=== PATIENT | male | born 1960 | race Caucasian/White ===

== ENCOUNTER → 2018-01-11 11:40 | Outpatient (CLI) | payer MEDICARE, BC, SELFPAY ==
--- NOTE | 2018-01-11 11:48 | XR_ITS ---
XR KUB CLINICAL INDICATION: ITS.REASON: LUQ PAIN ORDERING PHYSICIAN: DANIEL Corrigan PATIENT AGE: 57 years COMPARISON: None FINDINGS: Nonspecific nonobstructive bowel gas pattern. No urolithiasis or acute bony anomalies IMPRESSION: No acute finding
--- NOTE | 2018-01-11 11:48 | XR_ITS ---
XR chest 2V HISTORY: Left-sided pain ITS.REASON: LUQ PAIN ORDERING PHYSICIAN: DANIEL Corrigan PATIENT AGE: 57 years COMPARISON: 10-23 FINDINGS: Prior median sternotomy. Cardiac pacemaker device is present. Prior left atrial clipping. Borderline cardiomegaly without failure. Lungs are clear of acute infiltrate. No acute bony anomalies. IMPRESSION: Borderline cardiomegaly without failure with postsurgical changes, no acute finding
== END ==
PROVIDERS: PCP Family Medicine; Visit Provider Physician Assistant
DX: R10.11 Right upper quadrant pain (principal)
CPT/HCPCS: 71046; 74018

== ENCOUNTER → 2018-02-23 10:45 | Outpatient (CLI) | payer MEDICARE, BC, SELFPAY ==
--- NOTE | 2018-02-23 10:49 | NM_ITS ---
History and Indications: Coronary artery disease, history of [place], bypass, obesity, hypertension, diabetes, family history chest pain and shortness of breath Procedure: Patient received a 0.4 mg of Lexiscan, resting heart rate was 77, resting blood pressure 133/73, with Lexiscan maximum heart rate achieved was 90 bpm which is less than 85% of the maximum predicted heart rate and a blood pressure was 123/65. With Lexiscan patient complained shortness of breath. Electrocardiogram: Resting electrocardiogram showed sinus rhythm left atrial enlargement, inferior and lateral ST-T wave changes consider subendocardial ischemia, with Lexiscan less than 1.[address] segment depression noted from the baseline EKG. The EKG portion of the Lexiscan Myoview is nondiagnostic. Cardiac stress and resting SPECT images: Cardiac stress and rest SPECT images were obtained using technetium 99 Myoview 30.6 mCi at stress and 10.7 mCi at rest, gated SPECT further analysis of segmental wall motion and calculation of the ejection fraction also done. Cardiac stress and rest images show a fixed defect involving the inferior and posterobasal wall with normal contractility in the gated SPECT is likely secondary to soft tissue attenuation, no reversible ischemia seen. Computer derived ejection fraction is 44% abnormality, right ventricle is mildly enlarged with normal contractility. Conclusion: 1. The EKG portion of the Lexiscan Myoview is nondiagnostic. 2. No obvious scintigraphic evidence of reversible ischemia seen, computer derived ejection fraction 44% with no obvious regional wall motion abnormality, right ventricle is mildly enlarged with normal contractility.
--- NOTE | 2018-02-23 13:37 | HMH.ITSHM ---
symbicort ventolin b-12 sinemet warfarin klor-con simvastatin baclofen protonix plaquenil furosemide metoprolol diflunisal keppra calcium loratatdine megnesium cymbalta tamsulosin metformin nitroglycerin oxybutynin verapamil jardiance
== END ==
PROVIDERS: Family Provider Family Medicine; PCP Family Medicine; Visit Provider Internal Medicine
DX: R07.9 Chest pain, unspecified (principal); R06.00 Dyspnea, unspecified; E78.5 Hyperlipidemia, unspecified; I25.10 Atherosclerotic heart disease of native coronary artery without angina pectoris; G47.33 Obstructive sleep apnea (adult) (pediatric); E66.01 Morbid (severe) obesity due to excess calories; Z95.0 Presence of cardiac pacemaker; E11.9 Type 2 diabetes mellitus without complications; I11.0 Hypertensive heart disease with heart failure
CPT/HCPCS: 78452; 93017; A9502; J2785

== ENCOUNTER → 2018-07-26 10:16 | Outpatient (CLI) | payer MEDICARE, BC, SELFPAY ==
[2018-07-26 11:38] LABS: Alanine Aminotransferase 13 U/L (12-78); Albumin Level 3.7 gm/dL (3.4-5.0); Alkaline Phosphatase 101 U/L (46-116); Aspartate Amino Transferase 13 U/L (15-37); Bilirubin,Direct 0.1 mg/dL (0.0-0.2); Bilirubin,Indirect 0.5 mg/dL (0.0-0.9); Bilirubin,Total 0.6 mg/dL (0.2-1.0); Total Protein,Serum 7.7 gm/dL (6.4-8.2)
== END ==
PROVIDERS: Family Provider Family Medicine; PCP Family Medicine; Visit Provider Urology
DX: E11.9 Type 2 diabetes mellitus without complications (principal); E66.01 Morbid (severe) obesity due to excess calories; E78.4 Other hyperlipidemia; I11.0 Hypertensive heart disease with heart failure; I25.10 Atherosclerotic heart disease of native coronary artery without angina pectoris; I42.9 Cardiomyopathy, unspecified; R06.00 Dyspnea, unspecified; R55 Syncope and collapse; R60.0 Localized edema; Z95.0 Presence of cardiac pacemaker
CPT/HCPCS: 36415; 80076

== ENCOUNTER → 2018-08-02 09:48 | Outpatient (CLI) | payer MEDICARE, BC, SELFPAY ==
--- NOTE | 2018-08-02 09:50 | CT_ITS ---
CT head/brain wo/w con HISTORY: ITS.REASON: syncope ORDERING PHYSICIAN: Claudy Cárdenas MD PATIENT AGE: 57 years COMPARISON: None TECHNIQUE: Axial images obtained without and with contrast. 100 mL Isovue 300 utilized Contrast. Brain and bone windows reviewed. All CT scans at the facility use one or more dose reduction, viz: automated exposure control, ma/kV adjustment per patient size (including targeted exams where dose is matched to indication, i.e. head), or iterative reconstruction technique. FINDINGS: No midline shift, mass effect, intracranial hemorrhage, hydrocephalus, or extra-axial fluid collection is evident. No enhancing lesions are evident. No intra or extra-axial mass The calvarium has an unremarkable appearance. No mastoid effusion. No sinus air-fluid levels.. IMPRESSION: Negative CT head without and with contrast. No acute finding
[2018-08-02 10:22] LABS: Blood Urea Nitrogen 19 mg/dL (7-18); Creatinine,Serum 0.99 mg/dL (0.70-1.30); Estimated Glomerular Filt Rate 78 ml/min (>60); GFR (African American) 95 ML/MIN (>60)
== END ==
PROVIDERS: Family Provider Family Medicine; PCP Family Medicine; Visit Provider Internal Medicine
DX: R55 Syncope and collapse; E11.9 Type 2 diabetes mellitus without complications; E66.01 Morbid (severe) obesity due to excess calories; E78.4 Other hyperlipidemia; G47.33 Obstructive sleep apnea (adult) (pediatric); I11.0 Hypertensive heart disease with heart failure; I20.8 Other forms of angina pectoris; I42.9 Cardiomyopathy, unspecified; R06.00 Dyspnea, unspecified; R60.0 Localized edema; Z95.0 Presence of cardiac pacemaker
CPT/HCPCS: 36415; 70470; 82565; 84520; Q9967

== ENCOUNTER → 2018-09-06 08:40 | Outpatient (POV) | payer MEDICARE, BC, SELFPAY | PROVIDERS: Visit Provider Dermatology | DX: Z00.00 Encounter for general adult medical examination without abnormal findings (principal) ==

== ENCOUNTER → 2018-10-03 09:36 | Outpatient (CLI) | payer MEDICARE, BC, SELFPAY ==
--- NOTE | 2018-10-03 09:40 | XR_ITS ---
XR knee RT 4V HISTORY: Knee pain ITS.REASON: weightbearing ORDERING PHYSICIAN: Shaina Reyes MD PATIENT AGE: 58 years COMPARISON: 02/10/2012 FINDINGS: There are jikl-nv-mrpledug osteoarthritic changes involving all 3 compartments with decrease in the joint spaces and osteophyte formation. No acute fracture or dislocation is evident. The osteoarthritis has progressed compared to the previous exam. No lytic or blastic change. IMPRESSION: Osteoarthritis involving all 3 compartments has progressed compared to the previous exam
== END ==
PROVIDERS: PCP Family Medicine; Visit Provider Orthopaedic Surgery
DX: M25.561 Pain in right knee (principal)
CPT/HCPCS: 73564

== ENCOUNTER → 2018-11-17 09:07 | Outpatient (CLI) | payer MEDICARE, BC, SELFPAY ==
--- NOTE | 2018-11-17 09:11 | NVE_ITS ---
Venous Exam Indications: 729.5 Pain in limb. IMPRESSIONS 1. There is no evidence of significant Reflux. 2. Deep vein thrombosis involving the Left gastrocnemius History: PMH: Deep vein thrombosis. Complete lower extremity venous duplex evaluation. Doppler flow study including spectral analysis, color and longo scale imaging. Location: Vascular laboratory. Patient status: Outpatient. CRITICAL FINDINGS - Reported to: ELIZABETH SALCEDO - Read back and verified. - 11/17/18 - 1015 - DVT LEFT CALF Tables: Venous flow and imaging: + + + + Location Overall Flow properties + + + + Right common femoral Patent Normal phasicity; spontaneous; normal augmentation; compressible + + + + Right saphenofemoral Patent Compressible junction + + + + Right profunda femoral Patent Compressible + + + + Right femoral Patent Normal phasicity; spontaneous; normal augmentation; compressible; no reflux + + + + Right greater saphenous Patent Normal phasicity; spontaneous; normal augmentation; compressible + + + + Right popliteal Patent Normal phasicity; spontaneous; normal augmentation; compressible + + + + Right posterior tibial Patent Compressible + + + + Right peroneal Patent Compressible + + + + Right gastrocnemius Partially compressible + + + + Right soleal Patent Compressible + + + + Left common femoral Patent Normal phasicity; spontaneous; normal augmentation; compressible +-----
--- NOTE | 2018-11-17 09:11 | CA_ITS ---
PROCEDURE: 2-D M-mode and color Doppler study INDICATIONS FOR THE TEST: Chest painX COPD Heart Murmur Tobacco Smoking Palpitations Fatigue Syncope Edema HypertensionXDiabetes MellitusX Rheumatic Fever SOBXDOEXObesityXHyperlipidemiaX Family History HD Additional History CAD,CM,PPM,CHRISTY,CABG TDS OBESITY PATIENT INFORMATION HEIGHT: 74 WEIGHT:331 GENDER: Male B/P:138/74 2-D/M-MODE INTERPRETATION: 2-D MEASUREMENTS OBSERVED VALUES IN CMS Right Ventricular Dimension (RVDd) 3.5 Interventricular Septum (Thickness)(IVsd) .9 Left Ventricular Internal Dimensions(LVIDd) 6.2 Left Ventricular Posterior Wall (Thickness)(LVPWd) .9 Aortic Root 3.1 Aortic Cusp Separation 1.5 Left Atrial Dimensions (LAD) 4.7 2D 1. Technically very difficult study because of the patient's factor and poor acoustic window, repeat study with Definity contrast is recommended. 2. The left atrium is mildly enlarged, left ventricle is mildly dilated, probably ejection fraction approximately 40%, endocardial surface of very poorly visualized, a repeat study with Definity contrast is recommended. 3. The right atrium and right ventricle are mildly enlarged with normal contractility, there is an AICD lead seen in the right ventricle. 4. The aortic valve is minimally thickened and fibrosed. 5. The mitral and tricuspid valvular grossly normal. 6. The pulmonic valve is poorly visualized. 7. No significant pericardial effusion noted. DOPPLER INTERROGATION: Doppler interrogation of the aortic, mitral and tricuspid valvular presence of mild mitral and tricuspid regurgitation, tricuspid regurgitation jet velocity is inadequate for calculation of the right ventricular systolic pressure, diastolic parameters are inconclusive. CONCLUSION: 1. Technically very difficult study because of the patient's factor and poor acoustic windows, repeat study with Definity contrast is recommended. 2. Mildly enlarged left atrium, left ventricle is mildly dilated, probably ejection fraction is approximately 40%, endocardial subsequent poorly visualized, a repeat study with Definity contrast is recommended. Diastolic parameters are inconclusive. 3. Mild mitral and tricuspid regurgitation 4. No significant pericardial effusion noted.
== END ==
PROVIDERS: PCP Family Medicine; Visit Provider Internal Medicine
DX: I20.8 Other forms of angina pectoris; I11.9 Hypertensive heart disease without heart failure; E11.9 Type 2 diabetes mellitus without complications; E66.01 Morbid (severe) obesity due to excess calories; E78.5 Hyperlipidemia, unspecified; G47.33 Obstructive sleep apnea (adult) (pediatric); I42.9 Cardiomyopathy, unspecified; R06.00 Dyspnea, unspecified; R60.0 Localized edema; Z86.711 Personal history of pulmonary embolism; Z86.718 Personal history of other venous thrombosis and embolism; Z95.0 Presence of cardiac pacemaker
CPT/HCPCS: 93306; 93970

== ENCOUNTER → 2019-01-27 09:58 | Outpatient (CLI) | payer MEDICARE, BC, SELFPAY ==
--- NOTE | 2019-01-27 10:03 | XR_ITS ---
XR knee LT 3V HISTORY: ITS.REASON: ACUTE LT KNEE PAIN ORDERING PHYSICIAN: DANIEL Corrigan PATIENT AGE: 58 years COMPARISON: None FINDINGS: There are moderate osteoarthritic changes of the medial compartment and patellofemoral joint with mild osteoarthritis of the lateral compartment. No fracture or dislocation. No lytic or blastic change. IMPRESSION: Moderate osteoarthritis
== END ==
PROVIDERS: PCP Family Medicine; Visit Provider Physician Assistant
DX: M25.562 Pain in left knee (principal)
CPT/HCPCS: 73562

== ENCOUNTER → 2019-02-22 08:39 | Outpatient (CLI) | payer MEDICARE, BC, SELFPAY ==
--- NOTE | 2019-02-22 08:42 | XR_ITS ---
XR knee LT 4V HISTORY: Chronic knee pain ITS.REASON: ap, lateral, sunrise, luna weight bearing ORDERING PHYSICIAN: Shaina Reyes MD PATIENT AGE: 58 years COMPARISON: 01/27/2019 FINDINGS: There are moderate osteoarthritic changes involving all 3 compartments with osteophyte formation and decrease in the joint spaces. No fracture or dislocation. No lytic or blastic change. No significant change from the previous study. IMPRESSION: Moderate osteoarthritis of the knee
== END ==
PROVIDERS: PCP Family Medicine; Visit Provider Orthopaedic Surgery
DX: M25.562 Pain in left knee (principal)
CPT/HCPCS: 73564

== ENCOUNTER → 2019-08-28 08:32 | Outpatient (CLI) | payer MEDICARE, BC, SELFPAY ==
--- NOTE | 2019-08-28 08:34 | CA_ITS ---
APPROVED REPORT Commercial Housekeeper: Elsie Pineda RVT Laterality: Bilateral Study Quality: Good Indications: dizziness, near syncope Risk Factors Hypertension: Diabetes Diabetes, Doppler Spectral Velocity Analysis ECA (R) 107.20/ cm/s ECA (L) 74.10/ cm/s dICA (R) 51.30/15.70 cm/s dICA (L) 41.40/12.00 cm/s Megan (R) 66.10/15.60 cm/s Megan (L) 54.50/14.50 cm/s pICA (R) 107.60/13.80 cm/s pICA (L) 48.00/12.80 cm/s dCCA (R) 67.30/12.00 cm/s dCCA (L) 81.50/15.90 cm/s pCCA (R) 95.70/16.70 cm/s pCCA (L) 70.60/14.90 cm/s Vert (R) 32.20/5.90 cm/s Vert (L) 22.90/ cm/s ICA/CCA 1.59 ICA/CCA 0.66 Findings Study suggests less than 20% stenosis of the right internal carotid artery. Study suggests less than 20% stenosis of the left internal carotid artery . Antegrade flow seen bilateral vertebral arteries. Conclusion Study suggests less than 20% stenosis of the right internal carotid artery. Study suggests less than 20% stenosis of the left internal carotid artery . Antegrade flow seen bilateral vertebral arteries. Electronically signed by : Jerardo Holbrook MD 09/01/2019 07:34:14
--- NOTE | 2019-08-28 08:34 | CA_ITS ---
[facility] RADIOLOGICAL CONSULTATION Patient Name : RADHA HAWTHORNE X-RAY # : [id number] Physician: ELIZABETH SALCEDO AGE: 59Y : 1960 00:00:00 ( M ) Exam : CA ECHO DOPPLER COMPLETE ACC # : [id number] Study Date : 08/28/2019 09:31:50 Patient Class : O FINAL REPORT CLINICAL DATA: FINDINGS: TRANSCRIBED REPORT EXAM: Comprehensive 2D, Doppler, and color-flow Echocardiogram Venetian Blind Maker: Elsie Pineda RVT Ht: 6 ft 2 in Wt: 330lbs BSA: 2.69 BP: 118/72 mmHg Indications: Atrial Fibrillation, Obesity, Dyspnea, CAD, Cardiomyopathy, Hypertension,CHRISTY 2D Dimensions LVOT 1.98 cm (M/F) 1.5-2.5 M-Mode Dimensions RVDd 2.73 cm (0.9-2.6) LVDd 7.46 cm (3.5-5.7) LVDs 5.82 cm (3.5-5.7) IVSd 0.72 cm (0.6-1.1) PWd 0.72 cm (0.6-1.1) EF (Teich) 33.70% FS 16.60% EDV (Teich) 294.70 mL ESV (Teich) 199.53 mL LV Diastology E/A Ratio 1.30 Mitral Valve MV A Velocity 36.00 (40-130 cm/s) Electronically signed by : IMPRESSION: Dictated by at Transcribed by at
== END ==
PROVIDERS: PCP Family Medicine; Visit Provider Physician Assistant
DX: R42 Dizziness and giddiness (principal); R06.09 Other forms of dyspnea
CPT/HCPCS: 93306; 93880; Q9957

== ENCOUNTER → 2020-02-28 09:38 | Outpatient (CLI) | payer MEDICARE, BC, SELFPAY ==
[2020-02-28 12:19] LABS: Blood Urea Nitrogen 17 mg/dl (9-20); Estimated Glomerular Filt Rate 99 ml/min (>60); GFR (African American) 120 ML/MIN (>60)
== END ==
PROVIDERS: Visit Provider Physician Assistant
DX: R10.31 Right lower quadrant pain (principal)
CPT/HCPCS: 36415; 82565; 84520

== ENCOUNTER → 2020-02-29 08:42 | Outpatient (CLI) | payer MEDICARE, BC, SELFPAY ==
--- NOTE | 2020-02-29 08:49 | CT_ITS ---
PROCEDURE: CT ABDOMEN PELVIS W CON CLINICAL INDICATION: ABD PAIN Right lower quadrant pain COMPARISON: ABDPELW CT ABD PELVIS W/ CONTRAST from 11/19/2015 TECHNIQUE: IV Contrast: 75ML OPTIRAY 350 Oral Contrast none Axial images obtained with sagittal and coronal reformats. All CT scans at the facility use one or more dose reduction, viz: automated exposure control, ma/kV adjustment per patient size (including targeted exams where dose is matched to indication, i.e. head), or iterative reconstruction technique. FINDINGS: LOWER THORAX: No acute finding ABDOMEN & PELVIS: The liver, spleen, adrenal glands, and pancreas have an unremarkable appearance. There is a 2 cm exophytic left renal nodule superiorly consistent with a renal cyst which could be confirmed with ultrasound if clinically warranted. Small exophytic cyst noted along the lower pole of the right kidney at 1 cm and an additional exophytic isodense the along the medial aspect of the left kidney at 1.9 cm. No intestinal obstruction or free air. There is a small umbilical hernia which contains fat. No evidence of appendicitis or diverticulitis. No acute bony anomaly. There are degenerative changes of the thoracic lumbar spine with mild chronic wedging of T12. A IMPRESSION: 1. No acute abdominal or pelvic findings. 2. Bilateral renal hypodensities which may be due to renal cyst and may be confirmed with ultrasound. These are more prominent on the left than when compared to 11/19/2015. Dictated by: Jerardo Holbrook MD 03/01/2020 11:03 Electronically signed by Jerardo Holbrook MD in [place] 03/01/2020 11:03
== END ==
PROVIDERS: PCP Family Medicine; Visit Provider Physician Assistant
DX: R10.31 Right lower quadrant pain (principal)
CPT/HCPCS: 74177; Q9967

== ENCOUNTER → 2020-03-14 09:13 | Outpatient (CLI) | payer MEDICARE, BC, SELFPAY ==
--- NOTE | 2020-03-14 09:20 | XR_ITS ---
PROCEDURE: XR KNEE RT 4V CLINICAL INDICATION: knee pain COMPARISON: [id number] XR knee RT 4V from 10/03/2018 [id number] XR knee LT 3V from 01/27/2019 [id number] XR knee LT 4V from 02/22/2019 FINDINGS: No fracture or dislocation. No lytic or blastic change. There is normal mineralization. There are moderate to severe osteoarthritic changes of the right knee involving all 3 compartments. There is mild lateral tibial subluxation of 6 mm. No acute fracture or dislocation is evident. Other findings:None. IMPRESSION: Moderate to severe osteoarthritis which is slightly progressed Dictated by: Jerardo Holbrook MD 03/15/2020 14:26 Electronically signed by Jerardo Holbrook MD in [place] 03/15/2020 14:26
--- NOTE | 2020-03-14 09:20 | XR_ITS ---
PROCEDURE: XR KNEE LT 4V CLINICAL INDICATION: knee pain COMPARISON: [id number] XR knee RT 4V from 10/03/2018 [id number] XR knee LT 3V from 01/27/2019 [id number] XR knee LT 4V from 02/22/2019 FINDINGS: No fracture or dislocation. No lytic or blastic change. There is normal mineralization. There are moderate osteoarthritic changes involving all 3 compartments. These findings may have slightly progressed compared to the previous exam. There is mild tibial subluxation laterally of 5 mm. IMPRESSION: Moderate tricompartmental osteoarthritis slightly worse from the previous exam Dictated by: Jerardo Holbrook MD 03/15/2020 13:57 Electronically signed by Jerardo Holbrook MD in [place] 03/15/2020 13:57
== END ==
PROVIDERS: PCP Family Medicine; Visit Provider Orthopaedic Surgery
DX: M17.0 Bilateral primary osteoarthritis of knee (principal)
CPT/HCPCS: 73564

== ENCOUNTER → 2020-03-25 10:25 | Outpatient (CLI) | payer MEDICARE, BC, SELFPAY ==
--- NOTE | 2020-03-25 10:46 | XR_ITS ---
PROCEDURE: XR CHEST 2V CLINICAL HISTORY: pre-op exam Heart disease, history of pacemaker, hypertension COMPARISON: CXR1 CHEST-PORTABLE from 10/09/2016 CXR2V XR chest 2V from 01/11/2018 [id number] XR chest portable from 11/01/2018 FINDINGS: Prior median sternotomy. Bipolar pacemaker is present in there is a atrial appendage clip present. Borderline cardiomegaly without failure. No lobar consolidation or collapse. There is some pleural thickening in the right mid upper lung zone laterally which is chronic. No acute bony abnormalities. IMPRESSION: No acute findings. Dictated by: Jerardo Holbrook MD 03/25/2020 11:49 Electronically signed by Jerardo Holbrook MD in [place] 03/25/2020 11:49
[2020-03-25 11:04] LABS: Basophils % 0.4 % (0.1-2.0); Eosinophils # 0.1 K/mm3 (0.0-0.4); Eosinophils % 1.6 % (0.1-12.0); Hematocrit 44.8 % (42.0-52.0); Hemoglobin 14.7 g/dL (14.1-18.0); Lymphocytes # 1.5 K/mm3 (0.7-4.5); Lymphocytes % 23.3 % (10-50); Mean Corpuscular HGB Conc 32.7 g/dL (31.8-35.4); Mean Corpuscular Hemoglobin 27.4 pg (27.0-31.2); Mean Corpuscular Volume 83.8 fl (80-94); Monocytes # 0.5 K/mm3 (0.1-1.0); Monocytes % 7.8 % (1.7-9.3); Neutrophils # 4.3 K/mm3 (1.8-7.8); Neutrophils % 66.8 % (37.0-80.0); Platelet Count 210 K/mm3 (142-424); Red Blood Count 5.35 M/mm3 (4.60-6.20); White Blood Count 6.4 K/mm3 (4.8-10.8)
--- NOTE | 2020-03-25 11:19 | ECG_ITS ---
APPROVED REPORT Exam: Resting ECG HR:75 bpm ECG Measurements Heart Rate 75 AXES NE 172 P 88 QRSd 108 QRS 82 QT 410 T -56 QTc 457 <Conclusion> Electronic atrial pacemaker ST & T wave abnormality, consider inferior and anterolateral ischemia Abnormal ECG Electronically signed by : Jcarlos Padilla, 03/25/2020 11:40:29
[2020-03-25 11:37] LABS: Alanine Aminotransferase 12 U/L (12-78); Albumin Level 4.2 g/dl (3.5-5.0); Albumin/Globulin Ratio 1.8 (1.1-1.8); Alkaline Phosphatase 71 U/L (38-126); Anion Gap 10.3 mEq/L (5-15); Aspartate Amino Transferase 28 U/L (17-59); Bilirubin,Total 0.6 mg/dl (0.2-1.3); Blood Urea Nitrogen 17 mg/dl (9-20); Calcium 9.2 mg/dl (8.4-10.2); Carbon Dioxide 25 mmol/L (22.0-30.0); Chloride 107 mmol/L (98-107); Estimated Glomerular Filt Rate 87 ml/min (>60); GFR (African American) 105 ML/MIN (>60); Globulin 2.3 g/dL (1.3-3.2); Glucose 132 mg/dl (74-100); Potassium 4.3 mmoL/L (3.5-5.1); Sodium 138 mmol/L (136-145); Total Protein,Serum 6.5 g/dl (6.3-8.2)
== END ==
LOC: LAB 10:25 → RT 10:42
PROVIDERS: PCP Family Medicine; Visit Provider Orthopaedic Surgery
DX: R07.89 Other chest pain (principal); Z01.818 Encounter for other preprocedural examination; E11.9 Type 2 diabetes mellitus without complications; Z79.84 Long term (current) use of oral hypoglycemic drugs
CPT/HCPCS: 36415; 71046; 80053; 85025; 87081; 93005

== ENCOUNTER → 2020-05-09 09:31 | Day surgery (SDC) | payer MEDICARE, BC, SELFPAY ==
[2020-05-09] VITALS (11 sets, daily range): BP systolic 108–161; BP diastolic 37–99; PULSE 75–77; RESP 16–20; O2SAT 92–98; BMI 41.1
[2020-05-09 10:21] LABS: Basophils % 0.3 % (0.1-2.0); Eosinophils # 0.1 K/mm3 (0.0-0.4); Eosinophils % 1.6 % (0.1-12.0); Hematocrit 48.1 % (42.0-52.0); Hemoglobin 15.8 g/dL (14.1-18.0); Lymphocytes # 1.8 K/mm3 (0.7-4.5); Lymphocytes % 21.4 % (10-50); Mean Corpuscular HGB Conc 32.9 g/dL (31.8-35.4); Mean Corpuscular Hemoglobin 28.9 pg (27.0-31.2); Mean Corpuscular Volume 87.9 fl (80-94); Mean Platelet Volume 7.4 fl (7.4-10.4); Monocytes # 0.5 K/mm3 (0.1-1.0); Monocytes % 5.4 % (1.7-9.3); Neutrophils % 71.4 % (37.0-80.0); Platelet Count 181 K/mm3 (142-424); Red Blood Count 5.47 M/mm3 (4.60-6.20); Red Cell Distribution Width 14.3 % (11.5-17.5); White Blood Count 8.3 K/mm3 (4.8-10.8)
[2020-05-09 10:24] LABS: Chloride 105 mmol/L (98-107); Potassium 4.5 mmoL/L (3.5-5.1); Sodium 141 mmol/L (136-145)
[2020-05-09 10:27] LABS: Anion Gap 11.5 mEq/L (5-15); Blood Urea Nitrogen 29 mg/dl (9-20); Carbon Dioxide 29 mmol/L (22.0-30.0); Creatinine Clearance Estimated 184 mL/min (50-200); Estimated Glomerular Filt Rate 87 ml/min (>60); GFR (African American) 105 ML/MIN (>60)
[2020-05-09 10:28] LABS: Calcium 9.1 mg/dl (8.4-10.2); Glucose 132 mg/dl (74-100)
[2020-05-09 10:30] LABS: INR 2.86 (0.9-1.1); Prothrombin Time 27.5 seconds (9.4-11.8)
--- NOTE | 2020-05-09 10:30 | IR_ITS ---
APPROVED REPORT Patient Location: Outpatient PROCEDURES Left heart catheterization Left ventriculogram Selective coronary angiogram FFR to the LAD Drug-eluting stent deployment from the ostium through the proximal segment into the mid LAD in a contiguous manner INDICATION Coronary artery disease, Angina pectoris, Ischemic response to adenosine 0.71 Informed consent was obtained prior to the procedure. COMPLICATIONS NONE Estimated Blood Loss: LESS THAN 10 ML TECHNIQUE One percent lidocaine used to anesthetize the right anterior aspect of the wrist. The right radial artery was accessed via the Seldinger technique. A 6 Irish sheath was placed in the right radial artery. 2.5 mg of verapamil, 800 mcg of nitroglycerin, 1mg Lidocaine and 5000 U Heparin were given through the arterial sheath. The trap catheter was also used to perform left heart catheterization, left ventriculogram and selective coronary angiogram. 14,000 units of heparin was administered intravenously giving a therapeutic ACT and a Ladarius catheter was placed in the ascending aorta. An FFR wire was normalized and then used to traverse the stenosis in the LAD. Adenosine was infused and the FFR index dropped to 0.71. The adenosine was then immediately stopped. Following this a 3 mm x 38 mm resolute david stent was deployed at 16 katia in the mid LAD. An additional 3 mm x 22 mm resolute david stent was placed in the ostial proximal segment yet still overlapping the proximal aspect of the first stent placed and deployed at 20 katia. DARIN-3 flow was present before and after the procedure. At the end of the procedure the apparatus was removed the sheath was removed good hemostasis was achieved using TR banding patient was transferred to the postop holding her stable condition. ANGIOGRAPHIC RESULTS The left main artery Normal The left anterior descending artery Has proximal 50% stenosis followed by mid vessel 50% stenosed The circumflex artery Is a nondominant yet still large vessel with mid vessel 20% stenosis The right coronary artery Is a dominant vessel and has mid vessel 30 to 40% stenoses The GUADARRAMA ventriculogram reveals Preserved 55% The left ventricular end-diastolic pressure 20 mmHg IMPRESSION Angiographically moderate yet hemodynamically severe proximal and mid LAD disease Successful stenting of the ostial proximal mid LAD in a contiguous manner hemodynamically severe disease reduced to 0% with 2 drug-eluting stents Preserved ejection fraction Elevated LVEDP PLAN 1. Aspirin Plavix and Coumadin for 1 month then discontinue aspirin 2. Cardiac rehabilitation 3. Avoidance of tobacco products 4. Cardiac rehabilitation 5. LDL less than 55 Electronically signed by : Claudy Cárdenas, 05/09/2020 13:32:32
--- NOTE | 2020-05-09 13:53 | SUR.PHASEII ---
PATIENT BLOOD PRESSURE UNABLE TO TOLERATE ANY NEW MEDICATIONS, DIONNE/ARB NOT NECESSARY AT THIS TIME PER MD.
--- NOTE | 2020-05-09 14:37 | HMH.PHACLD ---
Nghia Montalvo has received discharge medication counseling on the following medications: CONTINUED MEDICATIONS: NADOLOL, PLAVIX, LIPITOR NEW MEDICATIONS: ASPRIN X 1 MONTH (PATIENT ALSO ON WARFARIN) MD DOES NOT WANT TO START DIONNE/ARB AT THIS TIME. DOCUMENTED IN NOTE AND ON CHECKLIST.
[2020-05-09 15:01] LABS: CATHL Activated Clotting Time > 400 SEC (74-125)
== END ==
PROVIDERS: PCP Family Medicine; Visit Provider Internal Medicine
DX: E11.9 Type 2 diabetes mellitus without complications (principal); E66.01 Morbid (severe) obesity due to excess calories; E78.2 Mixed hyperlipidemia; G47.33 Obstructive sleep apnea (adult) (pediatric); I11.0 Hypertensive heart disease with heart failure; I25.118 Atherosclerotic heart disease of native coronary artery with other forms of angina pectoris; I42.9 Cardiomyopathy, unspecified; R94.31 Abnormal electrocardiogram [ECG] [EKG]; Z95.0 Presence of cardiac pacemaker; Z68.41 Body mass index [BMI] 40.0-44.9, adult; I48.91 Unspecified atrial fibrillation; J44.9 Chronic obstructive pulmonary disease, unspecified; I25.2 Old myocardial infarction; Z79.01 Long term (current) use of anticoagulants; Z79.84 Long term (current) use of oral hypoglycemic drugs; Z79.51 Long term (current) use of inhaled steroids; Z79.82 Long term (current) use of aspirin; Z79.899 Other long term (current) drug therapy; I50.9 Heart failure, unspecified
CPT/HCPCS: 80048; 85025; 85347; 85610; 92928; 93306; 93458; 93571; 99152; 99153; C1725; C1769; C1876; C9600; J0153; J1644; Q9967

== ENCOUNTER → 2020-05-23 16:04 | Outpatient (CLI) | payer MEDICARE, BC, SELFPAY ==
--- NOTE | 2020-05-23 | XR_ITS ---
PROCEDURE: XR CHEST AP CLINICAL INDICATION: Cough, possible covid, COPD COMPARISON: CXR2V XR chest 2V from 01/11/2018 CXR1VP XR chest portable from 11/01/2018 XR CHEST 2V from 03/25/2020 FINDINGS: Mild cardiomegaly without failure. Prior CABG. Bipolar pacemaker is present from the left subclavian approach. Prior left aortic appendage clipping. The lungs are clear. IMPRESSION: As above, no change with no acute finding Dictated by: Jerardo Holbrook MD 05/23/2020 20:23 Electronically signed by Jerardo Holbrook MD in [place] 05/23/2020 20:23
[2020-05-23 16:36] LABS: Basophils % 0.2 % (0.1-2.0); Eosinophils # 0.1 K/mm3 (0.0-0.4); Eosinophils % 1.6 % (0.1-12.0); Hematocrit 42.4 % (42.0-52.0); Hemoglobin 14.3 g/dL (14.1-18.0); Lymphocytes # 1.1 K/mm3 (0.7-4.5); Mean Corpuscular HGB Conc 33.6 g/dL (31.8-35.4); Mean Corpuscular Hemoglobin 28.8 pg (27.0-31.2); Mean Corpuscular Volume 85.7 fl (80-94); Monocytes # 0.3 K/mm3 (0.1-1.0); Monocytes % 6.9 % (1.7-9.3); Neutrophils # 3.2 K/mm3 (1.8-7.8); Neutrophils % 68.3 % (37.0-80.0); Platelet Count 181 K/mm3 (142-424); Red Blood Count 4.95 M/mm3 (4.60-6.20); Red Cell Distribution Width 14.4 % (11.5-17.5); White Blood Count 4.6 K/mm3 (4.8-10.8)
[2020-05-25 12:58] LABS: Covid-19 Nasal PCR Sendout Lex POSITIVE
== END ==
PROVIDERS: PCP Physician Assistant; Visit Provider Physician Assistant
DX: U07.1 COVID-19 (principal); R05 Cough
CPT/HCPCS: 36415; 71045; 85025; U0004

== ENCOUNTER → 2020-06-13 14:34 | Outpatient (CLI) | payer MEDICARE, BC, SELFPAY | PROVIDERS: PCP Physician Assistant; Visit Provider Physician Assistant | DX: U07.1 COVID-19 (principal) | CPT/HCPCS: U0003 ==

== ENCOUNTER → 2020-06-20 08:36 | Outpatient (CLI) | payer MEDICARE, BC, SELFPAY | PROVIDERS: PCP Physician Assistant; Visit Provider Physician Assistant | DX: Z20.828 Contact with and (suspected) exposure to other viral communicable diseases (principal); U07.1 COVID-19 | CPT/HCPCS: U0003 ==

== ENCOUNTER → 2020-06-21 14:52 | Outpatient (CLI) | payer MEDICARE, BC, SELFPAY ==
[2020-06-21 16:08] LABS: INR 3.46 (0.9-1.1); Prothrombin Time 32.9 seconds (9.4-11.8)
[2020-06-21 18:34] LABS: Coronavirus 19 IgG Antibody Positive (Negative); Coronavirus 19 IgM Antibody Positive (Negative)
== END ==
PROVIDERS: PCP Physician Assistant; Visit Provider Physician Assistant
DX: Z20.828 Contact with and (suspected) exposure to other viral communicable diseases (principal); U07.1 COVID-19; Z51.81 Encounter for therapeutic drug level monitoring; Z79.01 Long term (current) use of anticoagulants
CPT/HCPCS: 85610; 86328

== ENCOUNTER → 2020-06-27 08:49 | Outpatient (CLI) | payer MEDICARE, BC, SELFPAY ==
[2020-06-29 09:51] LABS: Covid-19 Nasal PCR Sendout Lex Indeterminate
== END ==
PROVIDERS: PCP Physician Assistant; Visit Provider Physician Assistant
DX: Z03.818 Encounter for observation for suspected exposure to other biological agents ruled out (principal)
CPT/HCPCS: U0004

== ENCOUNTER → 2020-07-01 11:00 | Outpatient (CLI) | payer MEDICARE, BC, SELFPAY ==
[2020-07-02 15:48] LABS: Covid-19 Nasal PCR Sendout Lex POSITIVE
== END ==
PROVIDERS: PCP Physician Assistant; Visit Provider Physician Assistant
DX: Z20.828 Contact with and (suspected) exposure to other viral communicable diseases (principal); U07.1 COVID-19
CPT/HCPCS: U0004

== ENCOUNTER 2020-07-02 15:19 | Emergency (ER) | payer MEDICARE, BC, SELFPAY ==
--- NOTE | 2020-07-02 15:20 | ECG_ITS ---
APPROVED REPORT Exam: Resting ECG HR:77 bpm ECG Measurements Heart Rate 77 AXES AZ 146 P 47 QRSd 108 QRS 49 QT 394 T 78 QTc 445 <Conclusion> Normal sinus rhythm Nonspecific ST-T wave abnormalities Abnormal ECG Electronically signed by : Jcarlos Padilla, 07/03/2020 08:59:57
--- NOTE | 2020-07-02 15:26 | HMH.EDGENADL ---
ED Disposition Clinical Impression: Chest wall pain Disposition: Home, Self-Care Condition on Discharge: Good Instructions: DI for Atypical Chest Pain Additional Instructions: Tylenol as needed for pain. Follow-up with Dr. Cárdenas in the office, call for appointment. Additional instructions for CHEST PAIN: See your physician as soon as possible for further evaluation. Return immediately if worsening chest pain, vomiting, shortness of breath, fever, coughing of blood. Referrals: Provider,Referral, [Referring] - - Critical Care Critical Care Time: No Attestation: On , the high probability of a clinically significant, sudden or life threatening deterioration of the following system(s) required my full and direct attention, intervention and personal management. The time I documented below is in addition to time spent performing reported procedures but includes the following listed in this critical care notation. Medical Decision Making - Anthony Inquiry Pt receiving controlled substance: No Vital Signs: 07/02/20 15:30 07/02/20 15:35 07/02/20 17:38 Temperature 98.1 F 98.1 F Temperature Source Oral Oral Pulse Rate 85 Pulse Rate [Orthostatic Lying Right Radial] 76 Pulse Rate [Orthostatic Sitting Right Radial] 85 Pulse Rate [Orthostatic Standing Right Radial] 84 Pulse Rate [Right Radial] 74 Respiratory Rate 17 16 Blood Pressure 119/70 Blood Pressure [Orthostatic Lying Right Arm] 121/63 Blood Pressure [Orthostatic Sitting Right Arm] 129/70 Blood Pressure [Orthostatic Standing Right Arm] 122/67 Blood Pressure [Right Arm] 121/63 Blood Pressure Mean [Right Arm] 82 02 Sat by Pulse Oximetry 98 Oxygen Delivery Method Room Air Room Air - Lab Data Lab Results 07/02/20 15:32: WBC 7.5, RBC 5.38, Hgb 15.3, Hct 45.2, MCV 84.0, MCH 28.5, MCHC 34.0, RDW 14.9, Plt Count 186, MPV 7.7, Neut % (Auto) 68.4, Lymph % (Auto) 23.8, Daggett % (Auto) 4.5, Eos % (Auto) 3.1, Baso % (Auto) 0.4, Neut # (Auto) 5.1, Lymph # (Auto) 1.8, Daggett # (Auto) 0.3, Eos # (Auto) 0.2, Baso # (Auto) 0.0 07/02/20 15:32: PT 21.2 H, INR 2.17 H, APTT 31.6 07/02/20 15:32: Sodium 142, Potassium 3.9, Chloride 103, Carbon Dioxide 32 H, Anion Gap 10.9, BUN 17, Creatinine 0.90, Estimated Creat Clear 178, Estimated GFR 87, Est GFR ( Amer) 105, Glucose 152 H, Calcium 9.1, Total Bilirubin 0.6, AST 61 H, ALT 22, Alkaline Phosphatase 79, Troponin I < 0.01, Total Protein 6.8, Albumin 3.9, Globulin 2.9, Albumin/Globulin Ratio 1.3 07/02/20 15:32: SARS-CoV-2 IgG Ab (Rapid) Positive A, SARS-CoV-2 IgM Ab (Rapid) Positive A Result diagrams: 07/02/20 15:32 07/02/20 15:32 Orders (Tests/Meds): ED MEDICATIONS Discontinued Medications Generic Name Dose Route Start Last Admin Trade Name Freq PRN Reason Stop Dose Admin Ioversol 70 ml 07/02/20 16:10 07/02/20 16:11 Rad-Optiray 350 100ml Vial IV 07/02/20 16:11 70 ml ONCE ONE Administration Protocol Sodium Chloride 10 ml 07/02/20 16:10 07/02/20 16:11 Rad-Saline Flush 10ml Syringe IV 07/02/20 16:11 10 ml ONCE ONE Administration Sodium Chloride 50 ml 07/02/20 16:10 07/02/20 16:11 Rad-Ns 50ml Vial IV 07/02/20 16:11 50 ml ONCE ONE Administration ORDERS Category Date Time Status Troponin I Q3H Lab 07/02/20 18:45 Ordered Troponin I Q3H Lab 07/02/20 21:45 Ordered - Radiology Data #1 Image(s): Chest Image Reviewed: Yes I reviewed the patient's radiology image Postsurgical changes. Pacemaker. No acute process. - CT Data CT Scan: Head, Chest (CTA) Time Received: 16:[address] Reviewed: Yes: I have viewed the radiologist's interpretation Findings Narrative: PROCEDURE: CT HEAD/BRAIN WO CON CLINICAL INDICATION: head injury Head injury with headache/pain, contusion, abrasion or hematoma COMPARISON: CT HEADWW CT head/brain wo/w con from 08/02/2018 TECHNIQUE: Axial images obtained. All CT scans at the facility us
[2020-07-02 15:30] VITALS: BP 121/63; PULSE 74; RESP 17; TEMP 36.7; O2SAT 98; BMI 39.8
--- NOTE | 2020-07-02 15:34 | CT_ITS ---
PROCEDURE: CT HEAD/BRAIN WO CON CLINICAL INDICATION: head injury Head injury with headache/pain, contusion, abrasion or hematoma COMPARISON: CT HEADWW CT head/brain wo/w con from 08/02/2018 TECHNIQUE: Axial images obtained. All CT scans at the facility use one or more dose reduction, viz: automated exposure control, ma/kV adjustment per patient size (including targeted exams where dose is matched to indication, i.e. head), or iterative reconstruction technique. FINDINGS: No midline shift, mass effect, intracranial hemorrhage, hydrocephalus, or extra-axial fluid collection is evident. Small area of exostosis involves the central aspect of the frontal bone anteriorly inferiorly nonspecific and not significantly changed. The calvarium has an unremarkable appearance. No mastoid effusion. No sinus air-fluid level. IMPRESSION: No acute intracranial finding Dictated by: Jerardo Holbrook MD 07/02/2020 16:33 Jerardo Holbrook MD in [facility] 07/02/2020 16:33
--- NOTE | 2020-07-02 15:34 | XR_ITS ---
PROCEDURE: XR CHEST 2V CLINICAL HISTORY: chest pain COMPARISON: CR [id number] XR chest portable from 11/01/2018 CR XR CHEST 2V from 03/25/2020 CR XR CHEST AP from 05/23/2020 FINDINGS: There is borderline cardiomegaly without failure. Bipolar pacemaker is present from left subclavian approach. Atrial appendage clip noted on the left. There is a calcified granuloma in the right lung base medially. There is mild pleural thickening involving both mid rossy thoraces laterally. No lobar consolidation or collapse. No acute bony findings. No acute bony abnormalities. IMPRESSION: Prior CABG with bipolar pacemaker and left atrial clip present with mild cardiomegaly Dictated by: Jerardo Holbrook MD 07/02/2020 16:50 Jerardo Holbrook MD in [facility] 07/02/2020 16:50
[2020-07-02 15:35] VITALS: BP 121/63; BP 122/67; BP 129/70; PULSE 76; PULSE 84; PULSE 85
[2020-07-02 15:43] LABS: Basophils % 0.4 % (0.1-2.0); Eosinophils # 0.2 K/mm3 (0.0-0.4); Eosinophils % 3.1 % (0.1-12.0); Hematocrit 45.2 % (42.0-52.0); Hemoglobin 15.3 g/dL (14.1-18.0); Lymphocytes # 1.8 K/mm3 (0.7-4.5); Lymphocytes % 23.8 % (10-50); Mean Corpuscular Hemoglobin 28.5 pg (27.0-31.2); Mean Platelet Volume 7.7 fl (7.4-10.4); Monocytes # 0.3 K/mm3 (0.1-1.0); Monocytes % 4.5 % (1.7-9.3); Neutrophils # 5.1 K/mm3 (1.8-7.8); Neutrophils % 68.4 % (37.0-80.0); Platelet Count 186 K/mm3 (142-424); Red Blood Count 5.38 M/mm3 (4.60-6.20); Red Cell Distribution Width 14.9 % (11.5-17.5); White Blood Count 7.5 K/mm3 (4.8-10.8)
--- NOTE | 2020-07-02 15:44 | CT_ITS ---
PROCEDURE: CT ANGIO CHEST CLINCIAL INDICATION: left pleuritic chest pain, h/o PE Shortness of air, chest pain, history of pulmonary embolus, COVID positive COMPARISON: No exams were available for comparison TECHNIQUE: IV Contrast: 70ML OPTIRAY 350 Axial images obtained with sagittal and coronal reformats. All CT scans at the facility use one or more dose reduction, viz: automated exposure control, ma/kV adjustment per patient size (including targeted exams where dose is matched to indication, i.e. head), or iterative reconstruction technique. FINDINGS: HEART AND MEDIASTINAL STRUCTURES: No evidence of pulmonary embolus, aortic aneurysm, or aortic dissection. No mediastinal or hilar mass. There has been a prior CABG. There is evidence of old granulomatous disease. LUNGS AND PLEURAL SPACES: Minimal atelectatic or fibrotic changes are present in the lung bases. Minimal nodularity noted in the long hemidiaphragm on the left posteriorly. This is nonspecific and may be due to partial volume averaging artifact. Calcified granuloma is present in the right lower lobe BONY STRUCTURES: No acute bony abnormalities apparent. UPPER ABDOMEN: Unremarkable. ADDITIONAL FINDINGS: Gynecomastia IMPRESSION: 1. No acute finding. 2. No evidence of pulmonary embolus Dictated by: Jerardo Holbrook MD 07/02/2020 16:42 Jerardo Holbrook MD in [facility] 07/02/2020 16:42
[2020-07-02 15:49] LABS: Chloride 103 mmol/L (98-107); Sodium 142 mmol/L (136-145)
[2020-07-02 15:50] LABS: Potassium 3.9 mmoL/L (3.5-5.1)
[2020-07-02 15:52] LABS: Alanine Aminotransferase 22 U/L (12-78); Alkaline Phosphatase 79 U/L (38-126); Aspartate Amino Transferase 61 U/L (17-59); Bilirubin,Total 0.6 mg/dl (0.2-1.3); Blood Urea Nitrogen 17 mg/dl (9-20); Creatinine Clearance Estimated 178 mL/min (50-200); Estimated Glomerular Filt Rate 87 ml/min (>60); GFR (African American) 105 ML/MIN (>60)
[2020-07-02 15:53] LABS: Activated Partial Thrombo Time 31.6 seconds (23.6-34.0); Albumin Level 3.9 g/dl (3.5-5.0); Albumin/Globulin Ratio 1.3 (1.1-1.8); Anion Gap 10.9 mEq/L (5-15); Calcium 9.1 mg/dl (8.4-10.2); Carbon Dioxide 32 mmol/L (22.0-30.0); Globulin 2.9 g/dL (1.3-3.2); Glucose 152 mg/dl (74-100); INR 2.17 (0.9-1.1); Prothrombin Time 21.2 seconds (9.4-11.8); Total Protein,Serum 6.8 g/dl (6.3-8.2)
[2020-07-02 16:05] LABS: Troponin I < 0.01 ng/ml (0.00-0.034)
--- NOTE | 2020-07-02 16:15 | PC.NURSE ---
pt back from CT
[2020-07-02 17:35] LABS: Coronavirus 19 IgG Antibody Positive (Negative); Coronavirus 19 IgM Antibody Positive (Negative)
[2020-07-02 17:38] VITALS: BP 119/70; PULSE 85; RESP 16; TEMP 36.7; O2SAT 98
== END 2020-07-02 17:39 | disposition home or self-care (01) ==
PROVIDERS: Emergency Provider Emergency Medicine; PCP Physician Assistant
DX: U07.1 COVID-19 (principal); R07.89 Other chest pain; I25.10 Atherosclerotic heart disease of native coronary artery without angina pectoris; Z95.5 Presence of coronary angioplasty implant and graft; I48.20 Chronic atrial fibrillation, unspecified; J44.9 Chronic obstructive pulmonary disease, unspecified; I10 Essential (primary) hypertension; E11.9 Type 2 diabetes mellitus without complications; E78.5 Hyperlipidemia, unspecified; Z88.8 Allergy status to other drugs, medicaments and biological substances; Z79.899 Other long term (current) drug therapy
CPT/HCPCS: 70450; 71046; 71275; 80053; 84484; 85025; 85610; 85730; 86328; 93005; 99283; Q9967

== ENCOUNTER → 2020-07-19 08:19 | Outpatient (CLI) | payer MEDICARE, BC, SELFPAY ==
[2020-07-20 13:42] LABS: Covid-19 Nasal PCR Sendout Lex Not Detected
== END ==
PROVIDERS: PCP Family Medicine; Visit Provider Family Medicine
DX: Z03.818 Encounter for observation for suspected exposure to other biological agents ruled out (principal)
CPT/HCPCS: U0004

== ENCOUNTER → 2021-01-22 09:14 | Outpatient (CLI) | payer MEDICARE, BC, SELFPAY ==
[2021-01-22 09:48] LABS: Basophils % 0.4 % (0.1-2.0); Eosinophils # 0.1 K/mm3 (0.0-0.4); Eosinophils % 1.3 % (0.1-12.0); Hematocrit 49.8 % (42.0-52.0); Hemoglobin 15.8 g/dL (14.1-18.0); Lymphocytes # 1.7 K/mm3 (0.7-4.5); Lymphocytes % 21.1 % (10-50); Mean Corpuscular HGB Conc 31.8 g/dL (31.8-35.4); Mean Corpuscular Hemoglobin 27.2 pg (27.0-31.2); Mean Corpuscular Volume 85.5 fl (80-94); Mean Platelet Volume 7.6 fl (7.4-10.4); Monocytes # 0.4 K/mm3 (0.1-1.0); Monocytes % 4.5 % (1.7-9.3); Neutrophils % 72.7 % (37.0-80.0); Platelet Count 207 K/mm3 (142-424); Red Blood Count 5.82 M/mm3 (4.60-6.20); White Blood Count 8.2 K/mm3 (4.8-10.8)
[2021-01-22 10:09] LABS: Chloride 104 mmol/L (98-107)
[2021-01-22 10:10] LABS: Potassium 4.4 mmoL/L (3.5-5.1); Sodium 140 mmol/L (136-145)
[2021-01-22 10:13] LABS: Anion Gap 15.4 mEq/L (5-15); Blood Urea Nitrogen 11 mg/dl (9-20); Calcium 9.1 mg/dl (8.4-10.2); Carbon Dioxide 25 mmol/L (22.0-30.0); Estimated Glomerular Filt Rate 115 ml/min (>60); GFR (African American) 140 ML/MIN (>60); Glucose 177 mg/dl (74-100)
[2021-01-22 10:40] LABS: Coronavirus 19 IgG Antibody Positive (Negative); Coronavirus 19 IgM Antibody Negative (Negative)
== END ==
PROVIDERS: PCP Family Medicine; Visit Provider Urology
DX: E11.9 Type 2 diabetes mellitus without complications (principal); E66.01 Morbid (severe) obesity due to excess calories; E78.2 Mixed hyperlipidemia; G47.33 Obstructive sleep apnea (adult) (pediatric); I11.0 Hypertensive heart disease with heart failure; I20.0 Unstable angina; I42.9 Cardiomyopathy, unspecified; I48.0 Paroxysmal atrial fibrillation; R06.09 Other forms of dyspnea; R42 Dizziness and giddiness; R94.31 Abnormal electrocardiogram [ECG] [EKG]; Z95.0 Presence of cardiac pacemaker; Z01.818 Encounter for other preprocedural examination; Z20.822 Contact with and (suspected) exposure to COVID-19
CPT/HCPCS: 36415; 80048; 85025; 86328; U0003

== ENCOUNTER 2021-01-24 08:00 | Day surgery (SDC) | payer MEDICARE, BC, SELFPAY ==
[2021-01-24] VITALS (11 sets, daily range): BP systolic 105–146; BP diastolic 59–78; PULSE 75–77; RESP 16–20; O2SAT 77–98; BMI 39.6
--- NOTE | 2021-01-24 07:20 | IR_ITS ---
APPROVED REPORT Patient Location: [facility] Booking Clerk: ADRIEL Corcoran RT (R) PROCEDURES Left heart catheterization Left ventriculogram Selective coronary angiogram INDICATION Known coronary artery disease, Progressive angina pectoris, Abnormal EKG, Crescendo angina pectoris Informed consent was obtained prior to the procedure. COMPLICATIONS NONE Estimated Blood Loss: LESS THAN 10 ML TECHNIQUE One percent lidocaine used to anesthetize the right anterior aspect of the wrist. The right radial artery was accessed via the Seldinger technique. A 6 Gabonese sheath was placed in the right radial artery. 2.5 mg of verapamil, 800 mcg of nitroglycerin, 1mg Lidocaine and 5000 U Heparin were given through the arterial sheath. The trap catheter and a 6 Gabonese JL 3 guide catheter were also used to perform left heart catheterization, left ventriculogram and selective coronary angiogram. At the end of the procedure the sheath was removed good hemostasis was achieved using Traclet band, patient was transferred to the postop holding area in stable condition. ANGIOGRAPHIC RESULTS The left main artery Normal The left anterior descending artery Has a stent in the ostial proximal and mid segment in a contiguous manner which is widely patent free of in-stent restenosis with excellent proximal distal transitioning. The remaining LAD has mild 10% luminal irregularities. Moderate-sized first diagonal artery has DARIN-3 flow with no demonstrable ostial stenosis The circumflex artery Is a nondominant vessel with a proximal concentric 20 to 30% stenosis The right coronary artery Is a dominant vessel with proximal 20% stenoses mid vessel 20% stenoses distal 20% stenoses. The GUADARRAMA ventriculogram reveals Not performed The left ventricular end-diastolic pressure Not measured IMPRESSION Nonflow limiting coronary disease Widely patent stents in the ostial proximal mid LAD in a contiguous manner as described above PLAN 1. Treatment of diastolic dysfunction which is known from previous catheterization 2. Medical management for coronary disease Electronically signed by : Claudy Cárdenas, 01/24/2021 09:44:59
[2021-01-24 09:03] LABS: INR 1.19 (0.9-1.1); Prothrombin Time 13.9 seconds (10.1-12.5)
== END 2021-01-24 12:27 | disposition home or self-care (01) ==
LOC: CATHLAB 08:00
PROVIDERS: PCP Family Medicine; Visit Provider Internal Medicine
DX: I25.118 Atherosclerotic heart disease of native coronary artery with other forms of angina pectoris (principal); E11.9 Type 2 diabetes mellitus without complications; Z79.84 Long term (current) use of oral hypoglycemic drugs; Z79.899 Other long term (current) drug therapy; I48.0 Paroxysmal atrial fibrillation; I11.0 Hypertensive heart disease with heart failure; I50.22 Chronic systolic (congestive) heart failure; I42.9 Cardiomyopathy, unspecified; Z95.0 Presence of cardiac pacemaker
CPT/HCPCS: 85610; 93458; 99152; C1725; C1760; C1769; J1644; Q9967

== ENCOUNTER → 2021-05-01 08:51 | Outpatient (CLI) | payer MEDICARE, BC, SELFPAY ==
--- NOTE | 2021-05-01 09:00 | XR_ITS ---
PROCEDURE: XR HIP LT 2-3V W/PELVIS CLINICAL INDICATION: BL knee pain/ over age of 51 COMPARISON: No exams were available for comparison FINDINGS: There is slight narrowing of the joint space and minimal osteosclerosis of the acetabular roof and minimal osteophyte formation of the inferior aspect of the acetabulum suggesting minimal osteoarthritic changes. No fracture or dislocation. No lytic or blastic change. IMPRESSION: Minimal osteoarthritic change Dictated by: Jerardo Holbrook MD 05/01/2021 14:52 Jerardo Holbrook MD in [place] 05/01/2021 14:52
--- NOTE | 2021-05-01 09:00 | XR_ITS ---
PROCEDURE: XR HIP RT 2-3V W/PELVIS CLINICAL INDICATION: BL knee pain; over age of 51 COMPARISON: No exams were available for comparison FINDINGS: There are mild osteoarthritic changes of the right hip with slight decrease in the joint space, osteosclerosis of the acetabular roof, and minimal osteophyte formation. No fracture or dislocation. No lytic or blastic change. IMPRESSION: Mild osteoarthritis of the right hip Dictated by: Jerardo Holbrook MD 05/01/2021 14:51 Jerardo Holbrook MD in [place] 05/01/2021 14:51
== END ==
PROVIDERS: PCP Family Medicine; Visit Provider Orthopaedic Surgery
DX: M25.561 Pain in right knee (principal); M25.562 Pain in left knee
CPT/HCPCS: 73502

== ENCOUNTER → 2021-08-25 09:25 | Outpatient (CLI) | payer MEDICARE, BC, SELFPAY | PROVIDERS: PCP Physician Assistant; Visit Provider Specialist | DX: G20 Parkinson's disease (principal); G25.3 Myoclonus | CPT/HCPCS: 95816 ==

== ENCOUNTER → 2022-01-07 11:50 | Outpatient (CLI) | payer MEDICARE, BC, SELFPAY ==
--- NOTE | 2022-01-07 11:55 | CA_ITS ---
FINAL REPORT TECHNIQUE: Color Doppler, duplex Doppler and compression sonography of the left lower extremity deep venous systems was performed. CLINICAL HISTORY: Intermit Lt leg swelling with a burning sensation, Hx-previous DVT, varicosities, Obesity, On Warfarin Rx. FINDINGS: There is no evidence of deep venous thrombosis from the level of the groin to the calf. The veins are patent and compressible. IMPRESSION: No evidence of deep venous thrombosis left lower extremity. Reviewed, Interpreted and Dictated by Chris Sanchez III, MD Transcribed by Jacki Mcdonnell Authenticated by Chris Sanchez III, MD on 01/07/2022 01:19:[address] [facility]
== END ==
LOC: RT 11:52
PROVIDERS: PCP Physician Assistant; Visit Provider Physician Assistant
DX: R60.0 Localized edema (principal)
CPT/HCPCS: 93971

== ENCOUNTER → 2022-03-12 12:28 | Outpatient (CLI) | payer MEDICARE, BC, SELFPAY ==
--- NOTE | 2022-03-12 12:53 | CA_ITS ---
APPROVED REPORT EXAM: Comprehensive 2D, Doppler, and color-flow Echocardiogram [employer] Plant Worker: JEWELL Ritter, RVS Ht: 6 ft 2 in Wt: 326lbs BSA: 2.68 BP: 113/63 mmHg Indications: Soa, pedal edema, CAD, Afib, CM, CHRISTY, Pacer 2D Dimensions LVDd 5.67 cm M: 4.2 - 5.9 LVEF (Visual) 53.10 % LVDs 4.10 cm M: 2.5 - 4.0 LA Volume 68.20 mL Aortic Root 3.05 cm M: 3.1 - 3.7 LA Volume Index 25.54 mL/m2 (M/F) 16-34 Left Atrium 4.63 cm M: 3.0 - 4.0 LVOT 1.98 cm (M/F) 1.5-2.5 M-Mode Dimensions RVDd 4.37 cm (0.9-2.6) LA Diam 4.84 cm (1.9-4.0) LVDd 5.18 cm (3.5-5.7) Ao Diam 3.32 cm (2.0-3.7) LVDs 3.61 cm (3.5-5.7) IVSd 0.89 cm (0.6-1.1) PWd 1.16 cm (0.6-1.1) EF (Teich) 57.30% EPSs 0.72 cm FS 30.30% EDV (Teich) 128.40 mL TAPSE 0.99 (<1.7) ESV (Teich) 54.80 mL LV Diastology E Decel Time 257.00 (160-240 msec) E/A Ratio 1.38 MED E' 8.50 (< 7 cm/sec) MED A' 7.20 cm/s E'/MED E' Ratio 8.07 (>14) LAT E' 12.90 (<10 cm/sec) LAT A' 4.50 cm/s E/LAT E' Ratio 5.32 (>14) Aortic Valve LVOT Max 94.00 (70-110 cm/s) LVOT VTI 17.57 cm AoV Peak Robert. 140.00 (50-130 cm/s) AO Peak GR. 7.80 mmHg AO Mean GR. 3.90 (<5 mmHg) AO VTI 26.70 (18-25 cm) JUAN (VTI) 2.03 (2.5-4.5 cm2) Mitral Valve MV A Velocity 50.00 (40-130 cm/s) E/A Ratio 1.38 MV Decel. Time 257.00 (160-240 ms) MV Mean Gr. 1.20 (<2mmHg) MV PHT 67.00 ms Pulmonary Valve PV Peak Velocity 150.00 (50-150 cm/s) Tricuspid Valve TR P. Velocity 237.00 cm/s RAP Estimate 10.00 mmHg RVSP 32.50 mmHg Left Ventricle Left atrium is mildly enlarged, left ventricle is normal size, visually estimated ejection fraction 50% with no obvious regional wall motion abnormality, diastolic parameters are inconclusive. Right Ventricle Right atrium and right ventricle are mildly enlarged with normal contractility, pacemaker leads in the right ventricle. Aortic Valve Aortic valve is minimally thickened and fibrosed there is no aortic stenosis or aortic insufficiency. Mitral Valve Mitral valve grossly normal, there is trace mitral regurgitation. Tricuspid Valve Tricuspid grossly normal, there is trace tricuspid regurgitation, calculated right ventricular systolic pressure 32 mmHg. Pulmonic Valve Pulmonic valve is poorly visualized. Great Vessels Aortic root is normal size. Inferior vena cava is poorly visualized. Pericardium No significant pericardial effusion noted. Conclusion 1. Mild biatrial alignment, normal left ventricular size, estimated ejection fraction 50% with no regional wall motion abnormality, diastolic parameters are inconclusive. 2. Mildly enlarged right ventricle with normal contractility. 3. Trace mitral and tricuspid regurgitation, calculated right ventricular systolic pressure 32 mmHg. 4. No significant pericardial effusion noted. 5. Inferior vena cava is poorly visualized. Electronically signed by : Hernesto Subramanian MD 03/13/2022 12:16:36
[2022-03-12 13:37] LABS: Chloride 102 mmol/L (98-107); Sodium 139 mmol/L (136-145)
[2022-03-12 13:38] LABS: Potassium 4.3 mmoL/L (3.5-5.1)
[2022-03-12 13:40] LABS: Blood Urea Nitrogen 16 mg/dl (9-20); Estimated Glomerular Filt Rate 99 ml/min (>60); GFR (African American) 119 ML/MIN (>60)
[2022-03-12 13:41] LABS: Anion Gap 10.3 mEq/L (5-15); Calcium 9.2 mg/dl (8.4-10.2); Carbon Dioxide 31 mmol/L (22.0-30.0); Glucose 187 mg/dl (74-100)
== END ==
LOC: RT 12:28 → LAB 12:30
PROVIDERS: PCP Physician Assistant; Visit Provider Nurse Practitioner Family
DX: R06.09 Other forms of dyspnea (principal); R42 Dizziness and giddiness; I11.0 Hypertensive heart disease with heart failure; I20.0 Unstable angina; I48.0 Paroxysmal atrial fibrillation; I42.9 Cardiomyopathy, unspecified; E78.2 Mixed hyperlipidemia; E11.9 Type 2 diabetes mellitus without complications; G47.33 Obstructive sleep apnea (adult) (pediatric); E66.01 Morbid (severe) obesity due to excess calories; R60.0 Localized edema; R94.31 Abnormal electrocardiogram [ECG] [EKG]; Z95.810 Presence of automatic (implantable) cardiac defibrillator; Z79.84 Long term (current) use of oral hypoglycemic drugs; Z68.41 Body mass index [BMI] 40.0-44.9, adult
CPT/HCPCS: 36415; 80048; 93306

== ENCOUNTER → 2022-06-08 09:49 | Outpatient (CLI) | payer MEDICARE, BC, SELFPAY ==
--- NOTE | 2022-06-08 10:02 | CT_ITS ---
FINAL REPORT CLINICAL HISTORY: labile HTN FINDINGS: Pre-and postcontrast images of the abdomen were performed by computed tomography. Extensive 3-D reconstruction images were performed. A CTA was performed. This study was performed with techniques to keep radiation doses as low as reasonably achievable (ALARA). Individualized dose reduction techniques using automated exposure control or adjustment of mA and/or kV according to the patient's size were employed. ABDOMEN: The lung bases are clear. Precontrast images demonstrate no evidence of nephrolithiasis. There is a 9 mm fat containing nodule in the right adrenal gland consistent with a myelolipoma. There are multiple bilateral renal masses with imaging characteristics consistent with simple cysts. The largest in the left kidney measures 30 mm. The liver, spleen and pancreas are unremarkable. There is an umbilical hernia containing fat. The appendix is not visualized. CTA: There is no evidence of abdominal aortic aneurysm or dissection. There are mild vascular calcifications. The proximal celiac axis and superior mesenteric artery are normal. The renal arteries appear normal without evidence of significant stenosis. IMPRESSION: No evidence of renal vascular hypertension or significant renal artery stenosis. No abdominal aortic aneurysm or dissection. Right adrenal nodule consistent with a myelolipoma. Bilateral renal masses consistent with simple cysts. Reviewed, Interpreted and Dictated by Chris Sanchez III, MD Transcribed by Fela Soria Authenticated and [facility]
[2022-06-08 10:18] LABS: Blood Urea Nitrogen 17 mg/dl (9-20); Estimated Glomerular Filt Rate 115 ml/min (>60)
[2022-06-08 10:19] LABS: GFR (African American) 139 ML/MIN (>60)
== END ==
LOC: RAD 09:50
PROVIDERS: PCP Physician Assistant; Visit Provider Physician Assistant
DX: R09.89 Other specified symptoms and signs involving the circulatory and respiratory systems (principal)
CPT/HCPCS: 36415; 74175; 82565; 84520; Q9967

== ENCOUNTER → 2022-08-12 08:03 | Outpatient (CLI) | payer MEDICARE, BC, SELFPAY | PROVIDERS: PCP Family Medicine; Visit Provider Surgery | DX: Z01.812 Encounter for preprocedural laboratory examination (principal); Z20.822 Contact with and (suspected) exposure to COVID-19; Z12.11 Encounter for screening for malignant neoplasm of colon | CPT/HCPCS: C9803; U0003; U0005 ==

== ENCOUNTER 2022-08-14 06:22 | Day surgery (SDC) | payer MEDICARE, BC, SELFPAY ==
[2022-08-11 11:57] VITALS: BMI 41.1
[2022-08-14 06:54] VITALS: BP 138/72; PULSE 79; RESP 18; TEMP 36.2; O2SAT 99
[2022-08-14 07:01] LABS: POC Glucose,Bedside 160 (70-110)
--- NOTE | 2022-08-14 07:19 | P.PN_ITS ---
[facility] Medical History Abnormal EKG Allergies Arthritis Atypical angina Bronchitis Chest pain COPD (chronic obstructive pulmonary disease) Crescendo angina Depression Diabetes mellitus, type 2 Dizziness Edema Enlarged prostate Frequent urination History of back pain History of blood clots History of cardioversion History of cataract History of COVID-19 History of gastroesophageal reflux (GERD) Hyperlipidemia Hypertension Irritable bowel syndrome (IBS) Kidney stone Pacemaker Pneumonia Seizures Sleep apnea Stroke Surgical History AICD (automatic cardioverter/defibrillator) present History of open heart surgery History of surgery Family History Other Cancer Diabetes Heart disease Social History Smoking Status: Never smoker alcohol intake: never counseling provided: none substance use type: denies use current occupational status: retired and disabled Travel in the last 8 weeks: None household members: spouse housing: house number of children: 2 current occupational exposures/hazards: No caffeine: No [facility] Anesthesia Checklist Patient Identification Patient Identification: Arm Band and Family Structural Data Admitted From: Direct Admit Planned Operative Procedure/s: coloniscopy Consent for Planned Operative Procedure(s) Verified: Yes Verified Documents: History and Physical NPO Status Verified Time NPO: 00:00 Additional verifications Fingerstick Blood Glucose: 160 Patient : No Anesthesia Reactions: No Hx Blood Transfusions: No Cardiovascular Assessment Heart Sounds: S3 Peripheral Edema: No Airway Assessment C-Spine Mobility Assessed: Yes TMJ Mobility Assessed: Yes Dentition: Good Dentition Neurological Assessment Level of Consciousness: Awake, Alert, Appropriate and Follows Commands Hx Seizures: No Numbness or tingling in extremities: No Anesthesia Plan Anesthesia Risk discussed: Yes ASA Class: III Anesthesia Type: MAC
[2022-08-14 07:28] VITALS: O2SAT 97
--- NOTE | 2022-08-14 08:10 | HMH.SCOPE ---
Procedure: Date: 08/14/22 Patient Date of :: 1960 Procedure Performed:: Total colonoscopy to ileocecal valve Indications:: Patient is a 61-year-old male with history of coronary artery disease, cardiomyopathy, atrial fibrillation, placement of AICD, obstructive sleep apnea, hypertension, morbid obesity, diabetes mellitus on chronic warfarin anticoagulation therapy. I had seen the patient in the office in June for possible perianal mass . He was found to have a resolving chronically thrombosed external hemorrhoid. Patient stated that he was due for colonoscopy. He apparently did have a colonoscopy 5 years ago and had polyps removed. Exact details are unknown. Plan was made to proceed with colonoscopy. He required Lovenox bridge for colonoscopy. Performing Provider:: Chris Horner MD Referring Provider:: Jo Ellison Sedation:: MAC sedation Procedure:: Patient history was obtained and appropriate physical examination was performed. Patient's medications and allergies were reviewed. Informed consent was obtained after explaining the benefits, alternatives, and risks of the procedure including, but not limited to, bleeding, perforation, missed lesions, and adverse reaction to anesthesia medications. Patient was transported to endoscopy procedure room. Patient was connected to monitoring devices. Throughout the procedure the patient's blood pressure, pulse, and oxygen saturations were monitored continuously. Patient identification and planned procedure were verified by the staff. Patient was positioned in lateral decubitus position. Digital anorectal exam was performed. Variable stiffness Olympus colonoscope was inserted and advanced under direct visualization to the cecum. Adequacy of the colonic preparation was noted. The colonoscope was advanced very briefly into the ileocecal valve. The colonoscope was then slowly withdrawn while carefully examining the color, texture, anatomy, and integrity of the mucosoa circumferentially. Within the rectum retroflexion was performed. Colonoscope was then withdrawn. IMPRESSION: Patient had suboptimal fair preparation with particulate liquid stool throughout the colon. Very large amount of irrigation and suctioning was performed which allowed for adequate visualization. There were some rare sigmoid diverticuli. Findings:: Fair preparation Rare sigmoid diverticuli Recommendations:: Given fair preparation and apparent previous history of polyps likely repeat colonoscopy 5 years Complications:: None immediately apparent Estimated blood obtained (mL): 0
[2022-08-14 08:11] VITALS: BP 104/68; PULSE 82; RESP 18; TEMP 36.8; O2SAT 98
[2022-08-14 08:21] VITALS: BP 134/68; PULSE 75; RESP 18; O2SAT 96
[2022-08-14 08:31] VITALS: BP 124/71; PULSE 75; RESP 18; O2SAT 96
[2022-08-14 08:41] VITALS: BP 106/60; PULSE 75; RESP 18; O2SAT 97
== END 2022-08-14 08:42 | disposition home or self-care (01) ==
PROVIDERS: PCP Physician Assistant; Visit Provider Surgery
PROC: 0DJD8ZZ Inspection of Lower Intestinal Tract, Via Natural or Artificial Opening Endoscopic (ICD-10-PCS; principal; 2022-08-14 07:30)
DX: Z12.11 Encounter for screening for malignant neoplasm of colon (principal); Z86.010 Personal history of colon polyps; Z79.899 Other long term (current) drug therapy; E11.9 Type 2 diabetes mellitus without complications
CPT/HCPCS: G0105; 82962; J2704

== ENCOUNTER → 2022-11-30 07:00 | Outpatient (CLI) | payer MEDICARE, BC, SELFPAY ==
[2022-11-30 08:13] LABS: Basophils % 0.5 % (0.1-2.0); Eosinophils # 0.1 K/mm3 (0.0-0.4); Eosinophils % 0.7 % (0.1-12.0); Hematocrit 45.6 % (42.0-52.0); Hemoglobin 15.1 g/dL (14.1-18.0); Lymphocytes % 25.6 % (10-50); Mean Corpuscular HGB Conc 33.1 g/dL (31.8-35.4); Mean Corpuscular Volume 84.6 fl (80-94); Mean Platelet Volume 7.9 fl (7.4-10.4); Monocytes # 0.4 K/mm3 (0.1-1.0); Monocytes % 4.6 % (1.7-9.3); Neutrophils # 5.2 K/mm3 (1.8-7.8); Neutrophils % 68.5 % (37.0-80.0); Platelet Count 216 K/mm3 (142-424); Red Blood Count 5.39 M/mm3 (4.60-6.20); Red Cell Distribution Width 14.3 % (11.5-17.5); White Blood Count 7.7 K/mm3 (4.8-10.8)
[2022-11-30 08:31] LABS: Chloride 106 mmol/L (98-107); Potassium 4.5 mmoL/L (3.5-5.1); Sodium 141 mmol/L (136-145)
[2022-11-30 08:33] LABS: Alanine Aminotransferase 38 U/L (12-78); Alkaline Phosphatase 90 U/L (38-126); Anion Gap 11.5 mEq/L (5-15); Aspartate Amino Transferase 23 U/L (17-59); Bilirubin,Direct 0.3 mg/dl (0.0-0.4); Bilirubin,Indirect 0.4 mg/dL (0.0-0.9); Bilirubin,Total 0.7 mg/dl (0.2-1.3); Bilirubin,Unconjugated 0.4 mg/dL (0.0-1.1); Blood Urea Nitrogen 31 mg/dl (9-20); Carbon Dioxide 28 mmol/L (22.0-30.0); Estimated Glomerular Filt Rate 86 ml/min (>60); GFR (African American) 104 ML/MIN (>60)
[2022-11-30 08:34] LABS: Albumin Level 4.1 g/dl (3.5-5.0); Calcium 9.1 mg/dl (8.4-10.2); Cholesterol 213 mg/dl (140-200); Glucose 204 mg/dl (74-100); HDL Cholesterol 43 mg/dl (40-60); Magnesium 1.9 mg/dl (1.6-2.3); Total Protein,Serum 6.7 g/dl (6.3-8.2); Triglycerides 286 mg/dl (30-150); VLDL Cholesterol 57 mg/dL (0-40)
[2022-11-30 08:45] LABS: Direct LDL Cholesterol 111.37 mg/dL (100-129)
[2022-11-30 08:51] LABS: Free T4 (Free Thyroxine) 1.15 ng/dl (0.78-2.19)
[2022-11-30 09:04] LABS: Thyroid Stimulating Hormone 2.66 uIU/mL (0.465-4.68)
== END ==
PROVIDERS: PCP Physician Assistant; Visit Provider Nurse Practitioner
DX: E66.01 Morbid (severe) obesity due to excess calories (principal); E78.2 Mixed hyperlipidemia; I11.0 Hypertensive heart disease with heart failure; I25.118 Atherosclerotic heart disease of native coronary artery with other forms of angina pectoris; I42.9 Cardiomyopathy, unspecified; I48.0 Paroxysmal atrial fibrillation; I50.32 Chronic diastolic (congestive) heart failure; R06.09 Other forms of dyspnea; R60.0 Localized edema; Z95.0 Presence of cardiac pacemaker; Z68.41 Body mass index [BMI] 40.0-44.9, adult
CPT/HCPCS: 36415; 80048; 80061; 80076; 83735; 84439; 84443; 85025

== ENCOUNTER → 2022-12-22 19:58 | Outpatient (CLI) | payer MEDICARE, BC, SELFPAY | LOC: SL 20:01 | PROVIDERS: PCP Physician Assistant; Visit Provider Nurse Practitioner Family | DX: G47.33 Obstructive sleep apnea (adult) (pediatric) (principal); R09.02 Hypoxemia; R06.83 Snoring | CPT/HCPCS: 95810 ==

== ENCOUNTER → 2023-01-05 14:28 | Outpatient (POV) | payer MEDICARE, BC, SELFPAY | PROVIDERS: Visit Provider Dermatology | DX: Z00.00 Encounter for general adult medical examination without abnormal findings (principal) ==

== ENCOUNTER → 2023-01-15 13:31 | Outpatient (CLI) | payer MEDICARE, BC, SELFPAY ==
[2023-01-15 14:37] LABS: Chloride 102 mmol/L (98-107)
[2023-01-15 14:38] LABS: Potassium 4.4 mmoL/L (3.5-5.1); Sodium 137 mmol/L (136-145)
[2023-01-15 14:41] LABS: Anion Gap 11.4 mEq/L (5-15); Blood Urea Nitrogen 23 mg/dl (9-20); Calcium 8.8 mg/dl (8.4-10.2); Carbon Dioxide 28 mmol/L (22.0-30.0); Estimated Glomerular Filt Rate 76 ml/min (>60); GFR (African American) 92 ML/MIN (>60); Glucose 155 mg/dl (74-100)
== END ==
PROVIDERS: PCP Physician Assistant; Visit Provider Physician Assistant
DX: E66.01 Morbid (severe) obesity due to excess calories (principal); E78.2 Mixed hyperlipidemia; I11.0 Hypertensive heart disease with heart failure; I25.118 Atherosclerotic heart disease of native coronary artery with other forms of angina pectoris; I42.9 Cardiomyopathy, unspecified; I48.0 Paroxysmal atrial fibrillation; I50.32 Chronic diastolic (congestive) heart failure; R06.09 Other forms of dyspnea; R60.0 Localized edema; Z95.0 Presence of cardiac pacemaker; Z68.41 Body mass index [BMI] 40.0-44.9, adult
CPT/HCPCS: 36415; 80048

== ENCOUNTER 2023-01-27 10:56 | Outpatient (CLI) | payer MEDICARE, BC, SELFPAY ==
[2023-01-27 11:20] VITALS: BP 110/61; PULSE 77; RESP 18; O2SAT 99
== END 2023-01-27 11:35 | disposition home or self-care (01) ==
LOC: INF 10:57
PROVIDERS: PCP Physician Assistant; Visit Provider Physician Assistant
DX: E78.5 Hyperlipidemia, unspecified (principal)
CPT/HCPCS: 96372; J1306

== ENCOUNTER 2023-04-30 13:09 | Outpatient (CLI) | payer MEDICARE, BC, SELFPAY ==
[2023-04-30 13:31] VITALS: BP 129/74; PULSE 75; RESP 16; TEMP 36.6; O2SAT 98
== END 2023-04-30 13:45 | disposition home or self-care (01) ==
LOC: INF 13:11
PROVIDERS: PCP Physician Assistant; Visit Provider Physician Assistant
DX: E78.5 Hyperlipidemia, unspecified (principal)
CPT/HCPCS: 96372; J1306

== ENCOUNTER → 2023-05-12 10:35 | Outpatient (CLI) | payer MEDICARE, BC, SELFPAY ==
--- NOTE | 2023-05-12 10:40 | CA_ITS ---
FINAL REPORT TECHNIQUE: Color Doppler, duplex Doppler and compression sonography of the left lower extremity deep venous systems was performed. CLINICAL HISTORY: PAIN AND BURNING IN LLE,HX DVT,PT ON WARFARIN COMPARISON: None FINDINGS: There is no evidence of deep venous thrombosis from the level of the groin to the calf. The veins are patent and compressible. IMPRESSION: No evidence of deep venous thrombosis left lower extremity. Reviewed, Interpreted and Dictated by Chris Sanchez III, MD Transcribed by Rosario Montiel Authenticated and [facility]
--- NOTE | 2023-05-12 11:07 | XR_ITS ---
FINAL REPORT CLINICAL HISTORY: ABRASION lt 2nd toe FINDINGS: LEFT TOES SERIES Three views of the left toes were obtained. There is no acute fracture or dislocation. There is mild degenerative change. There is calcification dorsal to the second distal interphalangeal joint of uncertain age, a small avulsion fracture is not excluded. IMPRESSION: Mild degenerative change. Calcification dorsal to the second distal interphalangeal joint of uncertain age, small avulsion fracture is not excluded. Reviewed, Interpreted and Dictated by Chris Sanchez III, MD Transcribed by Matheus Griffith Authenticated and [facility]
== END ==
LOC: RAD 10:37
PROVIDERS: PCP Physician Assistant; Visit Provider Physician Assistant
DX: M79.605 Pain in left leg (principal); S90.415A Abrasion, left lesser toe(s), initial encounter; R60.0 Localized edema
CPT/HCPCS: 73660; 93971

== ENCOUNTER → 2023-06-16 14:10 | Outpatient (CLI) | payer MEDICARE, BC, SELFPAY ==
--- NOTE | 2023-06-16 14:15 | CA_ITS ---
APPROVED REPORT EXAM: Comprehensive 2D, Doppler, and color-flow Echocardiogram Drawing Checker: Sania Awan CRT Ht: 6 ft 2 in Wt: 310lbs BSA: 2.62 BP: 113/63 mmHg Indications: Atrial Fibrillation, Diabetes, CAD, Hyperlipidemia, Cardiomyopathy, Hypertension/HDD, CHRISTY, CM, PACER, STENTS, CABG 2D Dimensions LVOT 1.84 cm (M/F) 1.5-2.5 LA Volume 61.20 mL LA Volume Index 22.80 mL/m2 (M/F) 16-34 M-Mode Dimensions RVDd 3.74 cm (0.9-2.6) LA Diam 4.70 cm (1.9-4.0) LVDd 5.31 cm (3.5-5.7) Ao Diam 3.89 cm (2.0-3.7) LVDs 3.42 cm (3.5-5.7) IVSd 1.45 cm (0.6-1.1) PWd 0.96 cm (0.6-1.1) EF (Teich) 64.60% FS 35.60% EDV (Teich) 135.90 mL TAPSE 1.79 (<1.7) ESV (Teich) 48.10 mL LV Diastology E Decel Time 217.00 (160-240 msec) E/A Ratio 1.47 MED E' 6.80 (< 7 cm/sec) MED A' 8.60 cm/s E'/MED E' Ratio 9.51 (>14) LAT E' 10.40 (<10 cm/sec) LAT A' 7.30 cm/s E/LAT E' Ratio 6.22 (>14) Aortic Valve AO Peak GR. 6.80 mmHg Mitral Valve MV A Velocity 44.00 (40-130 cm/s) E/A Ratio 1.47 MV Decel. Time 217.00 (160-240 ms) Pulmonary Valve PV Peak Velocity 157.00 (50-150 cm/s) Tricuspid Valve TR P. Velocity 273.00 cm/s RAP Estimate 10.00 mmHg RVSP 39.90 mmHg Left Ventricle The left ventricle is normal size. The left ventricular systolic function is normal. The left ventricular ejection fraction is within the normal range. There is normal left ventricular wall thickness. There is normal LV segmental wall motion. The left ventricular diastolic function is normal. LVEF is 50-55%. Right Ventricle The right ventricle is mildly to moderately dilated. The right ventricular systolic function is mildly reduced. There is a device lead present in the right ventricle. Atria The left atrium size is normal. Aortic Valve The aortic valve opens well. There is no aortic valvular stenosis. No aortic regurgitation is present. Mitral Valve The mitral valve is normal in structure. No evidence of mitral valve stenosis. There is no mitral valve regurgitation noted. Tricuspid Valve The tricuspid valve leaflets are thin and pliable. Mild tricuspid regurgitation. RVSP = 30 mmHg + RA pressure Pulmonic Valve The pulmonary valve is normal in structure. Trace pulmonic regurgitation. Great Vessels The aortic root is normal in size. The visualized proximal segment of the ascending aorta is normal in size. The IVC is not well visualized. Pericardium There is no pericardial effusion. Other Information Study Quality: Adequate Conclusion Normal LV systolic function. Moderate RV dilation with mild reduction in RV function. No significant valvular disease. RVSP=30 mmHg + RA pressure Electronically signed by : Teresa Echeverria, 06/18/2023 12:53:23
== END ==
PROVIDERS: PCP Physician Assistant; Visit Provider Internal Medicine
DX: E66.01 Morbid (severe) obesity due to excess calories (principal); E78.5 Hyperlipidemia, unspecified; I11.9 Hypertensive heart disease without heart failure; I25.118 Atherosclerotic heart disease of native coronary artery with other forms of angina pectoris; I48.0 Paroxysmal atrial fibrillation; R06.00 Dyspnea, unspecified; R07.9 Chest pain, unspecified; R42 Dizziness and giddiness; R60.0 Localized edema; R94.31 Abnormal electrocardiogram [ECG] [EKG]; Z95.0 Presence of cardiac pacemaker; I42.8 Other cardiomyopathies; Z68.41 Body mass index [BMI] 40.0-44.9, adult
CPT/HCPCS: 93306

== ENCOUNTER 2023-10-28 08:47 | Outpatient (RCR) | payer MEDICARE, BC, SELFPAY ==
--- NOTE | 2023-10-28 09:20 | HMH.PTOPWND ---
Rehab Outpt Wound Evaluation Rehab OP Wound Evaluation Start: 10/28/23 08:57 Freq: Status: Active Protocol: Document 10/28/23 09:15 HOSSEIN (Rec: 10/28/23 09:20 HOSSEIN [id number]) E-signed By Gregory Hines, PT Subjective/History History History This is the initial PT eval for Nghia Montalvo, 63 yowm who presents with R great toe wound x several mos. He reports, My toenail got infected and it fell off, but it has healed up since I saw the doctor. He reports no other wounds at this time, but he has hx of diabetic neuropathy in B feet. He has PMH of COPD, DM, depression, HTN, HLD, IBS, pacemaker, seizures, prior CVA, DVT, CABG , heart cath with stents. Subjective Subjective Currently he has no c/o pain. 1+ pitting edema noted to Rosy HAND . No open wounds noted at this time as R great toe wound appears healed. He reports he has finished oral abx as prescribed. New diagnosis of cancer in past 12 No months? Wound Problems/Impairments Impairments Problems/Impairmments Impaired Gait Pattern,Impaired Walking,Impaired Balance, Increased Edema,Lymphedema Present,Wound Care Needs, Impaired Self Care/Self Management Prognosis Rehab Potential Good Clinical Impression Consistent with Diagnosis Yes Outpatient Therapy Plan of Care Addendums This patient is a candidate for social No or vocational rehab? Patient/Guardian verbally acknowledges Yes understanding of treatment program and consents to further treatment? Patient/Guardian verbally acknowledges Yes understanding of diagnosis, prognosis and goals for treatment? Eval Complexity PT Charges 94611 - High Complexity PHYSICIAN CERTIFICATION: I certify the specified therapy services for Nghia Montalvo are required, authorized, and reviewed every 30 days.
== END 2023-10-28 10:00 | disposition home or self-care (01) ==
LOC: PT 08:47
PROVIDERS: PCP Physician Assistant; Visit Provider Physician Assistant
DX: L03.031 Cellulitis of right toe (principal)
CPT/HCPCS: 97163

== ENCOUNTER 2023-11-05 12:03 | Outpatient (CLI) | payer MEDICARE, BC, SELFPAY ==
--- OUTSIDE RECORDS SUMMARY | 2023-11-05 12:06 | XMS_ITS ---
Author Name Unknown Address [address] [place] [address] Phone Organization [facility] Address [address] [place] [address] Phone Care Team Providers Care Internal Grinding Machine Operator Name Role Phone Matteo BERNARD, Andrez Fox Unavailable [phone] Alek Lloyd Unavailable Unavailable Reason for Referral Date Encounter Description Provider Reason for Referral 04/20/22 Non Physician Specified Estelle Cason Referral To Physician Problems Includes: Active, inactive, and resolved Problems All Visits Onset Date Resolved Date Provider Condition S tatus Joint Pain in Both Knees 04/20/2022 Estelle Olmos PA-C Active Plan of Treatment Future Appointments Date Time Location Provi chris Follow Up 12/13/2023 1:00PM [facility] MARY Garner PA-C Instructions to patient Lose weight Last Documented On 2 2:07PM ; [facility] Lose weight Last Documented On 2 1:51PM ; [facility] Assessments Includes: Assessments for all patient encounters No Assessments Recorded Instructions Includes: Instructions for all patient encounters Instructions to patient Lose weight Last Documented On 2 2:07PM ; [facility] Lose weight Last Documented On 2 1:51PM ; [facility] Medical Equipment - Implanted Devices Includes: Current and historical Devices No Medical Equipment Recorded Medications Includes: Current and historical Medications Current Medications (continue as prescribed) Bydureon BCise 2 MG/0.85ML Subcutaneous Auto-injector 04/16/2022 Provider: Diagnosis: DULoxetine HCl 60 MG Oral Ca psule Delayed Release Particles 04/16/2022 Provider: ALEK EVANS MD Diagnosis: clonazePAM 1 MG Oral Tablet 04/09/2022 Provider: ALEK EVANS MD Diagnosis: methylPREDNISolone 4 MG Oral Tablet Therapy Pack 04/09 Provider: Diagnosis: Warfarin Sodium 7.5 MG Oral Tablet 03/27/2022 Provid er: ALEK EVANS MD Diagnosis: Medications Administered Includes: Administered Medications in patient's chart No Administered Medications Recorded Results Includes: Results from 11/05/2022 through 11/05/2023 No Results Recorded For Specified Dates History of Present Illness History of Present Illness not supported for this document type No History of Present Illness Recorded Social History Description Last Updated Tobacco non-user 07/28/2022 Procedures and Surgical History Includes: Procedures from 11/05/2022 through 11/05/2023 Procedures Code Diagnosis Performing Provider Service Location Service Date Injection, betamethasone acetate 6mg per cc and betamethason [id number] Bilateral primary osteoarthritis of knee Ana Paula Garner PA-C [facility] 11/03/2023 Surgical History Last Updated History of heart surgery 04/20/2022 Medical History Includes: Medical History in patient's chart Description Last Updated History of arthritis 04/20/2022 Family History Includes: Family History in patient's chart Description Last Updated Diabetes mellitus 04/20/2022 Review of Systems Review of Systems not supported for this document type No Review of Systems Recorded Mental Status No Mental Status Recorded Functional Status No Functional Status Recorded Physical Exam Physical Exam not supported for this document type No Physical Exam Recorded Immunizations Includes: Immunizations in patient's chart Vaccine Dose # Date Site Reaction(s) Status Source Influenza 1 04/20/2022 Complete (Refused - Patient objection) [facility] Allergies Includes: Active, inactive, and resolved Allergies No Known Allergies Encounters Includes: Encounters from 11/05/2022 through 11/05/2023 Encounter Provider Location Date Check-In Time Check- Out Time Diagnosis INJECTION Ana Paula Garner PA-C [facility] 3 1:11PM 1:31PM INJECTION Ana Paula Garner PA-C [facility] 3 1:01PM 1:16PM INJECTION Ana Paula Garner PA-C [facility] 3 1:57PM 2:10PM INJECTION Estelle Olmos PA-C [facility] 3 1:37PM 1:53PM Insurance Includes: Active Insurance Policies Plan Name Member ID Group # Subscriber Relationship Effect elisabeth Dates 1 - Medicare Part B of [place] [id number] Nghia Montalvo Self 2 - [facility] [id number] Nghia Montalvo Self 11/08/2021 - Unknown Clinical Notes Includes: Signed Clinical Notes starting from 10/22/2022 No Clinical Notes Recorded
--- OUTSIDE RECORDS SUMMARY | 2023-11-05 12:06 | XMS_ITS ---
Care Plan - [facility] Created on: November 05, 2023 Nghia Montalvo : 1960 Sex: Male Author Name Unknown Address [address] [place] [address] Phone Organization [facility] Address [address] [place] [address] Phone Care Team Providers Care Flatbed Company Driver Name Role Phone Matteo BERNARD, Andrez Fox Unavailable [phone] Alek Lloyd Unavailable Unavailable
--- OUTSIDE RECORDS SUMMARY | 2023-11-05 12:06 | XMS_ITS | Clinical Summary ---
Author Name Unknown Address [address] [place] [address] Phone Organization [facility] Address [address] [place] [address] Phone Care Team Providers Care Die Cast Die Maker Name Role Phone Andrez Felipe MD Unavailable [phone] Alek Lloyd Unavailable Unavailable Reason for Visit and Chief Complaint INJECTION Problems Includes: Problems addressed during this encounter and other active Problems All Visits Onset Date Resolved Date Provider Condition S tatus Joint Pain in Both Knees 04/20/2022 Estelle Olmos PA-C Active Plan of Treatment Future Appointments Date Time Location Provi chris Follow Up 12/13/2023 1:00PM [facility] Ana Paula MELGOZAC Assessments Includes: Assessments from this encounter No Assessments Recorded Medical Equipment - Implanted Devices Includes: Current Devices No Medical Equipment Recorded Medications Includes: Medications discussed during this encounter and other current Medications Current Medications (continue as prescribed) Bydureon [...] MD Diagnosis: Medications Administered Includes: Administered Medications from this encounter No Administered Medications Recorded Results Includes: Results discussed during this encounter No Results Recorded For Specified Dates History of Present Illness Includes: History of Present Illness from this encounter No History of Present Illness Recorded Social History No Social History Recorded - Smoking Status Unknown Procedures and Surgical History Includes: Procedures from this encounter Procedures Code Diagnosis Performing Provider Service Location Service Date DRAIN/INJECT, JOINT/BURSA (Bilateral Procedure) Bilateral primary osteoarthritis of knee Ana Paula Garner PA-C [facility] 08/04/2023 Medical History Includes: Medical History addressed during this encounter No Medical History Recorded Family History Includes: Family History addressed during this encounter No Family History Recorded Review of Systems Includes: Review of Systems from this encounter No Review of Systems Recorded Mental Status Includes: Mental Status from this encounter No Mental Status Recorded Functional Status Includes: Functional Status from this encounter No Functional Status Recorded Physical Exam Includes: Physical Exam from this encounter No Physical Exam Recorded Allergies Includes: Active Allergies No Known Allergies Encounters Encounter Provider Location Date Check-In Time Check- Out Time Diagnosis INJECTION Ana Paula Garner PA-C [facility] 3 1:01PM 1:16PM Insurance Includes: Active Insurance Policies Plan Name Member ID Group # Subscriber Relationship Effect elisabeth Dates 1 - Medicare Part B of [place] [id number] Nghia Montalvo Self 2 - [facility] [id number] Nghia Montalvo Self 11/08/2021 - Unknown Clinical Notes Includes: Clinical Notes from this encounter No Clinical Notes Recorded
--- OUTSIDE RECORDS SUMMARY | 2023-11-05 12:06 | XMS_ITS | Clinical Summary ---
Author Name Unknown Address [address] [place] [address] Phone Organization [facility] Address [address] [place] [address] Phone Care Team Providers Care Real Property Evaluator Name Role Phone Andrez Felipe MD Unavailable [phone] Alek Lloyd Unavailable Unavailable Reason for Visit and Chief Complaint INJECTION Problems Includes: Problems addressed during this encounter and other active Problems All Visits Onset Date Resolved Date Provider Condition S tatus Joint Pain in Both Knees 04/20/2022 Estelle Olmos PA-C Active Plan of Treatment Future Appointments Date Time Location Provi chirs Follow Up 12/13/2023 1:00PM [facility] Ana Paula MELGOZAC Assessments Includes: [...] osteoarthritis of knee Ana Paula Garner PA-C [facility] 04/28/2023 Medical History Includes: Medical History addressed during [...] Time Diagnosis INJECTION Ana Paula Garner PA-C [facility] 3 1:57PM 2:10PM Insurance Includes: Active Insurance Policies Plan Name Member ID Group # Subscriber Relationship Effect elisabeth Dates 1 - Medicare Part B of [place] [id number] Nghia Montalvo Self 2 - [facility] [id number] Nghia Montalvo Self 11/08/2021 - Unknown Clinical Notes Includes: Clinical Notes from this encounter No Clinical Notes Recorded
--- OUTSIDE RECORDS SUMMARY | 2023-11-05 12:06 | XMS_ITS | Clinical Summary ---
Author Name Unknown Address [address] [place] [address] Phone Organization [facility] Address [address] [place] [address] Phone Care Team Providers Care Radio Artist Name Role Phone Andrez Felipe MD Unavailable [phone] Alek Lloyd Unavailable Unavailable Reason for Visit and Chief Complaint INJECTION Problems Includes: Problems addressed during this encounter and other active Problems All Visits Onset Date Resolved Date Provider Condition S tatus Joint Pain in Both Knees 04/20/2022 Estelle Olmos PA-C Active Plan of Treatment Future Appointments Date Time Location Provi chris Follow Up 12/13/2023 1:00PM [facility] Ana Paula MELGOZAC Assessments [...] osteoarthritis of knee Ana Paula Garner PA-C [facility] 11/03/2023 Medical History Includes: Medical History addressed during [...] Time Diagnosis INJECTION Ana Paula Garner PA-C [facility] 3 1:11PM 1:31PM Insurance Includes: Active Insurance Policies Plan Name Member ID Group # Subscriber Relationship Effect elisabeth Dates 1 - Medicare Part B of [place] [id number] Nghia Montalvo Self 2 - [facility] [id number] Nghia Montalvo Self 11/08/2021 - Unknown Clinical Notes Includes: Clinical Notes from this encounter No Clinical Notes Recorded
--- OUTSIDE RECORDS SUMMARY | 2023-11-05 12:07 | XMS_ITS | Clinical Summary ---
Author Name Unknown Address [address] [place] [address] Phone Organization [facility] Address [address] [place] [address] Phone Care Team Providers Care Director Visual Name Role Phone Andrez Felipe MD Unavailable [phone] Alek Lloyd Unavailable Unavailable Reason for Visit and Chief Complaint Follow Up Problems Includes: Problems addressed during this encounter and other active Problems All Visits Onset Date Resolved Date Provider Condition S tatus Joint Pain in Both Knees 04/20/2022 Estelle Olmos PA-C Active Plan of Treatment Future Appointments Date Time Location Provi chris Follow Up 12/13/2023 1:00PM [facility] MARY MELGOZAC Assessments Includes: Assessments from this encounter [...] Social History Recorded - Smoking Status Unknown Medical History Includes: Medical History addressed during [...] Date Check-In Time Check- Out Time Diagnosis Follow Up Estelle Olmos PA-C [facility] 2 9:46AM 10:07AM Insurance Includes: Active Insurance Policies Plan Name Member ID Group # Subscriber Relationship Effect elisabeth Dates 1 - Medicare Part B [facility] [id number] Nghia Montalvo Self 2 - [facility] [id number] Nghia Montalvo Self 11/08/2021 - Unknown Clinical Notes Includes: Clinical Notes from this encounter No Clinical Notes Recorded
[2023-11-05] MEDS: INCLISIRAN SODIUM 284 MG/1.5 ML SYRINGE SQ (12:24)
[2023-11-05 12:25] VITALS: BP 140/70; PULSE 84; RESP 18; TEMP 36.9; O2SAT 98
== END 2023-11-05 12:30 | disposition home or self-care (01) ==
LOC: INF 12:04
PROVIDERS: PCP Physician Assistant; Visit Provider Physician Assistant
DX: E78.5 Hyperlipidemia, unspecified (principal)
CPT/HCPCS: 96372; J1306

== ENCOUNTER 2024-02-08 09:44 | Outpatient (CLI) | payer MEDICARE, BC, SELFPAY ==
--- NOTE | 2024-02-08 09:44 | US_ITS ---
FINAL REPORT CLINICAL HISTORY: PVR FINDINGS: Sonographic images of the urinary bladder were obtained. The filled bladder measures 366 mL. Bilateral ureteral jets are identified. The postvoid volume is 5 mL. IMPRESSION: Small postvoid residual of 5 mL. Authenticated and ERN
== END 2024-02-08 23:59 ==
PROVIDERS: PCP Physician Assistant; Visit Provider Urology
DX: N52.9 Male erectile dysfunction, unspecified (principal); N39.43 Post-void dribbling
CPT/HCPCS: 76857

== ENCOUNTER 2024-05-15 15:18 | Outpatient (CLI) | payer MEDICARE, BC, SELFPAY ==
--- OUTSIDE RECORDS SUMMARY | 2024-05-15 15:20 | XMS_ITS ---
Author Name Unknown Address [address] [place] [address] Phone Organization [facility] Address [address] [place] [address] Phone Care Team Providers Care Gas Plant Technician Name Role Phone Matteo BERNARD, Andrez Fox Unavailable [phone] Valentin Lloyd Unavailable Unavailable Reason for Referral Date Encounter Description Provider Reason for Referral 04/20/22 Non Physician Specified Estelle Cason Referral To Physician Problems Includes: Active, inactive, and resolved Problems All Visits Onset Date Resolved Date Provider Condition S tatus Joint Pain in Both Knees 04/20/2022 Estelle Olmos PA-C Active Last Documented On 2 1:48PM ; [facility] Plan of Treatment Future Appointments Date Time Location Provi chris Follow [facility] 08/02[facility] Last Documented On 4 10:45AM ; [facility] Instructions to patient Lose weight Last Documented On 4 1:18PM ; [facility] Lose weight Last Documented On 2 2:07PM ; [facility] Lose weight Last Documented On 2 1:51PM ; [facility] Assessments Includes: Assessments for all patient encounters Findings Encounter Date Overweight Follow Up with Ana Paula Perez 12/13/2023 Last Documented On 4 8:30AM ; [facility] Instructions Includes: Instructions for all patient encounters Instructions to patient Lose weight Last Documented On 4 1:18PM ; [facility] Lose weight Last Documented On 2 2:07PM ; [facility] Lose weight Last Documented On 2 1:51PM ; [facility] Medical Equipment - Implanted Devices Includes: Current and historical Devices No Medical Equipment Recorded Medications Includes: Current and historical Medications Current Medications (continue as prescribed) Bydureon BCise 2 MG/0.85ML Subcutaneous Auto-injector 04/16/2022 Provider: Diagnosis: Last Documented On 2 2:59PM By Myrna Chowdhury ; [facility] DULoxetine HCl 60 MG Oral Ca psule Delayed Release Particles 04/16/2022 Provider: VALENTIN EVANS MD Diagnosis: Last Documented On 2 2:59PM By Myrna Chowdhury ; [facility] clonazePAM 1 MG Oral Tablet 04/09/2022 Provider: VALENTIN EVANS MD Diagnosis: Last Documented On 2 2:59PM By Myrna Chowdhury ; [facility] methylPREDNISolone 4 MG Oral Tablet Therapy Pack 04/09 Provider: Diagnosis: Last Documented On 2 2:59PM By Myrna Chowdhury ; [facility] Warfarin Sodium 7.5 MG Oral Tablet 03/27/2022 Provid er: VALENTIN EVANS MD Diagnosis: Last Documented On 2 1:54PM By Myrna Chowdhury ; [facility] Medications Administered Includes: Administered Medications in patient's chart No Administered Medications Recorded Vital Signs Includes: Vital Signs from 05/15/2023 through 05/15/2024 Vital Name 12/13/2023 01:18P Height (in) 74 Weight (lb) 307 Body Mass Index 39.4 Body Surface Area 2.6 Note: jayne Last Documented: On 12/13/2023 1:18PM ; [facility] Results Includes: Results from 05/15/2023 through 05/15/2024 No Results Recorded For Specified Dates History of Present Illness History of Present Illness not supported for this document type No History of Present Illness Recorded Social History Description Last Updated Tobacco non-user 12/13/2023 Last Documented On 4 8:30AM ; [facility] Caffeine use 04/20/2022 Last Documented On 2 5:15PM ; [facility] Not a current smoker. 04/20/2022 Last Documented On 2 5:15PM ; [facility] Not exercising regularly 04/20/2022 Last Documented On 2 5:15PM ; [facility] Not using alcohol 04/20/2022 Last Documented On 2 5:15PM ; [facility] Not using drugs 04/20/2022 Last Documented On 2 5:15PM ; [facility] Recent change in diet 04/20/2022 Last Documented On 2 5:15PM ; [facility] Non-smoker 04/20/2022 Last Documented On 2 5:15PM ; [facility] Smoking Status Unknown Procedures and Surgical History Includes: Procedures from 05/15/2023 through 05/15/2024 Procedures Code Diagnosis Performing Provider Service Location Service Date Triamcinolone/Ke nalog, 10mg per cc J3301 Bilateral primary osteoarthritis of knee Colin Brown PA-C [facility] 05/05/2024 Last Documented On 4 12:06PM ; [facility] DRAIN/INJECT, JOINT/BURSA (Bilateral Procedure) Bilateral primary osteoarthritis of knee Colin Brown PA-C [facility] 05/05/2024 Last Documented On 4 12:06PM ; [facility] DRAIN/INJECT, JOINT/BURSA (Bilateral Procedure) Bilateral primary osteoarthritis of knee Ana Paula Garner PA-C [facility] 02/02/2024 Last Documented On 4 2:47PM ; [facility], [facility] Injection, betamethasone acetate 6mg per cc and betamethason J0702 Bilateral primary osteoarthritis of knee Ana Paula Garner PA-C [facility] 02/02/2024 Last Documented On 4 2:47PM ; [facility] X-RAY EXAM KNEE 4 OR MORE (LEFT) 60927 Unilateral primary osteoarthritis, left knee Ana Paula Garner RALPH [facility] 12/13/2023 Last Documented On 4 8:56AM ; [facility] X-RAY EXAM KNEE 4 OR MORE (RIGHT) [id number] Unilateral primary osteoarthritis, right knee Ana Paula Garner RALPH [facility] 12/13/2023 Last Documented On 4 8:56AM ; [facility] Injection, betamethasone acetate 6mg per cc and betamethason J0702 Bilateral primary osteoarthritis of knee Ana Paula Garner DANIEL-Maury [facility] 11/03/2023 Last Documented On 3 3:16PM ; [facility] DRAIN/INJECT, JOINT/BURSA (Bilateral Procedure) Bilateral primary osteoarthritis of knee Ana Paula Garner RALPH [facility] 11/03/2023 Last Documented On 3 3:16PM ; [facility] Injection, betamethasone acetate 6mg per cc and betamethason [id number] Bilateral primary osteoarthritis of knee Ana Paula Garner DANIELMaury [facility] 08/04/2023 Last Documented On 3 10:39AM ; [facility] DRAIN/INJECT, JOINT/BURSA (Bilateral Procedure) Bilateral primary osteoarthritis of knee Ana Paula Garner RALPH [facility] 08/04/2023 Last Documented On 3 10:39AM ; [facility] Surgical History Last Updated History of heart surgery 04/20/2022 Last Documented On 2 5:15PM ; [facility] Medical History Includes: Medical History in patient's chart Description Last Updated History of arthritis 04/20/2022 Last Documented On 2 5:15PM ; [facility] History of depression 04/20/2022 Last Documented On 2 5:15PM ; [facility] History of diabetes mellitus 04/20/2022 Last Documented On 2 5:15PM ; [facility] History of heart disease 04/20/2022 Last Documented On 2 5:15PM ; [facility] History of Heartburn / Acid Reflux 04/20 Last Documented On 2 5:15PM ; [facility] History of History of Blood Clots 2021 Last Documented On 2 5:15PM ; [facility] History of History of Heart Attack / Str rhiannon 04/20/2022 Last Documented On 2 5:15PM ; [facility] History of Hypertension 04/20/2022 Last Documented On 2 5:15PM ; [facility] History of Irregular Heartbeat 2 Last Documented On 2 5:15PM ; [facility] History of Sleep Apnea 04/20/2022 Last Documented On 2 5:15PM ; [facility] Use of CPAP 04/20/2022 Last Documented On 2 5:15PM ; [facility] No recent immunization for flu 2 Last Documented On 2 5:15PM ; [facility] No recent immunization for pneumococcal pneumonia 04/20/2022 Last Documented On 2 5:15PM ; [facility] Family History Includes: Family History in patient's chart Description Last Updated Diabetes mellitus 04/20/2022 Last Documented On 2 5:15PM ; [facility] Family history of heart disease 04/20/20 22 Last Documented On 2 5:15PM ; [facility] Family history of rheumatoid arthritis 0 04/20/2022 Last Documented On 2 5:15PM ; [facility] Family history of systemic hypertension 04/20/2022 Last Documented On 2 5:15PM ; [facility] Family history of thromboembolic disease 04/20/2022 Last Documented On 2 5:15PM ; [facility] Stroke / Seizures 04/20/2022 Last Documented On 2 5:15PM ; [facility] Review of Systems Review of Systems not [...] 1 04/20/2022 Complete (Refused - Patient objection) [facility] Last Documented On 2 3:04PM ; [facility] PCV (Pneumovax 23) 1 04/20/2022 Complete (Refused - Patient objection) [facility] Last Documented On 2 3:04PM ; [facility] Allergies Includes: Active, inactive, and resolved Allergies No Known Allergies Encounters Includes: Encounters from 05/15/2023 through 05/15/2024 Encounter Provider Location Date Check-In Time Check-Out Time Diagnosis Follow Up Colin Brown PA-C [facility] 4 10:07AM 10:43AM Follow Up Ana Paula Garner PA-C [facility] 4 1:08PM 1:40PM Follow Up Ana Paula Garner PA-C [facility] 4 12:48PM 1:43PM Overweight INJECTION Ana Paula Garner PA-C [facility] 3 1:11PM 1:31PM INJECTION Ana Paula Garner PA-C [facility] 3 1:01PM 1:16PM Insurance Includes: Active Insurance Policies Plan Name Member ID Group # Subscriber Relationship Effect elisabeth Dates 1 - Medicare Part B [facility] [id number] Nghia Montalvo Self 2 - [facility] [id number] Nghia Montalvo Self 11/08/2021 - Unknown Clinical Notes Includes: Signed Clinical Notes starting from 10/22/2022 * Progress note Date Encounter Last Documented by 12/13/2023 Follow Up Last documented on 12/20/2023; 8:30 AM, Ana Paula Mendiola; [facility] Active Problems & Conditions - Joint Pain in Both Knees Chief Complaint The Chief Complaint is: Bilateral knee pain. Referred Here Referred by. History of Present Illness Nghia Montalvo is a 63 year old male. - Allergy list reviewed - Problem list reviewed - Medication list reviewed He presents today for evaluation of bilateral knees. He has known advanced degenerative changes of both knees. The left knee is much more symptomatic than the right knee. He had cortisone injections 6 weeks ago. He would like to discuss additional available treatment options at today's appointment. No interval injury, trauma, or fall. The pain is impacting his activities of daily living. It hurts with every step. He is ready to discuss surgical intervention. His medical history is significant for atypical Parkinson's. He is close follow up with a neurologist for this. He also has a diagnosis of lupus anticoagulant and is on chronic warfarin for this. This is managed by his family care doctor. He also has a history of cardiac bypass and has regular follow up with his insurance follow up representative. He is type 2 diabetes with the last reported A1c of 6.1%. He has sleep apnea and uses his CPAP machine at home. He has a diagnosis of COPD as well. Current Medication - Bydureon BCise 2 MG/0.85ML Subcutaneous Auto-injector take as directed 28 days, 0 refills - clonazePAM 1 MG Oral Tablet take as directed 27 days, 0 refills - DULoxetine HCl 60 MG Oral Capsule Delayed Release Particles take as directed 30 days, 0 refills - methylPREDNISolone 4 MG Oral Tablet Therapy Pack take as directed 6 days, 0 refills - Warfarin Sodium 7.5 MG Oral Tablet take as directed 30 days, 0 refills Social History Tobacco use: Tobacco non-user. Allergies - No Known Allergies Physical Findings - Vitals taken 12/13/2023 01:18 pm jayne Height 74 in Weight 307 lbs Body Mass Index 39.4 kg/m2 Body Surface Area 2.6 m2 The patient is well dressed and groomed. They have normal mood and affect. There is a waddling gait. Chest is clear and lungs are clear. The knees have normal alignment. The skin over the knees are intact. There is no increased redness or heat. Mild to moderate effusions. There is tenderness along the medial and lateral joint lines. There is full extension and 90 degrees flexion. Complete stability of the cruciate and collateral ligaments. There is medial pseudo laxity present with valgus stress of the left knee. Grossly normal motor and sensory function. Grossly normal vascular status. No calf tenderness. Tests Four view radiographs of the left knee show significant narrowing of the medial compartment with [id number] appearance and subchondral sclerosis. There is relatively preserved lateral compartment space. There is narrowing of the lateral facet of the patellofemoral compartment. There is osteophyte formation all 3 compartments. No acute osseous abnormality. Four views of the right knee show significant narrowing of the medial compartment with [id number] appearance and subchondral sclerosis. There is preserved lateral compartment space. There is narrowing of the lateral facet of the patellofemoral compartment. There is significant osteophyte formation all 3 compartments. No acute osseous abnormality. Assessment - Overweight Counseling/Education - Lose weight Plan He has evidence of chronic pain in his left knee. He has had appropriate conservative treatment and has failed it. He is having significant problems with day-to-day activity. Based on the history, physical examination and the radiographs I believe he is a candidate for total knee replacement. We discussed the procedure and its rationale. We explained risks which include but are not limited to, bleeding, infection, blood clot and incomplete pain relief and the possibility of further surgery in the future. We discussed rehabilitation and the rapid mobilization protocol. He understands and would like to proceed. He will need medical clearance from his family care doctor with recommendations on his warfarin management. He will need medical clearance from his insurance follow up representative and neurologist. We will schedule surgery at [facility] on an outpatient basis. His will be able to help care for him after surgery. Surgery will be scheduled after 01/12/2024 which will be 6 weeks after his last cortisone injection. Notes This dictation was done with voice recognition software and may contain errors and omissions. Practice Management Use of tobacco assessment performed Review of medications documented. Care Team - Valentin Lloyd
--- OUTSIDE RECORDS SUMMARY | 2024-05-15 15:21 | XMS_ITS | Clinical Summary ---
Author Name Unknown Address [address] [place] [address] Phone Organization [facility] Address [address] [place] [place] [address] Phone Care Team Providers Care Stripper Black And White Name Role Phone Matteo BERNARD, Andrez Fox Unavailable [phone] Alek Lloyd Unavailable Unavailable Reason for Visit and Chief Complaint Follow Up Problems Includes: Problems addressed during this encounter and other active Problems All Visits Onset Date Resolved Date Provider Condition S tatus Joint Pain in Both Knees 04/20/2022 Estlele Olmos PA-C Active Last Documented On 2 1:48PM ; [facility] Plan of Treatment Future Appointments Date Time Location Provi chris Follow Up 08/02/2024 1:00PM [facility] Maury Brown PA-C Last Documented On 4 10:45AM ; [facility] Assessments Includes: Assessments from this encounter No Assessments Recorded Medical Equipment - Implanted Devices Includes: Current Devices No Medical Equipment Recorded Medications Includes: Medications discussed during this encounter and other current Medications Current Medications (continue as prescribed) Bydureon BCise 2 MG/0.85ML Subcutaneous Auto-injector 04/16/2022 Provider: Diagnosis: Last Documented On 2 2:59PM By Myrna Gonzalez [facility] DULoxetine HCl 60 MG Oral Ca psule Delayed Release Particles 04/16/2022 Provider: ALEK EVANS MD Diagnosis: Last Documented On 2 2:59PM By Myrna Chowdhury ; [facility] clonazePAM 1 MG Oral Tablet 04/09/2022 Provider: ALEK EVANS MD Diagnosis: Last Documented On 2 2:59PM By Myrna Chowdhury ; [facility] methylPREDNISolone 4 MG Oral Tablet Therapy Pack 04/09 Provider: Diagnosis: Last Documented On 2 2:59PM By Myrna Chowdhury ; [facility] Warfarin Sodium 7.5 MG Oral Tablet 03/27/2022 Provid er: ALEK EVANS MD Diagnosis: Last Documented On 2 1:54PM By Myrna Chowdhury ; [facility] Medications Administered Includes: Administered Medications from this [...] primary osteoarthritis of knee Colin Brown PA-C [facility] 05/05/2024 Last Documented On 4 12:06PM ; [facility] Triamcinolone/Kenalog, 10mg per cc J3301 Bilateral primary osteoarthritis of knee Colin Brown PA-C [facility] 05/05/2024 Last Documented On 4 12:06PM ; [facility] Medical History Includes: Medical History addressed during [...] Time Check- Out Time Diagnosis Follow Up Colin Brown PA-C [facility] 4 10:07AM 10:43AM Insurance Includes: Active Insurance Policies Plan Name Member ID Group # Subscriber Relationship Effect elisabeth Dates 1 - Medicare Part B of [place] [id number] Nghia Montalvo Self 2 - [facility] [id number] Nghia Montalvo Self 11/08/2021 - Unknown Clinical Notes Includes: Clinical Notes from this encounter No Clinical Notes Recorded
--- OUTSIDE RECORDS SUMMARY | 2024-05-15 15:21 | XMS_ITS ---
Care Plan - [facility] Created on: May 15, 2024 Nghia Montalvo : 1960 Sex: Male Author Name Unknown Address [address] [place] [address] Phone Organization [facility] Address [address] [place] [address] Phone Care Team Providers Care Flame Cutter Name Role Phone Matteo BERNARD, Andrez Fox Unavailable [phone] Alek Lloyd Unavailable Unavailable
--- OUTSIDE RECORDS SUMMARY | 2024-05-15 15:21 | XMS_ITS | Clinical Summary ---
Author Name Unknown Address [address] [place] [address] Phone Organization [facility], [facility] Address [address] [place] [address] Phone Care Team Providers Care Route Deliverer Name Role Phone Andrez Felipe MD Unavailable [phone] Alek Lloyd Unavailable Unavailable Reason for Visit and Chief Complaint The Chief Complaint is: Bilateral knee pain Problems Includes: Problems addressed during this encounter and other active Problems All Visits Onset Date Resolved Date Provider Condition S tatus Joint Pain in Both Knees 04/20/2022 Estelle Olmos PA-C Active Last Documented On 2 1:48PM ; [facility] Plan of Treatment He has evidence of chronic pain in [...] He will need medical clearance from his belt sander stone and neurologist. We will schedule surgery at [facility] on an outpatient basis. His will be able to help care for him after surgery. Surgery will be scheduled after 01/12/2024 which will be 6 weeks after his last cortisone injection. - Last Documented On 12/20/2023 8:30AM ; [facility] Future Appointments Date Time Location Provi chris Follow Up 08/02/2024 1:00PM ALONSO Brown PA-C Last Documented On 4 10:45AM ; [facility] Instructions to patient Lose weight Last Documented On 4 1:18PM ; [facility] Assessments Includes: Assessments from this encounter Findings - Overweight - Last Documented On 12/20/2023 8:30AM ; [facility] Instructions Includes: Instructions from this encounter Instructions to patient Lose weight Last Documented On 4 1:18PM ; [facility] Medical Equipment - Implanted Devices Includes: Current Devices No Medical Equipment Recorded Medications Includes: Medications discussed during this encounter and other current Medications Current Medications (continue as prescribed) Bydureon BCise 2 MG/0.85ML Subcutaneous Auto-injector 04/16/2022 Provider: Diagnosis: Last Documented On 2 2:59PM By ROSALBA Villeda DULoxetine HCl 60 MG Oral Ca psule Delayed Release Particles 04/16/2022 Provider: ALEK EVANS MD Diagnosis: Last Documented On 2 2:59PM By Myrna Chowdhury ; [facility] clonazePAM 1 MG Oral Tablet 04/09/2022 Provider: ALEK EVANS MD Diagnosis: Last Documented On 2 2:59PM By ROSALBA Villeda methylPREDNISolone 4 MG Oral Tablet Therapy Pack 04/09 Provider: Diagnosis: Last Documented On 2 2:59PM By Myrna [facility] Warfarin Sodium 7.5 MG Oral Tablet 03/27/2022 Provid er: ALEK EVANS MD Diagnosis: Last Documented On 2 1:54PM By Myrna [facility] Medications Administered Includes: Administered Medications from this encounter No Administered Medications Recorded Vital Signs Includes: Vital Signs from this encounter Vital Name 12/13/2023 01:18P Height (in) 74 Weight (lb) 307 Body Mass Index 39.4 Body Surface Area 2.6 Note: jayne Last Documented: On 12/13/2023 1:18PM ; [facility], [facility] Results Includes: Results discussed during this encounter No Results Recorded For Specified Dates History of Present Illness Includes: History of Present Illness from this encounter YANETH Montalvo is a 63 year old male. [...] and has regular follow up with his belt sander stone. He is type 2 diabetes with the last reported A1c of 6.1%. He has sleep apnea and uses his CPAP machine at home. He has a diagnosis of COPD as well. Social History Description Last Updated Tobacco non-user 12/13/2023 Last Documented On 4 8:30AM ; [facility], [facility] Smoking Status Unknown Procedures and Surgical History Includes: Procedures from this encounter Procedures Code Diagnosis Performing Provider Service Location Service Date X-RAY EXAM KNEE 4 OR MORE (RIGHT) 45998 Unilateral primary osteoarthritis, right knee Ana Paula Garner PA-C [facility] 12/13/2023 Last Documented On 4 8:56AM ; [facility], [facility] X-RAY EXAM KNEE 4 OR MORE (LEFT) 24949 Unilateral primary osteoarthritis, left knee Ana Paula Garner PA-C [facility] 12/13/2023 Last Documented On 4 8:56AM ; [facility], [facility] use of tobacco assessment performed 1000F Last Documented On 4 1:18PM ; [facility], [facility] review of medications documented 1160F Last Documented On 4 1:18PM ; [facility], [facility] Medical History Includes: Medical History addressed during [...] Exam Includes: Physical Exam from this encounter Allergies Includes: Active Allergies No Known Allergies Encounters Encounter Provider Location Date Check-In Time Check-Out Time Diagnosis Follow Up Ana Paula Garner PA-C [facility] 4 12:48PM 1:43PM Overweight Insurance Includes: Active Insurance Policies Plan Name Member ID Group # Subscriber Relationship Effect elisabeth Dates 1 - Medicare Part B of [place] [id number] Nghia Monatlvo Self 2 - [facility] [id number] Nghia Montalvo Self 11/08/2021 - Unknown Clinical Notes Includes: Clinical Notes from this encounter * Progress note Date Encounter Last Documented by 12/13/2023 Follow Up Last documented on 12/20/2023; 8:30 AM, Ana Paula Mendiola; [facility], [facility] Active Problems & Conditions - Joint Pain [...] and has regular follow up with his belt sander stone. He is type 2 diabetes with the [...] significant narrowing of the medial compartment with [id number] appearance and subchondral sclerosis. There is relatively preserved lateral compartment space. There is narrowing of the lateral facet of the patellofemoral compartment. There is osteophyte formation all 3 compartments. No acute osseous abnormality. Four views of the right knee show significant narrowing of the medial compartment with [id number] appearance and subchondral sclerosis. There is preserved [...] He will need medical clearance from his belt sander stone and neurologist. We will schedule surgery at [facility] on an outpatient basis. His will be able to help care for him after surgery. Surgery will be scheduled after 01/12/2024 which will be 6 weeks after his last cortisone injection. Notes This dictation was done with voice recognition software and may contain errors and omissions. Practice Management Use of tobacco assessment performed Review of medications documented. Care Team - Alek Lloyd
--- OUTSIDE RECORDS SUMMARY | 2024-05-15 15:21 | XMS_ITS | Clinical Summary ---
Author Name Unknown Address [address] [place] [address] Phone Organization [facility] , [facility] Address [address] [place] [address] Phone Care Team Providers Care Rn Integrated Name Role Phone Matteo BERNARD, Andrez Fox Unavailable [phone] Alek Lloyd Unavailable Unavailable Reason for Visit and Chief Complaint Follow Up Problems Includes: Problems addressed during this encounter and other active Problems All Visits Onset Date Resolved Date Provider Condition S tatus Joint Pain in Both Knees 04/20/2022 Estelle Olmos PA-C Active Last Documented On 2 1:48PM ; [facility] Plan of Treatment Future Appointments Date Time Location Provi chris Follow Up 08/02/2024 1:00PM [facility] Maury Brown PA-C Last Documented On 4 10:45AM ; [facility] Assessments Includes: Assessments from this encounter No Assessments Recorded Medical Equipment - Implanted Devices Includes: Current Devices No Medical Equipment Recorded Medications Includes: Medications discussed during this encounter and other current Medications Current Medications (continue as prescribed) Bydureon BCise 2 MG/0.85ML Subcutaneous Auto-injector 04/16/2022 Provider: Diagnosis: Last Documented On 2 2:59PM By Myrna Gonzalez [facility], [facility] DULoxetine HCl 60 MG Oral Ca psule Delayed Release Particles 04/16/2022 Provider: ALEK EVANS MD Diagnosis: Last Documented On 2 2:59PM By Myrna Chowdhury ; [facility] clonazePAM 1 MG Oral Tablet 04/09/2022 Provider: ALEK EVANS MD Diagnosis: Last Documented On 2 2:59PM By Myrna Chowdhury ; [facility] methylPREDNISolone 4 MG Oral Tablet Therapy Pack 04/09 Provider: Diagnosis: Last Documented On 2 2:59PM By Myrna Chowdhury ; [facility] Warfarin Sodium 7.5 MG Oral Tablet 03/27/2022 Provid er: ALEK EVANS MD Diagnosis: Last Documented On 2 1:54PM By Myrna Chowdhury ; [facility] Medications Administered Includes: Administered Medications from this [...] osteoarthritis of knee Ana Paula Garner PA-C [facility] 02/02/2024 Last Documented On 4 2:47PM ; [facility] Injection, betamethasone acetate 6mg per cc and betamethason J0702 Bilateral primary osteoarthritis of knee Ana Paula Garner PA-C [facility] 02/02/2024 Last Documented On 4 2:47PM ; [facility] Medical History Includes: Medical History addressed [...] Time Check- Out Time Diagnosis Follow Up Ana Paula Garner PA-C [facility] 4 1:08PM 1:40PM Insurance Includes: Active Insurance Policies Plan Name Member ID Group # Subscriber Relationship Effect elisabeth Dates 1 - Medicare Part B of [place] [id number] Nghia Montalvo Self 2 - [facility] [id number] Nghia Montalvo Self 11/08/2021 - Unknown Clinical Notes Includes: Clinical Notes from this encounter No Clinical Notes Recorded
--- OUTSIDE RECORDS SUMMARY | 2024-05-15 15:21 | XMS_ITS | Clinical Summary ---
Author Name Unknown Address [address] [place] [address] Phone Organization [facility] , [facility] Address [address] [place] [address] Phone Care Team Providers Care Quote Clerk Name Role Phone Matteo BERNARD, Andrez Fox Unavailable [phone] Alek Lloyd Unavailable Unavailable Reason for Visit and Chief Complaint INJECTION Problems Includes: Problems addressed during this encounter and other active Problems All Visits Onset Date Resolved Date Provider Condition S tatus Joint Pain in Both Knees 04/20/2022 Estelle Olmos PA-C Active Last Documented On 2 1:48PM ; [facility] Plan of Treatment Future Appointments Date Time Location Provi chris Follow Up 08/02/2024 1:00PM [facility] Maury Brown PA-C Last Documented On 4 10:45AM ; [facility] Assessments Includes: Assessments from this encounter No Assessments Recorded Medical Equipment - Implanted Devices Includes: Current Devices No Medical Equipment Recorded Medications Includes: Medications discussed during this encounter and other current Medications Current Medications (continue as prescribed) Bydureon BCise 2 MG/0.85ML Subcutaneous Auto-injector 04/16/2022 Provider: Diagnosis: Last Documented On 2 2:59PM By Myrna Chowdhury ; [facility] DULoxetine HCl 60 MG Oral Ca psule Delayed Release Particles 04/16/2022 Provider: ALEK EVANS MD Diagnosis: Last Documented On 2 2:59PM By Myrna Chowdhury ; [facility] clonazePAM 1 MG Oral Tablet 04/09/2022 Provider: ALEK EVANS MD Diagnosis: Last Documented On 2 2:59PM By Myrna [facility] methylPREDNISolone 4 MG Oral Tablet Therapy Pack 04/09 Provider: Diagnosis: Last Documented On 2 2:59PM By Myrna Chowdhury ; [facility] Warfarin Sodium 7.5 MG Oral Tablet 03/27/2022 Provid er: ALEK EVANS MD Diagnosis: Last Documented On 2 1:54PM By Myrna Chowdhury ; [facility] Medications Administered Includes: Administered Medications from this [...] osteoarthritis of knee Ana Paula Garner PA-C [facility] 11/03/2023 Last Documented On 3 3:16PM ; [facility] Injection, betamethasone acetate 6mg per cc and betamethason J0702 Bilateral primary osteoarthritis of knee Ana Paula Garner PA-C [facility] 11/03/2023 Last Documented On 3 3:16PM ; [facility] Medical History Includes: Medical History [...] Time Diagnosis INJECTION Ana Paula Garner PA-C [facility] 3 1:11PM 1:31PM Insurance Includes: Active Insurance Policies Plan Name Member ID Group # Subscriber Relationship Effect elisabeth Dates 1 - Medicare Part B of [place] [id number] Nghia Montalvo Self 2 - [facility] [id number] Nghia Montalvo Self 11/08/2021 - Unknown Clinical Notes Includes: Clinical Notes from this encounter No Clinical Notes Recorded
--- OUTSIDE RECORDS SUMMARY | 2024-05-15 15:21 | XMS_ITS | Clinical Summary ---
Author Name Unknown Address [address] [place] [address] Phone Organization [facility] , [facility] Address [address] [place] [address] Phone Care Team Providers Care Buncher Machine Name Role Phone Matteo BERNARD, Andrez Fox Unavailable [phone] Alek Lloyd Unavailable Unavailable Reason for Visit and Chief Complaint INJECTION Problems Includes: Problems addressed during this encounter and other active Problems All Visits Onset Date Resolved Date Provider Condition S tatus Joint Pain in Both Knees 04/20/2022 Estelle Olmos PA-C Active Last Documented On 2 1:48PM ; [facility] Plan of Treatment Future Appointments Date Time Location Provi chris Follow Up 08/02/2024 1:00PM [facility] Maury Brown PA-C Last Documented On 4 10:45AM ; [facility] Assessments Includes: Assessments from this encounter No Assessments Recorded Medical Equipment - Implanted Devices Includes: Current Devices No Medical Equipment Recorded Medications Includes: Medications discussed during this encounter and other current Medications Current Medications (continue as prescribed) Bydureon BCise 2 MG/0.85ML Subcutaneous Auto-injector 04/16/2022 Provider: Diagnosis: Last Documented On 2 2:59PM By Myrna Chowdhury ; [facility], [facility] DULoxetine HCl 60 MG Oral Ca psule Delayed Release Particles 04/16/2022 Provider: ALEK EVANS MD Diagnosis: Last Documented On 2 2:59PM By Myrna Chowdhury ; [facility] clonazePAM 1 MG Oral Tablet 04/09/2022 Provider: ALEK EVANS MD Diagnosis: Last Documented On 2 2:59PM By Myrna [facility] methylPREDNISolone 4 MG Oral Tablet Therapy Pack 04/09 Provider: Diagnosis: Last Documented On 2 2:59PM By Myrna Chowdhury ; [facility] Warfarin Sodium 7.5 MG Oral Tablet 03/27/2022 Provid er: ALEK EVANS MD Diagnosis: Last Documented On 2 1:54PM By Myrna Chowdhury ; [facility] Medications Administered Includes: Administered Medications [...] osteoarthritis of knee Ana Paula Garner PA-C [facility] 08/04/2023 Last Documented On 3 10:39AM ; [facility] Injection, betamethasone acetate 6mg per cc and betamethason J0702 Bilateral primary osteoarthritis of knee Ana Paula Garner PA-C [facility] 08/04/2023 Last Documented On 3 10:39AM ; [facility] Medical History Includes: Medical History addressed during [...] Time Diagnosis INJECTION Ana Paula Garner PA-C [facility] 3 1:01PM 1:16PM Insurance Includes: Active Insurance Policies Plan Name Member ID Group # Subscriber Relationship Effect elisabeth Dates 1 - Medicare Part B of [place] [id number] Nghia Montalvo Self 2 - [facility] [id number] Nghia Montalvo Self 11/08/2021 - Unknown Clinical Notes Includes: Clinical Notes from this encounter No Clinical Notes Recorded
[2024-05-15 16:17] LABS: Alanine Aminotransferase 27 U/L (12-78); Albumin Level 4.3 g/dl (3.5-5.0); Alkaline Phosphatase 86 U/L (38-126); Aspartate Amino Transferase 26 U/L (17-59); Bilirubin,Indirect 0.7 mg/dL (0.0-0.9); Bilirubin,Total 0.7 mg/dl (0.2-1.3); Bilirubin,Unconjugated 0.8 mg/dL (0.0-1.1); Chol/HDL Ratio 3.9 (1-3.5); Cholesterol 189 mg/dl (140-200); HDL Cholesterol 49 mg/dl (40-60); Total Protein,Serum 6.8 g/dl (6.3-8.2); Triglycerides 138 mg/dl (30-150); VLDL Cholesterol 28 mg/dL (0-40)
[2024-05-15 16:28] LABS: Direct LDL Cholesterol 102.76 mg/dL (100-129)
== END 2024-05-15 23:59 | disposition home or self-care (01) ==
LOC: LAB 15:19
PROVIDERS: PCP Physician Assistant; Visit Provider Physician Assistant
DX: E78.2 Mixed hyperlipidemia (principal); I25.118 Atherosclerotic heart disease of native coronary artery with other forms of angina pectoris; E78.5 Hyperlipidemia, unspecified
CPT/HCPCS: 36415; 80061; 80076

== ENCOUNTER 2024-05-26 11:51 | Outpatient (CLI) | payer MEDICARE, BC, SELFPAY ==
--- OUTSIDE RECORDS SUMMARY | 2024-05-26 11:54 | XMS_ITS ---
Author Name Unknown Address [address] [place] [place] [address] Phone Organization [facility] Address [address] [place] [place] [address] Phone Care Team Providers Care District Plant Superintendent Name Role Phone Matteo BERNARD, Andrez Fox Unavailable [phone] Valentin Lloyd Unavailable Unavailable Reason for Referral Date Encounter Description Provider Reason for Referral 04/20/22 Non Physician Specified Estelle Cason Referral To Physician Problems Includes: Active, inactive, and resolved Problems All Visits Onset Date Resolved Date Provider Condition S tatus Joint Pain in Both Knees 04/20/2022 Estelle Olmos PA-C Active Last Documented On 2 1:48PM ; [facility], [facility] Plan of Treatment Future Appointments Date Time Location Provi chris Follow Up 08/02[facility]24 1[facility] Last Documented On 4 10:45AM ; [facility] Instructions to patient Lose weight Last Documented On 4 1:18PM ; [facility] Lose weight Last Documented On 2 2:07PM ; [facility] Lose weight Last Documented On 2 1:51PM ; [facility], [facility] Assessments Includes: Assessments for all patient encounters Findings Encounter Date Overweight Follow Up with Ana Paula Perez 12/13/2023 Last Documented On 4 8:30AM ; [facility] Instructions Includes: Instructions for all patient encounters Instructions to patient Lose weight Last Documented On 4 1:18PM ; [facility] Lose weight Last Documented On 2 2:07PM ; [facility] Lose weight Last Documented On 2 1:51PM ; [facility] Medical Equipment - Implanted Devices Includes: Current and historical Devices No Medical Equipment Recorded Medications Includes: Current and historical Medications Current Medications (continue as prescribed) Bydureon BCise 2 MG/0.85ML Subcutaneous Auto-injector 04/16/2022 Provider: Diagnosis: Last Documented On 2 2:59PM By Myrna Chowdhury ; [facility] DULoxetine HCl 60 MG Oral Ca psule Delayed Release Particles 04/16/2022 Provider: VALENTIN EVANS MD Diagnosis: Last Documented On 2 2:59PM By Myrna Chowdhury ; [facility] [...] HEALTH SERVICES Medications Administered Includes: Administered Medications in patient's chart No Administered Medications Recorded Vital Signs Includes: Vital Signs from 05/26/2023 through 05/26/2024 Vital Name 12/13/2023 01:18P Height (in) 74 Weight (lb) 307 Body Mass Index 39.4 Body Surface Area 2.6 Note: jayne Last Documented: On 12/13/2023 1:18PM ; [facility] Results Includes: Results from 05/26/2023 through 05/26/2024 No Results Recorded For Specified Dates History of Present Illness History of Present Illness not supported for this document type No History of Present Illness Recorded Social History Description Last Updated Tobacco non-user 12/13/2023 Last Documented On 4 8:30AM ; [facility] Caffeine use 04/20/2022 Last Documented On 2 5:15PM ; [facility], [facility] Not a current smoker. 04/20/2022 Last Documented On 2 5:15PM ; [facility], [facility] Not exercising regularly 04/20/2022 Last Documented On 2 5:15PM ; [facility] Not using alcohol 04/20/2022 Last Documented On 2 5:15PM ; [facility], [facility] Not using drugs 04/20/2022 Last Documented On 2 5:15PM ; [facility], [facility] Recent change in diet 04/20/2022 Last Documented On 2 5:15PM ; [facility], [facility] Non-smoker 04/20/2022 Last Documented On 2 5:15PM ; [facility], [facility] Smoking Status Unknown Procedures and Surgical History Includes: Procedures from 05/26/2023 through 05/26/2024 Procedures Code Diagnosis Performing Provider Service Location Service Date Triamcinolone/Ke nalog, 10mg per cc J3301 Bilateral primary osteoarthritis of knee Colin Brown PA-C [facility] 05/05/2024 Last Documented On 4 12:06PM ; [facility], [facility] DRAIN/INJECT, JOINT/BURSA (Bilateral Procedure) Bilateral primary osteoarthritis of knee Colin Brown PA-C [facility] 05/05/2024 Last Documented On 4 12:06PM ; [facility] DRAIN/INJECT, JOINT/BURSA (Bilateral Procedure) Bilateral primary osteoarthritis of knee Ana Paula Garner PA-C [facility] 02/02/2024 Last Documented On 4 2:47PM ; [facility], [facility] Injection, betamethasone acetate 6mg per cc and betamethason J0702 Bilateral primary osteoarthritis of knee Ana Paula Garner PA-C [facility] 02/02/2024 Last Documented On 4 2:47PM ; [facility] X-RAY EXAM KNEE 4 OR MORE (LEFT) 16147 Unilateral primary osteoarthritis, left knee Ana Paula Garner RAL[facility] 12/13/2023 Last Documented On 4 8:56AM ; [facility] X-RAY EXAM KNEE 4 OR MORE (RIGHT) [id number] Unilateral primary osteoarthritis, right knee Ana Paula Garner [facility] 12/13/2023 Last Documented On 4 8:56AM ; [facility] Injection, betamethasone acetate 6mg per cc and betamethason J0702 Bilateral primary osteoarthritis of knee Ana Paula Garner DANIEL-Maury [facility] 11/03/2023 Last Documented On 3 3:16PM ; [facility] DRAIN/INJECT, JOINT/BURSA (Bilateral Procedure) Bilateral primary osteoarthritis of knee Ana Paula Garner [facility] 11/03/2023 Last Documented On 3 3:16PM ; [facility] Injection, betamethasone acetate 6mg per cc and betamethason J0702 Bilateral primary osteoarthritis of knee Ana Paula Garner DANIELMaury [facility] 08/04/2023 Last Documented On 3 10:39AM ; [facility] DRAIN/INJECT, JOINT/BURSA (Bilateral Procedure) Bilateral primary osteoarthritis of knee Ana Paula Garner [facility] 08/04/2023 Last Documented On 3 10:39AM ; [facility] Surgical History Last Updated History of heart surgery 04/20/2022 Last Documented On 2 5:15PM ; [facility] Medical History Includes: Medical History in patient's chart Description Last Updated History of arthritis 04/20/2022 Last Documented On 2 5:15PM ; [facility] History of depression 04/20/2022 Last Documented On 2 5:15PM ; [facility] History of diabetes mellitus 04/20/2022 Last Documented On 2 5:15PM ; [facility] History of heart disease 04/20/2022 Last Documented On 2 5:15PM ; [facility] History of Heartburn / Acid Reflux 04/20 Last Documented On 2 5:15PM ; [facility] History of History of Blood Clots 2021 Last Documented On 2 5:15PM ; [facility] History of History of Heart Attack / Str rhiannon 04/20/2022 Last Documented On 2 5:15PM ; [facility] History of Hypertension 04/20/2022 Last Documented On 2 5:15PM ; [facility] History of Irregular Heartbeat 2 Last Documented On 2 5:15PM ; [facility] History of Sleep Apnea 04/20/2022 Last Documented On 2 5:15PM ; [facility] Use of CPAP 04/20/2022 Last Documented On 2 5:15PM ; [facility] No recent immunization for flu 2 Last Documented On 2 5:15PM ; [facility] No recent immunization for pneumococcal pneumonia 04/20/2022 Last Documented On 2 5:15PM ; [facility] Family History Includes: Family History in patient's chart Description Last Updated Diabetes mellitus 04/20/2022 Last Documented On 2 5:15PM ; [facility] Family history of heart disease 04/20/20 22 Last Documented On 2 5:15PM ; [facility] Family history of rheumatoid arthritis 0 04/20/2022 Last Documented On 2 5:15PM ; [facility] Family history of systemic hypertension 04/20/2022 Last Documented On 2 5:15PM ; [facility] Family history of thromboembolic disease 04/20/2022 Last Documented On 2 5:15PM ; [facility] Stroke / Seizures 04/20/2022 Last Documented On 2 5:15PM ; [facility] Review of Systems Review of Systems [...] 1 04/20/2022 Complete (Refused - Patient objection) [facility] Last Documented On 2 3:04PM ; [facility] PCV (Pneumovax 23) 1 04/20/2022 Complete (Refused - Patient objection) [facility] Last Documented On 2 3:04PM ; [facility] Allergies Includes: Active, inactive, and resolved Allergies No Known Allergies Encounters Includes: Encounters from 05/26/2023 through 05/26/2024 Encounter Provider Location Date Check-In Time Check-Out Time Diagnosis Follow Up Colin Brown PA-C [facility] 4 10:07AM 10:43AM Follow Up Ana Paula Garner PA-C [facility] 4 1:08PM 1:40PM Follow Up Ana Paula Garner PA-C [facility] 4 12:48PM 1:43PM Overweight INJECTION Ana Paula Garner PA-C [facility] 3 1:11PM 1:31PM INJECTION Ana Paula Garner PA-C [facility] 3 1:01PM 1:16PM Insurance Includes: Active Insurance Policies Plan Name Member ID Group # Subscriber Relationship Effect elisabeth Dates 1 - Medicare Part B [facility] [id number] Nghia Montalvo Self 2 - [facility] [id number] Nghia Montalvo Self 11/08/2021 - Unknown Clinical Notes Includes: Signed Clinical Notes starting from 10/22/2022 * Progress note Date Encounter Last Documented by 12/13/2023 Follow Up Last documented on 12/20/2023; 8:30 AM, Ana Paula Mendiola; [facility] Active Problems & Conditions - Joint [...] and has regular follow up with his it project lead. He is type 2 diabetes with the [...] significant narrowing of the medial compartment with cblz-zq-ratd appearance and subchondral sclerosis. There is relatively preserved lateral compartment space. There is narrowing of the lateral facet of the patellofemoral compartment. There is osteophyte formation all 3 compartments. No acute osseous abnormality. Four views of the right knee show significant narrowing of the medial compartment with suiz-dh-yhtw appearance and subchondral sclerosis. There is preserved [...] He will need medical clearance from his it project lead and neurologist. We will schedule surgery at [facility] on an outpatient basis. His will be [...]
--- OUTSIDE RECORDS SUMMARY | 2024-05-26 11:55 | XMS_ITS ---
Care Plan - [facility], [facility] Created on: May 26, 2024 Nghia Montalvo : 1960 Sex: Male Author Name Unknown Address [address] [place] [address] Phone Organization [facility] Address [address] [place] [address] Phone Care Team Providers Care Cage Shift Manager Name Role Phone Matteo BERNARD, Andrez Fox Unavailable [phone] Alek Lloyd Unavailable Unavailable
--- OUTSIDE RECORDS SUMMARY | 2024-05-26 11:55 | XMS_ITS | Clinical Summary ---
Author Name Unknown Address [address] [place] [address] Phone Organization [facility] Address [address] [place] [address] Phone Care Team Providers Care Animal Doctor Name Role Phone Matteo BERNARD, Andrez Fox Unavailable [phone] Alek Lloyd Unavailable Unavailable Reason for Visit and Chief Complaint Follow Up Problems Includes: Problems addressed during this encounter and other active Problems All Visits Onset Date Resolved Date Provider Condition S tatus Joint Pain in Both Knees 04/20/2022 Estelle Olmos PA-C Active Last Documented On 2 1:48PM ; [facility] Plan of Treatment Future Appointments Date Time Location Provi chris Follow Up 08/02/2024 1:00PM [facility] Maury Brown PA-C Last Documented On 4 10:45AM ; [facility] Assessments Includes: Assessments from this encounter No Assessments Recorded Medical Equipment - Implanted Devices Includes: Current Devices No Medical Equipment Recorded Medications Includes: Medications discussed during this encounter and other current Medications Current Medications (continue as prescribed) Bydureon BCise 2 MG/0.85ML Subcutaneous Auto-injector 04/16/2022 Provider: Diagnosis: Last Documented On 2 2:59PM By Myrna Gonzalez [facility], [facility] DULoxetine HCl 60 MG Oral Ca psule Delayed Release Particles 04/16/2022 Provider: ALEK EVANS MD Diagnosis: Last Documented On 2 2:59PM By Myrna Chowdhury ; [facility] clonazePAM 1 MG Oral Tablet 04/09/2022 Provider: ALEK EVANS MD Diagnosis: Last Documented On 2 2:59PM By Myrna Chowdhury ; [facility] methylPREDNISolone 4 MG Oral Tablet Therapy Pack 04/09 Provider: Diagnosis: Last Documented On 2 2:59PM By Myrna Chowdhury ; [facility] Warfarin Sodium 7.5 MG Oral Tablet 03/27/2022 Provid er: ALEK EVANS MD Diagnosis: Last Documented On 2 1:54PM By Myrna Chowdhury ; [facility] Medications Administered Includes: Administered Medications from [...] osteoarthritis of knee Ana Paula Garner PA-C [facility] 02/02/2024 Last Documented On 4 2:47PM ; [facility] Injection, betamethasone acetate 6mg per cc and betamethason J0702 Bilateral primary osteoarthritis of knee Ana Paula Garner PA-C [facility] 02/02/2024 Last Documented On 4 2:47PM ; [facility] Medical History Includes: Medical History [...] Diagnosis Follow Up Ana Paula Garner PA-C [facility] 4 1:08PM 1:40PM Insurance Includes: Active Insurance Policies Plan Name Member ID Group # Subscriber Relationship Effect elisabeth Dates 1 - Medicare Part B of [place] [id number] Nghia Montalvo Self 2 - [facility] [id number] Nghia Montalvo Self 11/08/2021 - Unknown Clinical Notes Includes: Clinical Notes from this encounter No Clinical Notes Recorded
--- OUTSIDE RECORDS SUMMARY | 2024-05-26 11:55 | XMS_ITS | Clinical Summary ---
Author Name Unknown Address [address] [place] [address] Phone Organization [facility] Address [address] [place] [place] [address] Phone Care Team Providers Care Assembler Seat Name Role Phone Matteo BERNARD, Andrez Fox Unavailable [phone] Alek Lloyd Unavailable Unavailable Reason for Visit and Chief Complaint INJECTION Problems Includes: Problems addressed during this encounter and other active Problems All Visits Onset Date Resolved Date Provider Condition S tatus Joint Pain in Both Knees 04/20/2022 Estelle Olmos PA-C Active Last Documented On 2 1:48PM ; [facility] Plan of Treatment Future Appointments Date Time Location Provi chris Follow Up 08/02/2024 1:00PM [facility] Maury Brown PA-C Last Documented On 4 10:45AM ; [facility] Assessments Includes: Assessments from this [...] [facility] DULoxetine HCl 60 MG Oral Ca psule Delayed Release Particles 04/16/2022 Provider: ALEK EVANS MD Diagnosis: Last Documented On 2 2:59PM By Myrna Chowdhury ; [facility] clonazePAM 1 MG Oral Tablet 04/09/2022 Provider: ALEK EVANS MD Diagnosis: Last Documented On 2 2:59PM By Myrna [facility] methylPREDNISolone 4 MG Oral Tablet Therapy Pack 04/09 Provider: Diagnosis: Last Documented On 2 2:59PM By Myrna Chowdhury ; [facility] Warfarin Sodium 7.5 MG Oral Tablet 03/27/2022 Provid er: ALEK EVANS MD Diagnosis: Last Documented On 2 1:54PM By Myrna Chowdhury ; [facility] Medications Administered Includes: Administered Medications from [...] osteoarthritis of knee Ana Paula Garner PA-C [facility] 08/04/2023 Last Documented On 3 10:39AM ; [facility] Injection, betamethasone acetate 6mg per cc and betamethason J0702 Bilateral primary osteoarthritis of knee Ana Paula Garner PA-C [facility] 08/04/2023 Last Documented On 3 10:39AM ; [facility] Medical History Includes: Medical History [...] Time Diagnosis INJECTION Ana Paula Garner PA-C [facility] 3 1:01PM 1:16PM Insurance Includes: Active Insurance Policies Plan Name Member ID Group # Subscriber Relationship Effect elisabeth Dates 1 - Medicare Part B of [place] [id number] Nghia Montalvo Self 2 - [facility] [id number] Nghia Montalvo Self 11/08/2021 - Unknown Clinical Notes Includes: Clinical Notes from this encounter No Clinical Notes Recorded
--- OUTSIDE RECORDS SUMMARY | 2024-05-26 11:55 | XMS_ITS | Clinical Summary ---
Author Name Unknown Address [address] [place] [address] Phone Organization [facility] Address [address] [place] [address] Phone Care Team Providers Care Calender Let Off Helper Name Role Phone Matteo BERNARD, Andrez Fox Unavailable [phone] Alek Lloyd Unavailable Unavailable Reason for Visit and Chief Complaint Follow Up Problems Includes: Problems addressed during this encounter and other active Problems All Visits Onset Date Resolved Date Provider Condition S tatus Joint Pain in Both Knees 04/20/2022 Estelle Olmos PA-C Active Last Documented On 2 1:48PM ; [facility] Plan of Treatment Future Appointments Date Time Location Provi chris Follow Up 08/02/2024 1:00PM [facility] Maury Brown PA-C Last Documented On 4 10:45AM ; [facility] Assessments Includes: Assessments from this encounter No Assessments Recorded Medical Equipment - Implanted Devices Includes: Current Devices No Medical Equipment Recorded Medications Includes: Medications discussed during this encounter and other current Medications Current Medications (continue as prescribed) Bydureon BCise 2 MG/0.85ML Subcutaneous Auto-injector 04/16/2022 Provider: Diagnosis: Last Documented On 2 2:59PM By Myrna Gonzalez [facility], [facility] DULoxetine HCl 60 MG Oral Ca psule Delayed Release Particles 04/16/2022 Provider: ALEK EVANS MD Diagnosis: Last Documented On 2 2:59PM By Myrna Chowdhury ; [facility] clonazePAM 1 MG Oral Tablet 04/09/2022 Provider: ALEK EVANS MD Diagnosis: Last Documented On 2 2:59PM By Myrna Chowdhury ; [facility] methylPREDNISolone 4 MG Oral Tablet Therapy Pack 04/09 Provider: Diagnosis: Last Documented On 2 2:59PM By Myrna Chowdhury ; [facility] Warfarin Sodium 7.5 MG Oral Tablet 03/27/2022 Provid er: ALEK EVANS MD Diagnosis: Last Documented On 2 1:54PM By Myrna Chowdhury ; [facility] Medications Administered Includes: Administered Medications from [...] primary osteoarthritis of knee Colin Brown PA-C [facility] 05/05/2024 Last Documented On 4 12:06PM ; [facility] Triamcinolone/Kenalog, 10mg per cc J3301 Bilateral primary osteoarthritis of knee Colin Brown PA-C [facility] 05/05/2024 Last Documented On 4 12:06PM ; [facility] Medical History Includes: Medical History addressed [...] Time Diagnosis Follow Up Colin Brown PA-C [facility] 4 10:07AM 10:43AM Insurance Includes: Active Insurance Policies Plan Name Member ID Group # Subscriber Relationship Effect elisabeth Dates 1 - Medicare Part B of [place] [id number] Nghia Montalvo Self 2 - [facility] [id number] Nghia Montalvo Self 11/08/2021 - Unknown Clinical Notes Includes: Clinical Notes from this encounter No Clinical Notes Recorded
--- OUTSIDE RECORDS SUMMARY | 2024-05-26 11:55 | XMS_ITS | Clinical Summary ---
Author Name Unknown Address [address] [place] [address] Phone Organization [facility], [facility] Address [address] [place] [address] Phone Care Team Providers Care Stage Driver Name Role Phone Andrez Felipe MD Unavailable [phone] Alek Lloyd Unavailable Unavailable Reason for Visit and Chief Complaint The Chief Complaint is: Bilateral knee pain Problems Includes: Problems addressed during this encounter and other active Problems All Visits Onset Date Resolved Date Provider Condition S tatus Joint Pain in Both Knees 04/20/2022 Estelle Olmos PA-C Active Last Documented On 2 1:48PM ; [facility] Plan of Treatment He has evidence of [...] He will need medical clearance from his travel guide and neurologist. We will schedule surgery at [facility] on an outpatient basis. His will be able to help care for him after surgery. Surgery will be scheduled after 01/12/2024 which will be 6 weeks after his last cortisone injection. - Last Documented On 12/20/2023 8:30AM ; [facility] Future Appointments Date Time Location Provi chris Follow Up 08/02/2024 1:00PM ALONSO Brown PA-C Last Documented On 4 10:45AM ; [facility] Instructions to patient Lose weight Last Documented On 4 1:18PM ; [facility] Assessments Includes: Assessments from this encounter Findings - Overweight - Last Documented On 12/20/2023 8:30AM ; [facility] Instructions Includes: Instructions from this encounter Instructions to patient Lose weight Last Documented On 4 1:18PM ; [facility] Medical Equipment - Implanted Devices Includes: [...] 2:59PM By Myrna Chowdhury ; [facility] clonazePAM 1 MG Oral Tablet 04/09/2022 Provider: ALEK EVANS MD Diagnosis: Last Documented On 2 2:59PM By ROSALBA Villeda methylPREDNISolone 4 MG Oral Tablet Therapy Pack 04/09 Provider: Diagnosis: Last Documented On 2 2:59PM By Myrna [facility] Warfarin Sodium 7.5 MG Oral Tablet 03/27/2022 Provid er: ALEK EVANS MD Diagnosis: Last Documented On 2 1:54PM By Myrna [facility] Medications Administered Includes: Administered Medications from this encounter No Administered Medications Recorded Vital Signs Includes: Vital Signs from this encounter Vital Name 12/13/2023 01:18P Height (in) 74 Weight (lb) 307 Body Mass Index 39.4 Body Surface Area 2.6 Note: jayne Last Documented: On 12/13/2023 1:18PM ; [facility], [facility] Results Includes: Results discussed during this encounter [...] and has regular follow up with his travel guide. He is type 2 diabetes with the last reported A1c of 6.1%. He has sleep apnea and uses his CPAP machine at home. He has a diagnosis of COPD as well. Social History Description Last Updated Tobacco non-user 12/13/2023 Last Documented On 4 8:30AM ; [facility], [facility] Smoking Status Unknown Procedures and Surgical History Includes: Procedures from this encounter Procedures Code Diagnosis Performing Provider Service Location Service Date X-RAY EXAM KNEE 4 OR MORE (RIGHT) 23679 Unilateral primary osteoarthritis, right knee Ana Paula Garner PA-C [facility] 12/13/2023 Last Documented On 4 8:56AM ; [facility], [facility] X-RAY EXAM KNEE 4 OR MORE (LEFT) 03299 Unilateral primary osteoarthritis, left knee Ana Paula Garner PA-C [facility] 12/13/2023 Last Documented On 4 8:56AM ; [facility], [facility] use of tobacco assessment performed 1000F Last Documented On 4 1:18PM ; [facility], [facility] review of medications documented 1160F Last Documented On 4 1:18PM ; [facility], [facility] Medical History Includes: Medical History [...] Diagnosis Follow Up Ana Paula Garner PA-C [facility] 4 12:48PM 1:43PM Overweight Insurance Includes: Active Insurance Policies Plan Name Member ID Group # Subscriber Relationship Effect elisabeth Dates 1 - Medicare Part B of [place] [id number] Nghia Montalvo Self 2 - [facility] [id number] Nghia Montalvo Self 11/08/2021 - Unknown Clinical Notes Includes: Clinical Notes from this encounter * Progress note Date Encounter Last Documented by 12/13/2023 Follow Up Last documented on 12/20/2023; 8:30 AM, Ana Paula Mendiola; [facility], [facility] Active Problems & Conditions - Joint [...] and has regular follow up with his travel guide. He is type 2 diabetes with the [...] significant narrowing of the medial compartment with [id number] appearance and subchondral sclerosis. There is relatively preserved lateral compartment space. There is narrowing of the lateral facet of the patellofemoral compartment. There is osteophyte formation all 3 compartments. No acute osseous abnormality. Four views of the right knee show significant narrowing of the medial compartment with [id number] appearance and subchondral sclerosis. There is preserved [...] He will need medical clearance from his travel guide and neurologist. We will schedule surgery at [facility] on an outpatient basis. His will be [...]
--- OUTSIDE RECORDS SUMMARY | 2024-05-26 11:55 | XMS_ITS | Clinical Summary ---
Author Name Unknown Address [address] [place] [address] Phone Organization [facility] Address [address] [place] [address] Phone Care Team Providers Care Telecasting Engineer Name Role Phone Matteo BERNARD, Andrez Fox Unavailable [phone] Alek Lloyd Unavailable Unavailable Reason for Visit and Chief Complaint INJECTION Problems Includes: Problems addressed during this encounter and other active Problems All Visits Onset Date Resolved Date Provider Condition S tatus Joint Pain in Both Knees 04/20/2022 Estelle Olmos PA-C Active Last Documented On 2 1:48PM ; [facility] Plan of Treatment Future Appointments Date Time Location Provi chris Follow Up 08/02/2024 1:00PM [facility] Maury Brown PA-C Last Documented On 4 10:45AM ; [facility] Assessments Includes: Assessments from this encounter No Assessments Recorded Medical Equipment - Implanted Devices Includes: Current Devices No Medical Equipment Recorded Medications Includes: Medications discussed during this encounter and other current Medications Current Medications (continue as prescribed) Bydureon BCise 2 MG/0.85ML Subcutaneous Auto-injector 04/16/2022 Provider: Diagnosis: Last Documented On 2 2:59PM By Myrna Chowdhury ; [facility], [facility] DULoxetine HCl 60 MG Oral Ca psule Delayed Release Particles 04/16/2022 Provider: ALEK EVANS MD Diagnosis: Last Documented On 2 2:59PM By Myrna Chowdhury ; [facility] clonazePAM 1 MG Oral Tablet 04/09/2022 Provider: ALEK EVANS MD Diagnosis: Last Documented On 2 2:59PM By Myrna [facility] methylPREDNISolone 4 MG Oral Tablet Therapy Pack 04/09 Provider: Diagnosis: Last Documented On 2 2:59PM By Myrna Chowdhury ; [facility] Warfarin Sodium 7.5 MG Oral Tablet 03/27/2022 Provid er: ALEK EVANS MD Diagnosis: Last Documented On 2 1:54PM By Myrna Chowdhury ; [facility] Medications Administered Includes: Administered Medications from this [...] osteoarthritis of knee Ana Paula Garner PA-C [facility] 11/03/2023 Last Documented On 3 3:16PM ; [facility] Injection, betamethasone acetate 6mg per cc and betamethason [id number] Bilateral primary osteoarthritis of knee Ana Paula Garner PA-C [facility] 11/03/2023 Last Documented On 3 3:16PM ; [facility] Medical History Includes: Medical History addressed [...] Time Diagnosis INJECTION Ana Paula Garner PA-C [facility] 3 1:11PM 1:31PM Insurance Includes: Active Insurance Policies Plan Name Member ID Group # Subscriber Relationship Effect elisabeth Dates 1 - Medicare Part B of [place] [id number] Nghia Montalvo Self 2 - [facility] [id number] Nghia Montalvo Self 11/08/2021 - Unknown Clinical Notes Includes: Clinical Notes from this encounter No Clinical Notes Recorded
[2024-05-26 12:14] VITALS: BP 126/74; PULSE 72; RESP 18; O2SAT 98
[2024-05-26] MEDS: INCLISIRAN SODIUM 284 MG/1.5 ML SYRINGE SQ (12:14)
== END 2024-05-26 12:18 | disposition home or self-care (01) ==
LOC: INF 11:53
PROVIDERS: PCP Physician Assistant; Visit Provider Internal Medicine
DX: E78.00 Pure hypercholesterolemia, unspecified (principal)
CPT/HCPCS: 96372; J1306

== ENCOUNTER 2024-08-22 11:28 | Outpatient (CLI) | payer MEDICARE, BC, SELFPAY ==
--- OUTSIDE RECORDS SUMMARY | 2024-08-22 11:32 | XMS_ITS | Patient Health Record ---
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 Name Role Phone Norberto Miller Primary Care Provider Go Matt Unavailable [phone] Jo Ellison Unavailable [phone] ALLERGIES No Known Allergies RESULTS Component Value Reference Range Notes PT/INR (in house) Reviewed date:11/17/2023 11:31:10 AM Interpretation:2.9 Performing Lab: Notes/Report: 2.9 PT 35.3 INR 2.9 current dose 5 mg Wed,Wed -7.5mg aol new dose same next check 2 weeks hold for (days) Warfarin indication ideal INR 2.5-3.5 current weekly dose new weekly dose contact PT/INR (in house) Reviewed date:01/28/2024 05:41:18 PM Interpretation: Performing Lab: Notes/Report: PT 49.4 INR 4.1 current dose 5 mg MWF 7.7 aod new dose hold today and tomorrow next check 1 week hold for (days) Warfarin indication ideal INR 2.5-3.5 current weekly dose new weekly dose contact PT/INR (in house) Reviewed date:04/06/2024 02:56:13 PM Interpretation:1.5 Performing Lab: Notes/Report: 1.5 PT 18.5 INR 1.5 current dose 7.5 mg M&W.5 mg aod new dose 7.5 MWF and 5mg AOD next check 2 weeks hold for (days) Warfarin indication ideal INR 2.5-3.5 current weekly dose new weekly dose contact CBC Fingerstick (in house) Reviewed date:04/06/2024 04:34:07 PM Interpretation: Performing Lab: Notes/Report: wbc 4.4 3.5 - 10 lym 25.0% 15 - 50 mid 6.3% 2 - 15 gran 68.7% 35 - 80 rbc 4.70 3.5 - 5.5 hgb 13.1 11.5 - 16.5 hct 42.5 35 - 55 mcv 90.5 75 - 100 mch 28.0 25 - 35 mchc 30.9 31 - 38 plat 125 100 - 400 PT/INR (in house) Reviewed date:04/21/2024 04:55:07 PM Interpretation: Performing Lab: Notes/Report: PT 55.7 INR 4.6 current dose 7.5 mg MWF & 5mg AOD new dose hold today then 7.5mg W and 5mg AOD next check 1 week hold for (days) Warfarin indication ideal INR 2.5-3.5 current weekly dose new weekly dose contact PT/INR (in house) Reviewed date:08/11/2024 11:29:37 AM Interpretation:1.9 Performing Lab: Notes/Report: 1.9 PT 22.9 INR 1.9 current dose 7.5mg M,W,F. 5 mg AOD new dose 5mg MWF and 7.5mg AOD next check 2 weeks hold for (days) Warfarin indication afib/PE ideal INR 2.5-3.5 current weekly dose new weekly dose contact CBC Venipuncture (in house) Reviewed date:08/11/2024 12:43:55 PM Interpretation: Performing Lab: Notes/Report: wbc 6.2 3.5 - 10 lymph 20.2% 15 - 50 mid 5.1% 2 - 15 gran 74.7% 35 - 80 rbc 5.24 3.5 - 5.5 hgb 14.6 11.5 - 16.5 hct 44.1 35 - 55 mcv 84.2 75 - 100 mch 27.8 25 - 35 mchc 33.0 31 - 38 platlet 173 100 - 400 Glycohemoglobin A1c (in hous e) Reviewed date:08/14/2024 04:21:29 PM Interpretation:Normal Performing Lab: Notes/Report: Normal glycohemoglobin 5.4% 5 - 6.5 % P-Vitamin B12 Reviewed date:08/14/2024 04:21:28 PM Interpretation:Normal Performing Lab: Notes/Report: Test performed by [facility] [address] [place] [address] , [address], [place] [address] Michael Hung MD, Marine Cargo Inspector CLIA: [id number] Vitamin B12 2027 854-3654 pg/mL P-Comprehensive Metabolic Pa juanjose (CMP) Reviewed date:08/14/2024 04:21:29 PM Interpretation:Normal Performing Lab: Notes/Report: Test performed by [facility] [address] [place] [address] [address], [place] [address] Michael Hung MD, Marine Cargo Inspector CLIA: [id number] Sodium 141 135-145 mmol/L Potassium 4.1 3.5-5.3 mmol/L Chloride 104 97-108 mmol/L CO2 26 22-32 mmol/L Glucose 95 65-99 mg/dL BUN 18 8-23 mg/dL Creatinine 0.83 0.70-1.30 mg/dL Calcium 9.2 8.6-10.4 mg/dL eGFR by Creatinine 98 >59 mL/min/1.73m2 Protein 6.3 6.0-8.3 g/dL Albumin 4.4 3.5-5.3 g/dL Alkaline Phosphatase 102 40-129 IU/L ALT (SGPT) 15 <5-55 IU/L AST (SGOT) 13 <5-46 IU/L Bilirubin, Total 0.7 <0.2-1.2 mg/dL A/G Ratio 2.3 1.1-2.5 P-Lipid Panel Reviewed date:08/14/2024 04:21:29 PM Interpretation:Normal Performing Lab: Notes/Report: Test performed by [facility] [address] [place] [address] [address], [place] [address] Michael Hung MD, Marine Cargo Inspector CLIA: [id number] Cholesterol 136 <200 mg/dL Triglycerides 102 <150 mg/dL HDL Cholesterol 51 >39 mg/dL Cholesterol / HDL Ratio 2.67 0.00-4.99 Ratio Non-HDL Cholesterol 85 <130 mg/dL LDL Cholesterol (Calculation) 65 <130 mg/dL LDL Cholesterol Levels* Less than 100 mg/dL Optimal 100 to 129 mg/dL Near Optimal/ Above Optimal 130 to 159 mg/dL Borderline High 160 to 189 mg/dL High 190 mg/dL and above Very High * Categories as recommended by the 2004 ATPIII guidelines LDL/HDL Ratio 1.3 <3.3 Ratio _ LDL Cholesterol Patient History _ Test Date: 04/21/2023 LDL Results: 88 Units: mg/dL % Change: - - Test Date: 08/11/2024 LDL Results: 65 Units: mg/dL % Change: -26% _ P-TSH reflex to FT4 Reviewed date:08/14/2024 04:21:29 PM Interpretation:Normal Performing Lab: Notes/Report: Test performed by [facility], [address] , [place] [address] Michael Hung MD, Marine Cargo Inspector CLIA: [id number] TSH reflex to FT4 2.70 0.43-5.25 mU/L P-Vitamin D 25-Hydroxy Reviewed date:08/14/2024 04:21:29 PM Interpretation:Normal Performing Lab: Notes/Report: Test performed by [facility] [address] , [address], [place] [address] Michael Hung MD, Marine Cargo Inspector CLIA: [id number] Vitamin D 25-Hydroxy 52.8 30.0-100.0 ng/mL Interpretation of Vitamin D 25 [place]: < 20 ng/mL - Deficiency 20 - 29 ng/mL - Insufficiency 30 - 100 ng/mL - Sufficiency > 100 ng/mL - Super-therapeutic- toxicity may occur above this level. Clinical correlation required. P-Vitamin D 25-Hydroxy Reviewed date:02/07/2024 08:29:43 AM Interpretation: Performing Lab: Notes/Report: Test performed by [facility] [address] , [place] [address] Michael Hung MD, Marine Cargo Inspector CLIA: [id number] Vitamin D 25-Hydroxy 36.3 30.0-100.0 ng/mL Interpretation of Vitamin D 25 [place]: < 20 ng/mL - Deficiency 20 - 29 ng/mL - Insufficiency 30 - 100 ng/mL - Sufficiency > 100 ng/mL - Super-therapeutic- toxicity may occur above this level. Clinical correlation required. P-Microalbumin/Creatinine, R andom Urine Sample Reviewed date:02/07/2024 08:29:43 AM Interpretation: Performing Lab: Notes/Report: Test performed by [facility] [address] , [address], [place] [address] Michael Hung MD, Marine Cargo Inspector CLIA: [id number] Albumin/Creatinine Ratio, Urine 18 0-30 ug/mg Microalbumin, Urine, Random 2.9 Creatinine, Urine 158.3 P-PSA Reviewed date:02/07/2024 08:29:43 AM Interpretation: Performing Lab: Notes/Report: Test performed by [facility] [address] [place] [address] , [address], [place] [address] Michael Hung MD, Marine Cargo Inspector CLIA: [id number] PSA 0.79 <4.00 ng/mL Please note this is an ultrasensitive PSA assay with a lower limit of detection of 0.014 ng/mL. This test is performed by the [facility] ECLIA methodology. Values obtained with different assay methods or kits cannot be directly compared. P-Comprehensive Metabolic Pa juanjose (CMP) Reviewed date:02/07/2024 08:29:43 AM Interpretation:Glu 130, Bun 29 Performing Lab: Notes/Report: Test performed by [facility] [address] [place] [address] , [address], [place] [address] Michael Hung MD, Marine Cargo Inspector CLIA: [id number] Sodium 141 135-145 mEq/L Potassium 4.4 3.5-5.3 mEq/L Chloride 103 97-108 mEq/L CO2 29 22-32 mEq/L Glucose 130 65-99 mg/dL BUN 29 8-23 mg/dL Creatinine 1.13 0.70-1.30 mg/dL Calcium 9.1 8.6-10.4 mg/dL eGFR by Creatinine 73 >59 mL/min/1.73m2 Protein 6.5 6.0-8.3 g/dL Albumin 4.2 3.5-5.3 g/dL Alkaline Phosphatase 82 40-129 IU/L ALT (SGPT) 29 <5-55 IU/L AST (SGOT) 20 <5-46 IU/L Bilirubin, Total 0.6 <0.2-1.2 mg/dL A/G Ratio 1.8 1.1-2.5 mg/dL P-Vitamin B12 Reviewed date:02/07/2024 08:29:42 AM Interpretation: Performing Lab: Notes/Report: Test performed by [facility] [address] [place] [address] , [address], [place] [address] Michael Hung MD, Marine Cargo Inspector CLIA: [id number] Vitamin B12 311 963-1070 pg/mL Glycohemoglobin A1c (in hous e) Reviewed date:02/07/2024 08:29:43 AM Interpretation:6.0% Performing Lab: Notes/Report: 6.0% glycohemoglobin 6.0% 5 - 6.5 % CBC Venipuncture (in house) Reviewed date:02/07/2024 08:29:43 AM Interpretation: Performing Lab: Notes/Report: wbc 5.0 3.5 - 10 lymph 21.0% 15 - 50 mid 5.0% 2 - 15 gran 74.0% 35 - 80 rbc 7.43 3.5 - 5.5 hgb 20.5 11.5 - 16.5 hct 63.6 35 - 55 mcv 85.6 75 - 100 mch 27.6 25 - 35 mchc 32.3 31 - 38 platlet 74 100 - 400 PT/INR (in house) Reviewed date:02/04/2024 10:04:01 AM Interpretation:1.9 Performing Lab: Notes/Report: 1.9 PT 22.7 INR 1.9 current dose 5 mg MWF 7.5 AOD new dose 7.5mg MWF and 5mg AOD next check 1 week hold for (days) Warfarin indication ideal INR 2.5-3.5 current weekly dose new weekly dose contact PT/INR (in house) Reviewed date:09/17/2023 04:15:44 PM Interpretation: Performing Lab: Notes/Report: PT 39.8 INR 3.3 current dose 10 mg Mariely, 7.5mg AOD new dose same next check 4 weeks hold for (days) Warfarin indication ideal INR 2.5-3.5 current weekly dose new weekly dose contact PT/INR (in house) Reviewed date:10/15/2023 04:56:33 PM Interpretation:4.7 Performing Lab: Notes/Report: 4.7 PT 56.1 INR 4.7 current dose 10 mg Thur,7.5mg aod new dose hold today and tomorrow then 7.5mg daily next check 1 week hold for (days) Warfarin indication ideal INR 2.5-3.5 current weekly dose new weekly dose contact PT/INR (in house) Reviewed date:11/05/2023 02:56:22 PM Interpretation:5.6 Performing Lab: Notes/Report: 5.6 PT INR 5.6 current dose 7.5 daily new dose hold today and tomorrow then 5mg Sun, Wed, next check Wednesday hold for (days) Warfarin indication ideal INR 2.5-3.5 current weekly dose new weekly dose contact PT/INR (in house) Reviewed date:11/10/2023 01:21:12 PM Interpretation:1.8 Performing Lab: Notes/Report: 1.8 PT INR 1.8 current dose 5 mg daily new dose 5mg MF and 7.5mg AOD next check 1 week hold for (days) Warfarin indication ideal INR 2.5-3.5 current weekly dose new weekly dose contact PT/INR (in house) Reviewed date:12/17/2023 01:18:11 PM Interpretation:3.0 Performing Lab: Notes/Report: 3.0 PT 35.8 INR 3.0 current dose 5mg M,W,F and 7.5aod new dose same next check 2 weeks hold for (days) Warfarin indication ideal INR 2.5-3.5 current weekly dose new weekly dose contact PT/INR (in house) Reviewed date:12/31/2023 01:13:39 PM Interpretation: Performing Lab: Notes/Report: PT 32.1 INR 2.7 current dose 5 mg M,W,F 7.5mg aod new dose same next check 4 weeks hold for (days) Warfarin indication ideal INR 2.5-3.5 current weekly dose new weekly dose contact PT/INR (in house) Reviewed date:03/10/2024 03:44:29 PM Interpretation:3.0 Performing Lab: Notes/Report: 3.0 PT 36.0 INR 3.0 current dose 7.5 mg M&W. 5 mg aod new dose same next check 4 weeks hold for (days) Warfarin indication ideal INR 2.5-3.5 current weekly dose new weekly dose contact PT/INR (in house) Reviewed date:04/28/2024 10:10:07 AM Interpretation: Performing Lab: Notes/Report: PT 26.5 INR 2.2 current dose 7.5 mg W, 5 mg AOD new dose same next check 2 weeks hold for (days) Warfarin indication ideal INR 2.5-3.5 current weekly dose new weekly dose contact PT/INR (in house) Reviewed date:05/12/2024 03:14:42 PM Interpretation:2.5-3.5 Performing Lab: Notes/Report: 2.5-3.5 PT 13.9 INR 1.2 current dose 7.5mg on Wed 5 mg aod new dose 7.5 mg WF and 5mg AOD next check 1 week hold for (days) Warfarin indication ideal INR 2.5-3.5 current weekly dose new weekly dose contact PT/INR (in house) Reviewed date:05/26/2024 01:32:57 PM Interpretation:2.5 Performing Lab: Notes/Report: 2.5 PT 30.5 INR 2.5 current dose 7.5 mg W,F & 5 mg AOD new dose same next check 1 month hold for (days) Warfarin indication ideal INR 2.5-3.5 current weekly dose new weekly dose contact PT/INR (in house) Reviewed date:06/30/2024 02:12:50 PM Interpretation:2.1 Performing Lab: Notes/Report: 2.1 PT INR 2.1 current dose 7.5mg W,F, 5mg AOD new dose 7.5mg MWF next check 2 weeks hold for (days) Warfarin indication afib/PE ideal INR 2.5-3.5 current weekly dose new weekly dose contact PT/INR (in house) Reviewed date:11/24/2023 02:30:09 PM Interpretation:3.4 Performing Lab: Notes/Report: 3.4 PT 41.2 INR 3.4 current dose 5mg Daily new dose same next check 1 week hold for (days) Warfarin indication ideal INR 2.5-3.5 current weekly dose new weekly dose contact CBC Fingerstick (in house) Reviewed date:11/24/2023 02:54:19 PM Interpretation: Performing Lab: Notes/Report: wbc 3.9 3.5 - 10 lym 22.2% 15 - 50 mid 5.2% 2 - 15 gran 72.6% 35 - 80 rbc 4.88 3.5 - 5.5 hgb 13.5 11.5 - 16.5 hct 41.7 35 - 55 mcv 85.4 75 - 100 mch 27.7 25 - 35 mchc 32.5 31 - 38 plat 145 100 - 400 PT/INR (in house) Reviewed date:06/22/2024 12:56:55 PM Interpretation: Performing Lab: Notes/Report: PT INR 1.5 current dose 7.5mg W; 5mg AOD new dose 7.5mg W,F and 5mg AOD next check 1 week hold for (days) Warfarin indication afib/PE ideal INR 2.5-3.5 current weekly dose new weekly dose contact PT/INR (in house) Reviewed date:12/03/2023 03:38:33 PM Interpretation:3.6 Performing Lab: Notes/Report: 3.6 PT 43.7 INR 3.6 current dose 5mg on M,F, 7.5 mg aod new dose 5mg MWF and 7.5mg AOD next check 1 week hold for (days) Warfarin indication ideal INR 2.5-3.5 current weekly dose new weekly dose contact PT/INR (in house) Reviewed date:12/10/2023 05:30:46 PM Interpretation: Performing Lab: Notes/Report: PT 43.1 INR 3.6 current dose 5 mg M,W,F. 7.5mg aod new dose 7.5mg T,TH and 5mg AOD next check 1 week hold for (days) Warfarin indication ideal INR 2.5-3.5 current weekly dose new weekly dose contact Rapid Strep- Inhouse Reviewed date:01/20/2024 11:36:39 PM Interpretation: Performing Lab: Notes/Report: strep test Neg CBC Fingerstick (in house) Reviewed date:01/20/2024 11:36:39 PM Interpretation: Performing Lab: Notes/Report: wbc 6.5 3.5 - 10 lym 17.7 15 - 50 mid 5.1 2 - 15 gran 77.2 35 - 80 rbc 4.91 3.5 - 5.5 hgb 13.9 11.5 - 16.5 hct 42.2 35 - 55 mcv 85.9 75 - 100 mch 28.2 25 - 35 mchc 32.9 31 - 38 plat 155 100 - 400 PT/INR (in house) Reviewed date:07/14/2024 01:01:01 PM Interpretation: Performing Lab: Notes/Report: PT 30.7 INR 2.6 current dose 7.5 mg MWF, 5 mg AOD new dose same next check 4 weeks hold for (days) Warfarin indication afib/PE ideal INR 2.5-3.5 current weekly dose new weekly dose contact CBC Fingerstick (in house) Reviewed date:07/16/2024 10:27:23 PM Interpretation: Performing Lab: Notes/Report: wbc 6.4 3.5 - 10 lym 16.5 15 - 50 mid 4.0 2 - 15 gran 79.5 35 - 80 rbc 4.89 3.5 - 5.5 hgb 13.8 11.5 - 16.5 hct 43.2 35 - 55 mcv 88.3 75 - 100 mch 28.3 25 - 35 mchc 32.0 31 - 38 plat 161 100 - 400 PT/INR (in house) Reviewed date:03/03/2024 05:09:08 PM Interpretation: Performing Lab: Notes/Report: PT 45.1 INR 3.8 current dose 7.5mg MWF 5mg AOD new dose 7.5mg MW and 5mg AOD next check 1 week hold for (days) Warfarin indication ideal INR current weekly dose new weekly dose contact PT/INR (in house) Reviewed date:02/18/2024 01:51:23 PM Interpretation: Performing Lab: Notes/Report: PT 29.5 INR 2.5 current dose 7.5mg MWF 5mg AOD new dose same next check 1 month hold for (days) Warfarin indication ideal INR current weekly dose new weekly dose contact PT/INR (in house) Reviewed date:02/11/2024 03:04:41 PM Interpretation:3.6 Performing Lab: Notes/Report: 3.6 PT 42.8 INR 3.6 current dose 7.5mg MWF and 5mg AOD new dose same next check 1 week hold for (days) Warfarin indication ideal INR 2.5-3.5 current weekly dose new weekly dose contact CBC Fingerstick (in house) Reviewed date:02/11/2024 03:04:59 PM Interpretation: Performing Lab: Notes/Report: wbc 6.8 3.5 - 10 lym 24.8 15 - 50 mid 6.0 2 - 15 gran 69.2 35 - 80 rbc 5.31 3.5 - 5.5 hgb 14.8 11.5 - 16.5 hct 46.8 35 - 55 mcv 87.1 75 - 100 mch 27.9 25 - 35 mchc 32.0 31 - 38 plat 127 100 - 400 PT/INR (in house) Reviewed date:10/22/2023 03:43:26 PM Interpretation: Performing Lab: Notes/Report: PT 34.1 INR 2.8 current dose 7.5mg daily new dose same next check 2 weeks hold for (days) Warfarin indication ideal INR 2.5-3.5 current weekly dose new weekly dose contact MEDICATIONS Medication SIG (Take, Route, Frequency, Duration) Notes Start Date End Date Status Easy Touch Glucose System w/Device - test once daily E11.9 08/11/2023 Active Linzess 145 MCG 1 capsule at least 3 0 minutes before the first meal of the day on an empty stomach Orally Once a day for 90 days 07/30/2023 Active Nitrostat 0.4 MG 1 tab(s) sublinguall y every 5 minutes Active Baclofen 5 MG 1 tablet Orally Twic e a day for 90 days Active Tamsulosin HCl 0.4 MG 1 cap(s) orally on ce a day for 90 days Active Mounjaro 12.5 MG/0.5ML 12.5mg Subcutaneo us once a week 07/26/2024 Active Warfarin Sodium 7.5 MG TAKE 1 TABLET BY MOUTH ONCE DAILY 6 DAYS OUT OF THE WEEK for 90 Active Pristiq 100 MG 1 tab(s) orally once a day for 90 days 11/06/2022 Active Cortisporin-TC 3.3-3-10-0.5 MG/ML 5 drops into affected ear Otic Three times a day 06/22/2024 Active Albuterol Sulfate HFA 108 (90 Base) MCG/ACT 1-2 puff(s) inhaled every 6 hours, prn 12/31/2022 Active Medrol 4 MG as directed orally daily for 6 days 06/22/2024 Active CPAP MASK DIRECTED 07/25/2021 Active Myrbetriq 50 MG 1 tablet Orally Once a day for 30 day(s) Active CPAP SUPPLIES DIRECTED 07/25/2021 Act elisabeth Sulindac 200 MG take 1 tablet Orally Twice a day for 90 days Active Potassium Chloride ER 20 MEQ take 2 tablets by mouth once daily for 90 days Active Pantoprazole Sodium 40 MG 1 tablet Orally Once a day for 90 days Active Furosemide 40 MG 1 tab(s) Orally ever y other day Active rOPINIRole HCl ER 2 MG 1 tablet Orally O nce a day for 90 days 05/01/2024 Active clonazePAM 1 MG 1/2 tab orally Two times a day 05/29/2024 Active Jardiance 25 MG take 1 tablet by mouth once daily in the morning Orally Once a day for 90 days Active QUEtiapine Fumarate 100 MG TAKE 1 TABLET BY MOUTH ONCE DAILY IN THE EVENING for 90 Active Symbicort 80-4.5 MCG/ACT 2 puff(s) inhaled 2 times a day 05/08/2014 Active Diclofenac Sodium 1 % as directed applie d topically 4 times a day 03/03/2021 Active FREE STYLE KRISTAL GLUCOSE SYSTEM DIRECTED BID 07/20/2018 Active Levocetirizine Dihydrochloride 5 MG 1 tab(s) orally once a day (in the evening) for 90 days Active Magnesium Oxide 400 MG 1 tab(s) orally o nce a day Active metFORMIN HCl ER 500 MG Take 2 tablets by mouth once daily for 90 days Active Calcium Carbonate 600 MG 1 tab(s) orally qhs Active Aspirin 81 MG 1 tablet Orally Once a day for 30 day(s) Active Vitamin B-12 1000 MCG 1 tab(s) orally on ce a day Active Flonase Allergy Relief 50 MCG/ACT 1 spray in each nostril Nasally Once a day 01/28/2024 Active Vitamin D3 25 MCG (1000 UT) 2 tab orally once a day Active Albuterol Sulfate HFA 108 (90 Base) MCG/ACT 1 puff as needed Inhalation every 4 hrs, prn 11/24/2023 Active Plavix 75 MG 1 tab(s) orally once a day Active Mupirocin 2 % 1 application Externally Twice a day Active Spironolactone 25 MG 1 tab(s) orally onc e a day for 30 day(s) Active Leqvio 284 MG/1.5ML as directed subcutaneously every 6 months Active Easy Touch Safety Lancets 28G - as directed to test once daily for 90 days diagnosis code E11.9 08/20/2023 Active Warfarin Sodium 5 MG Take 1 tablet by mouth once daily for 90 days Active Blood Glucose Test Strips 333 - 1 strip In Vitro test once a day E11.9 08/11/2023 Active IMMUNIZATIONS Vaccine Route Administration Date Status Comme nts COVID 19 Moderna IM Intramuscular 02/14/2021 Administered COVID 19 Moderna Unknown 03/14/2021 Administered Tetanus Tdap-Adacel (over 7yrs) IM Intramuscular 03/12/2015 Administered SOCIAL HISTORY Sex Assigned At : Social History Observation Description Sex Assigned At Unknown PROBLEMS Problem Type ICD Code Onset Dates Problem Status W/U Status Risk SNOMED Code Notes Problem Type 2 diabetes mellitus without complications (E11.9) Active confirmed 31212257 Problem History of pulmonary embolism (Z86.711) Active confirmed History o f pulmonary embolus (932183739) Problem Hyperlipidemia (E78.5) Active confirmed Hyperlipidemia (94477713) Problem Vitamin D deficiency (E55.9) Active confirmed 16134893 Problem Essential hypertension (I10) Active confirmed 08233535 Problem care home current use of anticoagulant (Z79.01) Active confirmed 964445645 Problem Parkinson disease (G20) Active confirmed Parkinson disea se (48634033) Problem Obstructive sleep apnea (G47.33) Active confirmed 81299326 Problem Dry eye (H04.129) Active confirmed 1622 35598 Problem Depression with anxiety (F41.8) Active confirmed 403134710 Problem Hearing loss (H91.90) Active confirmed Hearing loss (81555465) Problem Seizure disorder (G40.909) Active confirmed 153439594 Problem Falls frequently (R29.6) Active confirmed 835757320 Problem CHF (congestive heart failure) (I50.9) Active confirmed Congestive hear t failure (37003079) Problem Obesity, unspecified (E66.9) Active confirmed 024903319 Problem Mixed hyperlipidemia (E78.2) Active confirmed 529850965 Problem Myoclonus (G25.3) Active confirmed 1745 0006 Problem Other chronic pain (G89.29) Active confirmed 43333701 Problem Atherosclerotic heart disease of [place] coronary artery without angina pectoris (I25.10) Active confirmed 411665442 Problem Slow transit constipation (K59.01) Active confirmed 42387917 Problem 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) Active confirmed Long-term curre nt use of anticoagulant (989192690) Problem Constipation, unspecified constipation type (K59.00) Active confirmed 29546571 Problem Gastroesophageal reflux disease without esophagitis (K21.9) Active confirmed 361517356 Problem Long-term (current) use of anticoagulants (Z79.01) Active confirmed Long-term curre nt use of anticoagulant (043647232) Problem Morbid obesity, unspecified obesity type (E66.01) Active confirmed 543356179 Problem Primary osteoarthritis involving multiple joints (M15.0) Active confirmed Primary osteoarthritis (475764748) Problem Chronic obstructive pulmonary disease, unspecified COPD type (J44.9) Active confirmed 73550963 Problem Erectile dysfunction, unspecified erectile dysfunction type (N52.9) Active confirmed Problem BMI 38.0-38.9,adult (Z68.38) Active confirmed 814982771 Problem Primary osteoarthritis of right knee (M17.11) Active confirmed 401805564118943 Problem BMI 40.0-44.9, adult (Z68.41) Active confirmed Body mass index 40+ - morbidly obese (192731779) Problem Frequent falls (R29.6) Active confirmed 217515940 Problem Balance problems (R26.89) Active confirmed 414174257 Problem History of permanent cardiac pacemaker placement (Z95.0) Active confirmed 074459228 Problem Atrial flutter, paroxysmal (I48.92) Active confirmed Paroxysm al atrial flutter (795222062) Problem Urinary incontinence, unspecified type (R32) Active confirmed 774002106 Problem Seasonal allergic rhinitis, unspecified allergic rhinitis trigger (J30.2) Active confirmed 083732790 Problem 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 confirmed 831448630 Problem Vision loss, bilateral (H54.3) Active confirmed 276130579241674 Problem Benign prostatic hyperplasia, unspecified whether lower urinary tract symptoms present (N40.0) Active confirmed 389099709 Problem Seasonal allergic rhinitis, unspecified trigger (J30.2) Active confirmed 150816593 Problem Non-seasonal allergic rhinitis, unspecified trigger (J30.89) Active confirmed 32792066 Problem Gastroesophageal reflux disease, unspecified whether esophagitis present (K21.9) Active confirmed 830177046 VITAL SIGNS Heart Rate 80 /min 08/11/2024 Blood pressure diastolic 64 mm Hg 08/11/2024 Height 73.50 in 08/11/2024 Blood pressure systolic 104 mm Hg 08/11/2024 Weight 248.2 lbs 08/11/2024 BMI 32.30 kg/m2 08/11/2024 Encounters Encounter Location Date Provider Diagnosis [facility] [address] [facility] [address] [id number] 02/04/2024 Jo Ellison Adult general medica l examination Z00.00 ; remote computer terminal operator current use of anticoagulant Z79.01 ; Essential hypertension I10 ; Mixed hyperlipidemia E78.2 ; Type 2 diabetes mellitus without complications E11.9 ; Parkinson disease G20 ; Gastroesophageal reflux disease without esophagitis K21.9 ; CHF (congestive heart failure) I50.9 ; Atrial flutter, paroxysmal I48.92 ; Primary osteoarthritis involving multiple joints M15.0 ; Urinary incontinence, unspecified type R32 ; Depression with anxiety F41.8 ; Erectile dysfunction, unspecified erectile dysfunction type N52.9 ; Seasonal allergic rhinitis, unspecified allergic rhinitis trigger J30.2 ; Morbid obesity, unspecified obesity type E66.01 ; Obstructive sleep apnea G47.33 ; Atherosclerotic heart disease of [place] coronary artery without angina pectoris I25.10 ; Vitamin B12 deficiency E53.8 ; Vitamin D deficiency E55.9 ; History of pulmonary embolism Z86.711 ; History of DVT (deep vein thrombosis) Z86.718 ; History of atrial fibrillation Z86.79 ; History of radiofrequency ablation (RFA) procedure for cardiac arrhythmia Z98.89 ; History of permanent cardiac pacemaker placement Z95.0 ; Muscle spasm M62.838 ; Screening PSA (prostate specific antigen) Z12.5 ; BMI 38.0-38.9,adult Z68.38 and Parkinson's disease, unspecified whether dyskinesia present, unspecified whether manifestations fluctuate G20.A1 [facility] [address] [place] [facility] [address] [id number] 09/17/2023 Jo Crowdy care home current us e of anticoagulant Z79.01 and Type 2 diabetes mellitus without complications E11.9 [facility] [address] [id number] 10/15/2023 Jo Crowdy Paronychia of great toe, right L03.031 ; Toe infection L08.9 and remote computer terminal operator current use of anticoagulant Z79.01 [facility] [address] [place] [facility] [address] [id number] 10/22/2023 Jo Crowdy Paronychia of great toe, right L03.031 ; Toe infection L08.9 and remote computer terminal operator current use of anticoagulant Z79.01 [facility] [address] [place] [facility] [address] [id number] 11/05/2023 Jo Crowdy care home current us e of anticoagulant Z79.01 and Skin pustule L08.9 [facility] [address] [id number] 11/10/2023 Jo Crowdy remote computer terminal operator current us e of anticoagulant Z79.01 [facility] [address] [place] [id number] 11/17/2023 Jo Crowdy remote computer terminal operator current us e of anticoagulant Z79.01 and Infection, nail, ingrowing L60.0 [facility] [address] [place] [id number] 12/01/2023 Jo Crowdy [facility] [address] [place], [place] [id number] 12/17/2023 Jo Crowdy remote computer terminal operator (current) use of anticoagulants Z79.01 [facility] [address] [place] [id number] 12/31/2023 Jo Crowdy care home (current) use of anticoagulants Z79.01 [facility] [address] [place] [id number] 01/28/2024 Jo Crowdy Non-recurrent acute serous otitis media of left ear H65.02 and care home (current) use of anticoagulants Z79.01 [facility] [address] [place] [id number] 02/11/2024 Jo Crowdy Type 2 diabetes eileen itus without complications E11.9 and remote computer terminal operator current use of anticoagulant Z79.01 [facility] [address] [place] [id number] 02/18/2024 Jo Crowdy care home (current) use of anticoagulants Z79.01 [facility] [address] [place] [id number] 04/05/2024 Jo Crowdy care home (current) use of anticoagulants Z79.01 and Gastroenteritis K52.9 [facility] [address] [place] [id number] 03/10/2024 Jo Crowdy remote computer terminal operator (current) use of anticoagulants Z79.01 [facility] [address] [place] [id number] 04/21/2024 Jo Crowdy care home (current) use of anticoagulants Z79.01 [facility] [address] [place] [id number] 04/28/2024 Jo Crowdy remote computer terminal operator (current) use of anticoagulants Z79.01 and Type 2 diabetes mellitus without complications E11.9 [facility] [address] [place] [address] [place] [id number] 05/12/2024 Jo Crowdy remote computer terminal operator (current) use of anticoagulants Z79.01 [facility] [address] [place] [address] [place] [id number] 05/26/2024 Jo Crowdy remote computer terminal operator (current) use of anticoagulants Z79.01 ; Falls frequently R29.6 and Type 2 diabetes mellitus without complications E11.9 [facility] [address] [place] [address] [place] [id number] 06/30/2024 Jo Crowdy care home (current) use of anticoagulants Z79.01 [facility] [address] [place] [facility] [address] [place], [place] [id number] 07/14/2024 Jo Crowdy [facility] 1210 [facility] [address] [place] [id number] 08/11/2024 Jo Crowdy Long-term (current) use of anticoagulants Z79.01 ; Type 2 diabetes mellitus without complications E11.9 ; Mixed hyperlipidemia E78.2 ; Depression with anxiety F41.8 ; Essential hypertension I10 ; Obstructive sleep apnea G47.33 ; Vitamin B12 deficiency E53.8 ; Vitamin D deficiency E55.9 ; Parkinson disease G20 ; Atherosclerotic heart disease of [place] coronary artery without angina pectoris I25.10 and Screening PSA (prostate specific antigen) Z12.5 [facility] [address] [place] [address] [place] [id number] 10/08/2023 Jo Crowdy Paronychia of great toe, right L03.031 and Toe infection L08.9 [facility] [address] [place] [address] [place], [place] [id number] 11/24/2023 Jo Crowobi Acute URI J06.9 ; Bronchitis J40 and remote computer terminal operator (current) use of anticoagulants Z79.01 [facility] [address] [place] [address] [place], [place] [id number] 06/22/2024 Jo Crowdy Type 2 diabetes eileen itus without complications E11.9 ; 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 ; Acute otitis externa of right ear, unspecified type H60.501 and remote computer terminal operator (current) use of anticoagulants Z79.01 [facility] [address] [facility] 2C [place] [id number] 12/03/2023 Jo Crowdy remote computer terminal operator (current) use of anticoagulants Z79.01 and Lesion of lip K13.0 [facility] [address] [facility] 2C [place] [id number] 12/10/2023 Jo Crowdy care home (current) use of anticoagulants Z79.01 and Type 2 diabetes mellitus without complications E11.9 [facility] [address] [facility] [address]C [place] [id number] 01/20/2024 Jo Crowdy Acute URI J06.9 [facility] [address] [place], [place] [id number] 02/23/2024 Jo Crowdy Dog bite, initial encounter W54.0XXA and Open wound of right upper arm, initial encounter S41.101A [facility] [address] [place] [address] [place] [id number] 07/13/2024 Jo Crowdy Long-term (current) use of anticoagulants Z79.01 ; Subungual hematoma of thumb S60.119A and Acute URI J06.9 [facility] [address] [place] [address] [place] [id number] 03/03/2024 Jo Crowdy Dog bite, subsequent encounter W54.0XXD and remote computer terminal operator (current) use of anticoagulants Z79.01 [facility] [address] [facility] [address] [place] [id number] 2023 R Alek Angela Depression with anxi ety F41.8 [facility] [address] [facility] [address] [place] [id number] 08/24/2023 R Alek Angela remote computer terminal operator (current) use of anticoagulants Z79.01 [facility] [address] [facility] [address] [place] [id number] 09/24/2023 R Alek Angela [facility] [address] [place] [id number] 11/19/2023 Jo Crowdy [facility] [address] [place] [id number] 11/24/2023 R Alek Angela Depression with anxi ety F41.8 [facility] [address] [place] [id number] 12/17/2023 R Alek Angela [facility] [address] [place] [id number] 01/10/2024 Jo Crowdy Type 2 diabetes eileen itus without complications E11.9 [facility] [address] [place] [id number] 02/07/2024 R Alek Angela [facility] [address] [place] [id number] 02/24/2024 R Alek Angela Depression with anxi ety F41.8 [facility] [address] [place] [id number] 03/09/2024 R Alek Angela Type 2 diabetes eileen itus without complications E11.9 [facility] [address] [place] [id number] 03/30/2024 R Alek Angela Type 2 diabetes eileen itus without complications E11.9 [facility] [address] [place] [id number] 04/28/2024 Jo Crowdy [facility] [address] [place] [id number] 05/26/2024 Jo Crowdy [facility] [address] [place] [id number] 05/29/2024 [place] Depression with anxi ety F41.8 [facility] [address] [place] [id number] 06/12/2024 R Alek Angela Depression with anxi ety F41.8 [facility] [address] [place] [id number] 06/16/2024 Jo Herrera [address] [facility] [address] [place] [id number] 07/26/2024 Jo Ellison Type 2 diabetes eileen itus without complications E11.9 [facility] [address] [facility] [address] [place] [id number] 08/14/2024 Jo Ellison ASSESSMENTS Encounter Date Diagnosis Assessment Notes Treatment Notes Treatment Clinical Notes 2023 Depression with anxiety (ICD-10 - F41.8) 08/24/2023 care home (current) use of anticoagulants (ICD-10 - Z79.01) 09/17/2023 Type 2 diabetes mellitus without complications (ICD-10 - E11.9) Patient used to have the threadsy system but would like to know if there is something new where he can use his phone. He was given samples of the E[employer]ice Venturese 3 sensors which work with your phone and will try it. 09/17/2023 remote computer terminal operator current us e of anticoagulant (ICD-10 - Z79.01) 10/08/2023 Paronychia of great toe, right (ICD-10 - L03.031) Cleaned and wrapped both toes and applied silvadene. Will start abx and f/u next week. 10/08/2023 Toe infection (ICD-1 0 - L08.9) 10/15/2023 Paronychia of great toe, right (ICD-10 - L03.031) Will continue abx and get patient into wound care at [facility]. 10/15/2023 Toe infection (ICD-1 0 - L08.9) 11/24/2023 Bronchitis (ICD-10 - J40) 11/24/2023 Acute URI (ICD-10 - J06.9) 12/03/2023 care home (current) use of anticoagulants (ICD-10 - Z79.01) 12/03/2023 Lesion of lip (ICD-1 0 - K13.0) Pt is unsure whether he bit his lip. Will go ahead and start on abx as it is tender and recheck in 1 week. 12/10/2023 Type 2 diabetes mellitus without complications (ICD-10 - E11.9) Pt needs to increase mounjaro dose. Rx sent. 12/10/2023 remote computer terminal operator (current) use of anticoagulants (ICD-10 - Z79.01) 12/17/2023 remote computer terminal operator (current) use of anticoagulants (ICD-10 - Z79.01) 01/28/2024 remote computer terminal operator (current) use of anticoagulants (ICD-10 - Z79.01) 01/28/2024 Non-recurrent acute serous otitis media of left ear (ICD-10 - H65.02) 02/23/2024 Dog bite, initial encounter (ICD-10 - W54.0XXA) Will start on abx and keep clean and covered. UTD on tetanus shot. 10/22/2023 Paronychia of great toe, right (ICD-10 - L03.031) Will continue abx and get patient into wound care at [facility]. 10/22/2023 Toe infection (ICD-1 0 - L08.9) 11/10/2023 remote computer terminal operator current us e of anticoagulant (ICD-10 - Z79.01) 11/17/2023 care home current us e of anticoagulant (ICD-10 - Z79.01) 11/17/2023 Infection, nail, ingrowing (ICD-10 - L60.0) Needs more mupirocin for nails. Rx sent. 11/24/2023 Depression with anxiety (ICD-10 - F41.8) 02/24/2024 Depression with anxiety (ICD-10 - F41.8) 03/03/2024 remote computer terminal operator (current) use of anticoagulants (ICD-10 - Z79.01) 03/03/2024 Dog bite, subsequent encounter (ICD-10 - W54.0XXD) Healing well. 03/10/2024 remote computer terminal operator (current) use of anticoagulants (ICD-10 - Z79.01) 04/28/2024 Type 2 diabetes mellitus without complications (ICD-10 - E11.9) 04/28/2024 remote computer terminal operator (current) use of anticoagulants (ICD-10 - Z79.01) 05/12/2024 care home (current) use of anticoagulants (ICD-10 - Z79.01) 05/26/2024 Falls frequently (ICD-10 - R29.6) Patient was having episodes of hypotension but cardiology has decreased medication and BP has been normal. He has not had any low glucose levels. He feels like the tremors are a little worse. He follows with neurology but he states Dr. Do wanted him to see a movement specialist and he did not feel that helped. 05/26/2024 care home (current) use of anticoagulants (ICD-10 - Z79.01) 06/22/2024 Type 2 diabetes mellitus without complications (ICD-10 - E11.9) 06/22/2024 TMJ syndrome (ICD-10 - M26.629) 07/13/2024 Long-term (current) use of anticoagulants (ICD-10 - Z79.01) 07/13/2024 Subungual hematoma o f thumb (ICD-10 - S60.119A) 07/26/2024 Type 2 diabetes mellitus without complications (ICD-10 - E11.9) 08/11/2024 Type 2 diabetes mellitus without complications (ICD-10 - E11.9) 08/11/2024 Long-term (current) use of anticoagulants (ICD-10 - Z79.01) 03/09/2024 Type 2 diabetes mellitus without complications (ICD-10 - E11.9) 02/18/2024 remote computer terminal operator (current) use of anticoagulants (ICD-10 - Z79.01) 02/11/2024 Type 2 diabetes mellitus without complications (ICD-10 - E11.9) [facility] cannot get the 10mg Mounjaro or the 7.5 but they do have the 5mg in stock. Will send rx for 5mg. 02/11/2024 care home current us e of anticoagulant (ICD-10 - Z79.01) 02/04/2024 remote computer terminal operator current us e of anticoagulant (ICD-10 - Z79.01) 02/04/2024 Adult general medica l examination (ICD-10 - Z00.00) Patient instructed to return to office Annually for Annual Wellness Visits to include annual screenings of Pain assessment, Functional Ability assessment, Cognitive Ability assessment, Fall Risk assessment, Depression screening and Bladder control screening. 01/20/2024 Acute URI (ICD-10 - J06.9) 01/10/2024 Type 2 diabetes mellitus without complications (ICD-10 - E11.9) 12/31/2023 care home (current) use of anticoagulants (ICD-10 - Z79.01) 11/05/2023 care home current us e of anticoagulant (ICD-10 - Z79.01) 11/05/2023 Skin pustule (ICD-10 - L08.9) 03/30/2024 Type 2 diabetes mellitus without complications (ICD-10 - E11.9) 04/05/2024 Gastroenteritis (ICD-10 - K52.9) Patient thinks he had a stomach virus the first part of the week. He vomited for 24 hours. He was unable to keep down his coumadin which is likely why it is low today. 04/05/2024 care home (current) use of anticoagulants (ICD-10 - Z79.01) 04/21/2024 remote computer terminal operator (current) use of anticoagulants (ICD-10 - Z79.01) 05/29/2024 Depression with anxiety (ICD-10 - F41.8) 06/12/2024 Depression with anxiety (ICD-10 - F41.8) 06/30/2024 care home (current) use of anticoagulants (ICD-10 - Z79.01) 02/04/2024 Essential hypertensi on (ICD-10 - I10) 08/11/2024 Mixed hyperlipidemia (ICD-10 - E78.2) 07/13/2024 Acute URI (ICD-10 - J06.9) fluids, rest, supportive measures for fever/symptom relief 06/22/2024 Acute otitis externa of right ear, unspecified type (ICD-10 - H60.501) 05/26/2024 Type 2 diabetes mellitus without complications (ICD-10 - E11.9) Mounjaro dose was increased. 11/24/2023 remote computer terminal operator (current) use of anticoagulants (ICD-10 - Z79.01) 02/23/2024 Open wound of right upper arm, initial encounter (ICD-10 - S41.101A) 10/22/2023 care home current us e of anticoagulant (ICD-10 - Z79.01) 10/15/2023 care home current us e of anticoagulant (ICD-10 - Z79.01) 06/22/2024 remote computer terminal operator (current) use of anticoagulants (ICD-10 - Z79.01) 08/11/2024 Depression with anxiety (ICD-10 - F41.8) 02/04/2024 Mixed hyperlipidemia (ICD-10 - E78.2) 02/04/2024 Type 2 diabetes mellitus without complications (ICD-10 - E11.9) 08/11/2024 Essential hypertensi on (ICD-10 - I10) BP has been low. Cardiology had him start taking the lasix every other day. Will do the same with the spironolactone but take it on the days he does not take the lasix and see if this helps his BP. 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 (ICD-10 - M15.0) 02/04/2024 Urinary incontinence , unspecified type (ICD-10 - R32) 08/11/2024 Screening PSA (prostate specific antigen) (ICD-10 - Z12.5) 02/04/2024 Depression with anxiety (ICD-10 - F41.8) 02/04/2024 Erectile dysfunction , unspecified erectile dysfunction type (ICD-10 - N52.9) 02/04/2024 Seasonal allergic rhinitis, unspecified allergic rhinitis trigger (ICD-10 - J30.2) 02/04/2024 Morbid obesity, unspecified obesity type (ICD-10 - E66.01) 02/04/2024 Obstructive sleep apnea (ICD-10 - G47.33) 02/04/2024 Atherosclerotic hear t disease of [place] coronary artery without angina pectoris (ICD-10 - I25.10) 02/04/2024 Vitamin B12 deficien cy (ICD-10 - E53.8) 02/04/2024 Vitamin D deficiency (ICD-10 - E55.9) 02/04/2024 History of pulmonary embolism (ICD-10 - Z86.711) 02/04/2024 History of DVT (deep vein thrombosis) (ICD-10 - Z86.718) 02/04/2024 History of atrial fibrillation (ICD-10 - Z86.79) 02/04/2024 History of radiofrequency ablation (RFA) procedure for cardiac arrhythmia (ICD-10 - Z98.89) 02/04/2024 History of permanent cardiac pacemaker placement (ICD-10 - Z95.0) 02/04/2024 Muscle spasm (ICD-10 - M62.838) Has had muscles spasms in his back. Used to take baclofen. Will try a low dose of this again. 02/04/2024 Screening PSA (prostate specific antigen) (ICD-10 - Z12.5) 02/04/2024 BMI 38.0-38.9,adult (ICD-10 - Z68.38) 02/04/2024 Parkinson's disease, unspecified whether dyskinesia present, unspecified whether manifestations fluctuate (ICD-10 - G20.A1) PLAN OF TREATMENT Next Appt Details Provider Name:Jo meehan, 08/25/2024 10:30:00 AM, [address], [place], [place], [id number], Insurance Providers Payer Name Payer Address Payer Phone Subscriber Number Group Number Insured Name Patient Relationship to Insured Coverage Start Date Coverage End Date MEDICARE PART B [address] [address] [place] [id number] [id number] Nghia Montalvo Self - patient is the insured [facility] [employer] [address] [place] [address] [id number] Nghia Montalvo Self - patient is the insured MEDICATIONS ADMINISTERED Medication Instructions Date of Administration Dosage Notes B-12 01/31/2007 1 cm3 weekly B12 vito ts x 2 months B-12 02/10/2007 1 cm3 B-12 02/17/2007 1 mL B-12 02/28/2007 1 mL B-12 03/31/2007 1 cm3 B-12 05/27/2007 1 cm3 B-12 06/24/2007 1 cm3 B-12 07/28/2007 1 cm3 B-12 01/21/2009 1 mL B-12 04/23/2011 1 mL Depo- Medrol 40 mg/ml 10/25/2012 Dexamethasone 07/01/2006 1 mL Dexamethasone 10/30/2006 1 mL Dexamethasone 11/05/2008 1 mL Lovenox 08/18/2011 0.3 mL MEDICAL (GENERAL) HISTORY Medical History History ICD Code Hyperlipidemia Acne GERD Hiatal Hernia Allergic Rhinitis Epididymal Cyst Hearing Deficit EF=55%, 07/18/2009 JORGE Negative, 07/31/2009 LT Leg DVT PE CHRISTY with CPAP Venous Sinus Thrombosis vs. Encephalopat hy 2010 Open Heart Surgery for A- Fib Coronary Stent Placed, 08/2015 Light Heart Attack Pacemaker, 10/2016 Lupus Anticoagulant Parkinsons Possible Seizures Pseudobulbar Palsy LT Sided Heart Cath Moderna Covid x1 Surgical History Surgery Date(Month/Year) LT Spermatocelectomy 10/28/2008 Spinal Tap 08/2011 Heart Cath 11/2011 Heart Patch a Patent Foramen [place]vale 03/27 13 Cardiac Ablation 05/2013 Stress Test, ECHO, & EKG - Rashmi Cárdenas 08/21/2015 Ablation-Dr Schmid @ [facility] 2015 Rectal Polyps Removal 11/12/2016 Cardiac ECHO & Stress Test 03/31/2017 Cardiac Pacemaker 10/2016 Cardioversion 2013 Open Heart 2013 Heart Cath - Avi 03/2018 Hospitalization History Reason Date(Month/Year) Chest Pain DVT, Bilateral PE 07/2009 Chest Pain, LT Leg Swollen- [facility] 08/2010 Chest Pain- [place] ER 11/11-11/12/19 12 Chest Pain- [facility] ER 04/24/2012 Insect Bite- [facility] ER 06/20/2012 Weak, Heart Palpitations- [facility] Tachycardia- [facility] ER 07/30/2014 Hypertension, Tachycardia- [facility] ER 2015 Chest Pain- [facility] ER 05/01/2016 LT Leg Blood Clot- [facility] ER 11/17/2018
--- OUTSIDE RECORDS SUMMARY | 2024-08-22 11:33 | XMS_ITS | Clinical Summary ---
Author Organization [facility] , [facility] Address [address] [place] [address] Phone Care Team Providers Care Firearms Instructor Name Role Phone Andrez Felipe MD Unavailable [phone] Alek Lloyd Unavailable Unavailable Reason for Visit and Chief Complaint Follow Up Problems Includes: Problems addressed during this encounter and other active Problems All Visits Onset Date Resolved Date Provider Condition S tatus Joint Pain in Both Knees 04/20/2022 Estelle Olmos PA-C Active Last Documented On 2 1:48PM ; [facility], [facility] Plan of Treatment Future Appointments Date Time Location Provi chris INJECTION 11/02/2024 1:00PM [facility] Maury Brown PA-C Last Documented On 4 1:33PM ; [facility] Assessments Includes: Assessments from this encounter No Assessments Recorded Medical Equipment - Implanted Devices Includes: Current Devices No Medical Equipment Recorded Medications Includes: Medications discussed during this encounter and other current Medications Current Medications (continue as prescribed) Bydureon BCise 2 MG/0.85ML Subcutaneous Auto-injector 04/16/2022 Provider: Diagnosis: Last Documented On 2 2:59PM By Myrna Gonzalez [facility], [facility] DULoxetine HCl 60 MG Oral Ca psule Delayed Release Particles 04/16/2022 Provider: ALEK EVANS MD Diagnosis: Last Documented On 2 2:59PM By Myrna Chowdhury ; [facility] clonazePAM 1 MG Oral Tablet 04/09/2022 Provider: ALEK EVANS MD Diagnosis: Last Documented On 2 2:59PM By Myrna TRAYLOR [facility] methylPREDNISolone 4 MG Oral Tablet Therapy Pack 04/09 Provider: Diagnosis: Last Documented On 2 2:59PM By Myrna Chowdhury ; ALONSO TRAYLOR [facility] Warfarin Sodium 7.5 MG Oral Tablet 03/27/2022 Provid er: ALEK EVANS MD Diagnosis: Last Documented On 2 1:54PM By Myrna Chowdhury ; ALONSO TRAYLOR [facility] Medications Administered Includes: Administered Medications from [...] primary osteoarthritis of knee Colin Brown PA-C [facility] 05/05/2024 Last Documented On 4 12:06PM ; [facility], [facility] Triamcinolone/Kenalog, 10mg per cc [id number] Bilateral primary osteoarthritis of knee Colin Brown PA-C [facility] 05/05/2024 Last Documented On 4 12:06PM ; [facility], [facility] Medical History Includes: Medical History addressed [...] Check- Out Time Diagnosis Follow Up Colin rBown PA-C [facility] 4 10:07AM 10:43AM Insurance Includes: Active Insurance Policies Plan Name Member ID Group # Subscriber Relationship Effect elisabeth Dates 1 - Medicare Part [place] of [place] [id number] Nghia Montalvo Self 2 - [facility] [id number] Nghia Montalvo Self 11/08/2021 - Unknown Clinical Notes Includes: Clinical Notes from this encounter No Clinical Notes Recorded
--- OUTSIDE RECORDS SUMMARY | 2024-08-22 11:33 | XMS_ITS ---
Author Organization [facility] , [facility] Address [address] [place] [address] Phone Care Team Providers Care Ampoule Filler And Sealer Name Role Phone Matteo BERNARD, Andrez Fox Unavailable [phone] Valentin Lloyd Unavailable Unavailable Reason for Referral Date Encounter Description Provider Reason for Referral 04/20/22 Non Physician Specified Estelle Cason Referral To Physician Problems Includes: Active, inactive, and resolved Problems All Visits Onset Date Resolved Date Provider Condition S tatus Joint Pain in Both Knees 04/20/2022 Estelle Olmos PA-C Active Last Documented On 2 1:48PM ; [facility], [facility] Plan of Treatment Future Appointments Date Time Location Provi chris INJECTION 11/02/2024 1:00PM [facility] MARY Brown PA-C Last Documented On 4 1:33PM ; [facility], [facility] Instructions to patient Lose weight Last Documented On 4 1:18PM ; [facility], [facility] Lose weight Last Documented On 2 2:07PM ; [facility], [facility] Lose weight Last Documented On 2 1:51PM ; [facility], [facility] Assessments Includes: Assessments for all patient encounters Findings Encounter Date Overweight Follow Up with Ana Paula Perez 12/13/2023 Last Documented On 4 8:30AM ; [facility], [facility] Instructions Includes: Instructions for all patient encounters Instructions to patient Lose weight Last Documented On 4 1:18PM ; [facility]AL[facility] DIAZ Lose weight Last Documented On 2 2:07PM ; [facility] Lose weight Last Documented On 2 1:51PM ; [facility] Medical Equipment - Implanted Devices Includes: Current and historical Devices No Medical Equipment Recorded Medications Includes: Current and historical Medications Current Medications (continue as prescribed) Bydureon BCise 2 MG/0.85ML Subcutaneous Auto-injector 04/16/2022 Provider: Diagnosis: Last Documented On 2 2:59PM By Myrna Chowdhury ; [facility] DULoxetine HCl 60 MG Oral Ca psule Delayed Release Particles 04/16/2022 Provider: VALENTIN EVANS MD Diagnosis: Last Documented On 2 2:59PM By Myrna Chowdhury ; [facility] clonazePAM 1 MG Oral Tablet 04/09/2022 Provider: VALENTIN EVANS MD Diagnosis: Last Documented On 2 2:59PM By Myrna Chowdhury ; [facility] methylPREDNISolone 4 MG Oral Tablet Therapy Pack 04/09 Provider: Diagnosis: Last Documented On 2 2:59PM By Myrna Chowdhury ; [facility] Warfarin Sodium 7.5 MG Oral Tablet 03/27/2022 Provid er: VALENTIN EVANS MD Diagnosis: Last Documented On 2 1:54PM By Myrna Chowdhury ; [facility] Medications Administered Includes: Administered Medications in patient's chart No Administered Medications Recorded Vital Signs Includes: Vital Signs from 08/22/2023 through 08/22/2024 Vital Name 12/13/2023 01:18P Height (in) 74 Weight (lb) 307 Body Mass Index 39.4 Body Surface Area 2.6 Note: jayne Last Documented: On 12/13/2023 1:18PM ; [facility] Results Includes: Results from 08/22/2023 through 08/22/2024 No Results Recorded For Specified Dates History of Present Illness History of Present Illness not supported for this document type No History of Present Illness Recorded Social History Description Last Updated Tobacco non-user 12/13/2023 Last Documented On 4 8:30AM ; [facility] Caffeine use 04/20/2022 Last Documented On 2 5:15PM ; [facility] Not a current smoker. 04/20/2022 Last Documented On 2 5:15PM ; [facility], [facility] Not exercising regularly 04/20/2022 Last Documented On 2 5:15PM ; [facility], [facility] Not using alcohol 04/20/2022 Last Documented On 2 5:15PM ; [facility], [facility] Not using drugs 04/20/2022 Last Documented On 2 5:15PM ; [facility], [facility] Recent change in diet 04/20/2022 Last Documented On 2 5:15PM ; [facility] Non-smoker 04/20/2022 Last Documented On 2 5:15PM ; [facility], [facility] Smoking Status Unknown Procedures and Surgical History Includes: Procedures from 08/22/2023 through 08/22/2024 Procedures Code Diagnosis Performing Provider Service Location Service Date Triamcinolone/Ke nalog, 10mg per cc J3301 Bilateral primary osteoarthritis of knee Colin Brown [facility] 08/02/2024 Last Documented On 4 12:12PM ; [facility] DRAIN/INJECT, JOINT/BURSA (Bilateral Procedure) Bilateral primary osteoarthritis of knee Colin Brown [facility] 08/02/2024 Last Documented On 4 12:12PM ; [facility] DRAIN/INJECT, JOINT/BURSA (Bilateral Procedure) Bilateral primary osteoarthritis of knee Colin Brown [facility] 05/05/2024 Last Documented On 4 12:06PM ; [facility] Triamcinolone/Kenalog, 10mg per cc J3301 Bilateral primary osteoarthritis of knee Colin Brown [facility] 05/05/2024 Last Documented On 4 12:06PM ; [facility], [facility] DRAIN/INJECT, JOINT/BURSA (Bilateral Procedure) Bilateral primary osteoarthritis of knee Ana Paula Garner [facility] 02/02/2024 Last Documented On 4 2:47PM ; [facility], [facility] Injection, betamethasone acetate 6mg per cc and betamethason J0702 Bilateral primary osteoarthritis of knee Ana Paula Gale Pascual [facility] 02/02/2024 Last Documented On 4 2:47PM ; [facility], [facility] X-RAY EXAM KNEE 4 OR MORE (LEFT) [id number] Unilateral primary osteoarthritis, left knee Ana Paula Gale Pascual [facility] 12/13/2023 Last Documented On 4 8:56AM ; [facility] X-RAY EXAM KNEE 4 OR MORE (RIGHT) [id number] Unilateral primary osteoarthritis, right knee Ana Paula Gale Pascual [facility] 12/13/2023 Last Documented On 4 8:56AM ; [facility], [facility] Injection, betamethasone acetate 6mg per cc and betamethason J0702 Bilateral primary osteoarthritis of knee Ana Paula Gale Pascual [facility] 11/03/2023 Last Documented On 3 3:16PM ; [facility] DRAIN/INJECT, JOINT/BURSA (Bilateral Procedure) Bilateral primary osteoarthritis of knee Ana Paula Gale Pascual [facility] 11/03/2023 Last Documented On 3 3:16PM ; [facility] Surgical History Last Updated History of heart surgery 04/20/2022 Last Documented On 2 5:15PM ; [facility] Medical History Includes: Medical History in patient's chart Description Last Updated History of arthritis 04/20/2022 Last Documented On 2 5:15PM ; [facility] History of depression 04/20/2022 Last Documented On 2 5:15PM ; [facility] History of diabetes mellitus 04/20/2022 Last Documented On 2 5:15PM ; [facility] History of heart disease 04/20/2022 Last Documented On 2 5:15PM ; [facility], [facility] History of Heartburn / Acid Reflux 04/20 Last Documented On 2 5:15PM ; [facility], [facility] History of History of Blood Clots 2021 Last Documented On 2 5:15PM ; [facility], [facility] History of History of Heart Attack / Str rhiannon 04/20/2022 Last Documented On 2 5:15PM ; [facility], [facility] History of Hypertension 04/20/2022 Last Documented On 2 5:15PM ; [facility], [facility] History of Irregular Heartbeat 2 Last Documented On 2 5:15PM ; [facility], [facility] History of Sleep Apnea 04/20/2022 Last Documented On 2 5:15PM ; [facility], [facility] Use of CPAP 04/20/2022 Last Documented On 2 5:15PM ; [facility], [facility] No recent immunization for flu 2 Last Documented On 2 5:15PM ; [facility], [facility] No recent immunization for pneumococcal pneumonia 04/20/2022 Last Documented On 2 5:15PM ; [facility], [facility] Family History Includes: Family History in patient's chart Description Last Updated Diabetes mellitus 04/20/2022 Last Documented On 2 5:15PM ; [facility], [facility] Family history of heart disease 04/20/20 22 Last Documented On 2 5:15PM ; [facility], [facility] Family history of rheumatoid arthritis 0 04/20/2022 Last Documented On 2 5:15PM ; [facility], [facility] Family history of systemic hypertension 04/20/2022 Last Documented On 2 5:15PM ; [facility], [facility] Family history of thromboembolic disease 04/20/2022 Last Documented On 2 5:15PM ; [facility], [facility] Stroke / Seizures 04/20/2022 Last Documented On 2 5:15PM ; [facility], [facility] Review of Systems Review of Systems not [...] (Refused - Patient objection) [facility] Last Documented On 2 3:04PM ; [facility] PCV (Pneumovax 23) 1 04/20/2022 Complete (Refused - Patient objection) [facility] Last Documented On 2 3:04PM ; [facility] Allergies Includes: Active, inactive, and resolved Allergies No Known Allergies Encounters Includes: Encounters from 08/22/2023 through 08/22/2024 Encounter Provider Location Date Check-In Time Check-Out Time Diagnosis Follow Up Colin Brown PA-C [facility] 4 1:12PM 1:27PM Follow Up Colin Brown PA-C [facility] 4 10:07AM 10:43AM Follow Up Ana Paula Garner PA-C [facility] 4 1:08PM 1:40PM Follow Up Ana Paula Garner PA-C [facility] 4 12:48PM 1:43PM Overweight INJECTION Ana Paula Garner PA-C [facility] 3 1:11PM 1:31PM Insurance Includes: Active Insurance Policies Plan Name Member ID Group # Subscriber Relationship Effect elisabeth Dates 1 - Medicare Part B of [place] [id number] Nghia Montalvo Self 2 - [facility] [id number] Nghia Montalvo Self 11/08/2021 - Unknown Clinical Notes Includes: Signed Clinical Notes starting from 10/22/2022 * Progress note Date Encounter Last Documented by 12/13/2023 Follow Up Last documented on 12/20/2023; 8:30 AM, Ana Paula Mendiola; [facility] Active Problems & Conditions - Joint [...] and has regular follow up with his cytotechnologist/cytology supervisor. He is type 2 diabetes with the [...] significant narrowing of the medial compartment with engl-ov-yxwd appearance and subchondral sclerosis. There is relatively preserved lateral compartment space. There is narrowing of the lateral facet of the patellofemoral compartment. There is osteophyte formation all 3 compartments. No acute osseous abnormality. Four views of the right knee show significant narrowing of the medial compartment with ybec-lz-esyt appearance and subchondral sclerosis. There is preserved [...] He will need medical clearance from his cytotechnologist/cytology supervisor and neurologist. We will schedule surgery at [facility] on an outpatient basis. His [...]
--- OUTSIDE RECORDS SUMMARY | 2024-08-22 11:33 | XMS_ITS | Clinical Summary ---
Author Organization [facility] , [facility] Address [address] [place] [address] Phone Care Team Providers Care Chronic Disease Epidemiologist Name Role Phone Andrez Felipe MD Unavailable [phone] Alek Lloyd Unavailable Unavailable Reason for Visit and Chief Complaint Follow Up Problems Includes: Problems addressed during this encounter and other active Problems All Visits Onset Date Resolved Date Provider Condition S tatus Joint Pain in Both Knees 04/20/2022 Estelle Olmos PA-C Active Last Documented On 2 1:48PM ; [facility], [facility] Plan of Treatment Future Appointments Date Time Location Provi chris INJECTION 11/02/2024 1:00PM [facility] Maury Brown PA-C Last Documented On 4 1:33PM ; [facility] Assessments Includes: Assessments from this encounter No Assessments Recorded Medical Equipment - Implanted Devices Includes: Current Devices No Medical Equipment Recorded Medications Includes: Medications discussed during this encounter and other current Medications Current Medications (continue as prescribed) Bydureon BCise 2 MG/0.85ML Subcutaneous Auto-injector 04/16/2022 Provider: Diagnosis: Last Documented On 2 2:59PM By Myrna Gonzalez [facility], [facility] DULoxetine HCl 60 MG Oral Ca psule Delayed Release Particles 04/16/2022 Provider: ALEK EVANS MD Diagnosis: Last Documented On 2 2:59PM By Myrna Chowdhury ; [facility] clonazePAM 1 MG Oral Tablet 04/09/2022 Provider: ALEK EVANS MD Diagnosis: Last Documented On 2 2:59PM By Myrna [facility] methylPREDNISolone 4 MG [...] primary osteoarthritis of knee Colin Brown PA-C [facility] 08/02/2024 Last Documented On 4 12:12PM ; [facility] Triamcinolone/Kenalog, 10mg per cc J3301 Bilateral primary osteoarthritis of knee Colin Brown PA-C [facility] 08/02/2024 Last Documented On 4 12:12PM ; [facility], [facility] Medical History Includes: Medical History addressed [...] Time Diagnosis Follow Up Colin Brown PA-C [facility] 4 1:12PM 1:27PM Insurance Includes: Active Insurance Policies Plan Name Member ID Group # Subscriber Relationship Effect elisabeth Dates 1 - Medicare Part B of [place] [id number] Nghia Montalvo Self 2 - [facility] [id number] Nghia Montalvo Self 11/08/2021 - Unknown Clinical Notes Includes: Clinical Notes from this encounter No Clinical Notes Recorded
--- OUTSIDE RECORDS SUMMARY | 2024-08-22 11:33 | XMS_ITS | Clinical Summary ---
Author Organization [facility] , [facility] Address [address] [place] [address] Phone Care Team Providers Care Railcar Switcher Name Role Phone Andrez Felipe MD Unavailable [phone] Alek Lloyd Unavailable Unavailable Reason for Visit and Chief Complaint INJECTION Problems Includes: Problems addressed during this encounter and other active Problems All Visits Onset Date Resolved Date Provider Condition S tatus Joint Pain in Both Knees 04/20/2022 Estelle Olmos PA-C Active Last Documented On 2 1:48PM ; [facility], [facility] Plan of Treatment Future Appointments Date Time Location Provi chris INJECTION 11/02/2024 1:00PM [facility] Maury Brown PA-C Last Documented On 4 1:33PM ; [facility] Assessments Includes: Assessments from this encounter No Assessments Recorded Medical Equipment - Implanted Devices Includes: Current Devices No Medical Equipment Recorded Medications Includes: Medications discussed during this encounter and other current Medications Current Medications (continue as prescribed) Bydureon BCise 2 MG/0.85ML Subcutaneous Auto-injector 04/16/2022 Provider: Diagnosis: Last Documented On 2 2:59PM By Myrna Gonzalez [facility], [facility] DULoxetine HCl 60 MG Oral Ca psule Delayed Release Particles 04/16/2022 Provider: ALEK EVANS MD Diagnosis: Last Documented On 2 2:59PM By Myrna [facility], [facility] clonazePAM 1 MG Oral Tablet 04/09/2022 Provider: ALEK EVANS MD Diagnosis: Last Documented On 2 2:59PM By Myrna Chowdhury ; [facility] methylPREDNISolone 4 MG Oral Tablet Therapy Pack 04/09 Provider: Diagnosis: Last Documented On 2 2:59PM By Myrna Chowdhury ; [facility] Warfarin Sodium 7.5 MG Oral Tablet 03/27/2022 Provid er: ALEK EVANS MD Diagnosis: Last Documented On 2 1:54PM By Myrna Chowdhury ; [facility] Medications Administered Includes: Administered [...] osteoarthritis of knee Ana Paula Garner PA-C [facility] 11/03/2023 Last Documented On 3 3:16PM ; [facility] Injection, betamethasone acetate 6mg per cc and betamethason J0702 Bilateral primary osteoarthritis of knee Ana Paula Garner PA-C [facility] 11/03/2023 Last Documented On 3 3:16PM ; [facility] Medical History Includes: Medical History [...] Time Diagnosis INJECTION Ana Paula Garner PA-C [facility] 3 1:11PM 1:31PM Insurance Includes: Active Insurance Policies Plan Name Member ID Group # Subscriber Relationship Effect elisabeth Dates 1 - Medicare Part B of [place] [id number] Nghia Montalvo Self 2 - [facility] [id number] Nghia Montalvo Self 11/08/2021 - Unknown Clinical Notes Includes: Clinical Notes from this encounter No Clinical Notes Recorded
--- OUTSIDE RECORDS SUMMARY | 2024-08-22 11:33 | XMS_ITS ---
Care Plan - [facility], [facility] Created on: August 22, 2024 Nghia Montalvo : 1960 Sex: Male Author Organization [facility] , [facility] Address [address] [place] [address] Phone Care Team Providers Care Patient Scheduling Coordinator Name Role Phone Matteo BERNARD, Andrez Fox Unavailable [phone] Alek Lloyd Unavailable Unavailable
--- OUTSIDE RECORDS SUMMARY | 2024-08-22 11:33 | XMS_ITS | Clinical Summary ---
Author Organization [facility] , [facility] Address [address] [place] [address] Phone Care Team Providers Care Director Of Content Marketing Name Role Phone Andrez Felipe MD Unavailable [phone] Valentin Lloyd Unavailable Unavailable Reason for Visit and Chief Complaint The Chief Complaint is: Bilateral knee pain Problems Includes: Problems addressed during this encounter and other active Problems All Visits Onset Date Resolved Date Provider Condition S tatus Joint Pain in Both Knees 04/20/2022 Estelle Olmos PA-C Active Last Documented On 1:48PM ; [facility] Plan of Treatment He has evidence [...] He will need medical clearance from his ore miner and neurologist. We will schedule surgery at [facility] on an outpatient basis. His will be able to help care for him after surgery. Surgery will be scheduled after 01/12/2024 which will be 6 weeks after his last cortisone injection. - Last Documented On 12/20/2023 8:30AM ; [facility] Future Appointments Date Time Location Provi chris INJECTION 11/02/2024 1:00PM [facility] MARY Brown PA-C Last Documented On 4 1:33PM ; [facility] Instructions to patient Lose weight Last Documented On 4 1:18PM ; [facility] Assessments Includes: Assessments from this encounter Findings - Overweight - Last Documented On 12/20/2023 8:30AM ; [facility] Instructions Includes: Instructions from this encounter Instructions to patient Lose weight Last Documented On 4 1:18PM ; [facility] Medical Equipment - Implanted Devices Includes: Current Devices No Medical Equipment Recorded Medications Includes: Medications discussed during this encounter and other current Medications Current Medications (continue as prescribed) Byjeana BCise 2 MG/0.85ML Subcutaneous Auto-injector 04/16/2022 Provider: Diagnosis: Last Documented On 2 2:59PM By Myrna Chowdhury ; [facility]ON[facility] DULoxetine HCl 60 MG Oral Ca psule Delayed Release Particles 04/16/2022 Provider: VALENTIN EVANS MD Diagnosis: Last Documented On 2 2:59PM By Myrna Chowdhury ; [facility] clonazePAM 1 MG Oral Tablet 04/09/2022 Provider: VALENTIN EVANS MD Diagnosis: Last Documented On 2 2:59PM By Myrna TRAYLOR [facility] methylPREDNISolone 4 MG Oral Tablet Therapy Pack 04/09 Provider: Diagnosis: Last Documented On 2 2:59PM By Myrna Chowdhury ; ALONSO [facility] Warfarin Sodium 7.5 MG Oral Tablet 03/27/2022 Provid er: VALENTIN EVANS MD Diagnosis: Last Documented On 2 1:54PM By Myrna Chowdhury ; [facility] Medications Administered Includes: Administered Medications from this encounter No Administered Medications Recorded Vital Signs Includes: Vital Signs from this encounter Vital Name 12/13/2023 01:18P Height (in) 74 Weight (lb) 307 Body Mass Index 39.4 Body Surface Area 2.6 Note: jayne Last Documented: On 12/13/2023 1:18PM ; [facility], [facility] Results Includes: Results discussed during this encounter [...] and has regular follow up with his ore miner. He is type 2 diabetes with the last reported A1c of 6.1%. He has sleep apnea and uses his CPAP machine at home. He has a diagnosis of COPD as well. Social History Description Last Updated Tobacco non-user 12/13/2023 Last Documented On 4 8:30AM ; [facility] Smoking Status Unknown Procedures and Surgical History Includes: Procedures from this encounter Procedures Code Diagnosis Performing Provider Service Location Service Date X-RAY EXAM KNEE 4 OR MORE (RIGHT) 16405 Unilateral primary osteoarthritis, right knee Ana Paula Garner PA-C [facility] 12/13/2023 Last Documented On 4 8:56AM ; [facility] X-RAY EXAM KNEE 4 OR MORE (LEFT) 66656 Unilateral primary osteoarthritis, left knee Ana Paula Garner PA-C [facility] 12/13/2023 Last Documented On 4 8:56AM ; [facility], [facility] use of tobacco assessment performed 1000F Last Documented On 4 1:18PM ; [facility] review of medications documented 1160F Last Documented On 4 1:18PM ; [facility], [facility] Medical History Includes: Medical History addressed during [...] Diagnosis Follow Up Ana Paula Garner PA-C [facility] 12:48PM 1:43PM Overweight Insurance Includes: Active Insurance Policies Plan Name Member ID Group # Subscriber Relationship Effect elisabeth Dates 1 - Medicare Part B of [place] [id number] Nghia Montalvo Self 2 - BCBS [facility] [id number] Nghia Montalvo Self 11/08/2021 - Unknown Clinical Notes Includes: Clinical Notes from this encounter * Progress note Date Encounter Last Documented by 12/13/2023 Follow Up Last documented on 12/20/2023; 8:30 AM, Ana Paula Mendiola; [facility], [facility] Active Problems & Conditions - Joint Pain [...] and has regular follow up with his ore miner. He is type 2 diabetes with the [...] significant narrowing of the medial compartment with [id number] appearance and subchondral sclerosis. There is relatively preserved lateral compartment space. There is narrowing of the lateral facet of the patellofemoral compartment. There is osteophyte formation all 3 compartments. No acute osseous abnormality. Four views of the right knee show significant narrowing of the medial compartment with [id number]-ol-[id number] appearance and subchondral sclerosis. There is preserved [...] He will need medical clearance from his ore miner and neurologist. We will schedule surgery at [facility] on an outpatient basis. His will [...]
--- OUTSIDE RECORDS SUMMARY | 2024-08-22 11:33 | XMS_ITS | Clinical Summary ---
Author Organization [facility] , [facility] Address [address] [place] [address] Phone Care Team Providers Care Wafer Fabricator Name Role Phone Andrez Felipe MD Unavailable [phone] Alek Lloyd Unavailable Unavailable Reason for Visit and Chief Complaint Follow Up Problems Includes: Problems addressed during this encounter and other active Problems All Visits Onset Date Resolved Date Provider Condition S tatus Joint Pain in Both Knees 04/20/2022 Estelle Olmos PA-C Active Last Documented On 2 1:48PM ; [facility], [facility] Plan of Treatment Future Appointments Date Time Location Provi chris INJECTION 11/02/2024 1:00PM [facility] Maury Brown PA-C Last Documented On 4 1:33PM ; [facility] Assessments Includes: Assessments from this encounter No Assessments Recorded Medical Equipment - Implanted Devices Includes: Current Devices No Medical Equipment Recorded Medications Includes: Medications discussed during this encounter and other current Medications Current Medications (continue as prescribed) Bydureon BCise 2 MG/0.85ML Subcutaneous Auto-injector 04/16/2022 Provider: Diagnosis: Last Documented On 2 2:59PM By Myrna Gonzalez [facility], [facility] DULoxetine HCl 60 MG Oral Ca psule Delayed Release Particles 04/16/2022 Provider: ALEK EVANS MD Diagnosis: Last Documented On 2 2:59PM By Myrna Chowdhury ; [facility] clonazePAM 1 MG Oral Tablet 04/09/2022 Provider: ALEK EVANS MD Diagnosis: Last Documented On 2 2:59PM By Myrna TRAYLOR [facility] methylPREDNISolone 4 MG Oral Tablet Therapy Pack 04/09 Provider: Diagnosis: Last Documented On 2 2:59PM By Myrna Chowdhury ; ALONSO TRAYLOR [facility] Warfarin Sodium 7.5 MG Oral Tablet 03/27/2022 Provid er: ALEK EVANS MD Diagnosis: Last Documented On 2 1:54PM By Myrna Chowdhury ; [facility] Medications Administered [...] osteoarthritis of knee Ana Paula Garner PA-C [facility] 02/02/2024 Last Documented On 4 2:47PM ; [facility], [facility] Injection, betamethasone acetate 6mg per cc and betamethason [id number] Bilateral primary osteoarthritis of knee Ana Paula Garner PA-C [facility] 02/02/2024 Last Documented On 4 2:47PM ; [facility], [facility] Medical History Includes: Medical History addressed [...] Diagnosis Follow Up Ana Paula Garner PA-C [facility] 4 1:08PM 1:40PM Insurance Includes: Active Insurance Policies Plan Name Member ID Group # Subscriber Relationship Effect elisabeth Dates 1 - Medicare Part B [facility] [id number] Nghia Montalvo Self 2 - [facility] [id number] Nghia Selvin Self 11/08/2021 - Unknown Clinical Notes Includes: Clinical Notes from this encounter No Clinical Notes Recorded
[2024-08-22 12:03] LABS: Basophils % 0.5 % (0.1-2.0); Eosinophils # 0.1 K/mm3 (0.0-0.4); Eosinophils % 0.8 % (0.1-12.0); Hematocrit 44.7 % (42.0-52.0); Hemoglobin 15.2 g/dL (14.1-18.0); Lymphocytes # 1.3 K/mm3 (0.7-4.5); Mean Corpuscular HGB Conc 33.9 g/dL (31.8-35.4); Mean Corpuscular Hemoglobin 28.8 pg (27.0-31.2); Mean Corpuscular Volume 84.9 fl (80-94); Mean Platelet Volume 8.1 fl (7.4-10.4); Monocytes # 0.4 K/mm3 (0.1-1.0); Monocytes % 6.3 % (1.7-9.3); Neutrophils % 73.3 % (37.0-80.0); Platelet Count 183 K/mm3 (142-424); Red Blood Count 5.26 M/mm3 (4.60-6.20); Red Cell Distribution Width 14.3 % (11.5-17.5); White Blood Count 6.8 K/mm3 (4.8-10.8)
[2024-08-22 12:26] LABS: Albumin Level 4.1 g/dl (3.5-5.0); Chloride 105 mmol/L (98-107)
[2024-08-22 12:27] LABS: Potassium 4.6 mmoL/L (3.5-5.1); Sodium 139 mmol/L (136-145)
[2024-08-22 12:29] LABS: Alanine Aminotransferase 23 U/L (12-78); Anion Gap 8.6 mEq/L (5-15); Aspartate Amino Transferase 24 U/L (17-59); Bilirubin,Unconjugated 0.5 mg/dL (0.0-1.1); Blood Urea Nitrogen 16 mg/dl (9-20); Carbon Dioxide 30 mmol/L (22.0-30.0); Estimated Glomerular Filt Rate 86 ml/min (>60); GFR (African American) 103 ML/MIN (>60); Total Protein,Serum 6.4 g/dl (6.3-8.2)
[2024-08-22 12:30] LABS: Alkaline Phosphatase 77 U/L (38-126); Bilirubin,Direct 0.2 mg/dl (0.0-0.4); Bilirubin,Indirect 0.5 mg/dL (0.0-0.9); Bilirubin,Total 0.7 mg/dl (0.2-1.3); Calcium 9.4 mg/dl (8.4-10.2); Cholesterol 136 mg/dl (140-200); Glucose 109 mg/dl (74-100); HDL Cholesterol 45 mg/dl (40-60); Magnesium 2.1 mg/dl (1.6-2.3); Triglycerides 121 mg/dl (30-150); VLDL Cholesterol 24 mg/dL (0-40)
[2024-08-22 12:41] LABS: Direct LDL Cholesterol 58.98 mg/dL (100-129)
[2024-08-22 12:45] LABS: Free T4 (Free Thyroxine) 1.34 ng/dl (0.78-2.19)
[2024-08-22 13:03] LABS: Thyroid Stimulating Hormone 2.72 uIU/mL (0.465-4.68)
== END 2024-08-22 23:59 | disposition home or self-care (01) ==
LOC: LAB 11:31
PROVIDERS: PCP Physician Assistant; Visit Provider Nurse Practitioner
DX: R94.31 Abnormal electrocardiogram [ECG] [EKG] (principal); I25.118 Atherosclerotic heart disease of native coronary artery with other forms of angina pectoris; I48.0 Paroxysmal atrial fibrillation; E78.2 Mixed hyperlipidemia; I42.9 Cardiomyopathy, unspecified; I50.32 Chronic diastolic (congestive) heart failure; R60.0 Localized edema; I10 Essential (primary) hypertension; E66.01 Morbid (severe) obesity due to excess calories; Z68.31 Body mass index [BMI] 31.0-31.9, adult
CPT/HCPCS: 36415; 80048; 80061; 80076; 83735; 84439; 84443; 85025

== ENCOUNTER 2024-09-04 06:28 | Outpatient (CLI) | payer MEDICARE, BC, SELFPAY ==
--- NOTE | 2024-09-04 | CA_ITS ---
APPROVED REPORT Exam: Pharmacologic Technologist: Alena Cortez Ht: 6 ft 2 in Wt: 246 lbs BSA: 2.37 m2 HR: 71 bpm BP: 123/58 mmHg Rhythm: NSR Indications: Chest pain, CAD, PAF Medical History Medications: Aspirin,,,,, Warfarin,,,,, Metformin,,,,, Vitamin B12,,,,, Vitamin D3,,,,, Pantoprazole,,,,, Ropinirole,,,,, ClonAZEPAM,,,,, SyMBICORT,,,,, TAMSULOSIN,,,,, Calcium,,,,, CloPIdogrel,,,,, Stress Test Details Test: LEXISCAN HR Resting HR: 72 bpm Max Heart Rate (APMHR): 157 bpm Max HR Achieved: 102 bpm Target HR (85% APMHR): 133 bpm % of APMHR: 65 Recovery HR: 81 bpm BP Resting BP: 141.0/69.0 mmHg Max BP: 141.0/69.0 mmHg Recovery BP: 133.0/66.0 mmHg ECG Resting ECG: Sinus rhythm, NS ST inferior leads Stress ECG: No significant ST changes Arrhythmia: None Clinical Exercise duration: 04:00 min Highest Stage Achieved: Exercise capacity: 1.0 METs Stress ECG Conclusion Symptoms: Chest pressure, shortness of air Arrhythmias/Ectopy: None ST-T Changes: None Conclusion: Unremarkable Lexiscan stress test. Myoview images reported separately. Test Summary REST . . . . . . . Resting REST 19:24 . . 72 . 141/ 69 . . Stage 1 . . . . . . . Myoview Injected Stage 1 01:00 . . 81 . . . . Stage 2 . . . . . . . chest pressure Stage 2 01:00 . . 84 . 123/ 58 . . Stage 3 01:00 . . 82 . 124/ 58 . . Stage 4 01:00 . . 83 . 128/ 61 . Stop exercise at 04:00 RECOVERY 01:00 . . 80 . 121/ 66 . . RECOVERY 02:00 . . 86 . 124/ 66 . . RECOVERY 03:00 . . 82 . 133/ 66 . . RECOVERY 03:11 . . 81 . 133/ 66 . . Electronically signed by : Teresa Echeverria MD 09/04/2024 12:11:08
--- OUTSIDE RECORDS SUMMARY | 2024-09-04 06:30 | XMS_ITS ---
Author Organization [facility] Address [address] [place] [id number] Care Team Providers Care Minilab Operator Name Role Phone Norberto Miller Primary Care Provider [phone] Jo Ellison Unavailable [phone] ALLERGIES No Known Allergies RESULTS Component Value Reference Range Notes PT/INR (in house) Reviewed date:09/01/2024 02:45:52 PM Interpretation:1.6 Performing Lab: Notes/Report: 1.6 PT 19.2 INR 1.6 current dose 5 mg M,W,F-7.5maod new dose same next check 1 week hold for (days) Warfarin indication afib/PE ideal INR 2.5-3.5 current weekly dose new weekly dose contact REASON FOR VISIT PT/INR MEDICATIONS Medication SIG (Take, Route, Frequency, Duration) Notes Start Date End Date Status Mounjaro 15 MG/0.5ML 15 mg Subcutaneous once a week 08/25/2024 Active clonazePAM 1 MG 1/2 tab orally Two times a day 2024 Active Warfarin Sodium 7.5 MG TAKE 1 TABLET BY MOUTH ONCE DAILY 6 DAYS OUT OF THE WEEK for 90 Active QUEtiapine Fumarate 100 MG TAKE 1 TABLET BY MOUTH ONCE DAILY IN THE EVENING for 90 Active Baclofen 5 MG 1 tablet Orally Twic e a day for 90 days Active Pantoprazole Sodium 40 MG 1 tablet Orally Once a day for 90 days Active rOPINIRole HCl ER 2 MG 1 tablet Orally O nce a day for 90 days 05/01/2024 Active Cortisporin-TC 3.3-3-10-0.5 MG/ML 5 drops into affected ear Otic Three times a day 06/22/2024 Active Myrbetriq 50 MG 1 tablet Orally Once a day for 30 day(s) Active Sulindac 200 MG take 1 tablet Orally Twice a day for 90 days Active Jardiance 25 MG take 1 tablet by mouth once daily in the morning Orally Once a day for 90 days Active Levocetirizine Dihydrochloride 5 MG 1 tab(s) orally once a day (in the evening) for 90 days Active metFORMIN HCl ER 500 MG Take 2 tablets by mouth once daily for 90 days Active Aspirin 81 MG 1 tablet Orally Once a day for 30 day(s) Active Flonase Allergy Relief 50 MCG/ACT 1 spray in each nostril Nasally Once a day 01/28/2024 Active Albuterol Sulfate HFA 108 (90 Base) MCG/ACT 1 puff as needed Inhalation every 4 hrs, prn 11/24/2023 Active Mupirocin 2 % 1 application Externally Twice a day Active Easy Touch Safety Lancets 28G - as directed to test once daily for 90 days diagnosis code E11.9 08/20/2023 Active Warfarin Sodium 5 MG Take 1 tablet by mouth once daily for 90 days Active Blood Glucose Test Strips 333 - 1 strip In Vitro test once a day E11.9 08/11/2023 Active Pristiq 100 MG 1 tab(s) orally once a day for 90 days 11/06/2022 Active Easy Touch Glucose System w/Device - test once daily E11.9 08/11/2023 Active Linzess 145 MCG 1 capsule at least 3 0 minutes before the first meal of the day on an empty stomach Orally Once a day for 90 days 07/30/2023 Active Nitrostat 0.4 MG 1 tab(s) sublinguall y every 5 minutes Active Tamsulosin HCl 0.4 MG 1 cap(s) orally on ce a day for 90 days Active Albuterol Sulfate HFA 108 (90 Base) MCG/ACT 1-2 puff(s) inhaled every 6 hours, prn 12/31/2022 Active CPAP MASK DIRECTED 07/25/2021 Active CPAP SUPPLIES DIRECTED 07/25/2021 Act elisabeth Potassium Chloride ER 20 MEQ take 2 tablets by mouth once daily for 90 days Active Furosemide 40 MG 1 tab(s) Orally ever y other day Active Symbicort 80-4.5 MCG/ACT 2 puff(s) inhaled 2 times a day 05/08/2014 Active Diclofenac Sodium 1 % as directed applie d topically 4 times a day 03/03/2021 Active FREE STYLE KRISTAL GLUCOSE SYSTEM DIRECTED BID 07/20/2018 Active Magnesium Oxide 400 MG 1 tab(s) orally o nce a day Active Calcium Carbonate 600 MG 1 tab(s) orally qhs Active Vitamin B-12 1000 MCG 1 tab(s) orally on ce a day Active Vitamin D3 25 MCG (1000 UT) 2 tab orally once a day Active Plavix 75 MG 1 tab(s) orally once a day Active Spironolactone 25 MG 1 tab(s) orally onc e a day for 30 day(s) Active Leqvio 284 MG/1.5ML as directed subcutaneously every 6 months Active VITAL SIGNS Weight 244.6 lbs 09/01/2024 Blood pressure systolic 120 mm Hg 09/01/20 24 Blood pressure diastolic 64 mm Hg 024 Heart Rate 78 /min 09/01/2024 Height 73.50 in 09/01/2024 BMI 31.83 kg/m2 09/01/2024 Encounters Encounter Location Date Provider Diagnosis [facility] [address] [place], [place] [id number] 09/01/2024 Jo Ellison [facility] (current) use of anticoagulants Z79.01 ASSESSMENTS Encounter Date Diagnosis Assessment Notes Treatment Notes Treatment Clinical Notes 09/01/2024 [facility] (current) use of anticoagulants (ICD-10 - Z79.01) PLAN OF TREATMENT Next Appt Details Follow Up: 1 Week, Reason: Provider Name:Jo Weeks shefali, 09/08/2024 10:30:00 AM, [address], [address], [place], [id number], Progress Notes * Examination Category Sub-Category Detail Notes General Examination General Appearance: NAD, faith ears healthy, pleasant History and Physical Notes * HPI (History of Present Illness) Category Sub-Category Detail Notes Hematology epistaxis hematuria Bruising Bleeding PT/INR The patient states h e held the warfarin for 2 days and started it back on wednesday
--- OUTSIDE RECORDS SUMMARY | 2024-09-04 06:30 | XMS_ITS ---
Author Organization [facility] Address [address] [place] [id number] Care Team Providers Care Stitcher Standard Machine Name Role Phone Norberto Miller Primary Care Provider Jo Ellison Unavailable [phone] ALLERGIES No Known Allergies RESULTS Component Value Reference Range Notes PT/INR (in house) Reviewed date:08/25/2024 01:19:21 PM Interpretation:5.8 Performing Lab: Notes/Report: 5.8 PT 70.1 INR 5.8 current dose 5 mg MWF & 7.5 mg AOD new dose Hold today and tomor row, then 7.5mg MWF and 5mg AOD next check 1 week hold for (days) Warfarin indication afib/PE ideal INR 2.5-3.5 current weekly dose new weekly dose contact REASON FOR VISIT PT/INR MEDICATIONS Medication SIG (Take, Route, Frequency, Duration) Notes Start Date End Date Status Baclofen 5 MG 1 tablet Orally Twic e a day for 90 days Active Cortisporin-TC 3.3-3-10-0.5 MG/ML 5 drops into affected ear Otic Three times a day 06/22/2024 Active clonazePAM 1 MG 1/2 tab orally Two times a day 2024 Active Warfarin Sodium 7.5 MG TAKE 1 TABLET BY MOUTH ONCE DAILY 6 DAYS OUT OF THE WEEK for 90 Active QUEtiapine Fumarate 100 MG TAKE 1 TABLET BY MOUTH ONCE DAILY IN THE EVENING for 90 Active Myrbetriq 50 MG 1 tablet Orally Once a day for 30 day(s) Active Sulindac 200 MG take 1 tablet Orally Twice a day for 90 days Active Pantoprazole Sodium 40 MG 1 tablet Orally Once a day for 90 days Active rOPINIRole HCl ER 2 MG 1 tablet Orally O nce a day for 90 days 05/01/2024 Active Flonase Allergy Relief 50 MCG/ACT 1 spray in each nostril Nasally Once a day 01/28/2024 Active Jardiance 25 MG take 1 tablet [...] Once a day for 30 day(s) Active Easy Touch Safety Lancets 28G - as directed to test once daily for 90 days diagnosis code E11.9 08/20/2023 Active Warfarin Sodium 5 MG Take 1 tablet by mouth once daily for 90 days Active Blood Glucose Test Strips 333 - 1 strip In Vitro test once a day E11.9 08/11/2023 Active Albuterol Sulfate HFA 108 (90 Base) MCG/ACT 1 puff as needed Inhalation every 4 hrs, prn 11/24/2023 Active Mupirocin 2 % 1 application Externally Twice a day Active Easy Touch Glucose System w/Device - test once daily E11.9 08/11/2023 Active Pristiq 100 MG 1 tab(s) orally once a day for 90 days 11/06/2022 Active Linzess 145 MCG 1 capsule at least 3 0 minutes before the first meal of the day on an empty stomach Orally Once a day for 90 days 07/30/2023 Active Nitrostat 0.4 MG 1 tab(s) sublinguall y every 5 minutes Active Tamsulosin HCl 0.4 MG 1 cap(s) orally on ce a day for 90 days Active Potassium Chloride ER 20 MEQ take 2 tablets by mouth once daily for 90 days Active Furosemide 40 MG 1 tab(s) Orally ever y other day Active Albuterol Sulfate HFA 108 (90 Base) MCG/ACT 1-2 puff(s) inhaled every 6 hours, prn 12/31/2022 Active CPAP MASK DIRECTED 07/25/2021 Active CPAP SUPPLIES DIRECTED 07/25/2021 Act elisabeth Symbicort 80-4.5 MCG/ACT 2 puff(s) inhaled 2 times a day 05/08/2014 Active Diclofenac Sodium 1 % as directed applie d topically 4 times a day 03/03/2021 Active Calcium Carbonate 600 MG 1 tab(s) orally qhs Active FREE STYLE KRISTAL GLUCOSE SYSTEM DIRECTED BID 07/20/2018 Active Magnesium Oxide 400 MG 1 tab(s) orally o nce a day Active Leqvio 284 MG/1.5ML as directed subcutaneously every 6 months Active Vitamin B-12 1000 MCG 1 tab(s) orally on ce a day Active Vitamin D3 25 MCG (1000 UT) 2 tab orally once a day Active Plavix 75 MG 1 tab(s) orally once a day Active Spironolactone 25 MG 1 tab(s) orally onc e a day for 30 day(s) Active Mounjaro 15 MG/0.5ML 15 mg Subcutaneous once a week 08/25/2024 Active VITAL SIGNS Weight 247.8 lbs 08/25/2024 Blood pressure systolic 110 mm Hg 08/25/20 24 Blood pressure diastolic 62 mm Hg 024 Heart Rate 82 /min 08/25/2024 Height 73.50 in 08/25/2024 BMI 32.25 kg/m2 08/25/2024 Encounters Encounter Location Date Provider Diagnosis [facility] [address] [facility] [address] [facility] [address] [place] [address] [place] [phone] 08/25/2024 Jo Ellison intermediate designer (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 PLAN OF TREATMENT Medication Medication Name Sig Start Date Stop Date Notes Mounjaro 12.5 MG/0.5ML 12.5mg Subcutaneous once a week Mounjaro 15 MG/0.5ML 15 mg Subcutaneous once a week 2023 Treatment Notes Assessment Notes Bradycardia Will keep f/u with c ardiology and have echo and stress test. Next Appt Details Follow Up: 1 Week, Reason: Provider Name:Jo meehan, 09/08/2024 10:30:00 AM, [address], [address], [place], [place], [id number], Progress Notes * Examination Category Sub-Category Detail Notes General Examination Heart: RSR Lungs: clear to auscultatio n General Appearance: NAD Chest: normal shape and exp ansion History and Physical Notes * HPI (History of Present Illness) Category Sub-Category Detail Notes Hematology PT/INR due for PT/INR
--- OUTSIDE RECORDS SUMMARY | 2024-09-04 06:32 | XMS_ITS | Clinical Summary ---
Author Organization [facility] , [facility] Address [address] [place] [address] Phone Care Team Providers Care Child Care Giver Name Role Phone Andrez Felipe MD Unavailable [phone] Alek Lloyd Unavailable Unavailable Reason for Visit and Chief Complaint Follow Up Problems Includes: Problems addressed during this encounter and other active Problems All Visits Onset Date Resolved Date Provider Condition S tatus Joint Pain in Both Knees 04/20/2022 Estelle Olmos PA-C Active Last Documented On 2 1:48PM ; [facility], [facility] Plan of Treatment Future Appointments Date Time Location Provi chris INJECTION 11/02/2024 1:00PM [facility] Maury Brown PA-C Last Documented On 4 1:33PM ; [facility] Assessments Includes: Assessments from this encounter No Assessments Recorded Medical Equipment - Implanted Devices Includes: Current Devices No Medical Equipment Recorded Medications Includes: Medications discussed during this encounter and other current Medications Current Medications (continue as prescribed) Bydureon BCise 2 MG/0.85ML Subcutaneous Auto-injector 04/16/2022 Provider: Diagnosis: Last Documented On 2 2:59PM By Myrna Gonzalez [facility], [facility] DULoxetine HCl 60 MG Oral Ca psule Delayed Release Particles 04/16/2022 Provider: ALEK EVANS MD Diagnosis: Last Documented On 2 2:59PM By Myrna Chowdhury ; [facility], [facility] clonazePAM 1 MG Oral Tablet 04/09/2022 Provider: ALEK EVANS MD Diagnosis: Last Documented On 2 2:59PM By Myrna [facility] methylPREDNISolone 4 MG Oral Tablet Therapy Pack 04/09 Provider: Diagnosis: Last Documented On 2 2:59PM By Myrna Chowdhury ; [facility] Warfarin Sodium 7.5 MG Oral Tablet 03/27/2022 Provid er: ALEK EVANS MD Diagnosis: Last Documented On 2 1:54PM By Myrna Chowdhury ; [facility] Medications Administered Includes: Administered Medications [...] primary osteoarthritis of knee Colin Brown PA-C [facility] 05/05/2024 Last Documented On 4 12:06PM ; [facility], [facility] Triamcinolone/Kenalog, 10mg per cc [id number] Bilateral primary osteoarthritis of knee Colin Brown PA-C [facility] 05/05/2024 Last Documented On 4 12:06PM ; [facility], [facility] Medical History Includes: Medical History [...] Time Diagnosis Follow Up Colin Brown PA-C [facility] 4 10:07AM 10:43AM Insurance Includes: Active Insurance Policies Plan Name Member ID Group # Subscriber Relationship Effect elisabeth Dates 1 - Medicare Part B of [place] [id number] Nghia Montalvo Self 2 - [facility] [id number] Nghia Montalvo Self 11/08/2021 - Unknown Clinical Notes Includes: Clinical Notes from this encounter No Clinical Notes Recorded
--- OUTSIDE RECORDS SUMMARY | 2024-09-04 06:32 | XMS_ITS | Clinical Summary ---
Author Organization [facility] , [facility] Address [address] [place] [address] Phone Care Team Providers Care Blood Tester Name Role Phone Andrez Felipe MD Unavailable [phone] Alek Lloyd Unavailable Unavailable Reason for Visit and Chief Complaint Follow Up Problems Includes: Problems addressed during this encounter and other active Problems All Visits Onset Date Resolved Date Provider Condition S tatus Joint Pain in Both Knees 04/20/2022 Estelle Olmos PA-C Active Last Documented On 2 1:48PM ; [facility], [facility] Plan of Treatment Future Appointments Date Time Location Provi chris INJECTION 11/02/2024 1:00PM [facility] Maury Brown PA-C Last Documented On 4 1:33PM ; [facility] Assessments Includes: Assessments from this encounter No Assessments Recorded Medical Equipment - Implanted Devices Includes: Current Devices No Medical Equipment Recorded Medications Includes: Medications discussed during this encounter and other current Medications Current Medications (continue as prescribed) Bydureon BCise 2 MG/0.85ML Subcutaneous Auto-injector 04/16/2022 Provider: Diagnosis: Last Documented On 2 2:59PM By Myrna Gonzalez [facility], [facility] DULoxetine HCl 60 MG Oral Ca psule Delayed Release Particles 04/16/2022 Provider: ALEK EVANS MD Diagnosis: Last Documented On 2 2:59PM By Myrna Chowdhury ; [facility], [facility] clonazePAM 1 MG Oral Tablet 04/09/2022 Provider: ALEK EVANS MD Diagnosis: Last Documented On 2 2:59PM By Myrna [facility] methylPREDNISolone 4 MG Oral Tablet Therapy Pack 04/09 Provider: Diagnosis: Last Documented On 2 2:59PM By Myrna Chowdhury ; [facility] Warfarin Sodium 7.5 MG Oral Tablet 03/27/2022 Provid er: ALEK EVANS MD Diagnosis: Last Documented On 2 1:54PM By Myrna Chowdhury ; [facility] Medications Administered Includes: Administered Medications [...] Colin Brown PA-C [facility] 08/02/2024 Last Documented On 4 12:12PM ; [facility] Triamcinolone/Kenalog, 10mg per cc [id number] Bilateral primary osteoarthritis of knee Colin Brown PA-C [facility] 08/02/2024 Last Documented On 4 12:12PM ; [facility], [facility] Medical History Includes: Medical History [...] Brown PA-C [facility] 4 1:12PM 1:27PM Insurance Includes: Active Insurance Policies Plan Name Member ID Group # Subscriber Relationship Effect elisabeth Dates 1 - Medicare Part B of [place] [id number] Nghia Montalvo Self 2 - [facility] [id number] Nghia Montalvo Self 11/08/2021 - Unknown Clinical Notes Includes: Clinical Notes from this encounter No Clinical Notes Recorded
--- OUTSIDE RECORDS SUMMARY | 2024-09-04 06:32 | XMS_ITS | Clinical Summary ---
Author Organization [facility] , [facility] Address [address] [place] [address] Phone Care Team Providers Care Inside Sales Director Name Role Phone Andrez Felipe MD Unavailable [phone] Alek Lloyd Unavailable Unavailable Reason for Visit and Chief Complaint INJECTION Problems Includes: Problems addressed during this encounter and other active Problems All Visits Onset Date Resolved Date Provider Condition S tatus Joint Pain in Both Knees 04/20/2022 Estelle Olmos PA-C Active Last Documented On 2 1:48PM ; [facility], [facility] Plan of Treatment Future Appointments Date Time Location Provi chris INJECTION 11/02/2024 1:00PM [facility] Maury Brown PA-C Last Documented On 4 1:33PM ; [facility] Assessments Includes: Assessments from this encounter No Assessments Recorded Medical Equipment - Implanted Devices Includes: Current Devices No Medical Equipment Recorded Medications Includes: Medications discussed during this encounter and other current Medications Current Medications (continue as prescribed) Bydureon BCise 2 MG/0.85ML Subcutaneous Auto-injector 04/16/2022 Provider: Diagnosis: Last Documented On 2 2:59PM By Myrna Gonzalez [facility], [facility] DULoxetine HCl 60 MG Oral Ca psule Delayed Release Particles 04/16/2022 Provider: ALEK EVANS MD Diagnosis: Last Documented On 2 2:59PM By Myrna [facility], [facility] clonazePAM 1 MG Oral Tablet 04/09/2022 Provider: ALEK EVANS MD Diagnosis: Last Documented On 2 2:59PM By Myrna Chowdhury ; [facility] methylPREDNISolone 4 MG Oral Tablet Therapy Pack 04/09 Provider: Diagnosis: Last Documented On 2 2:59PM By Myrna Chowdhury ; [facility] Warfarin Sodium 7.5 MG Oral Tablet 03/27/2022 Provid er: ALEK EVANS MD Diagnosis: Last Documented On 2 1:54PM By Myrna Chowdhury ; [facility] Medications Administered Includes: Administered Medications [...] osteoarthritis of knee Ana Paula Garner PA-C [facility] 11/03/2023 Last Documented On 3 3:16PM ; [facility] Injection, betamethasone acetate 6mg per cc and betamethason J0702 Bilateral primary osteoarthritis of knee Ana Paula Garner PA-C [facility] 11/03/2023 Last Documented On 3 3:16PM ; [facility] Medical History [...] Time Diagnosis INJECTION Ana Paula Garner PA-C [facility] 3 1:11PM 1:31PM Insurance Includes: Active Insurance Policies Plan Name Member ID Group # Subscriber Relationship Effect elisabeth Dates 1 - Medicare Part B of [place] [id number] Nghia Montalvo Self 2 - [facility] [id number] Nghia Montalvo Self 11/08/2021 - Unknown Clinical Notes Includes: Clinical Notes from this encounter No Clinical Notes Recorded
--- OUTSIDE RECORDS SUMMARY | 2024-09-04 06:32 | XMS_ITS ---
Care Plan - [facility], [facility] Created on: September 04, 2024 Nghia Montalvo : 1960 Sex: Male Author Organization [facility] , [facility] Address [address] [place] [address] Phone Care Team Providers Care Fill Plant Operator Name Role Phone Matteo BERNARD, Andrez Fox Unavailable [phone] Alek Lloyd Unavailable Unavailable
--- OUTSIDE RECORDS SUMMARY | 2024-09-04 06:32 | XMS_ITS | Clinical Summary ---
Author Organization [facility] , [facility] Address [address] [place] [address] Phone Care Team Providers Care Roads Supervisor Name Role Phone Andrez Felipe MD Unavailable [phone] Alek Lloyd Unavailable Unavailable Reason for Visit and Chief Complaint Follow Up Problems Includes: Problems addressed during this encounter and other active Problems All Visits Onset Date Resolved Date Provider Condition S tatus Joint Pain in Both Knees 04/20/2022 Estelle Olmos PA-C Active Last Documented On 2 1:48PM ; [facility], [facility] Plan of Treatment Future Appointments Date Time Location Provi chris INJECTION 11/02/2024 1:00PM [facility] Maury Brown PA-C Last Documented On 4 1:33PM ; [facility] Assessments Includes: Assessments from this encounter No Assessments Recorded Medical Equipment - Implanted Devices Includes: Current Devices No Medical Equipment Recorded Medications Includes: Medications discussed during this encounter and other current Medications Current Medications (continue as prescribed) Bydureon BCise 2 MG/0.85ML Subcutaneous Auto-injector 04/16/2022 Provider: Diagnosis: Last Documented On 2 2:59PM By Myrna Gonzalez [facility], [facility] DULoxetine HCl 60 MG Oral Ca psule Delayed Release Particles 04/16/2022 Provider: ALEK EVANS MD Diagnosis: Last Documented On 2 2:59PM By Myrna Chowdhury ; [facility], [facility] clonazePAM 1 MG Oral Tablet 04/09/2022 Provider: ALEK EVANS MD Diagnosis: Last Documented On 2 2:59PM By Myrna [facility] methylPREDNISolone 4 MG Oral Tablet Therapy Pack 04/09 Provider: Diagnosis: Last Documented On 2 2:59PM By Myrna Chowdhury ; [facility] Warfarin Sodium 7.5 MG Oral Tablet 03/27/2022 Provid er: ALEK EVANS MD Diagnosis: Last Documented On 2 1:54PM By Myrna Chowdhury ; [facility] Medications Administered Includes: Administered Medications from [...] Paula Garner PA-C [facility] 02/02/2024 Last Documented On 4 2:47PM ; [facility], [facility] Injection, betamethasone acetate 6mg per cc and betamethason [id number] Bilateral primary osteoarthritis of knee Ana Paula Garner PA-C [facility] 02/02/2024 Last Documented On 4 2:47PM ; [facility], [facility] Medical History Includes: Medical History [...] Follow Up Ana Paula Garner PA-C [facility] 4 1:08PM 1:40PM Insurance Includes: Active Insurance Policies Plan Name Member ID Group # Subscriber Relationship Effect elisabeth Dates 1 - Medicare Part B [facility] [id number] Nghia Montalvo Self 2 - [facility] [id number] Nghia Selvin Self 11/08/2021 - Unknown Clinical Notes Includes: Clinical Notes from this encounter No Clinical Notes Recorded
--- OUTSIDE RECORDS SUMMARY | 2024-09-04 06:32 | XMS_ITS ---
Author Organization [facility] Address [address] [place] [address] Phone Care Team Providers Care Orchard Worker Name Role Phone Matteo BERNARD, Andrez Fox Unavailable [phone] Valentin Lloyd Unavailable Unavailable Reason for Referral Date Encounter Description Provider Reason for Referral 04/20/22 Non Physician Specified Estelle Cason Referral To Physician Problems Includes: Active, inactive, and resolved Problems All Visits Onset Date Resolved Date Provider Condition S tatus Joint Pain in Both Knees 04/20/2022 Estelle Olmos PA-C Active Last Documented On 2 1:48PM ; [facility] Plan of Treatment Future Appointments Date Time Location Provi chris INJECTION 11/02/2024 1:00PM [facility] MARY Brown PA-C Last Documented On 4 1:33PM ; [facility] Instructions to patient Lose weight Last Documented On 4 1:18PM ; [facility] Lose weight Last Documented On 2 2:07PM ; [facility] Lose weight Last Documented On 2 1:51PM ; [facility] Assessments Includes: Assessments for all patient encounters Findings Encounter Date Overweight Follow Up with Ana Paula Perez 12/13/2023 Last Documented On 4 8:30AM ; [facility] Instructions Includes: Instructions for all patient encounters Instructions to patient Lose weight Last Documented On 4 1:18PM ; [facility]IA[facility] Lose weight Last Documented On 2 2:07PM ; [facility] Lose weight Last Documented On 2 1:51PM ; [facility] Medical Equipment - Implanted Devices Includes: Current and historical Devices No Medical Equipment Recorded Medications Includes: Current and historical Medications Current Medications (continue as prescribed) Bydureon BCise 2 MG/0.85ML Subcutaneous Auto-injector 04/16/2022 Provider: Diagnosis: Last Documented On 2 2:59PM By Myrna Chowdhury ; [facility] DULoxetine HCl 60 MG Oral Ca psule Delayed Release Particles 04/16/2022 Provider: VALENTIN EVANS MD Diagnosis: Last Documented On 2 2:59PM By Myrna Chowdhury ; [facility] clonazePAM 1 MG Oral Tablet 04/09/2022 Provider: VALENTIN EVANS MD Diagnosis: Last Documented On 2 2:59PM By Myrna Chowdhury ; [facility] methylPREDNISolone 4 MG Oral Tablet Therapy Pack 04/09 Provider: Diagnosis: Last Documented On 2 2:59PM By Myrna Chowdhury ; [facility] Warfarin Sodium 7.5 MG Oral Tablet 03/27/2022 Provid er: VALENTIN EVANS MD Diagnosis: Last Documented On 2 1:54PM By Myrna Chowdhury ; [facility] Medications Administered Includes: Administered Medications in patient's chart No Administered Medications Recorded Vital Signs Includes: Vital Signs from 09/04/2023 through 09/04/2024 Vital Name 12/13/2023 01:18P Height (in) 74 Weight (lb) 307 Body Mass Index 39.4 Body Surface Area 2.6 Note: jayne Last Documented: On 12/13/2023 1:18PM ; [facility] Results Includes: Results from 09/04/2023 through 09/04/2024 No Results Recorded For Specified Dates History of Present Illness History of Present Illness not supported for this document type No History of Present Illness Recorded Social History Description Last Updated Tobacco non-user 12/13/2023 Last Documented On 4 8:30AM ; [facility] Caffeine use 04/20/2022 Last Documented On 2 5:15PM ; [facility] Not a current smoker. 04/20/2022 Last Documented On 2 5:15PM ; [facility] Not exercising regularly 04/20/2022 Last Documented On 2 5:15PM ; [facility] Not using alcohol 04/20/2022 Last Documented On 2 5:15PM ; [facility] Not using drugs 04/20/2022 Last Documented On 2 5:15PM ; [facility] Recent change in diet 04/20/2022 Last Documented On 2 5:15PM ; [facility] Non-smoker 04/20/2022 Last Documented On 2 5:15PM ; [facility] Smoking Status Unknown Procedures and Surgical History Includes: Procedures from 09/04/2023 through 09/04/2024 Procedures Code Diagnosis Performing Provider Service Location Service Date Triamcinolone/Ke nalog, 10mg per cc [id number] Bilateral primary osteoarthritis of knee Colin Brown [facility] 08/02/2024 Last Documented On 4 12:12PM ; [facility] DRAIN/INJECT, JOINT/BURSA (Bilateral Procedure) Bilateral primary osteoarthritis of knee Colin Brown [facility] 08/02/2024 Last Documented On 4 12:12PM ; [facility] DRAIN/INJECT, JOINT/BURSA (Bilateral Procedure) Bilateral primary osteoarthritis of knee Colin Brown [facility] 05/05/2024 Last Documented On 4 12:06PM ; [facility] Triamcinolone/Kenalog, 10mg per cc J3301 Bilateral primary osteoarthritis of knee Colin Brown [facility] 05/05/2024 Last Documented On 4 12:06PM ; [facility] DRAIN/INJECT, JOINT/BURSA (Bilateral Procedure) Bilateral primary osteoarthritis of knee Ana Paula Garner [facility] 02/02/2024 Last Documented On 4 2:47PM ; [facility] Injection, betamethasone acetate 6mg per cc and betamethason J0702 Bilateral primary osteoarthritis of knee Ana Paula Gale Pascual [facility] 02/02/2024 Last Documented On 4 2:47PM ; [facility] X-RAY EXAM KNEE 4 OR MORE (LEFT) 29238 Unilateral primary osteoarthritis, left knee Ana Paula Gale Pascual [facility] 12/13/2023 Last Documented On 4 8:56AM ; [facility] X-RAY EXAM KNEE 4 OR MORE (RIGHT) [id number] Unilateral primary osteoarthritis, right knee Ana Paula Gale Pascual [facility] 12/13/2023 Last Documented On 4 8:56AM ; [facility] Injection, betamethasone acetate 6mg per cc and betamethason J0702 Bilateral primary osteoarthritis of knee Ana Paula Gale Pascual [facility] 11/03/2023 Last Documented On 3 3:16PM ; [facility] DRAIN/INJECT, JOINT/BURSA (Bilateral Procedure) Bilateral primary osteoarthritis of knee Ana Paula Gale Pascual [facility] 11/03/2023 Last Documented On 3 3:16PM ; [facility] Surgical History Last Updated History of heart surgery 04/20/2022 Last Documented On 2 5:15PM ; [facility] Medical History Includes: Medical History in patient's chart Description Last Updated History of arthritis 04/20/2022 Last Documented On 2 5:15PM ; [facility] History of depression 04/20/2022 Last Documented On 2 5:15PM ; [facility] History of diabetes mellitus 04/20/2022 Last Documented On 2 5:15PM ; [facility] History of heart disease 04/20/2022 Last Documented On 2 5:15PM ; [facility] History of Heartburn / Acid Reflux 04/20 Last Documented On 2 5:15PM ; [facility] History of History of Blood Clots 2021 Last Documented On 2 5:15PM ; [facility] History of History of Heart Attack / Str rhiannon 04/20/2022 Last Documented On 2 5:15PM ; [facility] History of Hypertension 04/20/2022 Last Documented On 2 5:15PM ; [facility] History of Irregular Heartbeat 2 Last Documented On 2 5:15PM ; [facility] History of Sleep Apnea 04/20/2022 Last Documented On 2 5:15PM ; [facility] Use of CPAP 04/20/2022 Last Documented On 2 5:15PM ; [facility] No recent immunization for flu 2 Last Documented On 2 5:15PM ; [facility] No recent immunization for pneumococcal pneumonia 04/20/2022 Last Documented On 2 5:15PM ; [facility] Family History Includes: Family History in patient's chart Description Last Updated Diabetes mellitus 04/20/2022 Last Documented On 2 5:15PM ; [facility] Family history of heart disease 04/20/20 22 Last Documented On 2 5:15PM ; [facility] Family history of rheumatoid arthritis 0 04/20/2022 Last Documented On 2 5:15PM ; [facility] Family history of systemic hypertension 04/20/2022 Last Documented On 2 5:15PM ; [facility] Family history of thromboembolic disease 04/20/2022 Last Documented On 2 5:15PM ; [facility] Stroke / Seizures 04/20/2022 Last Documented On 2 5:15PM ; [facility] Review of Systems Review of Systems not [...] 1 04/20/2022 Complete (Refused - Patient objection) [facility] Last Documented On 2 3:04PM ; [facility] PCV (Pneumovax 23) 1 04/20/2022 Complete (Refused - Patient objection) [facility] Last Documented On 2 3:04PM ; [facility] Allergies Includes: Active, inactive, and resolved Allergies No Known Allergies Encounters Includes: Encounters from 09/04/2023 through 09/04/2024 Encounter Provider Location Date Check-In Time Check-Out Time Diagnosis Follow Up Colin Brown PA-C [facility] 4 1:12PM 1:27PM Follow Up Colin Brown PA-C [facility] 4 10:07AM 10:43AM Follow Up Ana Paula Garner PA-C [facility] 4 1:08PM 1:40PM Follow Up Ana Paula Garner PA-C [facility] 4 12:48PM 1:43PM Overweight INJECTION Ana Paula Garner PA-C [facility] 3 1:11PM 1:31PM Insurance Includes: Active Insurance Policies Plan Name Member ID Group # Subscriber Relationship Effect elisabeth Dates 1 - Medicare Part [place] of [place] [id number] Nghia Montalvo Self 2 - [facility] [id number] Nghia Montalvo Self 11/08/2021 - Unknown Clinical Notes Includes: Signed Clinical Notes starting from 10/22/2022 * Progress note Date Encounter Last Documented by 12/13/2023 Follow Up Last documented on 12/20/2023; 8:30 AM, Ana Paula Mendiola; [facility] Active Problems & Conditions - [...] and has regular follow up with his core worker. He is type 2 diabetes with the [...] significant narrowing of the medial compartment with bzta-xl-yedj appearance and subchondral sclerosis. There is relatively preserved lateral compartment space. There is narrowing of the lateral facet of the patellofemoral compartment. There is osteophyte formation all 3 compartments. No acute osseous abnormality. Four views of the right knee show significant narrowing of the medial compartment with czye-qd-tvog appearance and subchondral sclerosis. There is preserved [...] He will need medical clearance from his core worker and neurologist. We will schedule surgery at [facility] on an outpatient basis. His [...]
--- OUTSIDE RECORDS SUMMARY | 2024-09-04 06:32 | XMS_ITS | Clinical Summary ---
Author Organization [facility] Address [address] [place] [place] [address] Phone Care Team Providers Care Registered Dental Hygienist Name Role Phone Andrez Felipe MD Unavailable [phone] Valentin Lloyd Unavailable Unavailable Reason for Visit and Chief Complaint The Chief Complaint is: Bilateral knee pain Problems Includes: Problems addressed during this encounter and other active Problems All Visits Onset Date Resolved Date Provider Condition S tatus Joint Pain in Both Knees 04/20/2022 Estelle Olmos PA-C Active Last Documented On 1:48PM ; [facility] Plan of Treatment He has evidence [...] He will need medical clearance from his e business specialist and neurologist. We will schedule surgery at [facility] on an outpatient basis. His will be able to help care for him after surgery. Surgery will be scheduled after 01/12/2024 which will be 6 weeks after his last cortisone injection. - Last Documented On 12/20/2023 8:30AM ; [facility] Future Appointments Date Time Location Provi chris INJECTION 11/02/2024 1:00PM [facility] Brown [facility]-C Last Documented On 4 1:33PM ; [facility] Instructions to patient Lose weight Last Documented On 4 1:18PM ; [facility] Assessments Includes: Assessments from this encounter Findings - Overweight - Last Documented On 12/20/2023 8:30AM ; [facility] Instructions Includes: Instructions from this encounter Instructions to patient Lose weight Last Documented On 4 1:18PM ; [facility] Medical Equipment - Implanted Devices Includes: Current Devices No Medical Equipment Recorded Medications Includes: Medications discussed during this encounter and other current Medications Current Medications (continue as prescribed) Byjeana BCise 2 MG/0.85ML Subcutaneous Auto-injector 04/16/2022 Provider: Diagnosis: Last Documented On 2 2:59PM By Myrna Chowdhury ; [facility] DULoxetine HCl 60 MG Oral Ca psule Delayed Release Particles 04/16/2022 Provider: VALENTIN EVANS MD Diagnosis: Last Documented On 2 2:59PM By Myrna Chowdhury ; [facility] clonazePAM 1 MG Oral Tablet 04/09/2022 Provider: VALENTIN EVANS MD Diagnosis: Last Documented On 2 2:59PM By Myrna [facility] methylPREDNISolone 4 MG Oral Tablet Therapy Pack 04/09 Provider: Diagnosis: Last Documented On 2 2:59PM By Myrna Chowdhury ; [facility] Warfarin Sodium 7.5 MG Oral Tablet 03/27/2022 Provid er: VALENTIN EVANS MD Diagnosis: Last Documented On 2 1:54PM By Myrna Chowdhury ; [facility] Medications Administered Includes: Administered Medications from this encounter No Administered Medications Recorded Vital Signs Includes: Vital Signs from this encounter Vital Name 12/13/2023 01:18P Height (in) 74 Weight (lb) 307 Body Mass Index 39.4 Body Surface Area 2.6 Note: jayne Last Documented: On 12/13/2023 1:18PM ; [facility] Results Includes: Results discussed during this [...] and has regular follow up with his e business specialist. He is type 2 diabetes with the last reported A1c of 6.1%. He has sleep apnea and uses his CPAP machine at home. He has a diagnosis of COPD as well. Social History Description Last Updated Tobacco non-user 12/13/2023 Last Documented On 4 8:30AM ; [facility] Smoking Status Unknown Procedures and Surgical History Includes: Procedures from this encounter Procedures Code Diagnosis Performing Provider Service Location Service Date X-RAY EXAM KNEE 4 OR MORE (RIGHT) 53932 Unilateral primary osteoarthritis, right knee Ana Paula Garner PA-C [facility] 12/13/2023 Last Documented On 4 8:56AM ; [facility] X-RAY EXAM KNEE 4 OR MORE (LEFT) 97455 Unilateral primary osteoarthritis, left knee Ana Paula Garner PA-C [facility] 12/13/2023 Last Documented On 4 8:56AM ; [facility] use of tobacco assessment performed 1000F Last Documented On 4 1:18PM ; [facility] review of medications documented 1160F Last Documented On 4 1:18PM ; [facility] Medical History Includes: Medical History addressed [...] Diagnosis Follow Up Ana Paula Garner PA-C [facility] 12:48PM 1:43PM Overweight Insurance Includes: Active Insurance Policies Plan Name Member ID Group # Subscriber Relationship Effect elisabeth Dates 1 - Medicare Part B of [place] [id number] Nghia Montalvo Self 2 - BCBS [facility] [id number] Nghia Montalvo Self 11/08/2021 - Unknown Clinical Notes Includes: Clinical Notes from this encounter * Progress note Date Encounter Last Documented by 12/13/2023 Follow Up Last documented on 12/20/2023; 8:30 AM, Ana Paula Mendiola; [facility] Active Problems & Conditions - Joint [...] and has regular follow up with his e business specialist. He is type 2 diabetes with the [...] significant narrowing of the medial compartment with uitx-nz-xpqx appearance and subchondral sclerosis. There is relatively preserved lateral compartment space. There is narrowing of the lateral facet of the patellofemoral compartment. There is osteophyte formation all 3 compartments. No acute osseous abnormality. Four views of the right knee show significant narrowing of the medial compartment with rnwf-rc-lzic appearance and subchondral sclerosis. There is preserved [...] He will need medical clearance from his e business specialist and neurologist. We will schedule surgery at [facility] on an outpatient basis. His will be [...]
--- NOTE | 2024-09-04 06:38 | NM_ITS ---
APPROVED REPORT Exam: Nuclear Stress Test Indication: SOB, DM, High cholesterol, Family history, CAD Patient Location: Outpatient Stress Tech: Alena Cortez NM Tech:Vonda Whyte, ARRT, RT (R)(N) Ht: 6 ft 2 in Wt: 244 lbs HR: 72 bpm BP: 141/69 mmHg BSA: 2.37 m2 TID: 1.18 BMI: 31.3 History: SOB, DM, High cholesterol, Family history, CAD Procedure: Patient received 0.4 mg of intravenous Lexiscan, resting heart rate 72 bpm, resting blood pressure 141/69 mmHg, with Lexiscan maximum heart rate achieved was 102 bpm which is % of the maximum predicted heart rate and blood pressure was 141/69 mmHg. With Lexiscan, patient denied any complaint of chest pain. Cardiac Stress and Resting SPECT Images: Cardiac Stress and Resting SPECT images were obtained using technetium 99m Myoview 25.7 mCi stress and 8.44 mCi at rest. Raw images demonstrate significant soft tissue overlap with the cardiac borders. This may affect the diagnostic interpretation of the study findings. Resting and stress imaging in supine positions demonstrate a large sized, moderate, fixed perfusion defect in the inferior and inferoseptal LV mao. This is no longer visualized with prone stress imaging. Findings are suggestive of diaphragmatic attenuation. Gated imaging demonstrates low-normal global and regional LV systolic functions. LVEF is calculated at 52%. Conclusion: Technically difficult study. Diaphragmatic attenuation is present. No fixed or reversible perfusion defects. Gated imaging demonstrates low-normal global and regional LV systolic functions. LVEF is calculated at 52%. Electronically signed by : Teresa Echeverria MD 09/04/2024 12:13:25
[2024-09-04] MEDS: REGADENOSON 0.4MG/5ML SYRINGE 0.4 MG IV (08:15)
[2024-09-04] MEDS: ISOTOPE MYOVIEW (PER STUDY) 1 DOSE IV (08:16)
[2024-09-04] MEDS: SODIUM CHLORIDE 0.9% 10ML SYR (RAD ONLY) 10 ML IV ×2 (08:16)
--- NOTE | 2024-09-04 09:00 | CA_ITS ---
APPROVED REPORT EXAM: Comprehensive 2D, Doppler, and color-flow Echocardiogram Enterprise Resource Planner: Hannah Mixon RT(R) Ht: 6 ft 2 in Wt: 246lbs BSA: 2.37 BP: 130/79 mmHg Indications: HTN, CAD, abn EKG, hx CM, pacemaker, AFIB, edema, hyperlipidemia, angina. Echo Enhancing Agent Indication: Endocardial border delineation Agent(s) / Amount(s) Used: Definity 2 cc 2D Dimensions Left Atrium 4.47 cm M: 3.0 - 4.0 LA Volume 53.40 mL LVOT 2.06 cm (M/F) 1.5-2.5 LA Volume Index 22.44 mL/m2 (M/F) 16-34 M-Mode Dimensions RVDd 3.14 cm (0.9-2.6) LVDd 5.44 cm (3.5-5.7) Ao Diam 2.68 cm (2.0-3.7) LVDs 4.12 cm (3.5-5.7) IVSd 0.68 cm (0.6-1.1) PWd 0.68 cm (0.6-1.1) EF (Teich) 47.70% FS 24.30% EDV (Teich) 143.70 mL ESV (Teich) 75.10 mL LV Diastology E Decel Time 186 (160-240 msec) E/A Ratio 1.8 MED E' 9.4 (>= 7 cm/sec) E'/MED E' Ratio 9.60 (<= 14) LAT E' 13.0 (>= 10 cm/sec) E/LAT E' Ratio 6.94 (<= 14) Mitral Valve MV E Max Robert. 90.0 (40-130 cm/s) MV A Velocity 51.0 (40-130 cm/s) E/A Ratio 1.75 MV Decel. Time 186 (160-240 ms) Tricuspid Valve TR P. Velocity 258.00 cm/s RAP Estimate 10.00 mmHg RVSP 36.50 mmHg Left Ventricle The left ventricle is normal size. Left ventricular systolic function is mildly decreased. There is increased LV wall thickness. There is moderate hypokinesis of the anterior and anteroseptal LV wall, as well as the LV apex. Diastolic function is indeterminate. No left ventricle thrombus noted on this study. LVEF is 45-50%. Right Ventricle Right ventricle is mildly to moderately dilated. Right ventricle is mildly hypokinetic. Atria The left atrium size is normal. The right atrium size is normal. There is no Doppler evidence of interatrial shunt. Aortic Valve The aortic valve is mildly thickened. There is no aortic valvular stenosis. No aortic regurgitation is present. Mitral Valve The mitral valve leaflets are mildly thickened. No evidence of mitral valve stenosis. Trace mitral regurgitation. Tricuspid Valve The tricuspid valve leaflets are thin and pliable. Trace tricuspid regurgitation. There is insufficient TR jet to estimate RVSP. Pulmonic Valve The pulmonary valve is normal in structure. Trace pulmonic regurgitation. Great Vessels The aortic root is normal in size. IVC is normal in size and collapses >50% with inspiration. Pericardium There is no pericardial effusion. Other Information Study Quality: Technically Difficult Conclusion Technically difficult study due to poor acoustic windows. Mildly reduced LV systolic function (LVEF 45-50%). Moderate hypokinesis of the anterior and anteroseptal LV wall, as well as the LV apex. Mild to moderate RV dilation with mild reduction in RV function. No significant valvular stenosis or regurgitation. Electronically signed by : Teresa Echeverria MD 09/10/2024 01:42:26
[2024-09-04] MEDS: DEFINITY US ECHO CONTRAST 2ML INJ 2 MG IV (09:01)
== END 2024-09-04 23:59 | disposition home or self-care (01) ==
LOC: RAD 06:28
PROVIDERS: PCP Physician Assistant; Visit Provider Nurse Practitioner
DX: R94.31 Abnormal electrocardiogram [ECG] [EKG] (principal); I25.118 Atherosclerotic heart disease of native coronary artery with other forms of angina pectoris; I48.0 Paroxysmal atrial fibrillation; I10 Essential (primary) hypertension
CPT/HCPCS: 78452; 93017; 93018; 93306; A9502; J2785; Q9957

== ENCOUNTER 2024-11-10 11:45 | Outpatient (CLI) | payer MEDICARE, BC, SELFPAY ==
[2024-11-10 13:55] LABS: Vitamin B12 858 pg/mL (239-931)
[2024-11-10 14:43] LABS: RPR W/RFX Titers Nonreactive (Nonreactive)
[2024-11-13 16:10] LABS: Anti-Centromere B Antibodies <0.2 AI (0.0-0.9); Anti-DNA (DS) Ab Qn <1 IU/mL (0-9); Anti-Jo-1 <0.2 AI (0.0-0.9); Anti-Smith Antibody <0.2 AI (0.0-0.9); Antichromatin Antibodies <0.2 AI (0.0-0.9); Antiscleroderma-70 Antibodies <0.2 AI (0.0-0.9); RNP Antibodies <0.2 AI (0.0-0.9); Sjogren's Anti-SS-A <0.2 AI (0.0-0.9); Sjogren's Anti-SS-B <0.2 AI (0.0-0.9)
== END 2024-11-10 23:59 | disposition home or self-care (01) ==
LOC: LAB 11:46
PROVIDERS: PCP Physician Assistant; Visit Provider Specialist
DX: R63.4 Abnormal weight loss (principal); F33.1 Major depressive disorder, recurrent, moderate; G47.33 Obstructive sleep apnea (adult) (pediatric); Z99.89 Dependence on other enabling machines and devices; I10 Essential (primary) hypertension
CPT/HCPCS: 36415; 82607; 82746; 86225; 86235; 86592

== ENCOUNTER 2024-11-28 12:15 | Outpatient (CLI) | payer MEDICARE, BC, SELFPAY ==
[2024-11-28 12:30] VITALS: BP 136/66; PULSE 80; RESP 18; TEMP 36.6; O2SAT 99
[2024-11-28] MEDS: INCLISIRAN SODIUM 284 MG/1.5 ML SYRINGE SUBCUT (12:30)
== END 2024-11-28 12:35 | disposition home or self-care (01) ==
LOC: INF 12:16
PROVIDERS: PCP Physician Assistant; Visit Provider Physician Assistant
DX: E78.5 Hyperlipidemia, unspecified (principal)
CPT/HCPCS: 96372; J1306

== ENCOUNTER 2025-01-15 10:24 | Outpatient (CLI) | payer MEDICARE, BC, SELFPAY ==
[2025-01-15 11:27] LABS: Blood Urea Nitrogen 24 mg/dl (9-20); Estimated Glomerular Filt Rate 85 ml/min (>60); GFR (African American) 103 ML/MIN (>60)
[2025-01-16 11:12] LABS: PSA, Free 0.25 ng/mL; Prostate Specific Ag 0.8 ng/mL (0.0-4.0)
== END 2025-01-15 23:59 | disposition home or self-care (01) ==
LOC: LAB 10:25
PROVIDERS: PCP Physician Assistant; Visit Provider Urology
DX: N40.1 Benign prostatic hyperplasia with lower urinary tract symptoms (principal); N52.9 Male erectile dysfunction, unspecified
CPT/HCPCS: 36415; 82565; 84153; 84154; 84520

== ENCOUNTER 2025-03-08 13:49 | Outpatient (CLI) | payer MEDICARE, BC, SELFPAY ==
--- NOTE | 2025-03-08 14:30 | CT_ITS ---
FINAL REPORT TECHNIQUE: Axial CT images were performed through the head without contrast. Coronal reformatted images were submitted. This study was performed with techniques to keep radiation doses as low as reasonably achievable (ALARA). Individualized dose reduction techniques using automated exposure control or adjustment of mA and/or kV according to the patient's size were employed. CLINICAL HISTORY: Memory changes COMPARISON: 07/02/2020 FINDINGS: Mild atrophy is noted. There is no evidence of hemorrhage. There is no mass or edema identified. There is no abnormal extra-axial fluid seen. The paranasal sinuses are well aerated. There is some calcification of the inner hemisphere of the falx. IMPRESSION: Mild atrophy without acute intracranial process. Reviewed, Interpreted and Dictated by Ozzie Parnell MD Transcribed by Jessica Cleveland Authenticated and [facility]
== END 2025-03-08 23:59 | disposition home or self-care (01) ==
LOC: RAD 13:49
PROVIDERS: PCP Physician Assistant; Visit Provider Specialist
DX: R26.89 Other abnormalities of gait and mobility (principal); R41.3 Other amnesia
CPT/HCPCS: 70450

== ENCOUNTER 2025-04-16 11:22 | Outpatient (CLI) | payer MEDICARE, BC, SELFPAY ==
--- OUTSIDE RECORDS SUMMARY | 2025-04-16 11:26 | XMS_ITS | Clinical Summary ---
Author Organization [employer] Address [address] [place] [address] Care Team Providers Care Crew Team Member Name Role Phone Unavailable Primary Care Provider Unavailabl e Social History Tobacco Use Types Packs/Day Years Used Date Smoking Tobacco: Never Assessed Interpersonal Safety Answer Date Record ed Family or friends hurt you Not on file 08/29 Family or friends insult you Not on file Family or friends threaten you Not on file 1 Family or friends scream or curse at you Not on file 08/29/2024 Housing Stability Answer Date Recorded Living situation today Not on file Living situation problems Not on file 2023 Food Insecurity Answer Date Recorded Food run out past 12 months Not on file 08/09 Food did not last past 12 months Not on file 08/29/2024 Employment Answer Date Recorded Help finding and keeping a job Not on file 1 Family and Community Support Answer Jl e Recorded Help with Day to Day Activities Not on file 08/29/2024 Feeling Lonely or Isolated Not on file 08/29 Educational Attainment Answer Date Juan R rded Speak language other than Sinhala at home Not on file 08/29/2024 Want help with school or training Not on file 08/29/2024 Depression Answer Date Recorded PHQ-2 Risk Not on file 08/29/2024 Disabilities Answer Date Recorded Difficulty concentrating Not on file 024 Difficulty doing errands alone Not on file 1 Substance Use Answer Date Recorded Used prescription meds for non-medical reasons N ot on file 08/29/2024 Used illegal drugs past 12 months Not on file 08/29/2024 Sex and Gender Information Value Date Recorded Sex Assigned at Not on file Legal Sex Male 1:20 PM CDT Gender Identity Not on file Sexual Orientation Not on file Plan of Treatment Health Maintenance Due Date Last Done Comments CT Colonography 1961 Colonoscopy 1961 Colorectal Cancer Screening 1961 FOBT/FIT 1961 Fit-DNA (Cologuard) 1961 Sigmoidoscopy 1961 Depression Screening (12+) 1973 Tobacco Cessation Counseling and Screening (12+) 1973 DTAP/TDAP/TD VACCINES (1 - Tdap) 1980 Pneumococcal 50+ years (1 of 1 - PCV) 2011 Shingles Vaccine (Zoster) (1 of 2) 2011 COVID-19 VACCINE (3 - season) 07/09/202405/2021, 02/14/2021 Influenza Vaccine (Season Ended) 2025 Respiratory Syncytial Virus (RSV) Adult or (1 - 1-dose 75+ series) 2036 Insurance BLUE CROSS/BLUE SHIELD MEDICARE PART A B
--- OUTSIDE RECORDS SUMMARY | 2025-04-16 11:26 | XMS_ITS | Encounter Summary ---
Author Organization [employer] Address [address] [place] [address] Care Team Providers Care Mail Agent Name Role Phone Unavailable Primary Care Provider Unavailabl e Encounter Details Date Type Department Care Team (Late st Contact Info) Description 08/28/2024 Outside Orders [facility] Central Scheduling [address] [place] [address] Livia Do [address] [place] [address] Memory loss (Primary Dx); Movement disorder; Major depressive disorder, recurrent episode, moderate (HCC) Social History Tobacco Use Types Packs/Day Years [...] Juan R rded Speak language other than Sammarinese at home Not on file 08/29/2024 Want [...] on file Sexual Orientation Not on file documented as of this encounter Plan of Treatment Not on file documented as of this encounter Visit Diagnoses Diagnosis Memory loss- Primary Movement disorder 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
--- OUTSIDE RECORDS SUMMARY | 2025-04-16 11:26 | XMS_ITS | Encounter Summary ---
Author Organization [facility] Address [address] [place] [address] Care Team Providers Care Java Sdet Name Role Phone Pcp, No Primary Care Provider Unavailabl e Encounter Details Date Type Department Care Team ([facility] st Contact Info) Description 09/21/2011 Orders Only External Location [address] [place] [address] Provider, External Social History Tobacco Use Types Packs/Day Years Used Date Smoking Tobacco: Never Assessed Sex and Gender Information Value Date Recorded Sex Assigned at Not on file Legal Sex Male 8:28 PM EDT Gender Identity Not on file Sexual Orientation Not on file documented as of this encounter Plan of Treatment Not on file documented as of this encounter Procedures Procedure Name Priority Date/Time Associated Diagnosis Comments MR NEURO OUTSIDE IMAGES 09/21/2011 5:57 PM EST documented in this encounter Results * MR NEURO OUTSIDE IMAGES (09/21/2011 5:57 PM EST) Anatomical Region Laterality Modality Magnetic Resonan ce 09/21/2011 5:57 PM EST us External Provider IMG MRI PROCEDURES Final Resul t documented in this encounter Visit Diagnoses Not on filedocumented in this encounter Care Teams Java Sdet Relationship Specialty Start Date End Date Pcp, No [address] [place] [address] PCP - General Family Medicine 01/22/23 documented as of this encounter
--- OUTSIDE RECORDS SUMMARY | 2025-04-16 11:26 | XMS_ITS | Encounter Summary ---
Author Organization [place] [address] Care Team Providers Care Marketing Professor Name Role Phone Norberto Miller Primary Care Provider [phone] Encounter Details Date Type Department Care Team (Late st Contact Info) Description 04/29/2016 Orders Only [facility] [address] [facility] [address] [place] [id number] Andrea Schmid MD [address] [place] [address] Social History Tobacco Use Types Packs/Day Years Used Date Smoking Tobacco: Never Smokeless Tobacco: Never Alcohol Use Standard Drinks/Week Comments No 0 (1 standard drink = 0.6 oz pur e alcohol) Sexually Active Control Partners Comments Yes Sex and Gender Information Value Date Recorded Sex Assigned at Not on file Legal Sex Male 3:19 PM EDT Gender Identity Not on file Sexual Orientation Not on file documented as of this encounter Plan of Treatment Not on file documented as of this encounter Procedures Procedure Name Priority Date/Time Associated Diagnosis Comments EP LAB RECORDINGS Routine 04/29/2016 7:44 AM EDT documented in this encounter Results * EP LAB RECORDINGS (04/29/2016 7:44 AM EDT) 04/29/2016 7:44 AM EDT us Andrea Schmid MD CARDIAC CATH ORDERABLES Final Result [facility] [address] [place] [address] documented in this encounter Visit Diagnoses Not on filedocumented in this encounter Care Teams Marketing Professor Relationship Specialty Start Date End Date Norberto Miller [address] [place] [id number] PCP - General Family Medicine 03/04/16 documented as of this encounter
--- OUTSIDE RECORDS SUMMARY | 2025-04-16 11:26 | XMS_ITS | Referral Summary ---
Author Organization [employer] Address [address] [place] [address] Care Team Providers Care Processing Associate Name Role Phone Unavailable Primary Care Provider [...] Juan R rded Speak language other than Romanian at home Not on file 08/29/2024 Want [...] Orientation Not on file Plan of Treatment Not on file Insurance BLUE CROSS/BLUE SHIELD MEDICARE PART A B
--- OUTSIDE RECORDS SUMMARY | 2025-04-16 11:26 | XMS_ITS | Encounter Summary ---
Author Organization [facility] Address [address] [place] [address] Care Team Providers Care Machine Former Name Role Phone Pcp, No Primary Care Provider Unavailabl e Encounter Details Date Type Department Care Team ([facility] st Contact Info) Description 02/04/2012 Orders Only External Location [address] [place] [address] Provider, External Social History Tobacco Use Types [...] Associated Diagnosis Comments MR NEURO OUTSIDE IMAGES 02/04/2012 1:08 PM EDT documented in this encounter Results * MR NEURO OUTSIDE IMAGES (02/04/2012 1:08 PM EDT) Anatomical Region Laterality Modality Magnetic Resonan ce 02/04/2012 1:08 PM EDT us External Provider IMG MRI PROCEDURES Final Resul t documented in this encounter Visit Diagnoses Not on filedocumented in this encounter Care Teams Machine Former Relationship Specialty Start Date End Date Pcp, No [address] [place] [address] PCP - General Family Medicine 01/22/23 documented as of this encounter
--- OUTSIDE RECORDS SUMMARY | 2025-04-16 11:26 | XMS_ITS | Encounter Summary ---
Author Organization [facility] Address [address] [place] [address] Care Team Providers Care Vocational School Teacher Name Role Phone Pcp, No Primary Care Provider Unavailabl e Encounter Details Date Type Department Care Team ([facility] st Contact Info) Description 01/22/2011 Orders Only External Location [address] [place] [address] Provider, External Social History Tobacco Use Types [...] Name Priority Date/Time Associated Diagnosis Comments MR MSK OUTSIDE IMAGES 01/22/2011 6:52 AM EDT documented in this encounter Results * MR MSK OUTSIDE IMAGES (01/22/2011 6:52 AM EDT) Anatomical Region Laterality Modality Magnetic Resonan ce 01/22/2011 6:52 AM EDT us External Provider IMG MRI PROCEDURES Final Resul t documented in this encounter Visit Diagnoses Not on filedocumented in this encounter Care Teams Vocational School Teacher Relationship Specialty Start Date End Date Pcp, No [address] [place] [address] PCP - General Family Medicine 01/22/23 documented as of this encounter
--- OUTSIDE RECORDS SUMMARY | 2025-04-16 11:26 | XMS_ITS | Clinical Summary ---
Author Organization [facility] Address [address] [facility] [address] [place] [address] Phone Care Team Providers Care Saddle Tree Stitcher Name Role Phone Norberto Miller Primary Care Provider [phone] Allergies No known active allergies Medications carbidopa-levod opa (SINEMET) 25-100 mg Oral Tablet 2 Tabs 4 times daily. 6 Active fUROsemide (LASIX) 40 mg Oral Tablet Take 40 mg by mouth daily. 6 Active KLOR-CON M20 20 mEq Oral Tab Sust.Rel. Particle/Jolene l Take 20 mEq by mouth daily. 6 Active clopidogrel (PLAVIX) 75 mg Oral Tablet Take 75 mg by mouth daily. 6 Active diflunisal (DOLOBID) 500 mg Oral Tablet Take 500 mg by mouth 2 times daily. 6 Active lisinopril (PRINIVIL;ZESTR IL) 10 mg Oral Tablet Take 10 mg by mouth daily. 6 Active loratadine (CLARITIN) 10 mg Oral Tablet Take 10 mg by mouth daily. 6 Active pantoprazole (PROTONIX) 40 mg Oral Tablet, Delayed Release (E.C.) Take 40 mg by mouth daily. 6 Active hydroxychloroqu ine (PLAQUENIL) 200 mg Oral Tablet Take 200 mg by mouth 2 times daily. 6 Active levETIRAcetam (KEPPRA) 250 mg Oral Tablet Take 250 mg by mouth every 12 hours. 6 Active warfarin (COUMADIN) 5 mg Oral Tablet daily. Dose changes weekly...7.5mg MWF and 5 mg all other days 6 Active aspirin 81 mg Oral Tablet, Delayed Release (E.C.) Take 81 mg by mouth daily. Active cyanocobalamin 1,000 mcg Oral Tablet Take 1,000 mcg by mouth daily. Active cholecalciferol , vitamin D3, 1,000 unit Oral Tablet Take 2 Tabs by mouth daily. Active baclofen (LIORESAL) 10 mg Oral Tablet Take 10 mg by mouth daily. Active albuterol (PROVENTIL HFA;VENTOLIN HFA) 90 mcg/actuation Inhl HFA Aerosol InhalerIndicati ons:Atrial flutter, unspecified,Enc ounter for loop recorder check Inhale 2 Puffs into the lungs as needed for Wheezing. Active diphenhydrAMINE (BENADRYL) 25 mg Oral CapsuleIndicati ons:Atrial flutter, unspecified,Enc ounter for loop recorder check Take 25 mg by mouth nightly. Active nitroGLYCERIN (NITROSTAT) 0.4 mg SL Tablet, SublingualIndic ations:Atrial flutter, unspecified,Enc ounter for loop recorder check Place 0.4 mg under the tongue every 5 minutes as needed for Chest pain. Active CALCIUM CARBONATE (CALCIUM 600 ORAL)Indication s:Atrial flutter, unspecified,Enc ounter for loop recorder check Take 1 Tab by mouth nightly. Active simvastatin (ZOCOR) 20 mg Oral TabletIndicatio ns:Atrial flutter, unspecified,Enc ounter for loop recorder check Take 20 mg by mouth nightly. Active DULoxetine (CYMBALTA) 30 mg Oral Capsule, Delayed Release(E.C.)In dications:Atria l flutter, unspecified,Enc ounter for loop recorder check Take 30 mg by mouth daily. Active budesonide-form oterol (SYMBICORT) 80-4.5 mcg/actuation Inhl HFA Aerosol InhalerIndicati ons:Atrial flutter, unspecified,Enc ounter for loop recorder check Inhale 2 Puffs into the lungs 2 times daily. Active diclofenac (VOLTAREN) 1 % Top GelIndications: Atrial flutter, unspecified,Enc ounter for loop recorder check Apply 2 g topically 4 times daily. Active metoprolol (LOPRESSOR) 50 mg Oral TabletIndicatio ns:Atrial flutter, unspecified,Enc ounter for loop recorder check Take 50 mg by mouth 2 times daily. Active COQ10, UBIQUINOL, ORALIndications :Atrial flutter, unspecified,Enc ounter for loop recorder check Take 300 mg by mouth daily. Active efinaconazole (JUBLIA) 10 % Top Solution With ApplicatorIndic ations:Atrial flutter, unspecified,Enc ounter for loop recorder check Apply topically daily. Active Active Problems Problem Noted Date Diagnosed Date Atrial fibrillation 03/24/2016 Atrial flutter 03/24/2016 Overview (06/23/2016): S/P EPS, 3D Mapping Atypical AFL Ablation 04/29/16-Dr. Schmid On anticoagulant therapy 03/24/2016 Coronary artery disease without angina pectoris 03/24/2016 Morbid obesity 03/24/2016 Obstructive sleep apnea 03/24/2016 Near syncope 03/24/2016 Overview (03/27/2016): OLIVER ZENG 09/06/2015 Syncope 03/24/2016 Hypertensive heart disease 03/24/2016 Hyperlipidemia 03/24/2016 History of pulmonary embolus (PE) 03/24/2016 Diastolic heart failure 03/24/2016 Cardiomyopathy 03/24/2016 Parkinson's disease 03/24/2016 Angina, class IV 03/24/2016 Chronic constrictive pericarditis 03/24/2016 Premature atrial contractions 03/24/2016 Chronic systolic heart failure 03/24/2016 Deep vein thrombosis (DVT) 03/24/2016 Venous insufficiency of leg 03/24/2016 Chronic obstructive lung disease 03/24/2016 Gastroesophageal reflux disease 03/24/2016 Resolved Problems Problem Noted Date Diagnosed Date Resolved Date Angina pectoris 03/24/2016 03/27/2016 Surgical History Surgery Date Site/Laterality Comments ANGIOPLASTY 08/2015-stenting CORONARY ARTERY BYPASS GRAFT 2013 ABLATION OF DYSRHYTHMIC FOCUS 2012 OTHER SURGICAL HISTORY 09/06/2015 OLIVER ZENG ABLATION OF DYSRHYTHMIC FOCUS 06/22/16 EPS 3D Mapping, Atypical AFL ablation-Dr. Schmid Medical History Medical History Date Comments Hyperlipidemia Morbid obesity (HCC) Parkinson's disease (HCC) Hypertensive heart disease Angina pectoris Angina, class IV Coronary arteriosclerosis Pulmonary thromboembolism (HCC) Chronic constrictive pericarditis Atrial fibrillation (HCC) Premature atrial contraction Chronic systolic heart failure (HCC) Diastolic heart failure (HCC) Chronic deep vein thrombosis (DVT) of lower extremity (HCC) Venous insufficiency of leg Chronic obstructive lung disease (HCC) Gastroesophageal reflux disease Atrial septal defect Near syncope Syncope Dizziness Bronchitis Pneumonia Shortness of breath Obstructive sleep apnea cpap Hypertension [place] (myocardial infarction) (HCC) Atrial flutter (HCC) Hiatal hernia Arthritis Stroke (HCC) possibility a c ouple years ago Cancer (HCC) skin Congenital heart disease Family History Medical History Relation Name Comments Arthritis Brother Diabetes Brother Heart Disease Brother Diabetes Father Heart Disease Father Heart Disease Mother Arthritis Other brother Heart Disease Other brother Arthritis Sister Relation Name Status Comments Brother Father Mother Other brother Sister Social History Tobacco Use Types Packs/Day Years [...] on file Sexual Orientation Not on file Obstetrics History Last Filed Vital Signs Vital Sign Reading Time Taken Comments Blood Pressure 124/70 07/03/2016 2:26 PM EDT Pulse 70 07/03/2016 2:26 PM EDT Temperature 36.5 C (97.7 F) 04/29/2016 12:30 PM EDT Respiratory Rate 14 04/29/2016 1:05 PM EDT Oxygen Saturation 98% 07/03/2016 2:26 PM EDT Inhaled Oxygen Concentration - - Weight 157.7 kg (347 lb 9.6 oz) 07/03/2016 2:26 PM EDT Height 188 cm (6' 2 ) 07/03/2016 2:26 PM EDT Body Mass Index 44.63 07/03/2016 2:26 PM EDT Plan of Treatment Health Maintenance Due Date Last Done Comments Wellness Exam Medicare 1963 Hepatitis C Screening 1979 DTaP/TDaP/Td (1 - Tdap) 1980 Pneumococcal Vaccine 50+ (1 of 2 - PCV) 1980 Cologuard 2006 FIT 2006 Sigmoidoscopy 2006 Virtual Colonography 2006 Zoster (1 of 2) 2011 RSV or 60+ (1 - Ris k 60-74 years 1-dose series) 2021 COVID-19 Vaccine (1 - 2023-2 5 season) 2024 Influenza Vaccine (Season Ended) 2025 Colon Cancer Screening 04/03/2026 Colonoscopy 04/03/2026 04/03/2016 (Postponed) Hepatitis B Vaccine Aged Out No longe r eligible based on patient's age to complete this topic Meningococcal B Vaccine Aged Out No l onger eligible based on patient's age to complete this topic Medical Devices Implanted Type Area Territory Representative Device Identifier Shelf Expiration Date Model / Serial / Lot Cardiac Stent Medtronic Linq Ilr Implanted:Qty: 1 on 09/06/2015 [employer] [id number] / [id number] / Insurance MEDICARE [place] PART A AND B [facility] MEDICARE [place] PART A AND B PPO Care Teams Saddle Tree Stitcher Relationship Specialty Start Date End Date Norberto Miller [facility] [address] [place] [id number] PCP - General Family Medicine 03/04/16
--- OUTSIDE RECORDS SUMMARY | 2025-04-16 11:26 | XMS_ITS | Encounter Summary ---
Author Organization Healthcare Address [address] [place] [address] Care Team Providers Care Handbag Parts Cutter Name Role Phone Pcp, No Primary Care Provider Unavailabl e Encounter Details Date Type Department Care Team ([facility] st Contact Info) Description 01/27/2011 Orders Only External Location [address] [place] [address] Provider, External Social History Tobacco Use Types [...] Associated Diagnosis Comments MR MSK OUTSIDE IMAGES 01/27/2011 4:15 PM EDT documented in this encounter Results * MR MSK OUTSIDE IMAGES (01/27/2011 4:15 PM EDT) Anatomical Region Laterality Modality Magnetic Resonan ce 01/27/2011 4:15 PM EDT us External Provider IMG MRI PROCEDURES Final Resul t documented in this encounter Visit Diagnoses Not on filedocumented in this encounter Care Teams Handbag Parts Cutter Relationship Specialty Start Date End Date Pcp, No [address] [place] [address] PCP - General Family Medicine 01/22/23 documented as of this encounter
--- OUTSIDE RECORDS SUMMARY | 2025-04-16 11:26 | XMS_ITS | Clinical Summary ---
Author Organization [facility] Address [address] [place] [address] Care Team Providers Care Electrical Unit Rebuilder Name Role Phone Pcp, No Primary Care Provider Unavailabl e Allergies No known active allergies Medications albuterol 108 (90 Base) MCG/ACT inhaler albuterol sulfate HFA 90 mcg/actuation aerosol inhaler 6 Active amoxicillin (Amoxil) 500 MG capsule Take 500 mg by mouth. 2 Active aspirin 81 MG EC tablet 5 Active budesonide-for moterol (Symbicort) 80-4.5 MCG/ACT inhaler 6 Active calcium carbonate 1500 (600 Ca) MG tablet Calcium 600 mg calcium (1,500 mg) tablet Daily Active cholecalcifero l (Vitamin D-3) 25 MCG (1000 UT) tablet Take 2 tablets by mouth 1 (one) time each day. Active ciclopirox (Loprox) 0.77 % cream ciclopirox 0.77 % topical cream Active clonazePAM (KlonoPIN) 0.5 MG tablet clonazepam 0.5 mg tablet TAKE 1 TABLET BY MOUTH TWICE DAILY Active clopidogrel (Plavix) 75 MG tablet clopidogrel 75 mg tablet TAKE 1 TABLET BY MOUTH ONCE DAILY FOR PLATELET AGGREGATOR 5 Active clotrimazole-b etamethasone (Lotrisone) cream APPLY CREAM TO AFFECTED AREA DIRECTED 2 Active cyanocobalamin (Vitamin B-12) 1000 MCG tablet Take 1,000 mcg by mouth 1 (one) time each day. Active desvenlafaxine (Pristiq) 100 MG 24 hr tablet Take 100 mg by mouth 1 (one) time each day. 3 Active diflunisal (Dolobid) 500 MG tablet diflunisal 500 mg tablet 5 Active empagliflozin (Jardiance) 25 MG Jardiance 25 mg tablet TAKE 1 TABLET BY MOUTH ONCE DAILY IN THE MORNING Active Exenatide ER (Bydureon) 2 MG pen-injector Bydureon 2 mg/0.65 mL subcutaneous pen injector INJECT 2 MG SUBCUTANEOUSLY ONCE A WEEK Active furosemide (Lasix) 40 MG tablet furosemide 40 mg tablet TAKE 1 TABLET BY MOUTH ONCE DAILY 5 Active nadolol (Corgard) 40 MG tablet Take 40 mg by mouth 1 (one) time each day. 2 Active neomycin-bacit racin-polymyxi n (Neosporin) ophthalmic ointment Juaquin-Polycin 3.5 mg-400 unit-10,000 unit/g eye ointment Active nitroglycerin (Nitrostat) 0.4 MG SL tablet nitroglycerin 0.4 mg sublingual tablet DISSOLVE ONE TABLET UNDER THE TONGUE EVERY 5 MINUTES NEEDED FOR CHEST PAIN. DO NOT EXCEED A TOTAL OF 3 DOSES IN 15 MINUTES 5 Active oxybutynin XL (Ditropan-XL) 5 MG 24 hr tablet oxybutynin chloride ER 5 mg tablet,extended release 24 hr Active pantoprazole (Protonix) 40 MG EC tablet pantoprazole 40 mg tablet,delayed release TAKE 1 TABLET BY MOUTH ONCE DAILY 5 Active potassium chloride CR (Klor-Con) 10 MEQ ER tablet 5 Active QUEtiapine (SEROquel) 50 MG tablet quetiapine 50 mg tablet TAKE 1 TABLET BY MOUTH IN THE EVENING Active simvastatin (Zocor) 20 MG tablet 6 Active tamsulosin (Flomax) 0.4 MG 24 hr capsule 3 Active warfarin (Coumadin) 5 MG tablet warfarin 5 mg tablet 5 Active mupirocin (Bactroban) 2 % ointment mupirocin 2 % topical ointment APPLY OINTMENT TOPICALLY THREE TIMES DAILY Active mirabegron ER (Myrbetriq) 25 MG tablet Myrbetriq 25 mg tablet,extended release TAKE 1 TABLET BY MOUTH ONCE DAILY Active metFORMIN XR (Glucophage-XR ) 500 MG 24 hr tablet metformin ER 500 mg tablet,extended release 24 hr TAKE 2 TABLETS BY MOUTH ONCE DAILY Active loratadine (Claritin) 10 MG tablet loratadine 10 mg tablet 5 Active sulindac (Clinoril) 200 MG tablet sulindac 200 mg tablet TAKE 1 TABLET BY MOUTH TWICE DAILY Active levocetirizine (Xyzal) 5 MG tablet levocetirizine 5 mg tablet TAKE 1 TABLET BY MOUTH ONCE DAILY IN THE EVENING Active Family History Medical History Relation Name Comments Conversions - Other Other 1 Blood cl ot in vein Alcohol abuse Other 2 Arthritis Other 3 Diabetes Other 4 Hypertension Other 5 Kidney disease Other 6 Seizures Other 7 Heart Problem Other 8 Conversions - Other Other 9 Lung tro uble Relation Name Status Comments Other 1 Other 2 Other 3 Other 4 Other 5 Other 6 Other 7 Other 8 Other 9 Social History Tobacco Use Types Packs/Day Years Used Date Smoking Tobacco: Never Smokeless Tobacco: Never Tobacco Cessation:Counseling Given: Not Answered Alcohol Use Standard Drinks/Week Comments No 0 (1 standard drink = 0.6 oz pur e alcohol) Sex and Gender Information Value Date Recorded Sex Assigned at Not on file Legal Sex Male 8:28 PM EDT Gender Identity Not on file Sexual Orientation Not on file Last Filed Vital Signs Vital Sign Reading Time Taken Comments Blood Pressure 116/72 01/22/2023 11:15 AM EDT Pulse 68 01/22/2023 11:15 AM EDT Temperature - - Respiratory Rate 20 01/22/2023 11:15 AM EDT Oxygen Saturation 99% 01/22/2023 11:15 AM EDT Inhaled Oxygen Concentration - - Weight 154 kg (339 lb 8.1 oz) 01/22/2023 11:15 A M EDT Height 188 cm (6' 2 ) 01/22/2023 11:15 AM EDT Body Mass Index 43.59 01/22/2023 11:15 AM EDT Plan of Treatment Health Maintenance Due Date Last Done Comments [facility]-Depression Screening 1960 [facility]-/Child/Adol SDOH Screenings 1960 [facility]- SDOH Screenings 1979 [facility]-Adult SDOH Screenings 1979 [facility]-DTaP,Tdap,and Td Vaccine s (1 - Tdap) 1980 CT Colonography 2006 Colonoscopy 2006 FIT-DNA 2006 FIT 2006 FOBT 2006 Sigmoidoscopy 2006 [facility]-Colorectal Cancer Screening 2006 [facility]-Pneumococcal Vaccine: 50 + Years (1 of 1 - PCV) 2011 [facility]-Zoster Vaccines (1 of 2) 2011 [id number] Vaccine (3 - season) 2024 03/14/2021, 02/14/2021 [facility]-Influenza Vaccine (Seaso n Ended) 2025 [facility]-RSV Vaccine: 60+ Years o r (1 - 1-dose 75+ series) 2036 HPV Vaccines Aged Out No longer eligi ble based on patient's age to complete this topic [facility]-HIB Vaccines Aged Out No longer e ligible based on patient's age to complete this topic [facility]-Hepatitis A Vaccines Aged Out No longer eligible based on patient's age to complete this topic [facility]-IPV Vaccines Aged Out No longer e ligible based on patient's age to complete this topic [facility]-Rotavirus Vaccines Aged Out No lo nger eligible based on patient's age to complete this topic Insurance MEDICARE [facility] Care Teams Electrical Unit Rebuilder Relationship Specialty Start Date End Date Pcp, [place] [address] PCP - General Family Medicine 01/22/23
[2025-04-16 12:45] LABS: Blood Urea Nitrogen 16 mg/dl (9-20); Estimated Glomerular Filt Rate 98 ml/min (>60); GFR (African American) 118 ML/MIN (>60)
[2025-04-17 08:15] LABS: PSA, Free 0.23 ng/mL; Prostate Specific Ag 0.8 ng/mL (0.0-4.0)
== END 2025-04-16 23:59 | disposition home or self-care (01) ==
LOC: LAB 11:24
PROVIDERS: PCP Physician Assistant; Visit Provider Urology
DX: R10.9 Unspecified abdominal pain (principal); N40.1 Benign prostatic hyperplasia with lower urinary tract symptoms
CPT/HCPCS: 36415; 82565; 84153; 84154; 84520

== ENCOUNTER 2025-05-25 10:12 | Outpatient (CLI) | payer MEDICARE, BC, SELFPAY ==
--- OUTSIDE RECORDS SUMMARY | 2025-05-03 06:00 | XMS_ITS ---
[facility] Address [address] [place] [id number] Care Team Providers Care Financial Aid Advisor Name Role Phone Norberto Miller Primary Care Provider Jo Ellison Unavailable [phone] Allergies No Known Allergies Results Component Value Reference Range Notes PT/INR (in house) Reviewed date:05/03/2025 10:12:09 AM Interpretation:4.4 Performing Lab: Notes/Report: 4.4 PT 52.2 INR 4.4 current dose 7.5 mg daily new dose Hold today, 5mg F, 7.5mg AOD next check 1 week Warfarin indication afib ideal INR 2.5-3.5 Reason For Referral Diagnosis 1 Parkinson's disease with dyskinesia, unspecified whether manifestations fluctuate (G20.B1) Referral Organization [facility] Referring Provider First Name Jo Referring Provider Last Name Terra Referring Provider Speciality Physician Director Software Development Referred Provider Specialty Neurology General Notes Jo Ellison 03:50:01 PM >Please make referral to Dr. Shearer or his PA Taniya Rudd Brynn 05/04/2025 03:56:56 PM > sent referral via [facility] website Referral Priority Routine REASON FOR VISIT 1 week Medications Medication SIG (Take, Route, Frequency, Duration) Notes Start Date End Date Status metFORMIN HCl ER 500 MG Take 2 tablets by mouth once daily; Duration: 90 Active Baclofen 5 MG Take 1 tablet by mouth twice daily; Duration: 90 Active Pantoprazole Sodium 40 MG Take 1 tablet by mouth once daily; Duration: 90 Active Sulindac 200 MG Take 1 tablet by mouth twice daily; Duration: 90 Active clonazePAM 1 MG 1/2 tab orally Two times a day; Duration: 30 days 04/28/2025 Active Desvenlafaxine Succinate ER 100 MG 1 tablet Orally Once a day; Duration: 30 days 01/22/2025 Active Warfarin Sodium 5 MG 1 tablet Orally Onc e a day; Duration: 90 days Active Myrbetriq 50 MG 1 tablet Orally Once a day; Duration: 30 day(s) Active Mounjaro 15 MG/0.5ML 15 mg Subcutaneous once a week 08/25/2024 Active QUEtiapine Fumarate 100 MG TAKE 1 TABLET BY MOUTH ONCE DAILY IN THE EVENING; Duration: 90 Active Cortisporin-TC 3.3-3-10-0.5 MG/ML 5 drops into affected ear Otic Three times a day 06/22/2024 Active Warfarin Sodium 7.5 MG TAKE 1 TABLET BY MOUTH ONCE DAILY 6 DAYS OUT OF THE WEEK; Duration: 90 Active rOPINIRole HCl ER 2 MG 1 tablet Orally O nce a day; Duration: 90 days Active Levocetirizine Dihydrochloride 5 MG TAKE 1 TABLET BY MOUTH ONCE DAILY IN THE EVENING FOR 90 DAYS; Duration: 90 Active OneTouch Delica Plus [id number] - USE 1 TO CHECK GLUCOSE ONCE DAILY; Duration: 90 Active Aspirin 81 MG 1 tablet Orally Once a day; Duration: 30 day(s) Active Jardiance 25 MG take 1 tablet by mouth once daily in the morning Orally Once a day; Duration: 90 days Active Mupirocin 2 % 1 application Externally Twice a day Active Albuterol Sulfate HFA 108 (90 Base) MCG/ACT 1 puff as needed Inhalation every 4 hrs, prn 11/24/2023 Active Flonase Allergy Relief 50 MCG/ACT 1 spray in each nostril Nasally Once a day 01/28/2024 Active Tamsulosin HCl 0.4 MG 1 cap(s) orally on ce a day; Duration: 90 days Active Nitrostat 0.4 MG 1 tab(s) sublinguall y every 5 minutes Active Linzess 145 MCG 1 capsule at least 3 0 minutes before the first meal of the day on an empty stomach Orally Once a day; Duration: 90 days 07/30/2023 Active Easy Touch Glucose System w/Device - test once daily E11.9 08/11/2023 Active Easy Touch Safety Lancets 28G - as directed to test once daily; Duration: 90 days diagnosis code E11.9 08/20/2023 Active Albuterol Sulfate HFA 108 (90 Base) MCG/ACT 1-2 puff(s) inhaled every 6 hours, prn 12/31/2022 Active Pristiq 100 MG 1 tab(s) orally once a day; Duration: 90 days 11/06/2022 Active Potassium Chloride ER 20 MEQ take 2 tablets by mouth once daily; Duration: 90 days Active CPAP SUPPLIES DIRECTED 07/25/2021 Act elisabeth CPAP MASK DIRECTED 07/25/2021 Active Magnesium Oxide 400 MG 1 tab(s) orally o nce a day Active FREE STYLE KRISTAL GLUCOSE SYSTEM DIRECTED BID 07/20/2018 Active Diclofenac Sodium 1 % as directed applie d topically 4 times a day 03/03/2021 Active Symbicort 80-4.5 MCG/ACT 2 puff(s) inhaled 2 times a day 05/08/2014 Active Furosemide 40 MG 1 tab(s) Orally ever y other day Active Vitamin B-12 1000 MCG 1 tab(s) orally on ce a day Active Calcium Carbonate 600 MG 1 tab(s) orally qhs Active Spironolactone 25 MG 1 tab(s) orally shin ry other day Active Plavix 75 MG 1 tab(s) orally once a day Active Vitamin D3 25 MCG (1000 UT) 2 tab orally once a day Active Leqvio 284 MG/1.5ML as directed subcutaneously every 6 months Active Problems Problem Type SNOMED Code ICD Code Onset Dates Problem Status W/U Status Risk Notes Problem Parkinson's dise ase with dyskinesia, unspecified whether manifestations fluctuate (G20.B1) Active confirmed Vital Signs Weight 254.4 lbs 05/03/2025 Blood pressure systolic 112 mm Hg 05/03/20 25 Blood pressure diastolic 60 mm Hg 025 Heart Rate 80 /min 05/03/2025 Height 73.50 in 05/03/2025 BMI 33.11 kg/m2 05/03/2025 Encounters Encounter Location Date Provider Diagnosis [facility] [address] [place] [id number] 05/03/2025 Jo Ellison rn women services (current) use of anticoagulants Z79.01 and Parkinson's disease with dyskinesia, unspecified whether manifestations fluctuate G20.B1 Assessments Encounter Date Diagnosis (ICD Code) Assessment Notes Treatment Notes Treatment Clinical Notes Section Notes 05/03/2025 rn women services (current) use of anticoagulants (ICD-10 - Z79.01) 05/03/2025 Parkinson's disease with dyskinesia, unspecified whether manifestations fluctuate (ICD-10 - G20.B1) Patient would like to see a different neurologist for his Parkinson's Disease. Plan Of Treatment Treatment Notes Assessment Notes Parkinson's disease with dys kinesia, unspecified whether manifestations fluctuate Patient would like to see a different neurologist for his Parkinson's Disease. Referrals Referral Date Details 05/04/2025 05/04/2025 Next Appt Details Follow Up: 1 Week, Reason: Provider Name:Jo meehan, 06/21/2025 11:30:00 AM, [address], [address] , [place], [place], [id number], Progress Notes * Sonia HAWTHORNEOB:1960 (64 yo M)Acc No.[id number]:05/03/2025 Progress Notes Patient: Nghia CHAVEZ Provider: DANIEL Hatch :1960 A ge:64 Y S ex:Male Date:05/03/2025 Address:[address] [place] [address], [id number] Pcp:Norberto Miller Subjective: * Chief Complaints: * 1 . 1 week. * HPI: H ematology: 64 year old male presents with c/o PT/INR P t is taking Warfarin 7.5 mg daily. Denies : Bruising. D enies : Bleeding. D enies : hematuria. D enies : epistaxis. * ROS: D ERMATOLOGY: no R alexander. n o H karen. G ASTROENTEROLOGY: no N ausea. n o V omiting. n o D iarrhea.? U ROLOGY: no D ifficulty urinating. n o B lood in urine. * Medical History: H yperlipidemia, Acne, GERD, Hiatal Hernia, Allergic Rhinitis, Epididymal Cyst, Hearing Deficit, EF=55%, 07/18/2009, JORGE Negative, 07/31/2009, LT Leg DVT , PE, CHRISTY with CPAP, Venous Sinus Thrombosis vs. Encephalopathy 2010, Open Heart Surgery for A- Fib, Coronary Stent Placed, 08/2015, Light Heart Attack, Pacemaker, 10/2016, Lupus Anticoagulant, Parkinsons, Possible Seizures, Pseudobulbar Palsy, LT Sided Heart Cath, Moderna Covid x1. * Surgical History: L T Spermatocelectomy 10/28/2008, Spinal Tap 08/2011, Heart Cath 11/2011, Heart Patch a Patent Foramen Ovale 03/2013, Cardiac Ablation 05/2013, Stress Test, ECHO, & EKG - Abdnormal - Dr. Cárdenas 08/21/2015, Ablation-Dr Schmid @ [facility] 04/2016, Rectal Polyps Removal 11/12/2016, Cardiac ECHO & Stress Test 03/31/2017, Cardiac Pacemaker 10/2016, Cardioversion 2013, Open Heart 2013, Heart Cath - [facility] 03/2018. * Hospitalization/Major Diagno stic Procedure: C hest Pain , DVT, Bilateral PE 07/2009, Chest Pain, LT Leg Swollen- [facility] 08/2010, Chest Pain- [facility] 11/11-11/12/2011, Chest Pain- [facility] 04/24/2012, Insect Bite- [facility] 06/20/2012, Weak, Heart Palpitations- [facility] 06/07/2013, Tachycardia- [facility] ER 07/30/2014, Hypertension, Tachycardia- [facility] ER 04/15/2016, Chest Pain- [facility] ER 05/01/2016, LT Leg Blood Clot- [facility] ER 11/17/2018. * Family History: F ather: 61 yrs. M other: alive 72 yrs, alzheimer. P aternal Grand Father: . P aternal Grand Mother: . M aternal Grand Father: . M aternal Grand Mother: , alzheimer. 3 brother(s) , 1 sister(s) . 2 son(s) . . * Social History: C URRENT TOBACCO USE: No S moking Status: Patient does NOT smoke. C affeine: yes, frequency:daily. Exercise: yes. Home smoke detector use: yes. Marital Status: . New since last visit: none. Occupation: yes. Past smoking status: no, Smoking status: Does not smoke. Occup. exposure: none. Recreational drug use: no. Alcohol: no. Sexually active: yes. Travel ouside [place]: no. * Medications: T aking Leqvio 284 MG/1.5ML Solution Prefilled Syringe as directed subcutaneously every 6 months , Taking Spironolactone 25 MG Tablet 1 tab(s) orally every other day , Taking Plavix 75 MG Tablet 1 tab(s) orally once a day , Taking Vitamin D3 25 MCG (1000 UT) Tablet 2 tab orally once a day , Taking Vitamin B-12 1000 MCG Tablet 1 tab(s) orally once a day , Taking Calcium Carbonate 600 MG Tablet 1 tab(s) orally qhs , Taking Magnesium Oxide 400 MG Tablet 1 tab(s) orally once a day , Taking FREE STYLE KRISTAL GLUCOSE SYSTEM DIRECTED BID , Taking Diclofenac Sodium 1 % Gel as directed applied topically 4 times a day , Taking Symbicort 80-4.5 MCG/ACT Aerosol 2 puff(s) inhaled 2 times a day , Taking Furosemide 40 MG Tablet 1 tab(s) Orally every other day , Taking Potassium Chloride ER 20 MEQ Tablet Extended Release take 2 tablets by mouth once daily , Taking CPAP SUPPLIES DIRECTED , Taking CPAP MASK DIRECTED , Taking Albuterol Sulfate HFA 108 (90 Base) MCG/ACT Aerosol Solution 1-2 puff(s) inhaled every 6 hours, prn , Taking Pristiq 100 MG Tablet Extended Release 24 Hour 1 tab(s) orally once a day , Taking Tamsulosin HCl 0.4 MG Capsule 1 cap(s) orally once a day , Taking Nitrostat 0.4 MG Tablet Sublingual 1 tab(s) sublingually every 5 minutes , Taking Linzess 145 MCG Capsule 1 capsule at least 30 minutes before the first meal of the day on an empty stomach Orally Once a day , Taking Easy Touch Glucose System w/Device Kit - test once daily , Notes to Pharmacist: E11.9, Taking Easy Touch Safety Lancets 28G - Miscellaneous as directed to test once daily , Notes to Pharmacist: diagnosis code E11.9, Taking Mupirocin 2 % Ointment 1 application Externally Twice a day , Taking Albuterol Sulfate HFA 108 (90 Base) MCG/ACT Aerosol Solution 1 puff as needed Inhalation every 4 hrs, prn , Taking Flonase Allergy Relief 50 MCG/ACT Suspension 1 spray in each nostril Nasally Once a day , Taking Aspirin 81 MG Tablet Delayed Release 1 tablet Orally Once a day , Taking Jardiance 25 MG Tablet take 1 tablet by mouth once daily in the morning Orally Once a day , Taking Cortisporin-TC 3.3-3-10-0.5 MG/ML Suspension 5 drops into affected ear Otic Three times a day , Taking Warfarin Sodium 7.5 MG Tablet TAKE 1 TABLET BY MOUTH ONCE DAILY 6 DAYS OUT OF THE WEEK , Taking rOPINIRole HCl ER 2 MG Tablet Extended Release 24 Hour 1 tablet Orally Once a day , Taking Levocetirizine Dihydrochloride 5 MG Tablet TAKE 1 TABLET BY MOUTH ONCE DAILY IN THE EVENING FOR 90 DAYS , Taking OneTouch Delica Plus [id number] - Miscellaneous USE 1 TO CHECK GLUCOSE ONCE DAILY , Taking Myrbetriq 50 MG Tablet Extended Release 24 Hour 1 tablet Orally Once a day , Taking Mounjaro 15 MG/0.5ML Solution Auto-injector 15 mg Subcutaneous once a week , Taking QUEtiapine Fumarate 100 MG Tablet TAKE 1 TABLET BY MOUTH ONCE DAILY IN THE EVENING , Taking Desvenlafaxine Succinate ER 100 MG Tablet Extended Release 24 Hour 1 tablet Orally Once a day , Taking Warfarin Sodium 5 MG Tablet 1 tablet Orally Once a day , Taking metFORMIN HCl ER 500 MG Tablet Extended Release 24 Hour Take 2 tablets by mouth once daily , Taking Baclofen 5 MG Tablet Take 1 tablet by mouth twice daily , Taking Pantoprazole Sodium 40 MG Tablet Delayed Release Take 1 tablet by mouth once daily , Taking Sulindac 200 MG Tablet Take 1 tablet by mouth twice daily , Taking clonazePAM 1 MG Tablet 1/2 tab orally Two times a day , Medication List reviewed and reconciled with the patient * Allergies: N .K.D.A. Objective: * Vitals: W t: 254.4, Temp: 97.4, BP: 112/60, HR: 80, Nurse: SUSHANT, Ht: 73.50, BMI:33.11. * Examination: G eneral Examination: General Appearance: N AD, appears healthy, alert. ? Assessment: * Assessment: 1. L luigi term (current) use of anticoagulants - Z79.01 (Primary) 2 . P arkinson's disease with dyskinesia, unspecified whether manifestations fluctuate - G20.B1 ? Plan: * Treatment: Value Reference Range P T 52.2 * I NR 4.4 * c urrent dose 7.5 mg daily * n ew dose Hold today, 5mg F, 7.5mg AOD * n ext check 1 week * W arfarin indication afib * i deal INR 2.5-3.5 * Aleah Quinones 05/03/2025 09 :55:09 AM EDT > Provider reviewed results while patient in office.Jo Ellison 05/03/2025 10:12:06 AM EDT > 2.?Parkinson's disease with dyskinesia, unspecified whether manifestations fluctuate? Notes: Patient would like to see a different neurologist for his Parkinson's Disease.? Referral To:Neurology ?Reason: * Procedure Codes: G 2211 Complex e/[place], [address] PROTHROMBIN TIME, Modifiers: QW , 57146 CAPILLARY BLOOD DRAW * Follow Up: 1 Week * Images: Billing Information: * Visit Code: 39439 Office Visit, Est Pt., Level 3. * Procedure Codes: G2211 Complex e/[place]. [address] PROTHROMBIN TIME. Modifiers: QW 31769 CAPILLARY BLOOD DRAW. * Electronic signature of DANIEL Bartlett on 05/25/2025 at 10:17 AM EDT Sign off status: Pending * Provider: DANIEL Hatch Date: 0 05/03/2025 Generated for hSanelle dominguez/Ja/eTransmitting on: 0 05/25/2025 10:17 AM EDT History and Physical Notes * HPI (History of Present Illness) Category Sub-Category Detail Notes Category Not es Hematology epistaxis hematuria Bruising Bleeding PT/INR Pt is taking Warfari n 7.5 mg daily Examination Category Sub-Category Detail Notes Category Not es General Examination General Appearance: NAD, appears h ealthy, alert Consultation Request Notes Referral Date Referring Provider Referred Provider Not es 05/04/2025 Jo Ellison
--- OUTSIDE RECORDS SUMMARY | 2025-05-10 06:00 | XMS_ITS ---
Author Organization [facility] Address [address] [place] [id number] Care Team Providers Care Head Of Business Development Name Role Phone Norberto Miller Primary Care Provider Jo Ellison Unavailable [phone] Results Component Value Reference Range Notes PT/INR [...] 30 days 01/22/2025 Active OneTouch Delica Plus Iobeid96Z - USE 1 TO CHECK GLUCOSE ONCE [...] 05/10/2025 Encounters Encounter Location Date Provider Diagnosis [facility] 1210 [facility] 36 [facility] [address] [place], [place] [id number] 05/10/2025 Jo Ellison FDC (current) use of anticoagulants Z79.01 Assessments Encounter Date Diagnosis (ICD Code) Assessment Notes Treatment Notes Treatment Clinical Notes Section Notes 05/10/2025 intermediate designer (current) use of anticoagulants (ICD-10 - Z79.01) Plan Of Treatment Next Appt Details Follow Up: 2 Weeks, Reason: Provider Name:Jo Weeks y, 06/21/2025 11:30:00 AM, [address], [address], [place], [place], [id number], Progress Notes * Sonia HAWTOHRNEOB:1960 (64 yo M)Acc No.[id number]:05/10/2025 Progress Notes Patient: Gildardo CAMILOJoelNghia Provider: DANIEL Hatch :1960 A ge:64 Y S ex:Male Date:05/10/2025 Address:[address] [place] [address], [id number] Pcp:Norberto Miller Subjective: * Chief Complaints: * [...] a day , Taking OneTouch Delica Plus [id number] - Miscellaneous USE 1 TO CHECK GLUCOSE [...] G 2211 Complex e/[place], [address] PROTHROMBIN TIME, Modifiers: QW , 27758 CAPILLARY BLOOD DRAW, G8783 BP SCR PRFRM RCMDD DEFIND SCR INTVL, G8752 MOST RECENT SYSTOLIC BP < 140MM HG, G8754 MOST RECENT DIASTOLIC BP < 90MM HG * Follow Up: 2 Weeks * Images: Billing Information: * Visit Code: 36799 Office Visit, Est Pt., Level 2. * Procedure Codes: G2211 Complex e/[place]. [address] PROTHROMBIN TIME. Modifiers: QW 38715 CAPILLARY BLOOD DRAW. G8783 BP SCR PRFRM RCMDD DEFIND SCR INTVL. G8752 MOST RECENT SYSTOLIC BP < 140MM HG. G8754 MOST RECENT DIASTOLIC BP < 90MM HG. * Electronic signature of DANIEL Bartlett on 05/25/2025 at 10:19 AM EDT Sign off status: Pending * Provider: DANIEL Hatch Date: 0 05/10/2025 Generated for Printi ng/Faxing/eTransmitting on: 0 05/25/2025 10:19 AM EDT History and Physical Notes * HPI (History of Present Illness) Category Sub-Category Detail Notes Category Not es Hematology epistaxis hematuria Bruising Bleeding PT/INR Pt is taking Warfari n 5mg wednesday and 7.5mg all other days Examination Category Sub-Category Detail Notes Category Not es General Examination General Appearance: NAD, faith ears healthy, Color good
--- OUTSIDE RECORDS SUMMARY | 2025-05-24 06:15 | XMS_ITS ---
Author Organization [facility] Address [address] [place] [id number] Care Team Providers Care Thrasher Feeder Name Role Phone Norberto Miller Primary Care Provider Jo Ellison Unavailable [phone] Allergies No Known Allergies Results Component Value Reference Range Notes PT/INR (in house) (Not yet r eviewed by provider) Interpretation: Performing Lab: Notes/Report: PT 32.9 INR 2.7 current dose 5mg wednesday and 7.5 aod new dose same next check 4 weeks REASON FOR VISIT 2 weeks Medications Medication SIG (Take, Route, Frequency, Duration) Notes Start Date End Date Status Cortisporin-TC 3.3-3-10-0.5 MG/ML 5 drops into affected ear Otic Three times a day 06/22/2024 Active Warfarin Sodium 7.5 MG TAKE 1 TABLET BY MOUTH ONCE DAILY 6 DAYS OUT OF THE WEEK; Duration: 90 Active rOPINIRole HCl ER 2 MG 1 tablet Orally O nce a day; Duration: 90 days Active OneTouch Delica Plus [id number] - USE 1 TO CHECK GLUCOSE ONCE DAILY; Duration: 90 Active Myrbetriq 50 MG 1 tablet [...] nostril Nasally Once a day 01/28/2024 Active Aspirin 81 MG 1 tablet Orally Once a day; Duration: 30 day(s) Active Tamsulosin HCl 0.4 MG 1 cap(s) [...] Orally ever y other day Active Vitamin D3 25 MCG (1000 UT) 2 tab orally once a day Active Vitamin B-12 1000 MCG 1 tab(s) orally on ce a day Active Calcium Carbonate 600 MG 1 tab(s) orally qhs Active Spironolactone 25 MG 1 tab(s) orally shin ry other day Active Plavix 75 MG 1 tab(s) orally once a day Active Sulindac 200 MG Take 1 tablet by mouth twice daily; Duration: 90 Active clonazePAM 1 MG 1/2 tab orally Two times a day; Duration: 30 days 04/28/2025 Active Levocetirizine Dihydrochloride 5 MG TAKE 1 TABLET BY MOUTH ONCE DAILY IN THE EVENING; Duration: 90 Active Leqvio 284 MG/1.5ML as directed subcutaneously every 6 months Active Baclofen 5 MG Take 1 tablet by mouth twice daily; Duration: 90 Active Pantoprazole Sodium 40 MG Take 1 tablet by mouth once daily; Duration: 90 Active Desvenlafaxine Succinate ER 100 MG 1 tablet Orally Once a day; Duration: 30 days 01/22/2025 Active Warfarin Sodium 5 MG 1 tablet Orally Onc e a day; Duration: 90 days Active metFORMIN HCl ER 500 MG Take 2 tablets by mouth once daily; Duration: 90 Active Mounjaro 15 MG/0.5ML 15 mg Subcutaneous once a week 08/25/2024 Active QUEtiapine Fumarate 100 MG TAKE 1 TABLET BY MOUTH ONCE DAILY IN THE EVENING; Duration: 90 Active Vital Signs Weight 249.8 lbs 05/24/2025 Blood pressure systolic 120 mm Hg 05/24/20 25 Blood pressure diastolic 70 mm Hg 025 Heart Rate 70 /min 05/24/2025 Height 73.50 in 05/24/2025 BMI 32.51 kg/m2 05/24/2025 Encounters Encounter Location Date Provider Diagnosis [facility] 36 [facility] [address] [place], [place] [phone] 05/24/2025 Jo Ellison Plan Of Treatment Pending Test Test Name Order Date PT/INR (in house) 05/24/2025 Next Appt Details Provider Name:Jo Weeks y, 06/21/2025 11:30:00 AM, [address] [facility] 36 [facility], [address], [place], [place], [phone], Progress Notes * Sonia HAWTHORNEOB:1960 (64 yo M)Acc No.[id number]:05/24/2025 Progress Notes Patient: Gildardo RONALJoel MORLEYryl Provider: DANIEL Hatch :1960 A ge:64 Y S ex:Male Date:05/24/2025 Address:[address] [place] [address], [place], [id number] Pcp:Norberto Miller Subjective: * Chief Complaints: * 1 . 2 weeks. * HPI: H ematology: 64 year old male presents with c/o PT/INR d ue for PT/INR. The pt states he is taking Warfarin 5 mg on Wednesday and 7.5 mg all other days. Denies : Bruising. D enies : Bleeding. D enies : hematuria. D enies : epistaxis. * ROS: D ERMATOLOGY: no R alexander. n o H akren. G ASTROENTEROLOGY: no N ausea. n o [...] - Dr. Cárdenas 08/21/2015, Ablation-Dr Schmid @ [facility] 04/2016, Rectal Polyps Removal 11/12/2016, Cardiac ECHO & Stress Test 03/31/2017, Cardiac Pacemaker 10/2016, Cardioversion 2013, Open Heart 2013, Heart Cath - [facility] 03/2018. * Hospitalization/Major Diagno stic Procedure: C hest Pain , DVT, Bilateral PE 07/2009, Chest Pain, LT Leg Swollen- [facility] 08/2010, Chest Pain- [facility] 11/11-11/12/2011, Chest Pain- [facility] 04/24/2012, Insect Bite- [facility] 06/20/2012, Weak, Heart Palpitations- [facility] 06/07/2013, Tachycardia- [facility] 07/30/2014, Hypertension, Tachycardia- [facility] 04/15/2016, Chest Pain- [facility] 05/01/2016, LT Leg Blood Clot- [facility] 11/17/2018. * Family History: F ather: [...] a day , Taking OneTouch Delica Plus Rwadde38U - Miscellaneous USE 1 TO CHECK GLUCOSE [...] MOUTH ONCE DAILY IN THE EVENING , Discontinued Digoxin 125 MCG Tablet 1 tablet Orally , Medication List reviewed and reconciled with the patient * Allergies: N .K.D.A. Objective: * Vitals: W t: 249.8, Temp: 97.6, BP: 120/70, HR: 70, Nurse: jose, Ht: 73.50, BMI:32.51. Assessment: Plan: * Treatment: Value Reference Range P T 32.9 * I NR 2.7 * c urrent dose 5mg wednesday and 7.5 aod * n ew dose same * n ext check 4 weeks * Labs: * L ab: PT/INR (in house) (Collection Date & Time - 05/24/2025) Value Reference Range P T 32.9 * I NR 2.7 * c urrent dose 5mg wednesday and 7.5 aod * n ew dose same * n ext check 4 weeks * Belem Roe 05/24/2025 1 0:30:22 AM EDT > Provider reviewed results while patient in office. * Procedure Codes: 8 5610 PROTHROMBIN TIME, Modifiers: QW , 82127 CAPILLARY BLOOD DRAW * Images: Billing Information: * Visit Code: * Procedure Codes: 08085 PROTHROMBIN TIME. Modifiers: QW 71229 CAPILLARY BLOOD DRAW. * Electronic signature of DANIEL Bartlett on 05/25/2025 at 10:17 AM EDT Sign off status: Pending * Provider: DANIEL Hatch Date: 0 05/24/2025 Generated for Shanelle dominguez/Ja/eTransmitting on: 0 05/25/2025 10:17 AM EDT History and Physical Notes * HPI (History of Present Illness) Category Sub-Category Detail Notes Category Not es Hematology epistaxis hematuria Bruising Bleeding PT/INR due for PT/INR. The pt states he is taking Warfarin 5 mg on Wednesday and 7.5 mg all other days
--- OUTSIDE RECORDS SUMMARY | 2025-05-25 10:17 | XMS_ITS | Encounter Summary ---
Author Organization Healthcare Address [address] [place] [address] Care Team Providers Care Senior Boiler Operator Name Role Phone Pcp, No Primary Care Provider Unavailabl e Encounter Details Date Type Department Care Team ([facility] st Contact Info) Description 02/04/2012 Orders Only External Location [address] [place] [address] Provider, External Social History Tobacco Use Types [...] on filedocumented in this encounter Care Teams Senior Boiler Operator Relationship Specialty Start Date End Date Pcp, No [address] [place] [address] PCP - General Family Medicine 01/22/23 documented as of this encounter
--- OUTSIDE RECORDS SUMMARY | 2025-05-25 10:17 | XMS_ITS | Encounter Summary ---
Author Organization Healthcare Address [address] [place] [address] Care Team Providers Care Supervisor Underwriting Clerks Name Role Phone Pcp, No Primary Care Provider Unavailabl e Encounter Details Date Type Department Care Team ([facility] st Contact Info) Description 09/21/2011 Orders Only External Location [address] [place] [address] Provider, External Social History Tobacco Use Types [...] on filedocumented in this encounter Care Teams Supervisor Underwriting Clerks Relationship Specialty Start Date End Date Pcp, No [address] [place] [address] PCP - General Family Medicine 01/22/23 documented as of this encounter
--- OUTSIDE RECORDS SUMMARY | 2025-05-25 10:17 | XMS_ITS | Encounter Summary ---
Author Organization Healthcare Address [address] [place] [address] Care Team Providers Care Office Administration Name Role Phone Pcp, No Primary Care Provider Unavailabl e Encounter Details Date Type Department Care Team ([facility] st Contact Info) Description 01/27/2011 Orders Only External Location [address] [place] [address] Provider, External Social History Tobacco Use Types [...] on filedocumented in this encounter Care Teams Office Administration Relationship Specialty Start Date End Date Pcp, No [address] [place] [address] PCP - General Family Medicine 01/22/23 documented as of this encounter
--- OUTSIDE RECORDS SUMMARY | 2025-05-25 10:17 | XMS_ITS | Clinical Summary ---
Author Organization [facility] Address [address] [place] [address] Care Team Providers Care Psychotherapist Name Role Phone Pcp, No Primary Care [...] 2011 [facility]-Zoster Vaccines (1 of 2) 2011 [id number] Vaccine (3 - season) 2024 03/14/2021, 02/14/2021 [facility]-Influenza Vaccine (#1) 2025 [facility]-RSV Vaccine: 60+ Years o r [...] age to complete this topic Insurance MEDICARE [facility] Care Teams Psychotherapist Relationship Specialty Start Date [place] [address] PCP - General Family Medicine 01/22/23
--- OUTSIDE RECORDS SUMMARY | 2025-05-25 10:18 | XMS_ITS | Data Portability ---
Author Organization [facility] Address [address] [place] [address] Care Team Providers Care Child Monitor Name Role Phone NATALIIA EVANS Referring Provider NATALIIA EVANS Primary Care Provider Assessment No assessment recorded. Plan of Treatment Reminders Order Date Submit Date Provider Last Modified By Organization Details Last Modified Time Details Appointments None recorded. Lab urinalysis , dipstick 2019 020 [email or web address] [facility], [address], [place], [address], 0 20:55:14 Referral None recorded. Procedures None recorded. Surgeries None recorded. Imaging US, duplex, extracrani al arteries 2018 019 [email or web address] 10 [facility], [address] [place] [address] , [address], [place], [address], 9 10:41:34 Medication Orders baclofen 10 mg tablet 2020 021 [facility] 591, [address], [address], 1 12:36:40 carbidopa 25 mg-levodop a 100 mg tablet 2020 021 [facility] 591, [address], [address], 1 12:36:38 carbidopa ER 50 mg-levodop a 200 mg tablet,ext ended release 2020 021 [facility] 591, 805 [facility] [place], [address], 1 12:36:41 baclofen 10 mg tablet 2019 020 [facility] 591, 805 [facility] [place], [address], 0 12:10:46 carbidopa 25 mg-levodop a 100 mg tablet 2019 020 [facility] 591, 805 [facility] [place], [address], 0 12:10:51 carbidopa ER 50 mg-levodop a 200 mg tablet,ext ended release 2019 020 [facility] 591, 805 [facility] [place], [address], 0 12:10:43 clonazepam 0.5 mg tablet 2019 020 [facility] 591, 805 [facility] [place], [address], 0 11:17:20 clonazepam 0.5 mg tablet 2018 019 [facility] 591, 805 [facility] [place], [address], 9 11:01:37 Patient TargetsNo targets recorded. Patient Instructions Encounter Date Encounter Id Patient Instructions Last Modified By Organization Details Last Modified Time 08/14/2019 [id number] sleep apnea: car e instructions [email or web address] Not available 08/14/2019 11:01:18 headache: care instructions [email or web address] Not available 08/14/2019 11:01:18 fainting: care instructions [id number] Not available 08/14/2019 11:01:18 lightheadedness or faintness: care instructions [email or web address] Not available 08/14/2019 11:01:18 03/11/2020 [id number] sleep apnea: car e instructions [email or web address] Not available 03/11/2020 11:16:27 headache: care instructions [email or web address] Not available 03/11/2020 11:16:27 fainting: care instructions [email or web address] Not available 03/11/2020 11:16:27 lightheadedness or faintness: care instructions Not available 03/11/2020 11:16:27 04/08/2020 [id number] sleep apnea: car e instructions [email or web address] Not available 04/08/2020 12:10:35 headache: care instructions [email or web address] Not available 04/08/2020 12:10:35 fainting: care instructions Not available 04/08/2020 12:10:35 lightheadedness or faintness: care instructions [email or web address] Not available 04/08/2020 12:10:35 08/05/2020 [id number] learning about healthy weight Not available 08/05/2020 20:55:14 04/08/2021 [id number] sleep apnea: car e instructions Not available 04/08/2021 12:36:27 headache: care instructions [id number] Not available 04/08/2021 12:36:27 fainting: care instructions [email or web address] Not available 04/08/2021 12:36:27 lightheadedness or faintness: care instructions [email or web address] Not available 04/08/2021 12:36:27 Reason for Referral None Reported. Results Created Date Observation Date Name Description Value Unit Range Abnormal Flag Note LastModifiedBy Organization Detail LastModifiedTime 08/05/2008/05/2020 urina lysis , dipst ick Unknown Analyte Yellow Not Available [facility] [address] [facility] [address], [place], [address], 08/05/2020 11:19:44 08/05/2008/05/2020 urina lysis , dipst ick Unknown Analyte Clear Not Available [facility] [address], [place], [address], 08/05/2020 11:19:44 08/05/20 20 08/05/2020 urina lysis , dipst ick Unknown Analyte 1.015 Not Available [facility] [address], [place], [address], 08/05/2020 11:19:44 08/05/20 20 08/05/2020 urina lysis , dipst ick Unknown Analyte 1.003 - 1.035 Not Available [facility] [address], [place], [address], 08/05/2020 11:19:44 08/05/20 20 08/05/2020 urina lysis , dipst ick Unknown Analyte 6.5 Not Available [facility] [address], [place], [address], 08/05/2020 11:19:44 08/05/20 20 08/05/2020 urina lysis , dipst ick Unknown Analyte 5.0 - 8.0 Not Available [facility] [address], [place], [address], 08/05/2020 11:19:44 08/05/20 20 08/05/2020 urina lysis , dipst ick Unknown Analyte Negati ve Not Available [facility] [address], [place], [address], 08/05/2020 11:19:44 08/05/20 20 08/05/2020 urina lysis , dipst ick Unknown Analyte Negati ve Not Available [facility] [address], [place], [address], 08/05/2020 11:19:44 08/05/20 20 08/05/2020 urina lysis , dipst ick Unknown Analyte Negati ve Not Available [facility] [address], [place], [address], 08/05/2020 11:19:44 08/05/20 20 08/05/2020 urina lysis , dipst ick Unknown Analyte Negati ve Not Available [facility] [address], [place], [address], 08/05/2020 11:19:44 08/05/20 20 08/05/2020 urina lysis , dipst ick Unknown Analyte Negati ve Not Available [facility] [address], [place], [address], 08/05/2020 11:19:44 08/05/20 20 08/05/2020 urina lysis , dipst ick Unknown Analyte Negati ve - Trace Not Available [facility] [address], [place], [address], 08/05/2020 11:19:44 08/05/20 20 08/05/2020 urina lysis , dipst ick Unknown Analyte >1000 mg/dl Not Available [facility] [address], [place], [address], 08/05/2020 11:19:44 08/05/20 20 08/05/2020 urina lysis , dipst ick Unknown Analyte Normal Not Available [facility] [address], [place], [address], 08/05/2020 11:19:44 08/05/20 20 08/05/2020 urina lysis , dipst ick Unknown Analyte 15 mg/dl (Sm) Not Available [facility] [address], [place], [address], 08/05/2020 11:19:44 08/05/20 20 08/05/2020 urina lysis , dipst ick Unknown Analyte Negati ve Not Available [facility] [address], [place], [address], 08/05/2020 11:19:44 08/05/20 20 08/05/2020 urina lysis , dipst ick Unknown Analyte Normal Not Available [facility] [address], [place], [address], 08/05/2020 11:19:44 08/05/20 20 08/05/2020 urina lysis , dipst ick Unknown Analyte Normal - 1mg/dl Not Available [facility] [address], [place], [address], 08/05/2020 11:19:44 08/05/20 20 08/05/2020 urina lysis , dipst ick Unknown Analyte Negati ve Not Available [facility] [address], [place], [address], 08/05/2020 11:19:44 08/05/20 20 08/05/2020 urina lysis , dipst ick Unknown Analyte Negati ve Not Available [facility] [address], [place], [address], 08/05/2020 11:19:44 08/05/20 20 08/05/2020 urina lysis , dipst ick Unknown Analyte Negati ve Not Available [facility] [address], [place], [address], 08/05/2020 11:19:44 08/05/20 20 08/05/2020 urina lysis , dipst ick Unknown Analyte Negati ve Not Available [facility] [address], [place], [address], 08/05/2020 11:19:44 08/05/20 20 08/05/2020 urina lysis , dipst ick Unknown Analyte Clean Catch Not Available [facility] [address], [place], [address], 08/05/2020 11:19:44 08/05/20 20 08/05/2020 urina lysis , dipst ick Unknown Analyte Automa cristine Not Available [facility] [address] [facility] [address], [place], [address], 08/05/2020 11:19:44 Result Notes None recorded. Problems Name Problem SNOMED Code Status Onset Date Resolution Date Notes Provider Name and Address Organization Details Recorded Time Retrograd e amnesia 47250380 Active 2014 From Automated Load;Provi chris: Ruby Castro;Stat us: Active Not Available [facility] 6 09:24:58 Insomnia 631961921 Active 2014 From Automated Load;Provi chris: Ruby Castro;Stat us: Active Not Available [facility] 6 09:24:58 Blood coagulati on disorder 44781834 Active 2014 From Automated Load;Provi chris: Ruby Castro;Stat us: Active Not Available [facility] 6 09:24:58 Disorder of cellular component of blood 219118512 Active 2014 From Automated Load;Provi chris: Ruby Castro;Stat us: Active Not Available [facility] 6 09:24:58 Myoclonus 56650510 Active 2015 From Automated Load;Provi chris: Ruby Castro;Stat us: Active Not Available [facility] 6 09:24:58 Cardiac septal defects 681505043 Active 2015 Provider: Joaquim Tan;Rhett s: Active Not Available [facility] 6 09:24:58 Problem Notes None recorded. Procedures Surgical History Date Name Laterality Status Provider Name and Address Organization Details Recorded Time 6 Heart Surgery completed [facility] 01/05/2017 12:04:55 Heart Surgery completed [facility] 01/05/2017 12:05:10 Heart Surgery completed [facility] 01/05/2017 14:20:35 Other completed [facility] 01/05/2017 14:20:53 Imaging Results None recorded. Procedure Notes None recorded. Medical Equipment None Reported. Allergies No known drug allergies Medications Name Sig Start Date Stop Date Status Note LastModified by Organization Details LastModified Time amoxicill in 500 mg capsule 01/25 completed Not Available Not Available Not Available furosemid e 40 mg tablet TAKE 1 TABLET BY MOUTH ONCE DAILY active Not Available Not Available No t Available neomycin- polymyxin -hydrocor t 3.5 mg/mL-10, 000 unit/mL-1 % ear solution 01/05 completed Not Available Not Available Not Available atorvasta tin 20 mg tablet TAKE 1 TABLET BY MOUTH AT BEDTIME active Not Available Not Available No t Available nadolol 80 mg tablet TAKE 1 TABLET BY MOUTH ONCE DAILY active Not Available Not Available No t Available atorvasta tin 10 mg tablet 07/06 completed Not Available Not Available Not Available azithromy sebastian 250 mg tablet 01/05 completed Not Available Not Available Not Available metoprolo l tartrate 100 mg tablet 07/13 completed Not Available Not Available Not Available levetirac etam 500 mg tablet Take 1 tablet twice a day by oral route. active Not Available Not Available No t Available hydrocodo ne 5 mg-acetam inophen 325 mg tablet 01/05 completed Not Available Not Available Not Available warfarin 7.5 mg tablet TAKE ONE TABLET BY MOUTH ON active Not Available Not Available No t Available lisinopri l 20 mg tablet bid 07/13 completed Not Available Not Available Not Available clonazepa m 0.5 mg tablet TAKE 1 TABLET BY MOUTH TWICE DAILY active Not Available Not Available No t Available carbidopa ER 50 mg-levodo pa 200 mg tablet,ex tended release TAKE 1 TABLET BY MOUTH ONCE DAILY active Not Available Not Available No t Available clonazepa m 1 mg tablet TAKE 1 TABLET BY MOUTH EVERY NIGHT AT BEDTIME active Not Available Not Available No t Available metronida zole 500 mg tablet 01/05 completed Not Available Not Available Not Available clopidogr el 75 mg tablet TAKE 1 TABLET BY MOUTH ONCE DAILY FOR PLATELET AGGREGAT OR active Not Available Not Available No t Available sulfameth oxazole 800 mg-trimet hoprim 160 mg tablet 08/14 completed Not Available Not Available Not Available omeprazol e 40 mg capsule,d elayed release 01/05 completed Not Available Not Available Not Available triamcino lone acetonide 0.1 % topical cream 01/25 completed Not Available Not Available Not Available bisoprolo l fumarate 10 mg tablet active Not Available Not Available Not Available diflunisa l 500 mg tablet TAKE 1 TABLET BY MOUTH TWICE DAILY active Not Available Not Available No t Available verapamil ER 180 mg 24 hr capsule,e xtended release TAKE 1 CAPSULE BY MOUTH TWICE DAILY active Not Available Not Available No t Available potassium chloride ER 20 mEq tablet,ex tended release(p art/cryst ) TAKE 2 TABLETS BY MOUTH ONCE DAILY active Not Available Not Available No t Available tamsulosi n 0.4 mg capsule Take 1 capsule by mouth once daily 2021 active Not Available Not Available Not Avai lable levetirac etam 250 mg tablet TAKE ONE TABLET BY MOUTH TWICE DAILY 08/14 completed Not Available Not Available Not Available OneTouch Ultra Test strips active Not Available Not Available Not Available baclofen 10 mg tablet TAKE ONE TABLET BY MOUTH ONCE DAILY 2020 active Not Available Not Available Not Avai lable benzonata te 100 mg capsule 01/05 completed Not Available Not Available Not Available cephalexi n 500 mg capsule 03/11 completed Not Available Not Available Not Available pantopraz ole 40 mg tablet,de layed release TAKE 1 TABLET BY MOUTH ONCE DAILY active Not Available Not Available No t Available simvastat in 20 mg tablet Take 1 tablet every day by oral route. 01/06 completed Not Available Not Available Not Available erythromy sebastian 5 mg/gram (0.5 %) eye ointment 03/11 completed Not Available Not Available Not Available clotrimaz ole-betam ethasone 1 %-0.05 % topical cream APPLY CREAM TO AFFECTED AREA DIRECTED active Not Available Not Available No t Available lisinopri l 10 mg tablet Two times a day 01/05 completed Not Available Not Available Not Available hyoscyami ne 0.125 mg sublingua l tablet active Not Available Not Available Not Available warfarin 5 mg tablet TAKE ONE TABLET BY MOUTH ONCE DAILY (EXCEPT FOR YS THEN TAKE THE 7.5 MG TABLET) active Not Available Not Available No t Available metoprolo l tartrate 50 mg tablet Two times a day 07/13 completed Frequenc y: bid;Medi cation Descript ion: metoprol ol; Dosage:1 ; Route:or al; refills: 0 Not Available Not Available Not Available Calcium-6 00 600 mg (as calcium carbonate 1,500 mg) tablet Daily active Frequenc y: daily;Me dication Descript ion: calcium carbonat e; Dosage:1 ; Route:or al; refills: 0 Not Available Not Available Not Available nitroglyc linda 0.4 mg sublingua l tablet DISSOLVE ONE TABLET UNDER THE TONGUE EVERY 5 MINUTES NEEDED FOR CHEST PAIN. DO NOT EXCEED A TOTAL OF 3 DOSES IN 15 MINUTES active Not Available Not Available No t Available mupirocin calcium 2 % topical cream 01/05 completed Not Available Not Available Not Available oxybutyni n chloride ER 5 mg tablet,ex tended release 24 hr active Not Available Not Available Not Available K-Dur 10 mEq tablet,ex tended release Daily 01/05 completed Duration : 10 days;Eddie quency: daily;Me dication Descript ion: potassiu m chloride ; Dosage:1 ; Route:or al; refills: 0; Quantity :60 tablet, extended release Not Available Not Available Not Available aspirin 81 mg tablet Daily 03/11 completed Duration : 30 days;Eddie quency: daily;Me dication Descript ion: aspirin; Dosage:1 ; Route:or al; refills: 0; Quantity :30 tablet Not Available Not Available Not Available mupirocin 2 % topical ointment APPLY OINTMENT TOPICALL Y THREE TIMES DAILY active Not Available Not Available No t Available digoxin 125 mcg (0.125 mg) tablet 01/05 completed Not Available Not Available Not Available hydroxych loroquine 200 mg tablet Take 1 tablet twice a day by oral route for 30 days. 08/14 completed Not Available Not Available Not Available methylpre dnisolone 4 mg tablets in a dose pack TAKE DIRECTED FOR 6 DAYS active Not Available Not Available No t Available albuterol sulfate HFA 90 mcg/actua tion aerosol inhaler INHALE 2 PUFFS BY MOUTH 4 TIMES DAILY NEEDED active Not Available Not Available No t Available carbidopa 25 mg-levodo pa 100 mg tablet TAKE 2 TABLET BY MOUTH 4 TIMES DAILY active Not Available Not Available No t Available cefdinir 300 mg capsule 03/11 completed Not Available Not Available Not Available metformin ER 500 mg tablet,ex tended release 24 hr TAKE 2 TABLETS BY MOUTH ONCE DAILY active Not Available Not Available No t Available sulindac 200 mg tablet TAKE 1 TABLET BY MOUTH TWICE DAILY active Not Available Not Available No t Available loratadin e 10 mg tablet Daily active Not Available Not Available Not Available verapamil ER 240 mg 24 hr capsule,e xtended release TAKE 1 CAPSULE BY MOUTH TWICE DAILY active Not Available Not Available No t Available ciclopiro x 0.77 % topical cream active Not Available Not Available Not Available duloxetin e 30 mg capsule,d elayed release TAKE ONE CAPSULE BY MOUTH ONCE DAILY 08/14 completed Not Available Not Available Not Available duloxetin e 60 mg capsule,d elayed release TAKE 1 CAPSULE BY MOUTH ONCE DAILY active Not Available Not Available No t Available magnesium active Not Available Not Anum ilable Not Available melatonin active Not Available Not Anum ilable Not Available potassium chloride Daily 01/05 completed Frequenc y: daily;Me dication Descript ion: potassiu m chloride ; Dosage:1 ; refills: 5; Quantity :30 Not Available Not Available Not Available Vitamin B-12 Daily active Duration : 10 days;Eddie quency: daily;Me dication Descript ion: cyanocob alamin; Route:or al; refills: 0; Quantity :30 tablet Not Available Not Available Not Available Co Q-10 300mg qd 07/06 completed Not Available Not Available Not Available Vitamin D Daily active Frequenc y: daily;Al t Frequenc y: as direct.; Medicati on Descript ion: ergocalc iferol; Dosage:1 ; Route:or al; refills: 0; Quantity :30 Not Available Not Available Not Available hyoscyami ne sulfate 08/14 completed Not Available Not Available Not Available OneTouch Ultra2 Meter kit active Not Available Not Available No t Available quetiapin e 50 mg tablet TAKE 1 TABLET BY MOUTH IN THE EVENING active Not Available Not Available No t Available Symbicort 160 mcg-4.5 mcg/actua tion HFA aerosol inhaler 09/28 completed Medicati on Descript ion: budesoni de-formo terol; Route:in halation ; refills: 0 Not Available Not Available Not Available Symbicort 80 mcg-4.5 mcg/actua tion HFA aerosol inhaler INHALE 2 PUFFS BY MOUTH TWICE DAILY active Not Available Not Available No t Available levocetir izine 5 mg tablet TAKE 1 TABLET BY MOUTH ONCE DAILY IN THE EVENING active Not Available Not Available No t Available diclofena c 1 % topical gel USE DIRECTED TO AFFECTED AREA 4 TIMES DAILY active Not Available Not Available No t Available OneTouch Delica Lancets 33 gauge active Not Available Not Available Not Available Suprep Bowel Prep Kit 17.5 gram-3.13 gram-1.6 gram oral solution 01/25 completed Not Available Not Available Not Available Juaquin-Polyc in 3.5 mg-400 unit-10,0 00 unit/g eye ointment active Not Available Not Available Not Available Myrbetriq 25 mg tablet,ex tended release TAKE 1 TABLET BY MOUTH ONCE DAILY active Not Available Not Available No t Available Linzess 145 mcg capsule TAKE 1 CAPSULE BY MOUTH THREE TIMES A WEEK active Not Available Not Available No t Available Bydureon 2 mg/0.65 mL subcutane ous pen injector INJECT 2 MG SUBCUTAN EOUSLY ONCE A WEEK active Not Available Not Available No t Available Jardiance 10 mg tablet 07/06 completed Not Available Not Available Not Available Jardiance 25 mg tablet TAKE 1 TABLET BY MOUTH ONCE DAILY IN THE MORNING active Not Available Not Available No t Available FreeStyle Nabeel 10 Day Sensor kit active Not Available Not Available Not Available Bydureon BCise 2 mg/0.85 mL subcutane ous auto-inje ctor USE DIRECTED ONCE A WEEK active Not Available Not Available No t Available OneTouch Ultra Blue Test Strip active Not Available Not Available Not Available OneTouch Ultra2 Meter USE TO CHECK GLUCOSE TWICE DAILY OR DIRECTED active Not Available Not Available No t Available Vitals Date Recorded Body height Body mass index (BMI) Body weight Provider Name and Address Organization Details Last Updated DateTime 03/11/2020 187.96 cm 42.5 kg/m2 888695.07 g Romana Greer [facility] 03/11/2020 10:13:08 Date Recorded Body height Body mass index (BMI) Body weight Heart rate Systolic And Diastolic Provider Name and Address Organization Details Last Updated DateTime 04/08/2020 187.96 cm 41.2 kg/m2 874166.1 5 g 82 /min 128/88 mm[Hg] Aysha Peterson [facility] 04/08/2020 10:50:17 Date Recorded Body height Body mass index (BMI) Body weight Heart rate Systolic And Diastolic Provider Name and Address Organization Details Last Updated DateTime 04/08/2021 187.96 cm 40.5 kg/m2 178741 g 80 /min 128/78 mm[Hg] Sarah Dennison [facility] 1 10:52:45 Date Recorded Body height Body mass index (BMI) Body weight Provider Name and Address Organization Details Last Updated DateTime 08/05/2020 187.96 cm 39.8 kg/m2 290330.63 g Licha Redding [facility] 08/05/2020 11:19:25 Date Recorded Body height Body mass index (BMI) Body weight Heart rate Systolic And Diastolic Provider Name and Address Organization Details Last Updated DateTime 08/14/2019 187.96 cm 42.5 kg/m2 135683.0 7 g 80 /min 118/80 mm[Hg] Sarah Dennison [facility] 09:46:15 Social History Question Answer Notes LastModified by Organizat ion Details LastModified Time Tobacco Smoking Status Never Smoker Romana Greer [facility], [facility] 01/05/2017 12:04:07 How Much Tobacco Do You Chew? None [email or web address] Information not available 08/05/2020 Marital Status [email or web address] Informatio n not available 01/05/2017 What Was The Date Of Your Most Recent Tobacco Screening? 01/25/2019 Information n ot available 12/26/2019 How Much Tobacco Do You Smoke? No [email or web address] Information not available 08/05/2020 Sex: Unknown Functional Status Question Answer Note LastModified by Organization D etails LastModified Time What is your level of alcohol consumption? None Information not available 01/05/2017 What is your occupation? DISABLED Information not available 01/05/2017 Mental Status None recorded. Family History Relationship Description Onset Age of this Age Resolved Age Notes LastModified by Organization Details LastModified Time Father Harmful pattern of use of alcohol [email or web address] Not available 2016 12:02:56 Father Diabetes mellitus jkeemle Not available 2016 12:03:16 Father Heart disease jkeemle Not available 2016 12:03:34 Father Hypertensive disorder jkeemle Not available 2016 12:03:50 Maternal Grandmother Alzheimer's disease jkeemle Not available 2016 12:03:05 Brother Diabetes mellitus jkeemle Not available 2016 12:03:16 Brother Heart disease jkeemle Not available 2016 12:03:34 Brother Hypertensive disorder jkeemle Not available 2016 12:03:50 Mother Heart disease jkeemle Not available 2016 12:03:34 Mother Hypertensive disorder jkeemle Not available 2016 12:03:50 Medical History Condition Response Depression Y Arthritis Y Cancer Y High Cholesterol Y Parkinson's Disease Y Neurological Problems Y Hypertension Y Past Encounters Encounter ID Performer Location Encounter Start Date Encounter Closed Date Diagnosis/Indication Diagnosis SNOMED-CT Code Diagnosis ICD10 Code Diagnosis Note [id number] RUBY CASTRO MD NEUROLOGY [facility] [address] [place] [address] 01/05/2017 13:46:41 01/05/2017 15:47:56 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 Insomnia and limb movements of sleep - worsened on baclofen Depression , irritabili ty - suspect related to lack of sleep, chronic heart disease, disability headaches, occipital neuralgia Neuropathy , imbalance, gait instabilit y - Hold Keppra to see if irritabili ty improves - stop morning dose for 2 wks, if nothing changes stop evening dose;- 1 month after off or on stable dose Keppra, hold baclofen in the morning 2 days on, 2 days off to see what it does- continue Sinemet- continue simvistati n, plaquenil, CoQ10, Coumadin, Plavix- agree with cardiopulm onary rehab - continue MVI, vit D, vit B12 - RTC 6m fup CC: Alek Evans MD Myoclonus [id number] G25.3 Insomnia 709260362 G47.0 0 Disorder o f cellular component of blood [id number] D77 Retrograde amnesia 04104 000 R41.2 Parkinsonism 60800786 G2 0 Depressive disorder 3548 9007 F33.8 continue Cymbaltama y consider increasing dose to 90 mg daily in coming months [id number] RUBY CASTRO MD NEUROLOGY [facility] [address] [place] [address] 07/06/2017 11:12:42 07/06/2017 13:26:37 Blood coagulation disorder 45282200 D68.8 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, sluggish mentation, loss of mental agility, staring spells, fatigue Parkinsoni sm with myoclonus, rigidity and postural imbalance, some improvemen t with levodopa CHRISTY on CPAP Continued heart problems, arrhythmia , now s/p pacemaker 10/2016; ablation summer 2015 and now longer having SVTs; CAD 90% LAD s/p stent 08/26/15, Afib, ASD s/p repair; 06/2017 with addition of verapamil for supraventr icular rhythm, consider total ablation and dual pacemaker Insomnia and limb movements of sleep - worsened on baclofen Depression , irritabili ty - suspect related to lack of sleep, chronic heart disease, disability headaches, occipital neuralgia Neuropathy , imbalance, gait instabilit y - pt to ask cardiologi st about plaquenil, if ok to take given his arrhtymia; if ok, recommend he resume; he should be ok to take this once he has full ablation- continue simvastati n, Coumadin, ASA, Plavix- resume CoQ10- agree with cardiopulm onary rehab- continue MVI, vit D, vit B12- continue Sinemet - RTC 6m fup Parkinsonism [id number] G2 0 Parkinsoni sm with rigidity, myoclonus, tremor- continue Sinemet CR 50/200 qam and Sinemet 25/100 2 tabs qid Myoclonus 20901464 G25.3 on Kepprarece nt trial off Keppra with return of myoclonus- continue Keppra 250 mg bid Depressive disorder 3548 9007 F33.8 continue Cymbalta 60 mg daily- will add Cymbalta 30 mg daily for total dose of 90 mg daily Insomnia 186344938 G47.0 0 improvedOS A - continue CPAP- limit baclofen which may have been contributi ng to periodic limb movements of sleep- continue CPAP Retrograde amnesia 97936 000 R41.2 continue management of LAC Spasm 24439243 R25.2 cramps and spasms, improved with magnesium, B-complex, B12 - recommend that he discuss magnesium with cardiologi st and if ok, increase to 400 mg bid- continue B-Complex, B12- taking baclofen 10 mg qam only now to avoid extrapyram idal SE Cardiac arrhythmia 62365 7007 I49.9 considerin g full ablation and pacemaker given recent tachycardi a despite current pacemaker at 75 bpm- currently on verapamil and metoprolol per cardiologi st- recommend that he discuss resumption of Plaquenil and increasing dose of magnesium with cardiologi st. 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, sluggish mentation, loss of mental agility, staring spells, fatigue Parkinsoni sm with myoclonus, rigidity and postural imbalance, some improvemen t with levodopa CHRISTY on CPAP Continued heart problems, arrhythmia , now s/p pacemaker 10/2016; ablation summer 2015 and now longer having SVTs; CAD 90% LAD s/p stent 08/26/15, Afib, ASD s/p repair; 06/2017 with addition of verapamil for supraventr icular rhythm, consider total ablation and dual pacemaker Insomnia and limb movements of sleep - worsened on baclofen Depression , irritabili ty - suspect related to lack of sleep, chronic heart disease, disability headaches, occipital neuralgia Neuropathy , imbalance, gait instabilit y -reduce baclofen to 1/2 tab during the day- pt to ask cardiologi st about plaquenil, if ok to take given his arrhtymia; if ok, recommend he resume; he should be ok to take this once he has full ablation- continue simvastati n, Coumadin, ASA, Plavix- continue CoQ10- agree with cardiopulm onary rehab- continue MVI, vit D, vit B12- continue Sinemet - RTC 6m fup Retrograde amnesia 75281 000 R41.2 continue management of LAC Insomnia 913840294 G47.0 0 improvedOS A - continue CPAP- cutting down to 1/2 tablet on baclofen.- continue CPAP Myoclonus 28092294 G25.3 on Kepprarece nt trial off Keppra with return of myoclonus- continue Keppra 250 mg bid Anxiety 07599382 F41.9 hypersensi tivity to all stimuli, anxious, irritable- cannot exclude as SE of medication s Keppra, baclofen, Cymbalta, Jardiance Trial of Klonopin, trial base during the day to see how he does; he has concerns about taking it at night.-Randal l test CPK, will check to see if they can add it to blood work he had drawn this morning. (Creatine phosphokin ase)-TRISTIAN Thornton reviewed -LTCSA terms discuss and contract signed.RTC 6 wks Irritabili ty and anger [id number] R45.4 as above. 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, sluggish mentation, loss of mental agility, staring spells, fatigue Parkinsoni sm with myoclonus, rigidity and postural imbalance, some improvemen t with levodopa CHRISTY on CPAP Continued heart problems, arrhythmia , now s/p pacemaker 10/2016; ablation summer 2015 and now longer having SVTs; CAD 90% LAD s/p stent 08/26/15, Afib, ASD s/p repair; 06/2017 with addition of verapamil for supraventr icular rhythm, consider total ablation and dual pacemaker Insomnia and limb movements of sleep - worsened on baclofen Depression , irritabili ty - suspect related to lack of sleep, chronic heart disease, disability headaches, occipital neuralgia Neuropathy , imbalance, gait instabilit y - baclofen 1/2 - 1 tab during the day only and avoid qhs which worsened myoclonus- pt to ask cardiologi st about plaquenil, if ok to take given his arrhtymia; if ok, recommend he resume; he should be ok to take this once he has full ablation- continue simvastati n, Coumadin, ASA, Plavix- continue CoQ10- agree with cardiopulm onary rehab- continue MVI, vit D, vit B12- continue Sinemet - RTC 6m fup Retrograde amnesia 97408 000 R41.2 continue management of LAC Insomnia 889797857 G47.0 0 improvedOS A - continue CPAP- cutting down to 1/2 tablet on baclofen.- continue CPAP Myoclonus 03679179 G25.3 on Kepprarece nt trial off Keppra with return of myoclonus- continue Keppra 250 mg bid Headache 90989973 R51 new daily headaches, different than previous headachess uspect these are related to addition of new medication Bydureon for DM- counseled pt on common SE of this medication and recommend that he continue the medication as often SE resolve. I've asked him to journal headaches, symptoms, medication s, tension, BP to see if there are any associatio ns with HAs if headaches worsen, will consider imaging [id number] RUBY CASTRO MD NEUROLOGY [facility] [address] [facility] [address] [facility] [place] [address] 01/06/2018 10:38:58 01/06/2018 13:16:01 Anxiety 98018116 F41.9 hypersensi tivity to all stimuli, anxious, irritable- cannot exclude as SE of medication s Keppra, baclofen, Cymbalta, Jardiance- improved with Klonopin 0.5 mg Continue Klonopin 0.5 mg bid PRN -- currently taking 1 po qam; ok to increase to bid or 2 qam if hypersenit ivity reactions worsen--KA SPER reviewed --LTCSA on file.RTC 6 months Irritabili ty and anger [id number] R45.4 as above; improved with Klonopin Headache 59326980 R51 improvemen t in headaches, no longer daily and now less severe and intermitte nt;suspect this was drug side effect, could be from medication added at the time of onset, Bydureon for DM if headaches worsen, will consider imaging Blood coag ulation disorder 90477135 D68.8 Lupus anticoagul ant syndromeco gnitive decline with memory loss, sluggish mentation, loss of mental agility, staring spells, fatigue, heart disease - for unclear reasons, both simvistati n and Plaquenil have been discontinu ed. The statins and Plaquenil have been found to have antithromb otic properties in antiphospo lipid syndrome, lupus anticoagua nt. - I RECOMMEND that he resume Plaquenil and a statin. Parkinsoni sm with myoclonus, rigidity and postural imbalance, some improvemen t with levodopa Heart problems, arrhythmia , now s/p pacemaker 10/2016; ablation summer 2015 and no longer having SVTs; CAD 90% LAD s/p stent 08/26/15, Afib, ASD s/p repair; 06/2017 with addition of verapamil for supraventr icular rhythm, consider total ablation and dual pacemaker Insomnia and limb movements of sleep - worsened on baclofen; decrease use of baclofen, improved; he has Rx for Klonopin and this would also help; currently taking qam for hypersensi tivity reactions/ anxiety. Depression , irritabili ty - suspect related to poor quality of life, disablity, lack of sleep, chronic heart disease occipital neuralgia, currently in remission Neuropathy , imbalance, gait instabilit y - baclofen 1/2 - 1 tab PRN during the day only and avoid qhs which worsened myoclonus- uncertain why he is off simvastati n;-- ask PCP to monitor lipids. Coumadin, ASA, Plavix- continue CoQ10- continue MVI, vit D, vit B12- continue Sinemet CHRISTY on CPAP - continue CPAP - RTC 6m fup Retrograde amnesia 30673 000 R41.2 continue management of LAC Insomnia 706532853 G47.0 0 improvedOS A - continue CPAP- cutting down to 1/2 tablet on baclofen.- continue CPAP Myoclonus 72103553 G25.3 on Kepprarece nt trial off Keppra with return of myoclonus- continue Keppra 250 mg bid Hallucinations 4356185 R 44.3 visual hallucinat ions of a little girl that comes for visits; she is comforting , he thinks of her as a little jody He is able to understand now that his hallucinat ions are not real. Possibly related to Parkinsoni sm and/or Sinemet SE. 40 min appt with > 50 in counseling regarding hallucinat ions, treatment considerat ions, importance of acknowledg ing not real and avoiding fire arms. Also counseled on tx of APL syndrome. Will inquire into discontinu ation of statin and Plaquenil. [id number] RUBY CASTRO MD NEUROLOGY [facility] [address] [place] [address] 07/13/2018 11:03:33 07/13/2018 15:27:20 Blood coagulation disorder 81526284 D68.8 Lupus anticoagul ant syndromeco gnitive decline with memory loss, sluggish mentation, loss of mental agility, staring spells, fatigue, heart disease - for unclear reasons,Pl aquenil was discontinu ed. The statins and Plaquenil have been found to have antithromb otic properties in antiphospo lipid syndrome, lupus anticoagua nt.I think he would benefit from going to a [facility], such as [facility] or [facility]. -- RECOMMEND he have PCP coordinate a visit to [facility] - recommend that he resume Plaquenil , continue Lipitor. Parkinsoni sm with myoclonus, rigidity and postural imbalance, some improvemen t with levodopa Heart problems, arrhythmia , now s/p pacemaker 10/2016; ablation summer 2015 and no longer having SVTs; CAD 90% LAD s/p stent 08/26/15, Afib, ASD s/p repair; 06/2017 with addition of verapamil for supraventr icular rhythm, consider total ablation and dual pacemaker Insomnia and limb movements of sleep - worsened on baclofen; decrease use of baclofen, improved; he has Rx for Klonopin and this would also help; currently taking qam for hypersensi tivity reactions/ anxiety. Depression , irritabili ty - suspect related to poor quality of life, disablity, lack of sleep, chronic heart disease occipital neuralgia, currently in remission Neuropathy , imbalance, gait instabilit y - baclofen 1/2 - 1 tab PRN during the day only and avoid qhs which worsened myoclonus- uncertain why he is off simvastati n;-- ask PCP to monitor lipids. 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, waxes and wanes; this has been stable since onset; he is no longer driving - continue management of LAC Anxiety 18044236 F41.9 hypersensi tivity to all stimuli, anxious, irritable- cannot exclude as SE of medication s Keppra, baclofen, Cymbalta, Jardiance- improved with Klonopin 0.5 mg Continue Klonopin 0.5 mg bid PRN -- currently taking 1 po qam; ok to increase to bid or 2 qam if hypersenit ivity reactions worsen--KA SPER reviewed --LTCSA on file.RTC 6 months Irritabili ty and anger [id number] R45.4 as above; improved with Klonopin RTC 6 months Headache 48846430 R51 improvemen t in headaches, no longer daily and now less severe and intermitte nt;suspect this was drug side effect, could be from medication added at the time of onset, Bydureon for DM if headaches worsen, will consider imaging Insomnia 333685745 G47.0 0 improvedOS A - continue CPAP- cutting down to 1/2 tablet on baclofen.- continue CPAP Myoclonus 65941504 G25.3 on Kepprarece nt trial off Keppra with return of myoclonus- continue Keppra 250 mg bid Hallucinations 6151020 R 44.3 visual hallucinat ions of a little girl that comes for visits; she is comforting , he thinks of her as a little jody He is able to understand now that his hallucinat ions are not real. Possibly related to Parkinsoni sm and/or Sinemet SE. Parkinsonism 07311590 G2 0 Parkinsoni sm with rigidity, myoclonus, tremor; also with vivid hallucinat ions; he has a little girl that visits him daily -- cannot exclude Lewy Body Disease- continue Sinemet CR 50/200 qam and Sinemet 25/100 2 tabs qid 40 min appt with > 50 in counseling regarding hallucinat ions, treatment considerat ions, importance of acknowledg ing not real and avoiding fire arms. Also counseled on tx of APL syndrome. Will inquire into discontinu ation of statin and Plaquenil. Syncope 567867797 R55 syncope or near syncope occurring now about once a day; sometimes can feel it coming on while seated but no syncope; most often while standing; random; - similar to what he experience d while on loop recorder and found to have missed beats each time - f/u with cardiologi st 07/26/18 as scheduled - cannot exclude due to Parkinsoni sm/autonom ic [id number] RUBY CASTRO MD NEUROLOGY [facility] [address] [place] [address] 01/25/2019 09:23:29 01/25/2019 12:18:10 Retrograde amnesia 76062128 R41.2 both short term and some group home memory issues, waxes and wanes; this has been stable since onset; he is no longer driving - continue management of LAC Blood coag ulation disorder 29165921 D68.8 Lupus anticoagul ant syndromeco gnitive decline with memory loss, sluggish mentation, loss of mental agility, staring spells, fatigue, heart disease - for unclear reasons,Pl aquenil was discontinu ed. The statins and Plaquenil have been found to have antithromb otic properties in antiphospo lipid syndrome, lupus anticoagua nt.I think he would benefit from going to a [facility], such as [facility] or [facility].-- RECOMMEND he have PCP coordinate a visit to [place]- recommend that he resume Plaquenil -- I've explained that this ios for the antiphosph olipid syndrome; also reminded he needs to have regular eye exams and let the doctor know that he is Plaquenil - continue Lipitor. Parkinsoni sm with myoclonus, rigidity and postural imbalance, some improvemen t with levodopa Heart problems, arrhythmia , now s/p pacemaker 10/2016; ablation summer 2015 and no longer having SVTs; CAD 90% LAD s/p stent 08/26/15, Afib, ASD s/p repair; 06/2017 with addition of verapamil for supraventr icular rhythm, consider total ablation and dual pacemaker Insomnia and limb movements of sleep - worsened on baclofen; decrease use of baclofen, improved; he has Rx for Klonopin and this would also help; currently taking qam for hypersensi tivity reactions/ anxiety. Depression , irritabili ty - suspect related to poor quality of life, disablity, lack of sleep, chronic heart disease occipital neuralgia, currently in remission Neuropathy , imbalance, gait instabilit y - baclofen 1/2 - 1 tab PRN during the day only and avoid qhs which worsened myoclonus- uncertain why he is off simvastati n;-- ask PCP to monitor lipids. Coumadin, ASA, Plavix- continue CoQ10- continue MVI, vit D, vit B12- continue Sinemet CHRISTY on CPAP - continue CPAP - RTC 6m fup Myoclonus 37347120 G25.3 on Kepprarece nt trial off Keppra with return of myoclonus- continue Keppra 250 mg bid Anxiety 40029432 F41.9 hypersensi tivity to all stimuli, anxious, irritable- cannot exclude as SE of medication s Keppra, baclofen, Cymbalta, Jardiance- improved with Klonopin 0.5 mg Continue Klonopin 0.5 mg bid PRN -- currently taking 1 po qam; ok to increase to bid or 2 qam if hypersenit ivity reactions worsen--MARIA DOLORES SPENorberto reviewed --LTCSA on file.RTC 6 months Headache 26221222 R51 improvemen t in headaches, no longer daily and now less severe and intermitte nt;suspect this was drug side effect, could be from medication added at the time of onset, Bydureon for DM if headaches worsen, will consider imaging Parkinsonism 27814017 G2 0 Parkinsoni sm with rigidity, myoclonus, tremor; also with vivid hallucinat ions; he has a little girl that visits him daily -- cannot exclude Lewy Body Disease- continue Sinemet CR 50/200 qam and Sinemet 25/100 2 tabs qid Hallucinations 5637904 R 44.3 visual hallucinat ions of a little girl that comes for visits; she is comforting , he thinks of her as a little jody; she now has a little brother He is able to understand now that his hallucinat ions are not real. Possibly related to Parkinsoni sm and/or Sinemet SE. Syncope 474460749 R55 Improving since heart medication changes. syncope or near syncope occurring now about once a day; sometimes can feel it coming on while seated but no syncope; most often while standing; random; - similar to what he experience d while on loop recorder and found to have missed beats each time - f/u with cardiologi st regularly Insomnia 475764845 G47.0 0 improvedOS A - continue CPAP - will request new machine- cutting down to 1/2 tablet on baclofen. Irritabili ty and anger 814916328 R45.4 as above; improved with Klonopin Obstructiv e sleep apnea syndrome 63059568 G47.33 He has new mask and no comparison in the amount of air that delivers with the stores machine versus his machine - will request new machine. 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 Also counseled on tx of APL syndrome, including the plaquenil. He needs to resuem and I've written this for note to his . [id number] RUBY CSATRO MD NEUROLOGY [facility] [address] [place] [address] 08/14/2019 09:36:43 08/14/2019 11:10:57 Myoclonus 02446109 G25.3 on Keppraprev ious trial off Keppra with return of myoclonus- continue Keppra 500 mg bid Blood coag ulation disorder 66248749 D68.8 Lupus anticoagul ant syndromeco gnitive decline with memory loss, sluggish mentation, loss of mental agility, staring spells, fatigue, heart disease - for unclear reasons,Pl aquenil was discontinu ed. WHen he tried to resume, he was intoleratn t to SE. - I would like him to consult with hematology about appropriat e tx. -- The statins and Plaquenil have been found to have antithromb otic properties in antiphospo lipid syndrome, lupus anticoagua nt.- I think he would benefit from going to a [facility], such as [facility] or [facility].-- he does not need a referral- continue Lipitor. Parkinsoni sm with myoclonus, rigidity and postural imbalance, some improvemen t with levodopa Heart problems, arrhythmia , now s/p pacemaker 10/2016; ablation summer 2015 and no longer having SVTs; CAD 90% LAD s/p stent 08/26/15, Afib, ASD s/p repair; 06/2017 with addition of verapamil for supraventr icular rhythm, consider total ablation and dual pacemaker Insomnia and limb movements of sleep - worsened on baclofen; decrease use of baclofen, improved; he has Rx for Klonopin and this would also help; currently taking qam for hypersensi tivity reactions/ anxiety. Depression , irritabili ty - suspect related to poor quality of life, disability , lack of sleep, chronic heart disease occipital neuralgia, currently in remission Neuropathy , imbalance, gait instabilit y - baclofen 1/2 - 1 tab PRN during the day only and avoid qhs which worsened myoclonus- uncertain why he is off simvastati n;-- ask PCP to monitor lipids. Coumadin, ASA, Plavix- continue CoQ10- continue MVI, vit D, vit B12- continue Sinemet CHRISTY on CPAP - continue CPAP - RTC 6m fup Retrograde amnesia 29245 000 R41.2 both short term and some group home memory issues, waxes and wanes; this has been stable since onset; he is no longer driving - continue management of LAC Anxiety 69209987 F41.9 hypersensi tivity to all stimuli, anxious, irritable- cannot exclude as SE of medication s Keppra, baclofen, Cymbalta, Jardiance- improved with Klonopin 0.5 mg Continue Klonopin 0.5 mg bid -- currently taking 1 po qam; ok to increase to bid or 2 qam if hypersenit ivity reactions worsen--MARIA DOLORES SPER reviewed --LTCSA on file.RTC 6 months Headache 67158413 R51 improvemen t in headaches, no longer daily and now less severe and intermitte nt;suspect this was drug side effect, could be from medication added at the time of onset, Bydureon for DM if headaches worsen, will consider imaging Parkinsonism [id number] G2 0 Parkinsoni sm with rigidity, myoclonus, tremor; also with vivid hallucinat ions; he has a little girl that visits him daily -- cannot exclude Lewy Body Disease- continue Sinemet CR 50/200 qam and Sinemet 25/100 2 tabs qid Hallucinations 2572889 R 44.3 visual hallucinat ions of a little girl that comes for visits; she is comforting , he thinks of her as a little jody; she now has a little brother He is able to understand now that his hallucinat ions are not real. Possibly related to Parkinsoni sm and/or Sinemet SE. Cannot exclude Lewy Body Syncope [id number] R55 Improving since heart medication changes. syncope or near syncope occurring now about once a day; sometimes can feel it coming on while seated but no syncope; most often while standing; random; - similar to what he experience d while on loop recorder and found to have missed beats each time - f/u with cardiologi st regularly Recent spells with vision dimming, lightheade d, electric/n umbness in both arms. - having more spells suggestive of presyncope ; no longer on Plaquenil. - will obtain carotid dopplers - sit down or lie down (get your head at the leve of your heart), drink water Insomnia 380205135 G47.0 0 improvedOS A - continue CPAP better since new machine Irritabili ty and anger [id number] R45.4 as above; improved with Klonopin Obstructiv e sleep apnea syndrome 57019666 G47.33 He has new mask and no comparison in the amount of air that delivers with the stores machine versus his machine - will request new machine. Pseudobulbar palsy 53937 00 G12.29 labile mood, crying for no reason - onset late 2017, early 2018 - defer medical management at this time 40 min appt with > 50 in counseling regarding hallucinat ions, Parkinsoni sm, possibly Lewy Body, possibly vascular related to APL syndrome. Recurring presyncopa l spells, now with more freuqent vision loss, L arm shaking -- counseled this is likely hypoperfus ion and to sit/lie down, drink water [id number] RUBY CASTRO MD NEUROLOGY [facility] [address] [place] [address] 03/11/2020 10:10:53 03/11/2020 11:25:54 Myoclonus 26711356 G25.3 on Keppraprev ious trial off Keppra with return of myoclonus- continue Keppra 500 mg bid Blood coag ulation disorder 43823650 D68.8 Lupus anticoagul ant syndromeco gnitive decline with memory loss, sluggish mentation, loss of mental agility, staring spells, fatigue, heart disease - for unclear reasons,Ana M mason was discontinu ed. WHen he tried to resume, he was intoleratn t to SE. - I would like him to consult with hematology about appropriat e tx.-- The statins and Plaquenil have been found to have antithromb otic properties in antiphospo lipid syndrome, lupus anticoagua nt.- I think he would benefit from going to a [facility], such as [facility] or [facility].-- he does not need a referral- continue Lipitor. Parkinsoni sm with myoclonus, rigidity and postural imbalance, some improvemen t with levodopa Heart problems, arrhythmia , now s/p pacemaker 10/2016; ablation summer 2015 and no longer having SVTs; CAD 90% LAD s/p stent 08/26/15, Afib, ASD s/p repair; 06/2017 with addition of verapamil for supraventr icular rhythm, consider total ablation and dual pacemaker Insomnia and limb movements of sleep - worsened on baclofen; decrease use of baclofen, improved; he has Rx for Klonopin and this would also help; currently taking qam for hypersensi tivity reactions/ anxiety. Depression , irritabili ty - suspect related to poor quality of life, disability , lack of sleep, chronic heart disease occipital neuralgia, currently in remission Neuropathy , imbalance, gait instabilit y - baclofen 1/2 - 1 tab PRN during the day only and avoid qhs which worsened myoclonus- uncertain why he is off simvastati n;-- ask PCP to monitor lipids. Coumadin, ASA, Plavix- continue CoQ10- continue MVI, vit D, vit B12- continue Sinemet CHRISTY on CPAP - continue CPAP - next avail appt so he can get full Rx for clonazepam Retrograde amnesia [phone] R41.2 both short term and some group home memory issues, waxes and wanes; this has been stable since onset; he is no longer driving - continue management of LAC Anxiety 42265118 F41.9 hypersensi tivity to all stimuli, anxious, irritable- cannot exclude as SE of medication s Keppra, baclofen, Cymbalta, Jardiance- improved with Klonopin 0.5 mg Continue Klonopin 0.5 mg bid (also for muscle rigidity/m ovement) -- currently taking 1 po qam; ok to increase to bid or 2 qam if hypersenit ivity reactions worsen--[facility] reviewed --LTCSA on file.Next avail inperson appt so he can have 5 refills Headache 16035532 R51 improvemen t in headaches, no longer daily and now less severe and intermitte nt;suspect this was drug side effect, could be from medication added at the time of onset, Bydureon for DM if headaches worsen, will consider imaging Parkinsonism 23451194 G2 0 Parkinsoni sm with rigidity, myoclonus, tremor; also with vivid hallucinat ions; he has a little girl that visits him daily -- cannot exclude Lewy Body Disease- continue Sinemet CR 50/200 qam and Sinemet 25/100 2 tabs qid Hallucinations 2883827 R 44.3 visual hallucinat ions of a little girl that comes for visits; she is comforting , he thinks of her as a little jody; she now has a little brother Now also having brief, snap shots of pictures, like slide show He is able to understand now that his hallucinat ions are not real. Possibly related to Parkinsoni sm and/or Sinemet SE. Cannot exclude Lewy Body Syncope [id number] R55 Improving since heart medication changes. Still having frequent near syncope -- He is to discuss with Dr. Cárdenas. I've also recommende d he find out if his cardiac stents were rapamycin coated. still occurring frequently , daily, multiple times per day; sometimes can feel it coming on while seated but no syncope; most often while standing; - similar to what he experience d while on loop recorder and found to have missed beats each time - f/u with cardiologi st regularly Recent spells with vision dimming, lightheade d, electric/n umbness in both arms. 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 WHen he tried to resume, he was intoleratn t to SE. - I would like him to consult with hematology about appropriat e tx.-- The statins and Plaquenil have been found to have antithromb otic properties in antiphospo lipid syndrome, lupus anticoagua nt.- I think he would benefit from going to a [facility], such as [facility] or [facility].-- he does not need a referral- continue Lipitor. Parkinsoni sm with myoclonus, rigidity and postural imbalance, some improvemen t with levodopa Heart problems, arrhythmia , now s/p pacemaker 10/2016; ablation summer 2015 and no longer having SVTs; CAD 90% LAD s/p stent 08/26/15, Afib, ASD s/p repair; 06/2017 with addition of verapamil for supraventr icular rhythm, consider total ablation and dual pacemaker Insomnia and limb movements of sleep - worsened on baclofen; decrease use of baclofen, improved; he has Rx for Klonopin and this would also help; currently taking qam for hypersensi tivity reactions/ anxiety. Depression , irritabili ty - suspect related to poor quality of life, disability , lack of sleep, chronic heart disease occipital neuralgia, currently in remission Neuropathy , imbalance, gait instabilit y - baclofen 1/2 - 1 tab PRN during the day only and avoid qhs which worsened myoclonus- uncertain why he is off simvastati n;-- ask PCP to monitor lipids. Coumadin, ASA, Plavix- continue CoQ10- continue MVI, vit D, vit B12- continue Sinemet CHRISTY on CPAP - continue CPAP Retrograde amnesia 35960 000 R41.2 both short term and some group home memory issues, waxes and wanes; this has been stable since onset; he is no longer driving - continue management of LAC Anxiety 39542390 F41.9 hypersensi tivity to all stimuli, anxious, irritable- cannot exclude as SE of medication s Keppra, baclofen, Cymbalta, Jardiance- improved with Klonopin 0.5 mg Continue Klonopin 0.5 mg bid (also for muscle rigidity/m ovement) -- Dr. Evans has agreed to take this over Parkinsonism 17940977 G2 0 Parkinsoni sm with rigidity, myoclonus, tremor; also with vivid hallucinat ions; he has a little girl that visits him daily -- cannot exclude Lewy Body Disease- continue Sinemet CR 50/200 qam and Sinemet 25/100 2 tabs qid Hallucinations 1335153 R 44.3 visual hallucinat ions of a little girl that comes for visits; she is comforting , he thinks of her as a little jody; she now has a little brother Now also having brief, snap shots of pictures, like slide show - these are happening most often with the black out spells when standing, suggesting circulatio n related and 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 I've recommende d he have eye/retina l exam. He is able to understand now that his hallucinat ions are not real. Possibly related to Parkinsoni sm and/or Sinemet SE. Cannot exclude Lewy Body Headache 33765506 R51 improvemen t in headaches, no longer daily and now less severe and intermitte nt;suspect this was drug side effect, could be from medication added at the time of onset, Bydureon for DM if headaches worsen, will consider imaging Syncope 607651097 R55 Improving since heart medication changes. Still having frequent near syncope -- He is to discuss with Dr. Cárdenas. Now having frequent near syncope when walking -- will see Dr. Cárdenas in 2 weeks. I also recommend he keep track of spells and keep a journal, record INR with this to see if he is having more spells when INR is low. I've also recommende d he find out if his cardiac stents were rapamycin coated. still occurring frequently , daily, multiple times per day; sometimes can feel it coming on while seated but no syncope; most often while standing; - similar to what he experience d while on loop recorder and found to have missed beats each time - f/u with cardiologi st regularly Recent spells with vision dimming, lightheade d, electric/n umbness in both arms. Insomnia 554937822 G47.0 0 improvedOS A - continue CPAP better since new machine Obstructiv e sleep apnea syndrome 91368595 G47.33 He has new mask and no comparison in the amount of air that delivers with the stores machine versus his machine Now has new machine and wearing CPAP qhs 40+ min appt wth greater than 50% in counseling Parkinson's disease 4904 9000 G20 [id number] FELIX HAWTHORNE MD [facility] [address] [facility] [address] [facility] [place] [address] 08/05/2020 10:24:35 08/05/2020 11:52:39 Benign prostatic hyperplasia with outflow obstruction [id number] N40.1 continue tamsulosin once daily and oxybutynin chloride extended release 5 mg follow-up 1 year [id number] RUBY CASTRO MD NEUROLOGY [facility] [address] [place] [address] 04/08/2021 10:01:44 04/08/2021 12:42:40 Myoclonus 44337783 G25.3 on Keppra previous trial off Keppra with return of myoclonus - continue Keppra 500 mg bid -- tried to come off and he was worse coming off, but not sure what was worse - also improved with Sinemet Blood coag ulation disorder 34111034 D68.8 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, sluggish mentation, loss of mental agility, staring spells, fatigue, heart disease, fluctuatin g mentation - for unclear reasons,Ana M mason was discontinu ed. When he tried to resume, he was intolerant to SE. - I would like him to consult with hematology about appropriat e tx. - would he be better off on one of the new anticoagul ants that doesn't require monitoring - such as Eliquis; cannot keep steady INR with warfarin. -- The statins and Plaquenil have been found to have antithromb otic properties in antiphospo lipid syndrome, lupus anticoagua nt. --- now off Plaquenil; still on a statin - consider Rituxan - I think he would benefit from going to a [facility], such as [facility] or [facility]. -- he does not need a referral - continue Lipitor. Parkinsoni sm with myoclonus, rigidity and postural imbalance, improvemen t with levodopa Heart problems, arrhythmia , now s/p pacemaker 10/2016; ablation summer 2015 and no longer having SVTs; CAD 90% LAD s/p stent 08/26/15, Afib, ASD s/p repair; 06/2017 with addition of verapamil for supraventr icular rhythm, then cardiac stents x 09 May 2020; consider total ablation and dual pacemaker Insomnia and limb movements of sleep - worsened on baclofen; decrease use of baclofen, improved; he has Rx for Klonopin and this would also help; currently taking qam for hypersensi tivity reactions/ anxiety. Depression , irritabili ty - suspect related to poor quality of life, disability , lack of sleep, chronic heart disease occipital neuralgia, currently in remission Neuropathy , imbalance, gait instabilit y --- avoid ladders, heights, any area without cane, walking stick or nearby wall - baclofen 1/2 - 1 tab PRN during the day only and avoid qhs which worsened myoclonus -- ask PCP to monitor lipids. Coumadin, ASA, Plavix - continue CoQ10 - continue MVI, vit D, vit B12 - continue Sinemet CHRISTY on CPAP - continue CPAP Anxiety 03003836 F41.9 hypersensi tivity to all stimuli, anxious, irritable - cannot exclude as SE of medication s Keppra, baclofen, Cymbalta, Jardiance - improved with Klonopin 0.5 mg Continue Klonopin 0.5 mg bid (also for muscle rigidity/m ovement) -- per Dr. Evans Parkinsonism 37180549 G2 0 Parkinsoni sm with rigidity, myoclonus, tremor; also with vivid hallucinat ions; he has a little girl that visits him daily -- cannot exclude Lewy Body Disease tremor, worse L hand; inside shaking, some difficulty swallowing , choked, strangled regularly on anything. No drooling. No fluctuatio ns with current dose Sinemet - continue Sinemet CR 50/200 qam and Sinemet 25/100 2 tabs qid Syncope [id number] R55 Improving since heart medication changes. Still having frequent near syncope -- He is to discuss with Dr. Cárdenas. Still having frequent near syncope when walking -- will see Dr. Cárdenas w/in the month. I also recommend he keep track of spells and keep a journal, record INR with this to see if he is having more spells when INR is low. Also, ask his opinion about anticoagul ant Eliquis or Xarelto verus warfarin - this decision may need to be considered by hematology , but would be good to review with cardiologi sst. I've also recommende d he find out if his cardiac stents were rapamycin coated. still occurring frequently , daily, multiple times per day; sometimes can feel it coming on while seated but no syncope; most often while standing; - similar to what he experience d while on loop recorder and found to have missed beats each time - f/u with cardiologi st regularly Frequent spells with vision dimming, lightheade d, electric/n umbness in both arms. 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 I've recommende d he have eye/retina l exam. He is able to understand now that his hallucinat ions are not real. Possibly related to Parkinsoni sm and/or Sinemet SE. Cannot exclude Lewy Body Headache 44764849 R51.9 improvemen t in headaches, no longer daily and now less severe and intermitte nt;suspect this was drug side effect, could be from medication added at the time of onset, Bydureon for DM if headaches worsen, will consider imaging Obstructiv e sleep apnea syndrome 94439638 G47.33 He has new mask and no comparison in the amount of air that delivers with the stores machine versus his machine Now has new machine and wearing CPAP qhs 50 min face-to-fa ce visit 25 min evaluation 15 min counseling 10 min documentat ion Memory impairment 407001 006 R41.3 both short term and some group home memory issues, waxes and wanes; this has been stable since onset; he is no longer driving - continue management of LAC Health Concerns Section Related Observation LastModified by Organization Detai ls LastModified Time None Recorded Concern Status LastModified by Organization Details LastModified Time None Recorded Advance Directives Directive None Recorded Payers Insurance Date Sequence Insurance Name Policy Number Policy Dominguez Covered Member ID Dominguez Member ID Guarantor Name 11/17/2023 1 [employer] (MEDICARE) Nghia Hawthorne [id number] 2 Nghia Hawthorne 04/10/2022 2 [place] [id number] Nghia Hawthorne [id number] Nghia Hawthorne 10/02/2020 1 [employer] (MEDICARE) Nghia Hawthorne [id number] Nghia Hawthorne Notes Date Note Type Note Provider Name and Address Organization Details Recorded Time 08/14/2019 text/html f/u LAC syndrome His is with him today and assists with history. He is off the Plaquenil. I sent in Rx and he tried back on it but he couldn't tolerate it. He was spaced out and could not even manage to go to the bathroom. He remembers thinking that if the plaquenil is causing it, he would rather have a blood clot. He is not sure how long he was back on it, but he held it for a couple days, that cleared up, then he started it back and these symptoms recurred so he just stopped it. He doesn't remember having these symptoms before when he was on Plaquenil. He was at most only back on it for a few weeks. He is not sure when last visit if ever he saw hematology. He has been having spells that start with electrical shocks in both arms/ not shooting, just there, used to be just numbness, now feels electrical. Then he will have left sided shaking, can't control his left hand, sometimes it hits and will let of, hits and will let off, but when it stays with him, his vision, get dim and spotty and he can't see. It feels like he is going to pass out. He is all but gone, sometimes he goes down. He has lost consciousness a couple times. These spells have been ongoing now for years but are getting worst. For the past few days he will go to reach for something but the object he is reaching for will blend in with the background and it's gone, It may take a few minutes, then it will come back. When he has one of these spells it wears him out for the rest of the day. They never occur when lying down, just a little bit, but not full when sitting. says 100% of the time he is walking when they occur. Dr. Cárdenas seems pretty sure that it is not his heart. He has been having some problems in the bathroom, not remembering what to do. He needed to go really bad and couldn't figure out what to do. Hwe forgot to take his pants down. He remembers standing there, trying to figure out what he needed to do to urinate, but it just didn't make sense. He never went to [facility]. It was winter time, and he wasn't going to go them. Then in the summer, he thought about it and would forget about it. Heart rise, cardiology said he is doing pretty good. He has a surge in something once a day and they double a medicine but he thinks it has gotten worse since then. When he gets tired his BP drops 90/50. He kept up with BP for about 3-4 weeks before last visit with Dr. Cárdenas and it goes up and down but nothing super major, as low as 90/50, or as high asw 150/85-90. He as ok with it. INR is like a roller coaster - 1.5 to 3.9 w/in a week, no idea why. His goal is to maintain 2.5 - 3.5. Most of the time it is in that range. He is on warfarin, ASA 81 mg and Plavix. No blood clots DVTs since the first of the year. Last carotid dopplers was at time of his last ECHO, he thinks about a year ago. All of his EKGs are abnormal, but normal for him. Still on CPAP, got a new one and it is much better. Sleep is better. It's stronger. adds that clonazepam is now BID and it has helped with anxiety quit a bit. Leg cramps are better. He recently had xrays checked of his knees and told they are both shot and they are afraid to do surgery, so he is having shots every few months. He thinks his left one is numb enough not to hurt. He still has the hallucination of the little girl that visits him. She now has a little sister, before it was a brother. She is not getting any older. The last hallucination that is coming to him is his grandpa, someone telling he is alive, had been hidden for all these years and he has come back, seems to real, but he didn't even get to see him. Memory issues come and go. Sometimes he doesn't know the names of any of the kids at the [facility], other times he does. RUBY CASTRO MD [address] [place], [address], [facility] 08/14/2019 11:02:27 03/11/2020 text/html f/u LAC syndrome The patient has requested and consented to a tele-adria appointment today. Due to the current state of emergency it is appropriate to address patient s medical need via a telehealth appointment. Hasn't been walking well for the past couple weeks, had had a couple falls this past week, thinks he just lost balance. Not sure exactly what happened. He has a quad cane and it helps with getting up and down but it is just aggravated when he uses it. He also had a walker, uses it mostly when he is out. Still dealing also with frequent near syncope, almost constantly there. Last appt with Dr. Cárdenas has been moved back because of the virus. He uploaded pacemaker info for him last week. He has had cardiac stents, it's been 2-3 years since last stent and not sure what type of stents. He stopped Plaquenil, it was driving him crazy for some reason. His says he gets spaced out. He hasn't taken it for a while - at least several months, if not more than a year. He doesn't act like he is spaced out since he stopped it. He is still having hallucinations. He gets snap shots that he sees. An image lasts just a second, like a slide shot. The little girl still comes around. He also either hears her voice, or it's there - both visual and auditory. He is still just at slow moving as ever. His left hand sometimes gets completely out of control. He can almost always tell he is getting ready to go down when his left hand just gets out of control. Sometimes, he can hold onto something, and it will cause the shaking sensation all the way up his arm. He is still taking Sinemet, keeps it scheduled or he can really tell it. José Miguel messed the Rx up and he turned into a complete mess - crying, looked like he was going to have a nervous break down. They pulled an old Rx, didn't give him the right amount, so just lower dose for a few days. His adds a few details. He was mad last night, and he thinks this may be because he has been out of clonazepam. His Rx had run out and he had been out of it for a few days. He felt pretty odd for a few days off of it. He can't go into stores or any place without a cart. INR is still up and down, out of control since and he doesn't know why. It's not his diet. They checked it one week , too thick, as if he wasn't even taking coumadin, then in 2 days, it was too thin. They have changed his dose many times since . He has next appt Thursday. They haven't tried anything other than Coumadin. (Has not tried Eliquis or Xarelto). He sees DANIEL Mclean. It's been a long time since he saw a hematology. He doesn't remember seeing one. BP has been running pretty good, mostly in the low 120s/70-80s. HR has been staying pretty decent in the 70s. He still has SOB all the time, just going out to feed the dog. Sometimes just taking a shower is a task. Wearing CPAP every night and has new machine. Last Rx for clonazepam was 01/30/2020 per JESUS. Headaches now just occasional, short lived and not really bad. He had been having some pain in his stomach, had scan. They thought it was from pulling a muscle. They found 2 cysts on his kidney. RUBY CASTRO MD [facility] [place], [address], [facility] 03/11/2020 11:22:00 04/08/2020 text/html f/u LAC syndrome He is still having the symptoms of near syncope, almost always when he is walking. He goes in and out, vision goes black, feels like he is going to pass out or he may go away for a split second and sometimes he goes down. He has fallen a couple times. He can usually get himself down or find something to hold to, but his left hand will give way and if holding something he will spill it or shake. This has been ongoing for a couple years, but increasing just trying to walk through the house over the past couple month - sometimes 3-4 times per day, sometimes just once a day. INR has been up and down a lot, won't stay stable. It had been good for years. It doesn't seem to be diet changes, so he is not sure why. He sees DANIEL Mclean about INR. He saw Dr. Evans last week and they repeated it, and it was close, maybe 3.6. There have been a time or two, it didn't look like he was taking a blood thinner. It can be just a day or 2 going from too thick to too thin. He has f/u in [address] Gresham wants to do surgery on his right knee. He has seen dentist, has to see Dr. Cárdenas. Both knees are shot. His left is weak and goes out from under him at time, but no pain. In the right knee, the pain is nagging. His biggest problem is getting up. He has had the Lovenox shots in the past to bridge for heart surgery, open heart surgery, stents, ablations. Last EF was 35 to 40%. Off Plaquenil, which stopped the spaced out spells. He is still taking Sinemet both ER and IR, scheduled or he can really tell it. BP has been running pretty good, mostly in the low 120s/70-80s. HR has been staying pretty decent in the 70s. He still has SOB all the time, just going out to feed the dog. Sometimes just taking a shower is a task. Wearing CPAP every night and has new machine. Last Rx for clonazepam was 03/11/2020 per JESUS. He discussed this with Dr. Evans and he will take over this Rx. He is still having hallucinations. These new type snap shot images. An image lasts just a second, like a slide shot. He has little picture shot images he sees often too, like an image is there, he can focus on, then it's gone. I wonder if that isn't related to his retina. These happen most often when he is standing or with the black out type spells. He also wonders about peripheral vision movements, like something dark just flashing by. They are like shadows. He will look and there is nothing there. Like something just passed by, usually down low. That happens when sitting. The little girl still comes around a lot. He also either hears her voice, or it's there - both visual and auditory. He is taking B12 daily. He takes 2 elderberry multivitamins, vit D, B12 and not sure what else. THey got the pool open and he does so much better when he is in the pool. It's hard to get out of it, because the weightlessnes in the pool is so great. Headaches are just every now and then, and only last a few seconds, then gone. Memory is still an issue. He gets to see new things a lot even though his will say it's been there forever. He has started taking pictures of birds. He has a camera and tripod and spends a lot of time on the back porch. He has a MC2 bird book. He has a [employer] 1000 and he has taken some amazing bird, and josé pictures. RUBY CASTRO MD [facility] [place], [address], [facility] 04/08/2020 12:10:41 08/05/2020 text/html patient is here previously followed at [facility]. He was last seen in June 2019. He has a long history of obstructive urinary symptoms. He also has a long cardiac history. He takes tamsulosin once per day as well as oxybutynin chloride extended release 5 mg. He does occasionally have an episode of urgency incontinence without warning. Typically however he has nocturia 1-2. Overall he feels he is doing some better. We had previously discussed cystoscopy. He continues to take anticoagulants and actually had 3 cardiac stents placed earlier this summer. He is unsure regarding recent PSAs. He has an appointment with his PCP next week and I suggest we obtain a PSA at that time. He will continue with current medical therapy and contact me when he needs refills. FELIX HAWTHORNE MD [facility] [place], [address], [facility] 08/05/2020 20:55:56 04/08/2021 text/html f/u LAC syndrome Since his last visit, he thinks he has had 2 more cardiac stents and had COVID and it took a long time before he could get rid of it, finallay tested negative in Jul. He thinks it must have been in May. He has learned to lie down and roll for things he can't do standing up. For example, while doing gardening, he will lie down and roll. He fell just a couple days ago and the walker handle hit him the chest. He has learned that a cane and walker hinder him and he does best if he uses a walking stick about his height, less injuries from the assistive device with walking stick. He is having more longo or black out, kind of goes blind. He can see the door but struggles with trying to get there. Other times, it is nothing. He fell straight backwards a couple months ago and his the back of his head. That was the last fall that he had and he remembers the feeling of no control, couldn't do anything to stop it. He had lost his vision, was trying to work his way on his own going into a store. Next thing he knew, he was down on the ground on blacktop. A few days he and his went shopping and he tried to go into a store. He struggled and finally decided he couldn't get there, and when he turned around to go back to the car, he found he was right at the car, hadn't made it anywhere. He demonstrated with my mouse, he will reach over to get it, then when his hand approaches, the mouse may disappear and he will have to wait until his vision comes back to get to the mouse. He has had a few episodes of losing total control of his body, including his bowels. He is adapting, has benches and chairs everywhere including out next to his rabbit. He has tools, was working bandsaw, was pushing it forward, could tell he was going to hit his hand to the blade and he didn't stop. He hit a tree, a gait post with his tractor. He is still having complete passing out spells as well. He knows he has to keep trying to do something. The shadows he sees off to the side, he knows aren't real, but they still spook him sometimes. He has learned that the best way to deal with all of these problems is to laugh about it. He is starting to have problems using a computer. It comes and goes. Some days no problems at all, other days, he can't seem to figure out anything about how to use it. He is bad about his medicine - boxes for morning, boxes for night and he still sometimes forgets to take it. He is still having difficulty sleeping, last week from Wednesday through - one full night and the next night. That happens every now and then -- worse when he gets stressed on things, doesn't know how to deal with it anymore and wants to go hide. He had to soften himself up a lot. His blood will go 2-3 weeks too thick and then 2-3 weeks too thin, like a roller coaster. He can't figure out why. He avoids the foods he is not supposed to eat. His diet doesn't change a whole lot. He hasn't had INR checked for a few weeks now b/c of minor surgeries, last check his blood was too thick so they did 4 little minor surgeries. They recently changed his arthritis medicine, couldn't get the old one. Looks like the new one is sulindac. He can usually feel the L hand closing up, making a fist, more often in the left hand. He can feel that coming on and he will just start opening, closing the hand. He goes to [employer] every Wednesday morning, then 4 pm Wednesday evenings. This past Wednesday, the second he got out of the truck he could feel loss of control. The little girl still talks to him everyday. She talks to him. He little granddaughter visited yesterday, was face timing with grandrichie told her she was out in the [facility], when she was in the backyard. He is taking same vitamins B12, vit D. He has been forgetting the elderberry lately. He tried to get off Keppra before and he couldn't handle it. Now rarely having the shoulder or limb jerks like he used to, thinks better since Sinemet, which he takes 2-3 times per day, mornings, twice during the day, and nighttime -- he thinks 9 of them a day. Elvie takes care of meds. There has been a time or two when he ran out of Sinemet and he could really tell it, does'n't remember what. He doesn't noticed flucturations during the day that he can attribute to Sinemet. He is having some difficulty swallowing, choked, strangled regularly on anything. Dr. Cárdenas's staff have told him that they have 2 patients that this has happened to - similar to Nghia's presentation. He had something in the left side of his head that moved. It was there for a while, then it seems to move, parietal area and now feels like it has cleared, around [place] time. Memory is still an issue. Comes and goes. Sometimes he is fine, sometimes he can't tell me what the kids names are. He is still on a statin, for a while there was some confusion and they had him on 2 statins, but now just one, not sure which. No longer taking aspirin, still on Plavix in addition to the Coumadin. Last spring/summer he intended to go to [facility] for comprehensive evaluation but COVID took that out of the picture. He has noticed that when he looks in a mirror, his eyes are pale blue. Diabetes much better controlled, HbA1C has been 6.1% for over a year now. Took forever. He has lost some weight, but stuck now. Still taking clonazepam per Dr. Evans, not sure how often he takes it. Also takes baclofen, but now sure how often. Mood has been ok. He has had to make himself deal with it. RUBY CASTRO MD [address] [place], [address], [facility] 04/08/2021 12:40:03
--- OUTSIDE RECORDS SUMMARY | 2025-05-25 10:18 | XMS_ITS | Clinical Summary ---
Author Organization [employer] ([place], [place], [place], [place]) Address [address] [place] [address] Care Team Providers Care Equities Analyst Name Role Phone Unavailable Primary Care Provider Unavailabl e Social History Tobacco Use Types Packs/Day Years Used Date Smoking Tobacco: Never Assessed Food Insecurity Answer Date Recorded Food run [...] on file 08/29 Educational Attainment Answer Date Juna R rded Speak language other than Malagasy at home Not on file 08/29/2024 Want help with school or training Not on file 08/29/2024 Substance Use Answer Date Recorded Used prescription [...] (Zoster) (1 of 2) 2011 COVID-19 VACCINE ( season) 07/09/202405/2021, 02/14/2021 Influenza Vaccine (#1) 2025 Respiratory Syncytial Virus (RSV) Adult or (1 - 1-dose 75+ series) 2036 Insurance BLUE CROSS/BLUE SHIELD MEDICARE PART A B
--- OUTSIDE RECORDS SUMMARY | 2025-05-25 10:18 | XMS_ITS | Encounter Summary ---
Author Organization Healthcare Address [address] [place] [address] Care Team Providers Care Setter Up Name Role Phone Pcp, No Primary Care Provider Unavailabl e Encounter Details Date Type Department Care Team ([facility] st Contact Info) Description 01/22/2011 Orders Only External Location [address] [place] [address] Provider, External Social History Tobacco Use Types [...] on filedocumented in this encounter Care Teams Setter Up Relationship Specialty Start Date End Date Pcp, No [address] [place] [address] PCP - General Family Medicine 01/22/23 documented as of this encounter
--- OUTSIDE RECORDS SUMMARY | 2025-05-25 10:19 | XMS_ITS | Referral Summary ---
Author Organization [employer] ([place], [place], [place], [place]) Address [address] [place] [address] Care Team Providers Care Cost Accounting Clerk Name Role Phone Unavailable Primary Care Provider [...] Juan R rded Speak language other than Mexican at home Not on file 08/29/2024 Want [...] Plan of Treatment Not [place] [address] [id number] BLUE CROSS/BLUE SHIELD MEDICARE PART A B
--- OUTSIDE RECORDS SUMMARY | 2025-05-25 10:19 | XMS_ITS | Encounter Summary ---
Author Organization [place] [address] Care Team Providers Care Fence Supervisor Name Role Phone Norberto Miller Primary Care Provider [phone] Encounter Details Date Type Department Care Team (Late st Contact Info) Description 04/29/2016 Orders Only [facility] [address] [place] [id number] Andrea Schmid MD [address] [place] [address] Social History Tobacco Use Types Packs/Day Years [...] Schmid MD CARDIAC CATH ORDERABLES Final Result [facility] [address] [place] [address] documented in this encounter Visit Diagnoses Not on filedocumented in this encounter Care Teams Fence Supervisor Relationship Specialty Start Date End Date Norberto Miller [address] [facility] [address] [place] [id number] PCP - General Family Medicine 03/04/16 documented as of this encounter
--- OUTSIDE RECORDS SUMMARY | 2025-05-25 10:19 | XMS_ITS | Encounter Summary ---
Author Organization [employer] ([place], [place], [place], [place]) Address [address] [place] [address] Care Team Providers Care General Foundry Worker Name Role Phone Unavailable Primary Care Provider Unavailabl e Encounter Details Date Type Department Care Team (Late st Contact Info) Description 08/28/[address] [facility] ([place], [place]) Central Scheduling [address] [place] [address] Livia Do [address] [place] [address] Memory loss (Primary Dx); Movement [...] Juan R rded Speak language other than [place] Citizen at home Not on file 08/29/2024 Want [...]
--- OUTSIDE RECORDS SUMMARY | 2025-05-25 10:19 | XMS_ITS | Clinical Summary ---
Author Organization [facility] Address [address] [facility] [address] [place] [address] Phone Care Team Providers Care Painter Touch Up Name Role Phone Norberto Miller Primary Care Provider [phone] Allergies No known active allergies Medications carbidopa-levod [...] of breath Obstructive sleep apnea cpap Hypertension NM (myocardial infarction) (HCC) Atrial flutter (HCC) Hiatal [...] - 2023-2 5 season) 2024 Influenza Vaccine (#1) 2025 Colon Cancer Screening 04/03/2026 Colonoscopy 04/03/2026 04/03/2016 (Postponed) Hepatitis B Vaccine Aged Out No longe r eligible based on patient's age to complete this topic Meningococcal B Vaccine Aged Out No l onger eligible based on patient's age to complete this topic Medical Devices Implanted Type Area Rn Lpn Lvn Device Identifier Shelf Expiration Date Model / Serial / Lot Cardiac Stent Medtronic Linq Ilr Implanted:Qty: 1 on 09/06/2015 [employer] [id number] / [id number] / Insurance MEDICARE [place] PART A AND B [facility] [place] PART A AND B PPO Care Teams Painter Touch Up Relationship Specialty Start Date End Date Norberto Miller [facility] [address] [place] [id number] PCP - General Family Medicine 03/04/16
--- OUTSIDE RECORDS SUMMARY | 2025-05-25 10:19 | XMS_ITS | Patient Health Record ---
[facility] Organization [facility] Address [address] [facility] [address] [place] [id number] Care Team Providers Care Upholsterer Outside Name Role Phone Norberto Miller Primary Care Provider Khushboo Gamble Unavailable [phone] Go Matt Unavailable [phone] Jo Ellison Unavailable [phone] Allergies No Known Allergies Results Component Value Reference Range Notes PT/INR (in house) Reviewed date:05/03/2025 10:12:09 AM Interpretation:4.4 Performing Lab: Notes/Report: 4.4 PT 52.2 INR 4.4 current dose 7.5 mg daily new dose Hold today, 5mg F, 7.5mg AOD next check 1 week Warfarin indication afib ideal INR 2.5-3.5 PT/INR (in house) (Not yet r eviewed by provider) Interpretation: Performing Lab: Notes/Report: PT 32.9 INR 2.7 current dose 5mg wednesday and 7.5 aod new dose same next check 4 weeks P-TSH reflex to FT4 Reviewed date:08/14/2024 04:21:29 PM Interpretation:Normal Performing Lab: Notes/Report: Test performed by [facility] [address] [place] [address] , [address], [place] [address] Michael Hung MD, Registered Mail Clerk CLIA: [id number] TSH reflex to FT4 2.70 0.43-5.25 mU/L P-Vitamin D 25-Hydroxy Reviewed date:08/14/2024 04:21:29 PM Interpretation:Normal Performing Lab: Notes/Report: Test performed by [facility] [address] [place] [address] , [address], [place] [address] Michael Hung MD, Registered Mail Clerk CLIA: [id number] Vitamin D 25-Hydroxy 52.8 30.0-100.0 ng/mL Interpretation of Vitamin D 25 OH: < 20 ng/mL - Deficiency 20 - 29 ng/mL - Insufficiency 30 - 100 ng/mL - Sufficiency > 100 ng/mL - Super-therapeutic- toxicity may occur above this level. Clinical correlation required. PT/INR (in house) Reviewed date:08/25/2024 01:19:21 PM Interpretation:5.8 Performing Lab: Notes/Report: 5.8 PT 70.1 INR 5.8 current dose 5 mg MWF & 7.5 mg AOD new dose Hold today and tomorrow, then 7.5mg MWF and 5mg AOD next check 1 week Warfarin indication afib/PE ideal INR 2.5-3.5 P-Magnesium Reviewed date:03/22/2025 03:46:24 PM Interpretation: Performing Lab: Notes/Report: Test performed by [facility] [address] [place] [address] , [address], [place] [address] Michael Hung MD, Registered Mail Clerk CLIA: [id number] Magnesium 2.3 1.6-2.4 mg/dL P-TSH reflex to FT4 Reviewed date:03/22/2025 03:46:04 PM Interpretation: Performing Lab: Notes/Report: Test performed by [facility] [address] [place] [address] , [address], [place] [address] Michael Hung MD, Registered Mail Clerk CLIA: [id number] TSH reflex to FT4 2.67 0.43-5.25 mU/L P-Comprehensive Metabolic Pa juanjose ([facility]) Reviewed date:03/22/2025 03:46:15 PM Interpretation: Performing Lab: Notes/Report: Test performed by [facility] [address] [place] [address] , [address], [place] [address] Michael Hung MD, Registered Mail Clerk CLIA: [id number] Sodium 139 135-145 mmol/L Potassium 5.0 3.5-5.3 mmol/L Chloride 103 97-108 mmol/L CO2 24 22-32 mmol/L Glucose 93 65-99 mg/dL BUN 28 8-23 mg/dL Creatinine 1.28 0.70-1.30 mg/dL Calcium 9.1 8.6-10.4 mg/dL eGFR by Creatinine 63 >59 mL/min/1.73m2 Protein 6.6 6.0-8.3 g/dL Albumin 4.1 3.5-5.3 g/dL Alkaline Phosphatase 80 40-129 IU/L ALT (SGPT) 18 <5-55 IU/L AST (SGOT) 15 <5-46 IU/L Bilirubin, Total 0.5 <0.2-1.2 mg/dL A/G Ratio 1.6 1.1-2.5 PT/INR (in house) Reviewed date:03/22/2025 02:59:14 PM Interpretation: Performing Lab: Notes/Report: PT 18.4 INR 1.5 current dose 5mg M and 7.5mg AOD new dose 7.5mg daily next check 1 week Warfarin indication afib ideal INR 2.5-3.5 Covid test (in house) Reviewed date:11/29/2024 04:12:40 PM Interpretation: Performing Lab: Notes/Report: Result: Neg CBC Fingerstick (in house) Reviewed date:11/29/2024 04:12:31 PM Interpretation: Performing Lab: Notes/Report: wbc 7.1 3.5 - 10 lym 15.4% 15 - 50 mid 4.5% 2 - 15 gran 80.1% 35 - 80 rbc 5.12 3.5 - 5.5 hgb 14.6 11.5 - 16.5 hct 43.6 35 - 55 mcv 85.2 75 - 100 mch 28.5 25 - 35 mchc 33.4 31 - 38 plat 160 100 - 400 PT/INR (in house) Reviewed date:06/22/2024 12:56:55 PM Interpretation: Performing Lab: Notes/Report: INR 1.5 current dose 7.5mg W; 5mg AOD new dose 7.5mg W,F and 5mg AOD next check 1 week Warfarin indication afib/PE ideal INR 2.5-3.5 PT/INR (in house) Reviewed date:07/14/2024 01:01:01 PM Interpretation: Performing Lab: Notes/Report: PT 30.7 INR 2.6 current dose 7.5 mg MWF, 5 mg AOD new dose same next check 4 weeks Warfarin indication afib/PE ideal INR 2.5-3.5 CBC Fingerstick (in house) Reviewed date:07/16/2024 10:27:23 [...] - 38 plat 161 100 - 400 P-Lipid Panel Reviewed date:08/14/2024 04:21:29 PM Interpretation:Normal Performing Lab: Notes/Report: Test performed by [facility], [address] , [address], [place] [address] Michael Hung MD, Registered Mail Clerk CLIA: [id number] Cholesterol 136 <200 mg/dL Triglycerides 102 <150 [...] ATPIII guidelines LDL/HDL Ratio 1.3 <3.3 Ratio LDL Cholesterol Patient History Test Date: 04/21/2023 LDL Results: 88 Units: mg/dL % Change: - Test Date: 08/11/2024 LDL Results: 65 Units: mg/dL % Change: -26% P-Comprehensive Metabolic Pa juanjose (CMP) Reviewed date:08/14/2024 04:21:29 PM Interpretation:Normal Performing Lab: Notes/Report: Test performed by [facility] , [address], [place] [address] Michael Hung MD, Registered Mail Clerk CLIA: [id number] Sodium 141 135-145 mmol/L Potassium 4.1 3.5-5.3 [...] 0.7 <0.2-1.2 mg/dL A/G Ratio 2.3 1.1-2.5 P-Vitamin B12 Reviewed date:08/14/2024 04:21:28 PM Interpretation:Normal Performing Lab: Notes/Report: Test performed by [facility] [address] [place] [address] , [address], [place] [address] Michael Hung MD, Registered Mail Clerk CLIA: [id number] Vitamin B12 3446 550-5252 pg/mL Glycohemoglobin A1c (in hous e) Reviewed date:08/14/2024 04:21:29 PM Interpretation:Normal Performing Lab: Notes/Report: Normal glycohemoglobin 5.4% 5 - 6.5 % CBC Venipuncture (in house) Reviewed date:08/11/2024 12:43:55 [...] - 38 platlet 173 100 - 400 PT/INR (in house) Reviewed date:10/20/2024 11:01:11 AM Interpretation:5.6 Performing Lab: Notes/Report: 5.6 PT 66.9 INR 5.6 current dose 5mg MF and 7.5mg AOD new dose hold 3 days then 7.5mg MWF and 5mg AOD next check Wed Warfarin indication afib ideal INR 2.5-3.5 PT/INR (in house) Reviewed date:10/25/2024 12:41:21 PM Interpretation:1.3 Performing Lab: Notes/Report: 1.3 PT 15.7 INR 1.3 current dose 5 mg M,F, 7.5 mg aod new dose same next check 2 weeks Warfarin indication afib ideal INR 2.5-3.5 PT/INR (in house) Reviewed date:11/09/2024 12:56:08 PM Interpretation: Performing Lab: Notes/Report: PT 30.1 INR 2.5 current dose 5mg MF and 7.5 mg AOD new dose same next check 2 weeks Warfarin indication afib ideal INR 2.5-3.5 Influenza Screen (in house) Reviewed date:11/29/2024 04:12:21 PM Interpretation: Performing Lab: Notes/Report: results Neg PT/INR (in house) Reviewed date:08/11/2024 11:29:37 AM Interpretation:1.9 Performing Lab: Notes/Report: 1.9 PT 22.9 INR 1.9 current dose 7.5mg M,W,F. 5 mg AOD new dose 5mg MWF and 7.5mg AOD next check 2 weeks Warfarin indication afib/PE ideal INR 2.5-3.5 PT/INR (in house) Reviewed date:01/05/2025 01:16:32 PM Interpretation: Performing Lab: Notes/Report: PT 29.9 INR 2.5 current dose 5mg MF and 7.5mg AOD new dose same next check 4 weeks Warfarin indication afib ideal INR 2.5-3.5 PT/INR (in house) Reviewed date:05/26/2024 01:32:57 PM Interpretation:2.5 Performing Lab: Notes/Report: 2.5 PT 30.5 INR 2.5 current dose 7.5 mg W,F & 5 mg AOD new dose same next check 1 month ideal INR 2.5-3.5 PT/INR (in house) Reviewed date:05/10/2025 04:55:11 PM Interpretation: Performing Lab: Notes/Report: PT 30.8 INR 2.6 current dose 5mg mon and 7.5mg aod new dose same next check 2 weeks ideal INR 2.5-3.5 PT/INR (in house) Reviewed date:04/04/2025 04:10:30 PM Interpretation: Performing Lab: Notes/Report: PT 24.9 INR 2.1 current dose 7.5mg daily new dose 10mg W and 7.5mg AOD next check 2 weeks Warfarin indication afib ideal INR 2.5-3.5 PT/INR (in house) Reviewed date:04/26/2025 03:58:49 PM Interpretation:3.7 Performing Lab: Notes/Report: 3.7 PT 44.8 INR 3.7 current dose 10 mg Wed, 7.5 mg aod new dose 7.5mg daily next check 1 week ideal INR 2.5-3.5 PT/INR (in house) Reviewed date:09/01/2024 02:45:52 PM Interpretation:1.6 Performing Lab: Notes/Report: 1.6 PT 19.2 INR 1.6 current dose 5 mg M,W,F-7.5maod new dose same next check 1 week Warfarin indication afib/PE ideal INR 2.5-3.5 PT/INR (in house) Reviewed date:02/02/2025 01:50:40 PM Interpretation:2.0 Performing Lab: Notes/Report: 2.0 PT 24.4 INR 2.0 current dose 5mg MF and 7.5mg AOD new dose 5mg M and 7.5mg AOD next check 2 weeks Warfarin indication afib ideal INR 2.5-3.5 PT/INR (in house) Reviewed date:06/30/2024 02:12:50 PM Interpretation:2.1 Performing Lab: Notes/Report: 2.1 INR 2.1 current dose 7.5mg W,F, 5mg AOD new dose 7.5mg MWF next check 2 weeks Warfarin indication afib/PE ideal INR 2.5-3.5 PT/INR (in house) Reviewed date:09/25/2024 02:34:30 PM Interpretation:1.7 Performing Lab: Notes/Report: 1.7 PT 21.0 INR 1.7 current dose 5 mg MWF, 7.5 mg AOD new dose 5mg MF and 7.5 next check 2 weeks Warfarin indication afib ideal INR 2.5-3.5 PT/INR (in house) Reviewed date:12/11/2024 11:09:35 PM Interpretation: Performing Lab: Notes/Report: PT 34.5 INR 2.9 current dose 5mg MF and 7.5mg AOD new dose same next check 4 weeks Warfarin indication afib ideal INR 2.5-3.5 PT/INR (in house) Reviewed date:03/23/2025 11:36:42 AM Interpretation: Performing Lab: Notes/Report: PT 27.0 INR 2.2 current dose 7.5mg daily new dose same next check 1 week Warfarin indication afib ideal INR 2.5-3.5 PT/INR (in house) Reviewed date:10/06/2024 01:48:26 PM Interpretation: Performing Lab: Notes/Report: PT 23.2 INR 1.9 current dose 5mg MF and 7.5mg AOD new dose 5mg M and 7.5mg AOD next check 2 weeks Warfarin indication afib ideal INR 2.5-3.5 P-Culture, Wound Aerobic w/G chuy Stain Reviewed date:10/04/2024 09:57:32 AM Interpretation:no growth Performing Lab: Notes/Report: Test performed by [facility] [address] [place] [address] , [address], [place] [address] Michael Hung MD, Registered Mail Clerk CLIA: [id number] Specimen Source Abscess - mid back Gram Stain See Below Rare Polymorphonuclear leukocytes No organisms seen Culture, Wound Aerobic w/Gram Stain See Below Preliminary Report : No growth, reincubate Final Report : No growth PT/INR (in house) Reviewed date:09/08/2024 12:44:43 PM Interpretation:2.5 Performing Lab: Notes/Report: 2.5 PT 30.2 INR 2.5 current dose 5mg MWF and 7.5mg AOD new dose same next check 2 week Warfarin indication afib ideal INR 2.5-3.5 PT/INR (in house) Reviewed date:11/23/2024 01:28:15 PM Interpretation:2.1 Performing Lab: Notes/Report: 2.1 PT 25.0 INR 2.1 current dose 5mg MF and 7.5mg AOD new dose 5mg M and 7.5mg AOD next check 2 weeks Warfarin indication afib ideal INR 2.5-3.5 PT/INR (in house) Reviewed date:04/19/2025 12:59:19 PM Interpretation:3.7 Performing Lab: Notes/Report: 3.7 PT 44.6 INR 3.7 current dose 10 mg Wed, 7.5mgaod new dose same next check 1 week PT/INR (in house) Reviewed date:02/15/2025 12:48:38 PM Interpretation: Performing Lab: Notes/Report: PT 32.7 INR 2.7 current dose 5 mg Mon 7.5mg aod new dose same next check 4 weeks Warfarin indication afib ideal INR 2.5-3.5 Medications Medication SIG (Take, Route, Frequency, Duration) Notes Start Date End Date Status Leqvio 284 MG/1.5ML as directed subcutaneously every 6 months Active Vitamin D3 25 MCG (1000 UT) 2 tab orally once a day Active Jardiance 25 MG take 1 tablet by mouth once daily in the morning Orally Once a day; Duration: 90 days Active Vitamin B-12 1000 MCG 1 tab(s) orally on ce a day Active Cortisporin-TC 3.3-3-10-0.5 MG/ML 5 drops into affected ear Otic Three times a day 06/22/2024 Active Calcium Carbonate 600 MG 1 tab(s) orally qhs Active Warfarin Sodium 7.5 MG TAKE 1 TABLET BY MOUTH ONCE DAILY 6 DAYS OUT OF THE WEEK; Duration: 90 Active Magnesium Oxide 400 MG 1 tab(s) orally o nce a day Active rOPINIRole HCl ER 2 MG 1 tablet Orally O nce a day; Duration: 90 days Active FREE STYLE KRISTAL GLUCOSE SYSTEM DIRECTED BID 07/20/2018 Active OneTouch Delica Plus [id number] - USE 1 TO CHECK GLUCOSE ONCE DAILY; Duration: 90 Active Diclofenac Sodium 1 % as directed applie d topically 4 times a day 03/03/2021 Active Myrbetriq 50 MG 1 tablet Orally Once a day; Duration: 30 day(s) Active Symbicort 80-4.5 MCG/ACT 2 puff(s) inhaled 2 times a day 05/08/2014 Active Furosemide 40 MG 1 tab(s) Orally ever y other day Active Mupirocin 2 % 1 application Externally Twice a day Active Albuterol Sulfate HFA 108 (90 Base) MCG/ACT 1 puff as needed Inhalation every 4 hrs, prn 11/24/2023 Active Spironolactone 25 MG 1 tab(s) orally shin ry other day Active Flonase Allergy Relief 50 MCG/ACT 1 spray in each nostril Nasally Once a day 01/28/2024 Active Plavix 75 MG 1 tab(s) orally once a day Active Aspirin 81 MG 1 tablet Orally Once a day; Duration: 30 day(s) Active Albuterol Sulfate HFA 108 (90 Base) MCG/ACT 1-2 puff(s) inhaled every 6 hours, prn 12/31/2022 Active Baclofen 5 MG Take 1 tablet by mouth twice daily; Duration: 90 Active Pristiq 100 MG 1 tab(s) orally once a day; Duration: 90 days 11/06/2022 Active Pantoprazole Sodium 40 MG Take 1 tablet by mouth once daily; Duration: 90 Active Tamsulosin HCl 0.4 MG 1 cap(s) orally on ce a day; Duration: 90 days Active Sulindac 200 MG Take 1 tablet by mouth twice daily; Duration: 90 Active Nitrostat 0.4 MG 1 tab(s) sublinguall y every 5 minutes Active clonazePAM 1 MG 1/2 tab orally Two times a day; Duration: 30 days 04/28/2025 Active Linzess 145 MCG 1 capsule at least 3 0 minutes before the first meal of the day on an empty stomach Orally Once a day; Duration: 90 days 07/30/2023 Active Levocetirizine Dihydrochloride 5 MG TAKE 1 TABLET BY MOUTH ONCE DAILY IN THE EVENING; Duration: 90 Active Easy Touch Glucose System w/Device - test once daily E11.9 08/11/2023 Active Easy Touch Safety Lancets 28G - as directed to test once daily; Duration: 90 days diagnosis code E11.9 08/20/2023 Active Mounjaro 15 MG/0.5ML 15 mg Subcutaneous once a week 08/25/2024 Active QUEtiapine Fumarate 100 MG TAKE 1 TABLET BY MOUTH ONCE DAILY IN THE EVENING; Duration: 90 Active Potassium Chloride ER 20 MEQ take 2 tablets by mouth once daily; Duration: 90 days Active Desvenlafaxine Succinate ER 100 MG 1 tablet Orally Once a day; Duration: 30 days 01/22/2025 Active CPAP SUPPLIES DIRECTED 07/25/2021 Act elisabeth Warfarin Sodium 5 MG 1 tablet Orally Onc e a day; Duration: 90 days Active CPAP MASK DIRECTED 07/25/2021 Active metFORMIN HCl ER 500 MG Take 2 tablets by mouth once daily; Duration: 90 Active Immunizations Vaccine Route Administration Date Status Comme nts Tetanus Tdap-Adacel (over 7yrs) IM Intramuscular 03/12/2015 Administered COVID 19 Moderna IM Intramuscular 02/14/2021 Administered COVID 19 Moderna Unknown 03/14/2021 Administered Problems Problem Type SNOMED Code ICD Code Onset Dates Problem Status W/U Status Risk Notes Problem Type II diabetes mellitus without complication (250117177) Type 2 diabetes mellitus without complications (E11.9) Active confirmed Problem Peripheral circulatory disorder associated with diabetes mellitus (352770415) Type 2 diabetes mellitus with other circulatory complications (E11.59) Active confirmed Problem History of pulmonary embolus (071359216) History of pulmonary embolism (Z86.711) Active confirmed Problem Hyperlipidemia (96356556) Hyperlipidemia (E78.5) Active confirmed Problem Vitamin D deficiency (36555994) Vitamin D deficiency (E55.9) Active confirmed Problem Essential hypertension (65554988) Essential hypertension (I10) Active confirmed Problem Long-term current use of anticoagulant (817344398) salvage determiner current use of anticoagulant (Z79.01) Active confirmed Problem Parkinson disease (30889789) Parkinson disease (G20) Active confirmed Problem Sebaceous cyst (515976666) Sebaceous cyst (L72.3) Active confirmed Problem Obstructive sleep apnea (51916518) Obstructive sleep apnea (G47.33) Active confirmed Problem Tear film insufficiency (80460393) Dry eye (H04.129) Active confirmed Problem Mixed anxiety and depressive disorder (956729657) Depression with anxiety (F41.8) Active confirmed Problem Restless legs syndrome (30388586) Restless leg syndrome (G25.81) Active confirmed Problem Obese class I (868639737172704) BMI 33.0-33.9,adult (Z68.33) Active confirmed Problem Hearing loss (34101673) Hearing loss (H91.90) Active confirmed Problem Seizure disorder (037299144) Seizure disorder (G40.909) Active confirmed Problem Recurrent falls (370747776) Falls frequently (R29.6) Active confirmed Problem Congestive heart failure (58016563) CHF (congestive heart failure) (I50.9) Active confirmed Problem Obesity (244516944) Obesity, unspecified (E66.9) Active confirmed Problem Mixed hyperlipidemia (296927440) Mixed hyperlipidemia (E78.2) Active confirmed Problem Myoclonus (33426248) Myoclonus (G25.3) Active confirmed Problem Chronic pain (65427996) Other chronic pain (G89.29) Active confirmed Problem Atherosclerotic heart disease of [place] coronary artery without angina pectoris (569972421313528) Atherosclerotic heart disease of [place] coronary artery without angina pectoris (I25.10) Active confirmed Problem Slow transit constipation (23870770) Slow transit constipation (K59.01) Active confirmed Problem Localized infection of skin AND/OR subcutaneous tissue (841626503) Local infection of the skin and subcutaneous tissue, unspecified (L08.9) Active confirmed Problem Long-term current use of anticoagulant (666859946) FDC (current) use of anticoagulants (Z79.01) Active confirmed Problem Hyperlipidemia due to type 2 diabetes mellitus (disorder) (539464684140430) Hyperlipidemia associated with type 2 diabetes mellitus (E11.69) Active confirmed Problem Constipation (50386939) Constipation, unspecified constipation type (K59.00) Active confirmed Problem Gastroesophageal reflux disease without esophagitis (426365564) Gastroesophageal reflux disease without esophagitis (K21.9) Active confirmed Problem Long-term current use of anticoagulant (012365846) Long-term (current) use of anticoagulants (Z79.01) Active confirmed Problem Morbid obesity (902059651) Morbid obesity, unspecified obesity type (E66.01) Active confirmed Problem Primary osteoarthritis (065701932) Primary osteoarthritis involving multiple joints (M15.0) Active confirmed Problem COPD - Chronic obstructive pulmonary disease (04786710) Chronic obstructive pulmonary disease, unspecified COPD type (J44.9) Active confirmed Problem Polyarthritis (295305595) Polyarthritis (M13.0) Active confirmed Problem Erectile dysfunction (disorder) (069226618) Erectile dysfunction, unspecified erectile dysfunction type (N52.9) Active confirmed Problem Obese class II (278743128494237) BMI 38.0-38.9,adult (Z68.38) Active confirmed Problem Osteoarthritis of knee (824811145) Primary osteoarthritis of right knee (M17.11) Active confirmed Problem Body mass index 40+ - morbidly obese (644343116) BMI 40.0-44.9, adult (Z68.41) Active confirmed Problem Recurrent falls (382123498) Frequent falls (R29.6) Active confirmed Problem Body mass index 30.00 to 34.99 (447363182593940) BMI 31.0-31.9,adult (Z68.31) Active confirmed Problem Problem with balance (763629987) Balance problems (R26.89) Active confirmed Problem Cardiac pacemaker in situ (311686113) History of permanent cardiac pacemaker placement (Z95.0) Active confirmed Problem Peripheral circulatory disorder associated with diabetes mellitus (762208317) Type 2 diabetes mellitus with other circulatory complication (E11.59) Active confirmed Problem Paroxysmal atrial flutter (379540308) Atrial flutter, paroxysmal (I48.92) Active confirmed Problem Urinary incontinence (390319556) Urinary incontinence, unspecified type (R32) Active confirmed Problem Seasonal allergic rhinitis (666412840) Seasonal allergic rhinitis, unspecified allergic rhinitis trigger (J30.2) Active confirmed Problem 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 Problem Vision loss, bilateral (H54.3) Active confirmed Problem Lower urinary tract symptoms due to benign prostatic hypertrophy (11136918622805) Benign prostatic hyperplasia with lower urinary tract symptoms, symptom details unspecified (N40.1) Active confirmed Problem Benign prostatic hypertrophy without outflow obstruction (610324583) Benign prostatic hyperplasia, unspecified whether lower urinary tract symptoms present (N40.0) Active confirmed Problem Seasonal allergic rhinitis (784520539) Seasonal allergic rhinitis, unspecified trigger (J30.2) Active confirmed Problem Allergic rhinitis (52003307) Non-seasonal allergic rhinitis, unspecified trigger (J30.89) Active confirmed Problem Gastroesophageal reflux disease (067521713) Gastroesophageal reflux disease, unspecified whether esophagitis present (K21.9) Active confirmed Problem Parkinson's disease (disorder) (94467219) Parkinson's disease, unspecified whether dyskinesia present, unspecified whether manifestations fluctuate (G20.A1) Active confirmed Problem Parkinson's dise ase with dyskinesia, unspecified whether manifestations fluctuate (G20.B1) Active confirmed Problem Hair follicle disorder (927999319) Infected sebaceous gland (L73.8) Active confirmed Vital Signs Heart Rate 70 /min 05/24/2025 Blood pressure diastolic 70 mm Hg 05/24/2025 Height 73.50 in 05/24/2025 Blood pressure systolic 120 mm Hg 05/24/2025 Weight 249.8 lbs 05/24/2025 BMI 32.51 kg/m2 05/24/2025 Encounters Encounter Location Date Provider Diagnosis [facility] [address] [facility] [address] [place] [id number] 05/26/2024 Jo Ellison 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.01 ; Falls frequently R29.6 and Type 2 diabetes mellitus without complications E11.9 [facility] [address] [facility] [address] [place], [place] [id number] 06/22/2024 Jo Ellison Type 2 diabetes eileen itus without complications E11.9 ; 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 ; Acute otitis externa of right ear, unspecified type H60.501 and FDC (current) use of anticoagulants Z79.01 [facility] [address] [facility] [address] [place] [id number] 06/30/2024 Jo Crowdy 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.01 [facility] [address] [place] [id number] 07/13/2024 Jo Crowdy Long-term (current) use of anticoagulants Z79.01 ; Subungual hematoma of thumb S60.119A and Acute URI J06.9 [facility] [address] [place] [id number] 08/11/2024 Jo Crowdy Long-term (current) use of anticoagulants Z79.01 ; Type 2 diabetes mellitus without complications E11.9 ; Mixed hyperlipidemia E78.2 ; Depression with anxiety F41.8 ; Essential hypertension I10 ; Obstructive sleep apnea G47.33 ; Vitamin B12 deficiency E53.8 ; Vitamin D deficiency E55.9 ; Parkinson disease G20 ; Atherosclerotic heart disease of [place] coronary artery without angina pectoris I25.10 and Screening PSA (prostate specific antigen) Z12.5 [facility] [address] [place] [id number] 08/25/2024 Jo Crowdy 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.01 ; Type 2 diabetes mellitus without complications E11.9 and Bradycardia R00.1 [facility] [address] [facility] [address] [place] [id number] 09/01/2024 Jo Crowdy 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.01 [facility] [address] [place] [id number] 09/08/2024 Jo Crowdy FDC (current) use of anticoagulants Z79.01 ; Polyarthritis M13.0 and Restless leg syndrome G25.81 [facility] [address] [facility] [address] [place] [id number] 09/22/2024 Jo Crowdy FDC (current) use of anticoagulants Z79.01 and Tachycardia R00.0 [facility] [address] [place], [place] [id number] 09/29/2024 Khushboo Gamble Infected sebaceous g land L73.8 ; Sebaceous cyst L72.3 and Local infection of the skin and subcutaneous tissue, unspecified L08.9 [facility] [address] [place], [place] [id number] 10/02/2024 Khushboo Gamble Infected sebaceous g land L73.8 [facility] [address] [place], [place] [id number] 10/06/2024 Jo Crowdy [facility]DC (current) use of anticoagulants Z79.01 and Infected sebaceous gland L73.8 [facility] [address] [place], [place] [id number] 10/20/2024 Jo Crowdy 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.01 [facility] [address] [place], [place] [id number] 10/25/2024 Jo Crowdy FDC current us e of anticoagulant Z79.01 [facility] [address] [place], [place] [id number] 11/09/2024 Jo Crowdy FDC (current) use of anticoagulants Z79.01 [facility] [address] [place], [place] [id number] 11/23/2024 Jo Crowdy 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.01 ; Sebaceous cyst L72.3 and Local infection of the skin and subcutaneous tissue, unspecified L08.9 [facility] [address] [place], [place] [id number] 11/29/2024 Jo Crowdy Acute URI J06.9 [facility] [address] [place], [place] [id number] 12/08/2024 Jo Crowdy Neoplasm of uncertai n behavior of skin D48.5 ; 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 ; Adult general medical examination Z00.00 ; Essential hypertension I10 ; Mixed hyperlipidemia E78.2 ; Type 2 diabetes mellitus without complications E11.9 ; Parkinson disease G20 ; CHF (congestive heart failure) I50.9 ; Atrial flutter, paroxysmal I48.92 ; Depression with anxiety F41.8 ; Urinary incontinence, unspecified type R32 ; Primary osteoarthritis involving multiple joints M15.0 ; Benign prostatic hyperplasia with lower urinary tract symptoms, symptom details unspecified N40.1 ; Gastroesophageal reflux disease without esophagitis K21.9 ; Erectile dysfunction, unspecified erectile dysfunction type N52.9 ; Seasonal allergic rhinitis, unspecified allergic rhinitis trigger J30.2 ; Obstructive sleep apnea G47.33 ; Atherosclerotic heart disease of [place] coronary artery without angina pectoris I25.10 ; Vitamin B12 deficiency E53.8 ; Vitamin D deficiency E55.9 ; History of pulmonary embolism Z86.711 ; History of DVT (deep vein thrombosis) Z86.718 ; History of atrial fibrillation Z86.79 ; History of radiofrequency ablation (RFA) procedure for cardiac arrhythmia Z98.89 ; History of permanent cardiac pacemaker placement Z95.0 ; Muscle spasm M62.838 ; Parkinson's disease, unspecified whether dyskinesia present, unspecified whether manifestations fluctuate G20.A1 and BMI 31.0-31.9,adult Z68.31 [facility] [address] [id number] 01/05/2025 Jo Terra [facility]DC (current) use of anticoagulants Z79.01 and Type 2 diabetes mellitus without complications E11.9 [facility] [address] [id number] 02/02/2025 Jo Crowobi [facility] (current) use of anticoagulants Z79.01 [facility] [address] [place] [id number] 02/06/2025 R Alek Angela Dog bite, initial encounter W54.0XXA and Bite wound of left thumb, initial encounter S61.052A [facility] [address] [place] [id number] 02/15/2025 Jo Terra [facility]DC (current) use of anticoagulants Z79.01 ; Type 2 diabetes mellitus with other circulatory complications E11.59 ; Depression with anxiety F41.8 ; Chronic obstructive pulmonary disease, unspecified COPD type J44.9 and BMI 33.0-33.9,adult Z68.33 [facility] [address] [place], [place] [id number] 03/16/2025 Jo Crowdy Paronychia of great toe L03.039 ; 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.01 ; Leg cramps R25.2 and Trigger middle finger, unspecified laterality M65.339 [facility] [address] [place], [place] [id number] 03/23/2025 Jo Crowdy Paronychia of great toe L03.039 and FDC (current) use of anticoagulants Z79.01 [facility] [address] [place], [place] [id number] 04/04/2025 Jo Crowdy 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.01 [facility] [address] [place], [place] [id number] 04/19/2025 Jo Crowdy FDC (current) use of anticoagulants Z79.01 [facility] [address] [place] [id number] 04/26/2025 Jo Crowdy 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.01 [facility] [address] [place], [place] [id number] 05/03/2025 Jo Crowdy FDC (current) use of anticoagulants Z79.01 and Parkinson's disease with dyskinesia, unspecified whether manifestations fluctuate G20.B1 [facility] [address] [place], [place] [id number] 05/10/2025 Jo Crowdy 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.01 [facility] [address] [place], [place] [id number] 05/24/2025 Jo Crowdy [facility] [address] [place], [place] [id number] 05/26/2024 Jo Crowdy [facility] [address] [place], [place] [id number] 05/29/2024 Go Caribou Depression with anxi ety F41.8 [facility] [address] [place] [id number] 06/12/2024 R Alek Angela Depression with anxi ety F41.8 [facility] [address] [place], [place] [id number] 06/16/2024 Jo Crowdy [facility] [address] [place], [place] [id number] 07/26/2024 Jo Crowdy Type 2 diabetes eileen itus without complications E11.9 [facility] [address] [place], [place] [id number] 08/14/2024 Jo Crowdy [facility] [address] [place] [id number] 2024 R Alek Angela Depression with anxi ety F41.8 [facility] [address] [place], [place] [id number] 2024 R Alek Angela [facility] [address] [place], [place] [id number] 09/15/2024 R Alek Angela Type 2 diabetes eileen itus without complications E11.9 [facility] [address] [place], [place] [id number] 11/23/2024 R Alek Angela Depression with anxi ety F41.8 [facility] [address] [place] [id number] 12/11/2024 R Alek Angela [facility] [address] [place] [id number] 01/22/2025 Jo Crowdy [facility] [address] [place], [place] [id number] 02/23/2025 Go [place] Depression with anxi ety F41.8 [facility] [address] [place], [place] [id number] 03/26/2025 Go [place] Depression with anxi ety F41.8 [facility] [address] [place], [place] [id number] 04/28/2025 Go [place]ou Depression with anxi ety F41.8 Assessments Encounter Date Diagnosis (ICD Code) Assessment Notes Treatment Notes Treatment Clinical Notes Section Notes 05/26/2024 Falls frequently (ICD-10 - R29.6) Patient was having episodes of hypotension but cardiology has decreased medication and BP has been normal. He has not had any low glucose levels. He feels like the tremors are a little worse. He follows with neurology but he states Dr. Do wanted him to see a movement specialist and he did not feel that helped. 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 He may need another ablation. 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 Will stop this and start on cefdinir to cover respiratory symptoms. 12/08/2024 Neoplasm of uncertain behavior of skin (ICD-10 - D48.5) 01/05/2025 Type 2 diabetes mellitus without complications (ICD-10 - E11.9) 01/05/2025 FDC (current) use of anticoagulants (ICD-10 - Z79.01) 02/06/2025 Dog bite, initial encounter (ICD-10 - W54.0XXA) Discussed local wound care. Advised he go to his pharmacy or health department to obtain a tetanus shot. 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 (ICD-10 - Z79.01) 03/23/2025 Paronychia of great toe (ICD-10 - L03.039) 03/26/2025 Depression with anxiety (ICD-10 - F41.8) 04/04/2025 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 (ICD-10 - Z79.01) 04/19/2025 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 (ICD-10 - Z79.01) 04/26/2025 FDC (current) use of anticoagulants (ICD-10 - Z79.01) 04/28/2025 Depression with anxiety (ICD-10 - F41.8) 05/03/2025 FDC (current) use of anticoagulants (ICD-10 - Z79.01) 05/03/2025 Parkinson's disease with dyskinesia, unspecified whether manifestations fluctuate (ICD-10 - G20.B1) Patient would like to see a different neurologist for his Parkinson's Disease. 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 (ICD-10 - Z79.01) 03/16/2025 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 (ICD-10 - Z79.01) 03/16/2025 Paronychia of great toe (ICD-10 - L03.039) 09/15/2024 Type 2 diabetes mellitus without complications (ICD-10 - E11.9) 09/08/2024 FDC (current) use of anticoagulants (ICD-10 - Z79.01) 09/08/2024 Polyarthritis (ICD-10 - M13.0) 08/11/2024 Type 2 diabetes mellitus without complications (ICD-10 - E11.9) 07/13/2024 Subungual hematoma of thumb (ICD-10 - S60.119A) 08/11/2024 Long-term (current) use of anticoagulants (ICD-10 - Z79.01) 07/13/2024 Long-term (current) use of anticoagulants (ICD-10 - Z79.01) 02/02/2025 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 Follow-up as scheduled 07/13/2024 Acute URI (ICD-10 - J06.9) fluids, rest, supportive measures for fever/symptom relief 08/11/2024 Mixed hyperlipidemia (ICD-10 - E78.2) 09/08/2024 Restless leg syndrome (ICD-10 - G25.81) 03/16/2025 Leg cramps (ICD-10 - R25.2) 02/15/2025 Depression with anxiety (ICD-10 - F41.8) 02/06/2025 Bite wound of left thumb, initial encounter (ICD-10 - S61.052A) 06/22/2024 Acute otitis externa of right ear, unspecified type (ICD-10 - H60.501) 12/08/2024 salvage determiner current use of anticoagulant (ICD-10 - Z79.01) 09/29/2024 Local infection of the skin and subcutaneous tissue, unspecified (ICD-10 - L08.9) 11/23/2024 Local infection of the skin and subcutaneous tissue, unspecified (ICD-10 - L08.9) 08/25/2024 Bradycardia (ICD-10 - R00.1) Will keep f/u with cardiology and have echo and stress test. 05/26/2024 Type 2 diabetes mellitus without complications (ICD-10 - E11.9) Mounjaro dose was increased. 06/22/2024 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 (ICD-10 - Z79.01) 12/08/2024 Essential hypertension (ICD-10 - I10) 02/15/2025 Chronic obstructive pulmonary disease, unspecified COPD type (ICD-10 - J44.9) 12/08/2024 Adult general medical examination (ICD-10 - Z00.00) Patient instructed to return to office Annually for Annual Wellness Visits to include annual screenings of Pain assessment, Functional Ability assessment, Cognitive Ability assessment, Fall Risk assessment, Depression screening and Bladder control screening. 03/16/2025 Trigger middle finger, unspecified laterality (ICD-10 - M65.339) 08/11/2024 Depression with anxiety (ICD-10 - F41.8) 08/11/2024 Essential hypertension (ICD-10 - I10) BP has been low. Cardiology had him start taking the lasix every other day. Will do the same with the spironolactone but take it on the days he does not take the lasix and see if this helps his BP. 02/15/2025 BMI 33.0-33.9,adult (ICD-10 - Z68.33) 12/08/2024 Mixed hyperlipidemia (ICD-10 - E78.2) 12/08/2024 Type 2 diabetes mellitus without complications (ICD-10 - E11.9) Will get labs in February. 08/11/2024 Obstructive sleep apnea (ICD-10 - G47.33) 08/11/2024 Vitamin B12 deficiency (ICD-10 - E53.8) 12/08/2024 Parkinson disease (ICD-10 - G20) 12/08/2024 CHF (congestive heart failure) (ICD-10 - I50.9) 08/11/2024 Vitamin D deficiency (ICD-10 - E55.9) 08/11/2024 Parkinson disease (ICD-10 - G20) 12/08/2024 Atrial flutter, paroxysmal (ICD-10 - I48.92) 12/08/2024 Depression with anxiety (ICD-10 - F41.8) 08/11/2024 Atherosclerotic heart disease of [place] coronary artery without angina pectoris (ICD-10 - I25.10) 08/11/2024 Screening PSA (prostate specific antigen) (ICD-10 - Z12.5) 12/08/2024 Urinary incontinence, unspecified type (ICD-10 - R32) 12/08/2024 Primary osteoarthritis involving multiple joints (ICD-10 - M15.0) 12/08/2024 Benign prostatic hyperplasia with lower urinary tract symptoms, symptom details unspecified (ICD-10 - N40.1) 12/08/2024 Gastroesophageal reflux disease without esophagitis (ICD-10 - K21.9) 12/08/2024 Erectile dysfunction, unspecified erectile dysfunction type (ICD-10 - N52.9) 12/08/2024 Seasonal allergic rhinitis, unspecified allergic rhinitis trigger (ICD-10 - J30.2) 12/08/2024 Obstructive sleep apnea (ICD-10 - G47.33) 12/08/2024 Atherosclerotic heart disease of [place] coronary artery without angina pectoris (ICD-10 - I25.10) 12/08/2024 Vitamin B12 deficiency (ICD-10 - E53.8) 12/08/2024 Vitamin D deficiency (ICD-10 - E55.9) 12/08/2024 History of pulmonary embolism (ICD-10 - Z86.711) 12/08/2024 History of DVT (deep vein thrombosis) (ICD-10 - Z86.718) 12/08/2024 History of atrial fibrillation (ICD-10 - Z86.79) 12/08/2024 History of radiofrequency ablation (RFA) procedure for cardiac arrhythmia (ICD-10 - Z98.89) 12/08/2024 History of permanent cardiac pacemaker placement (ICD-10 - Z95.0) 12/08/2024 Muscle spasm (ICD-10 - M62.838) 12/08/2024 Parkinson's disease, unspecified whether dyskinesia present, unspecified whether manifestations fluctuate (ICD-10 - G20.A1) 12/08/2024 BMI 31.0-31.9,adult (ICD-10 - Z68.31) Plan Of Treatment Pending Test Test Name Order Date PT/INR (in house) 05/24/2025 Next Appt Details Provider Name:Jo meehan, 06/21/2025 11:30:00 AM, [address], [place], [place], [id number], Insurance Providers Payer Name Payer Address Payer Phone Subscriber Number Group Number Insured Name Patient Relationship to Insured Coverage Start Date Coverage End Date MEDICARE PART B [address] [address] [place] [id number] Nghia Montalvo Self - patient is the insured [facility] [address] [place] [address] [id number] Nghia Montalvo Self - patient is the insured Medications Administered Medication Instructions Date of Administration Dosage Notes B-12 01/31/2007 1 mL weekly B12 vito ts x 2 months B-12 02/10/2007 1 mL B-12 02/17/2007 1 mL B-12 02/28/2007 1 mL B-12 03/31/2007 1 mL B-12 05/27/2007 1 mL B-12 06/24/2007 1 mL B-12 07/28/2007 1 mL B-12 01/21/2009 1 mL B-12 04/23/2011 1 mL Depo- Medrol 40 mg/ml 10/25/2012 Dexamethasone 07/01/2006 1 mL Dexamethasone 10/30/2006 1 mL Dexamethasone 11/05/2008 1 mL Lovenox 08/18/2011 0.3 mL Medical (General) History Medical History History ICD Code Hyperlipidemia Acne [...] - Rashmi Cárdenas 08/21/2015 Ablation-Dr Schmid @ [facility] 2015 Rectal Polyps Removal 11/12/2016 Cardiac ECHO & Stress Test 03/31/2017 Cardiac Pacemaker 10/2016 Cardioversion 2013 Open Heart 2013 Heart Cath - [facility] 03/2018 Hospitalization History Reason Date(Month/Year) LT Leg Blood Clot- [facility] ER 11/17/2018 Chest Pain- [facility] ER 05/01/2016 Hypertension, Tachycardia- [facility] 2015 Tachycardia- [facility] 07/30/2014 Weak, Heart Palpitations- [facility] Insect Bite- [facility] ER 06/20/2012 Chest Pain- [facility] ER 04/24/2012 Chest Pain- [place] [facility] 11/11-11/12/19 12 Chest Pain, LT Leg Swollen- [facility] 08/2010 DVT, Bilateral PE 07/2009 Chest Pain
[2025-05-25 10:49] LABS: Hematocrit 39.8 % (42.0-52.0); Hemoglobin 13.0 g/dL (14.1-18.0); Immature Granulocytes % 0.4 %; Mean Corpuscular HGB Conc 32.7 g/dL (31.8-35.4); Mean Corpuscular Hemoglobin 28.3 pg (27.0-31.2); Mean Corpuscular Volume 86.5 fl (80-94); Nucleated Red Blood Cells % 0 %; Platelet Count 186 K/mm3 (142-424); Red Blood Count 4.60 M/mm3 (4.60-6.20); Red Cell Distribution Width-SD 40.1 fL; White Blood Count 6.9 K/mm3 (4.8-10.8)
[2025-05-25 11:18] LABS: Albumin Level 4.0 g/dl (3.5-5.0); Alkaline Phosphatase 65 U/L (38-126); Anion Gap 16.3 mEq/L (5-15); Bilirubin,Direct 0.3 mg/dl (0.0-0.4); Bilirubin,Indirect 0.3 mg/dL (0.0-0.9); Bilirubin,Total 0.6 mg/dl (0.2-1.3); Bilirubin,Unconjugated 0.2 mg/dL (0.0-1.1); Blood Urea Nitrogen 23 mg/dl (9-20); Calcium 9.3 mg/dl (8.4-10.2); Carbon Dioxide 26 mmol/L (22.0-30.0); Chloride 101 mmol/L (98-107); Cholesterol 157 mg/dl (140-200); Creatinine,Serum 0.90 mg/dl (0.66-1.25); Estimated Glomerular Filt Rate 85 ml/min (>60); GFR (African American) 103 ML/MIN (>60); Glucose 87 mg/dl (74-100); HDL Cholesterol 48 mg/dl (40-60); Magnesium 1.8 mg/dl (1.6-2.3); Potassium 4.3 mmoL/L (3.5-5.1); Sodium 139 mmol/L (136-145); Total Protein,Serum 6.0 g/dl (6.3-8.2); Triglycerides 185 mg/dl (30-150)
[2025-05-25 11:23] LABS: Digoxin < 0.40 ng/ml (0.2-2.00)
[2025-05-25 11:34] LABS: Free T4 (Free Thyroxine) 1.20 ng/dl (0.78-2.19)
[2025-05-25 11:38] LABS: Alanine Aminotransferase 17 U/L (12-78); Aspartate Amino Transferase 17 U/L (17-59)
[2025-05-25 11:47] LABS: Thyroid Stimulating Hormone 2.46 uIU/mL (0.465-4.68)
== END 2025-05-25 23:59 | disposition home or self-care (01) ==
LOC: LAB 10:15
PROVIDERS: PCP Physician Assistant; Visit Provider Physician Assistant
DX: I25.10 Atherosclerotic heart disease of native coronary artery without angina pectoris (principal); R53.83 Other fatigue; R10.9 Unspecified abdominal pain; I95.89 Other hypotension; E78.2 Mixed hyperlipidemia; I42.9 Cardiomyopathy, unspecified; G47.33 Obstructive sleep apnea (adult) (pediatric); I11.0 Hypertensive heart disease with heart failure; I50.32 Chronic diastolic (congestive) heart failure; E11.9 Type 2 diabetes mellitus without complications; R07.89 Other chest pain; R94.31 Abnormal electrocardiogram [ECG] [EKG]; I95.9 Hypotension, unspecified; E78.5 Hyperlipidemia, unspecified; Z95.0 Presence of cardiac pacemaker; R45.4 Irritability and anger; Z79.4 Long term (current) use of insulin
CPT/HCPCS: 36415; 80048; 80061; 80076; 80162; 83735; 84439; 84443; 85025

== ENCOUNTER 2025-06-25 15:21 | Outpatient (CLI) | payer MEDICARE, BC, SELFPAY ==
--- OUTSIDE RECORDS SUMMARY | 2025-06-25 15:24 | XMS_ITS | Clinical Summary ---
Author Organization [facility] Address [address] [place] [address] Care Team Providers Care Medical Technologist Microbiology Name Role Phone Pcp, No Primary Care [...] Date Last Done Comments [facility]-Depression Screening 1960 [facility]-Infant/Child/Adol SDOH Screenings 1960 [facility]- SDOH Screenings 1979 [facility]-Adult SDOH Screenings 1979 [facility]-DTaP,Tdap,and Td Vaccine s (1 - Tdap) 1980 CT Colonography 2006 Colonoscopy 2006 FIT-DNA 2006 FIT 2006 FOBT 2006 Sigmoidoscopy 2006 [facility]-Colorectal Cancer Screening 2006 [facility]-Pneumococcal Vaccine: 50 + Years (1 of 1 - PCV) 2011 [facility]-Zoster Vaccines (1 of 2) 2011 [facility]-GRVQH-00 Vaccine (3 - season) 2024 03/14/2021, 02/14/2021 [...] age to complete this topic Insurance MEDICARE [facility] Care Teams Medical Technologist Microbiology Relationship Specialty Start Date [place] [address] PCP - General Family Medicine 01/22/23
--- OUTSIDE RECORDS SUMMARY | 2025-06-25 15:24 | XMS_ITS | Encounter Summary ---
Author Organization [facility] Address [address] [place] [address] Care Team Providers Care Tactical Debriefer Officer Name Role Phone Pcp, No Primary Care Provider Unavailabl e Encounter Details Date Type Department Care Team ([facility] st Contact Info) Description 02/04/2012 Orders Only External Location [address] [place] [address] Provider, External Social History Tobacco Use Types [...] on filedocumented in this encounter Care Teams Tactical Debriefer Officer Relationship Specialty Start Date End Date Pcp, No [address] [place] [address] PCP - General Family Medicine 01/22/23 documented as of this encounter
--- OUTSIDE RECORDS SUMMARY | 2025-06-25 15:25 | XMS_ITS | Encounter Summary ---
Author Organization [facility] Address [address] [place] [address] Care Team Providers Care Special Delivery Carrier Name Role Phone Pcp, No Primary Care Provider Unavailabl e Encounter Details Date Type Department Care Team ([facility] st Contact Info) Description 01/22/2011 Orders Only External Location [address] [place] [address] Provider, External Social History Tobacco Use Types [...] on filedocumented in this encounter Care Teams Special Delivery Carrier Relationship Specialty Start Date End Date Pcp, No [address] [place] [address] PCP - General Family Medicine 01/22/23 documented as of this encounter
--- OUTSIDE RECORDS SUMMARY | 2025-06-25 15:25 | XMS_ITS | Referral Summary ---
Author Organization [employer] ([place], [place], [place], [place]) Address [address] [place] [address] Care Team Providers Care Physical Therapist Aide Name Role Phone Unavailable Primary Care Provider [...] Juan R rded Speak language other than Yakut at home Not on file 08/29/2024 Want [...] Not [place] [address] [id number] BLUE CROSS/BLUE SHIELD MEDICARE PART A B
--- OUTSIDE RECORDS SUMMARY | 2025-06-25 15:25 | XMS_ITS | Encounter Summary ---
Author Organization [employer] ([place], [place], [place], [place]) Address [address] [place] [address] Care Team Providers Care Gift Basket Packer Name Role Phone Unavailable Primary Care Provider Unavailabl e Encounter Details Date Type Department Care Team (Late st Contact Info) Description 08/28/2024 Outside Orders [facility] Central Scheduling [address] [place] [address] Livia Do [address] [place] [address] Memory loss (Primary Dx); Movement [...] Juan R rded Speak language other than Thai at home Not on file 08/29/2024 Want [...]
--- OUTSIDE RECORDS SUMMARY | 2025-06-25 15:25 | XMS_ITS | Encounter Summary ---
Author Organization [facility] Address [address] [place] [address] Care Team Providers Care Screen Examiner Name Role Phone Pcp, No Primary Care Provider Unavailabl e Encounter Details Date Type Department Care Team ([facility] st Contact Info) Description 01/27/2011 Orders Only External Location [address] [place] [address] Provider, External Social History Tobacco Use Types [...] on filedocumented in this encounter Care Teams Screen Examiner Relationship Specialty Start Date End Date Pcp, No [address] [place] [address] PCP - General Family Medicine 01/22/23 documented as of this encounter
--- OUTSIDE RECORDS SUMMARY | 2025-06-25 15:25 | XMS_ITS | Encounter Summary ---
Author Organization [facility] [place] [address] Care Team Providers Care Controlled Atmospheric Furnace Brazer Name Role Phone Norberto Miller Primary Care Provider [phone] Encounter Details Date Type Department Care Team (Late st Contact Info) Description 04/29/2016 Orders Only [facility] [address] [facility] [address] [place] [phone] Andrea Schmid MD [address] [place] [address] Social History Tobacco Use Types Packs/Day Years [...] Schmid MD CARDIAC CATH ORDERABLES Final Result [facility] [address] [place] [address] documented in this encounter Visit Diagnoses Not on filedocumented in this encounter Care Teams Controlled Atmospheric Furnace Brazer Relationship Specialty Start Date End Date Norberto Miller [address] [place] [address] PCP - General Family Medicine 03/04/16 documented as of this encounter
--- OUTSIDE RECORDS SUMMARY | 2025-06-25 15:25 | XMS_ITS | Encounter Summary ---
Author Organization [facility] Address [address] [place] [address] Care Team Providers Care Wheel Press Clerk Name Role Phone Pcp, No Primary Care Provider Unavailabl e Encounter Details Date Type Department Care Team ([facility] st Contact Info) Description 09/21/2011 Orders Only External Location [address] [place] [address] Provider, External Social History Tobacco Use Types [...] on filedocumented in this encounter Care Teams Wheel Press Clerk Relationship Specialty Start Date End Date Pcp, No [address] [place] [address] PCP - General Family Medicine 01/22/23 documented as of this encounter
--- OUTSIDE RECORDS SUMMARY | 2025-06-25 15:25 | XMS_ITS | Clinical Summary ---
Author Organization [facility] Address [address] [facility] [address] [place] [address] Phone Care Team Providers Care Shell Trim Tool Setter Name Role Phone Norberto Miller Primary Care Provider [phone] Allergies No known active allergies Medications carbidopa-levod [...] of breath Obstructive sleep apnea cpap Hypertension DC (myocardial infarction) (HCC) Atrial flutter (HCC) Hiatal [...] this topic Medical Devices Implanted Type Area Client Support Representative Device Identifier Shelf Expiration Date Model / Serial / Lot Cardiac Stent Medtronic Linq Ilr Implanted:Qty: 1 on 09/06/2015 [employer] [id number] / [id number] / Insurance MEDICARE [place] PART A AND B [facility] [place] PART A AND B PPO Care Teams Shell Trim Tool Setter Relationship Specialty Start Date End Date Norberto Miller [facility] [address] [place] [address] PCP - General Family Medicine 03/04/16
--- OUTSIDE RECORDS SUMMARY | 2025-06-25 15:25 | XMS_ITS | Clinical Summary ---
Author Organization [employer] ([place], [place], [place], [place]) Address [address] [place] [address] Care Team Providers Care Septic Tank Setter Name Role Phone Unavailable Primary Care Provider [...] Juan R rded Speak language other than Vietnamese at home Not on file 08/29/2024 Want [...]
[2025-06-25 20:29] LABS: Chloride 109 mmol/L (98-107); Potassium 4.3 mmoL/L (3.5-5.1); Sodium 141 mmol/L (136-145)
[2025-06-25 20:32] LABS: Calcium 8.1 mg/dl (8.4-10.2); Glucose 83 mg/dl (74-100)
[2025-06-25 20:46] LABS: Free T4 (Free Thyroxine) 1.10 ng/dl (0.78-2.19)
[2025-06-25 20:47] LABS: Anion Gap 9.3 mEq/L (5-15); Blood Urea Nitrogen 24 mg/dl (9-20); Carbon Dioxide 27 mmol/L (22.0-30.0); Creatinine,Serum 1.00 mg/dl (0.66-1.25); Estimated Glomerular Filt Rate 75 ml/min (>60); GFR (African American) 91 ML/MIN (>60)
[2025-06-25 22:16] LABS: Thyroid Stimulating Hormone 2.15 uIU/mL (0.465-4.68)
== END 2025-06-25 23:59 | disposition home or self-care (01) ==
LOC: LAB 15:22
PROVIDERS: PCP Physician Assistant; Visit Provider Nurse Practitioner
DX: I42.9 Cardiomyopathy, unspecified (principal); E11.9 Type 2 diabetes mellitus without complications; I48.0 Paroxysmal atrial fibrillation; R94.31 Abnormal electrocardiogram [ECG] [EKG]; E78.5 Hyperlipidemia, unspecified; I11.9 Hypertensive heart disease without heart failure; I25.10 Atherosclerotic heart disease of native coronary artery without angina pectoris; R55 Syncope and collapse; Z95.0 Presence of cardiac pacemaker
CPT/HCPCS: 36415; 80048; 84439; 84443

== ENCOUNTER 2025-07-11 07:37 | Outpatient (CLI) | payer MEDICARE, BC, SELFPAY ==
--- OUTSIDE RECORDS SUMMARY | 2025-05-10 06:00 | XMS_ITS ---
Author Organization [facility] Address [address] [place] [id number] Care Team Providers Care Area Field Person Name Role Phone Norberto Miller Primary Care Provider Jo Ellison Unavailable [phone] Results Component Value Reference Range Notes PT/INR (in house) Reviewed date:05/10/2025 04:55:11 PM Interpretation: Performing Lab: Notes/Report: PT 30.8 INR 2.6 current dose 5mg mon and 7.5mg aod new dose same next check 2 weeks ideal INR 2.5-3.5 REASON FOR VISIT 1 week Medications Medication SIG (Take, Route, Frequency, Duration) Notes Start Date End Date Status Levocetirizine Dihydrochloride 5 MG TAKE 1 TABLET BY MOUTH ONCE DAILY IN THE EVENING; Duration: 90 Active clonazePAM 1 MG 1/2 tab orally Two times a day; Duration: 30 days 04/28/2025 Active Sulindac 200 MG Take 1 tablet by mouth twice daily; Duration: 90 Active Pantoprazole Sodium 40 MG Take 1 tablet by mouth once daily; Duration: 90 Active Baclofen 5 MG Take 1 tablet by mouth twice daily; Duration: 90 Active Mounjaro 15 MG/0.5ML 15 mg Subcutaneous once a week 08/25/2024 Active QUEtiapine Fumarate 100 MG TAKE 1 TABLET BY MOUTH ONCE DAILY IN THE EVENING; Duration: 90 Active metFORMIN HCl ER 500 MG Take 2 tablets by mouth once daily; Duration: 90 Active Warfarin Sodium 5 MG 1 tablet Orally Onc e a day; Duration: 90 days Active Desvenlafaxine Succinate ER 100 MG 1 tablet Orally Once a day; Duration: 30 days 01/22/2025 Active OneTouch Delica Plus [id number] - USE 1 TO CHECK GLUCOSE ONCE DAILY; Duration: 90 Active rOPINIRole HCl ER 2 MG 1 tablet Orally O nce a day; Duration: 90 days Active Warfarin Sodium 7.5 MG TAKE 1 TABLET BY MOUTH ONCE DAILY 6 DAYS OUT OF THE WEEK; Duration: 90 Active Cortisporin-TC 3.3-3-10-0.5 MG/ML 5 drops into affected ear Otic Three times a day 06/22/2024 Active Myrbetriq 50 MG 1 tablet Orally Once a day; Duration: 30 day(s) Active Mupirocin 2 % 1 application Externally Twice a day Active Jardiance 25 MG take 1 tablet by mouth once daily in the morning Orally Once a day; Duration: 90 days Active Aspirin 81 MG 1 tablet Orally Once a day; Duration: 30 day(s) Active Flonase Allergy Relief 50 MCG/ACT 1 spray in each nostril Nasally Once a day 01/28/2024 Active Albuterol Sulfate HFA 108 (90 Base) MCG/ACT 1 puff as needed Inhalation every 4 hrs, prn 11/24/2023 Active Linzess 145 MCG 1 capsule at least 3 0 minutes before the first meal of the day on an empty stomach Orally Once a day; Duration: 90 days 07/30/2023 Active Nitrostat 0.4 MG 1 tab(s) sublinguall y every 5 minutes Active Tamsulosin HCl 0.4 MG 1 cap(s) orally on ce a day; Duration: 90 days Active Easy Touch Safety Lancets 28G - as directed to test once daily; Duration: 90 days diagnosis code E11.9 08/20/2023 Active Easy Touch Glucose System w/Device - test once daily E11.9 08/11/2023 Active Pristiq 100 MG 1 tab(s) orally once a day; Duration: 90 days 11/06/2022 Active Potassium Chloride ER 20 MEQ take 2 tablets by mouth once daily; Duration: 90 days Active Albuterol Sulfate HFA 108 (90 Base) MCG/ACT 1-2 puff(s) inhaled every 6 hours, prn 12/31/2022 Active CPAP MASK DIRECTED 07/25/2021 Active CPAP SUPPLIES DIRECTED 07/25/2021 Act elisabeth Magnesium Oxide 400 MG 1 tab(s) orally o nce a day Active FREE STYLE KRISTAL GLUCOSE SYSTEM DIRECTED BID 07/20/2018 Active Furosemide 40 MG 1 tab(s) Orally ever y other day Active Diclofenac Sodium 1 % as directed applie d topically 4 times a day 03/03/2021 Active Symbicort 80-4.5 MCG/ACT 2 puff(s) inhaled 2 times a day 05/08/2014 Active Vitamin B-12 1000 MCG 1 tab(s) orally on ce a day Active Calcium Carbonate 600 MG 1 tab(s) orally qhs Active Spironolactone 25 MG 1 tab(s) orally shin ry other day Active Plavix 75 MG 1 tab(s) orally once a day Active Vitamin D3 25 MCG (1000 UT) 2 tab orally once a day Active Digoxin 125 MCG 1 tablet Orally Active Leqvio 284 MG/1.5ML as directed subcutaneously every 6 months Active Vital Signs Weight 255.4 lbs 05/10/2025 Blood pressure systolic 116 mm Hg 05/10/20 25 Blood pressure diastolic 64 mm Hg 025 Heart Rate 72 /min 05/10/2025 Height 73.50 in 05/10/2025 BMI 33.24 kg/m2 05/10/2025 Encounters Encounter Location Date Provider Diagnosis [facility] 36 [facility] [address] [place], [place] [phone] 05/10/2025 Jo Ellison long-term (current) use of anticoagulants Z79.01 Assessments Encounter Date Diagnosis (ICD Code) Assessment Notes Treatment Notes Treatment Clinical Notes Section Notes 05/10/2025 long-term (current) use of anticoagulants (ICD-10 - Z79.01) Plan Of Treatment Next Appt Details Follow Up: 2 Weeks, Reason: Provider Name:Jo Weeks y, 07/12/2025 11:30:00 AM, [address], [address], [place], [place], [id number], Progress Notes * Sonia HAWTHORNEOB:1960 (64 yo M)Acc No.[id number]:05/10/2025 Progress Notes Patient: Gildardo CAMILOJoelNghia Provider: DANIEL Hatch :1960 A ge:64 Y S ex:Male Date:05/10/2025 Address:[address] [place] [address], [facility], [id number] Pcp:Norberto Miller Subjective: * Chief Complaints: * 1 . 1 week. * HPI: H ematology: 64 year old male presents with c/o PT/INR P t is taking Warfarin 5mg wednesday and 7.5mg all other days. Denies : Bruising. D enies : Bleeding. D enies : hematuria. D enies : epistaxis. * Medical History: * Medications: T aking Digoxin 125 MCG Tablet 1 tablet Orally , Taking Leqvio 284 MG/1.5ML Solution Prefilled Syringe as [...] tablet Orally Once a day , Taking OneTouch Delica Plus Iqxipq12U - Miscellaneous USE 1 TO CHECK GLUCOSE [...] tab orally Two times a day , Taking Levocetirizine Dihydrochloride 5 MG Tablet TAKE 1 TABLET BY MOUTH ONCE DAILY IN THE EVENING , Medication List reviewed and reconciled with the patient Objective: * Vitals: W t: 255.4, Temp: 97.6, BP: 116/64, HR: 72, Nurse: KAREN, Ht: 73.50, BMI:33.24. * Examination: G eneral Examination: General Appearance: N AD, appears healthy, Color good. Assessment: * Assessment: 1. L luigi term (current) use of anticoagulants - Z79.01 (Primary) Plan: * Treatment: Value Reference Range P T 30.8 * I NR 2.6 * c urrent dose 5mg mon and 7.5mg aod * n ew dose same * n ext check 2 weeks * i deal INR 2.5-3.5 * Aleah Quinones 05/10/2025 10: 08:17 AM EDT > Provider reviewed results while patient in office.Jo Ellison 05/10/2025 04:55:09 PM EDT > * Procedure Codes: G 2211 Complex e/[place], [address] PROTHROMBIN TIME, Modifiers: QW , 74492 CAPILLARY BLOOD DRAW, G8783 BP SCR PRFRM RCMDD DEFIND SCR INTVL, G8752 MOST RECENT SYSTOLIC BP < 140MM HG, G8754 MOST RECENT DIASTOLIC BP < 90MM HG * Follow Up: 2 Weeks * Images: Billing Information: * Visit Code: 37622 Office Visit, Est Pt., Level 2. * Procedure Codes: G2211 Complex e/[place]. [address] PROTHROMBIN TIME. Modifiers: QW 48691 CAPILLARY BLOOD DRAW. G8783 BP SCR PRFRM RCMDD DEFIND SCR INTVL. G8752 MOST RECENT SYSTOLIC BP < 140MM HG. G8754 MOST RECENT DIASTOLIC BP < 90MM HG. * Electronic signature of DANIEL Bartlett on 07/11/2025 at 07:42 AM EDT Sign off status: Pending * Provider: DANIEL Hatch Date: 0 05/10/2025 Generated for Melitoni ng/Fagurwinderg/eTransmitting on: 0 07/11/2025 07:42 AM EDT History and Physical Notes * HPI (History of Present Illness) Category Sub-Category Detail Notes Category Not es Hematology epistaxis hematuria Bruising Bleeding PT/INR Pt is taking Warfari n 5mg wednesday and 7.5mg all other days Examination Category Sub-Category Detail Notes Category Not es General Examination General Appearance: NAD, faith ears healthy, Color good
--- OUTSIDE RECORDS SUMMARY | 2025-05-24 06:15 | XMS_ITS ---
Author Organization [facility] Address [address] [place] [phone] Care Team Providers Care Blocker And Cutter Contact Lens Name Role Phone Norberto Miller Primary Care Provider [phone] Jo Ellison Unavailable [phone] Allergies No Known Allergies Results Component Value Reference Range Notes PT/INR (in house) Reviewed date:05/25/2025 12:41:13 PM Interpretation: Performing Lab: Notes/Report: PT 32.9 INR [...] Duration: 90 days Active OneTouch Delica Plus Crhgvr89B - USE 1 TO CHECK GLUCOSE ONCE [...] MOUTH ONCE DAILY IN THE EVENING; Duration: Active Leqvio 284 MG/1.5ML as directed subcutaneously [...] 05/24/2025 Encounters Encounter Location Date Provider Diagnosis [facility] [address] [place], [place] [phone] 05/24/2025 Jo Ellison roasterman (current) use of anticoagulants Z79.01 Assessments Encounter Date Diagnosis (ICD Code) Assessment Notes Treatment Notes Treatment Clinical Notes Section Notes 05/24/2025 roasterman (current) use of anticoagulants (ICD-10 - Z79.01) Plan Of Treatment Next Appt Details Follow Up: 4 Weeks, Reason: Provider Name:Jo Weeks y, 07/12/2025 11:30:00 AM, [address], [address], [place], [place], [phone], Progress Notes * Sonia HAWTHORNEOB:1960 (64 yo M)Acc No.[id number]:05/24/2025 Progress Notes Patient: Gildardo Nghia PAGE Provider: DANIEL Hatch :1960 A ge:64 Y S ex:Male Date:05/24/2025 Address:[address] [place] [address], [facility] [place], [id number] Pcp:Norberto Miller Subjective: * Chief Complaints: * [...] - Dr. Cárdenas 08/21/2015, Ablation-Dr Schmid @ [facility] 04/2016, Rectal Polyps Removal 11/12/2016, Cardiac ECHO & Stress Test 03/31/2017, Cardiac Pacemaker 10/2016, Cardioversion 2013, Open Heart 2013, Heart Cath - [facility] 03/2018. * Hospitalization/Major Diagno stic Procedure: C hest Pain , DVT, Bilateral PE 07/2009, Chest Pain, LT Leg Swollen- [facility] 08/2010, Chest Pain- [facility] 11/11-11/12/2011, Chest Pain- [facility] 04/24/2012, Insect Bite- [facility] 06/20/2012, Weak, Heart Palpitations- [facility] 06/07/2013, Tachycardia- [facility] 07/30/2014, Hypertension, Tachycardia- [facility] 04/15/2016, Chest Pain- [facility] 05/01/2016, LT Leg Blood Clot- [facility] 11/17/2018. * Family History: F [...] a day , Taking OneTouch Delica Plus Rpdnat37T - Miscellaneous USE 1 TO CHECK GLUCOSE [...] Temp: 97.6, BP: 120/70, HR: 70, Nurse: pe, Ht: 73.50, BMI:32.51. * Examination: G eneral Examination: General Appearance: [...] while patient in office. * Procedure Codes: G 2211 Complex e/[place], [address] PROTHROMBIN TIME, Modifiers: QW , 40810 CAPILLARY BLOOD DRAW, 1036F TOBACCO NON-USER, G8783 BP SCR PRFRM RCMDD DEFIND SCR INTVL, G8752 MOST RECENT SYSTOLIC BP < 140MM HG, G8754 MOST RECENT DIASTOLIC BP < 90MM HG * Follow Up: 4 Weeks * Images: Billing Information: * Visit Code: 00307 Office Visit, Est Pt., Level 2. * Procedure Codes: G2211 Complex e/[place]. [address] PROTHROMBIN TIME. Modifiers: QW 77933 CAPILLARY BLOOD DRAW. 1036F TOBACCO NON-USER. G8783 BP SCR PRFRM RCMDD DEFIND SCR INTVL. G8752 MOST RECENT SYSTOLIC BP < 140MM HG. G8754 MOST RECENT DIASTOLIC BP < 90MM HG. * Electronic signature of DANIEL Bartlett on 07/11/2025 at 07:40 AM EDT Sign off status: Pending * Provider: DANIEL Hatch Date: 0 05/24/2025 Generated for Shanelle dominguez/Ja/eTransmitting on: 0 07/11/2025 07:40 AM EDT History and Physical Notes * HPI (History of Present Illness) Category Sub-Category Detail Notes Category Not es Hematology epistaxis hematuria Bruising Bleeding PT/INR due for PT/INR. The pt states he is taking Warfarin 5 mg on Wednesday and 7.5 mg all other days Examination Category Sub-Category Detail Notes Category Not es General Examination General Appearance: NAD, faith ears healthy, Color good
--- OUTSIDE RECORDS SUMMARY | 2025-06-13 10:45 | XMS_ITS ---
Author Organization [facility] Address [address] [place] [id number] Care Team Providers Care Conference Concierge Name Role Phone Norberto Miller Primary Care Provider [phone] Jo Ellison Unavailable [phone] Allergies No Known Allergies Results Component Value Reference Range Notes P-Comprehensive Metabolic Pa juanjose (CMP) Reviewed date:06/19/2025 09:11:35 AM Interpretation:gluc 136 Performing Lab: Notes/Report: Test performed by [facility] [address] [place] [address] , [address], [place] [address] Michael Hung MD, Digital Marketing Consultant CLIA: [id number] Sodium 141 135-145 mmol/L Potassium 3.6 3.5-5.3 [...] Interpretation:Normal Performing Lab: Notes/Report: Test performed by [facility] [address], [place] [address] Michael Hung MD, Digital Marketing Consultant CLIA: [id number] Creatine Kinase 161 20-200 U/L P-Magnesium Reviewed date:06/19/2025 09:11:35 AM Interpretation:Normal Performing Lab: Notes/Report: Test performed by [facility] [address] [place] [address] [address], [place] [address] Michael Hung MD, Digital Marketing Consultant CLIA: [id number] Magnesium 2.1 1.6-2.4 mg/dL REASON FOR VISIT [...] daily; Duration: 90 Active OneTouch Delica Plus [id number] - USE 1 TO CHECK GLUCOSE ONCE [...] Encounters Encounter Location Date Provider Diagnosis [facility] [address] [place] [address] [place] [phone] 06/13/2025 Jo Ellison Leg cramps R25.2 and [...] test results, Reason: Provider Name:Jo Weeks y, 07/12/2025 11:30:00 AM, [facility] [address] [facility], [address], [place], [place], [id number], Progress Notes * Sonia HAWTHORNEOB:1960 (64 yo M)Acc No.[id number]:06/13/2025 Progress Notes Patient: Nghia CHAVEZ Provider: DANIEL Hatch :1960 A ge:64 Y S ex:Male Date:06/13/2025 Address:[address] [place] [address], [facility] Pcp:Norberto Miller Subjective: * Chief Complaints: [...] - Dr. Cárdenas 08/21/2015, Ablation-Dr Schmid @ [facility] 04/2016, Rectal Polyps Removal 11/12/2016, Cardiac ECHO & Stress Test 03/31/2017, Cardiac Pacemaker 10/2016, Cardioversion 2013, Open Heart 2013, Heart Cath - [facility] 03/2018. * Hospitalization/Major Diagno stic Procedure: C hest Pain , DVT, Bilateral PE 07/2009, Chest Pain, LT Leg Swollen- [facility] 08/2010, Chest Pain- [place] [facility] 11/11-11/12/2011, Chest Pain- [facility] 04/24/2012, Insect Bite- [facility] 06/20/2012, Weak, Heart Palpitations- [facility] 06/07/2013, Tachycardia- [facility] 07/30/2014, Hypertension, Tachycardia- [facility] 04/15/2016, Chest Pain- [facility] 05/01/2016, LT Leg Blood Clot- [facility] 11/17/2018. * Family History: F [...] a day , Taking OneTouch Delica Plus [id number] - Miscellaneous USE 1 TO CHECK GLUCOSE [...] * Images: Billing Information: * Visit Code: 41802 Office Visit, Est Pt., Level 4. * Procedure Codes: G2211 Complex e/m visit add on. 1036F TOBACCO NON-USER. G8783 BP SCR PRFRM RCMDD DEFIND SCR INTVL. G8752 MOST RECENT SYSTOLIC BP < 140MM HG. G8754 MOST RECENT DIASTOLIC BP < 90MM HG. * Electronic signature of DANIEL Bartlett on 07/11/2025 at 07:39 AM EDT Sign off status: Pending * Provider: DANIEL Hatch Date: 0 06/13/2025 Generated for Melitoni ng/Ja/eTransmitting on: 0 07/11/2025 07:39 AM EDT History and Physical Notes * [...]
--- OUTSIDE RECORDS SUMMARY | 2025-06-21 07:30 | XMS_ITS ---
Author Organization [facility] Address [address] [place] [id number] Care Team Providers Care Distillery Miller Helper Name Role Phone Norberto Miller Primary Care Provider Jo Ellison Unavailable [phone] Allergies No Known Allergies Results Component Value Reference Range Notes PT/INR (in house) Reviewed date:06/22/2025 05:03:27 PM Interpretation: Performing Lab: Notes/Report: PT 44.0 INR 3.7 current dose 5mg wednesday,7.5 mg aod new dose 5mg and 7.5mg AOD next check 1 week ideal INR 2.5-3.5 REASON FOR VISIT 4 weeks Medications Medication SIG (Take, Route, Frequency, Duration) Notes Start Date End Date Status Furosemide 40 MG 1/2 tab Orally every other day, prn Active Sulindac 200 MG Take 1 tablet by mouth twice daily; Duration: 90 Active Spironolactone 25 MG 1/2 tab orally ever y other day, prn Active Levocetirizine Dihydrochloride 5 MG TAKE 1 TABLET BY MOUTH ONCE DAILY IN THE EVENING; Duration: 90 Active clonazePAM 1 MG 1/2 tab orally Two times a day; Duration: 30 days 04/28/2025 Active Pantoprazole Sodium 40 MG Take 1 tablet by mouth once daily; Duration: 90 Active Baclofen 5 MG Take 1 tablet by mouth twice daily; Duration: 90 Active metFORMIN HCl ER 500 MG Take 2 tablets by mouth once daily; Duration: 90 Active Warfarin Sodium 5 MG 1 tablet Orally Onc e a day; Duration: 90 days Active Desvenlafaxine Succinate ER 100 MG 1 tablet Orally Once a day; Duration: 30 days 01/22/2025 Active Mounjaro 15 MG/0.5ML 15 mg Subcutaneous once a week 08/25/2024 Active Myrbetriq 50 MG 1 tablet Orally Once a day; Duration: 30 day(s) Active OneTouch Delica Plus [id number] - USE 1 TO CHECK GLUCOSE ONCE DAILY; Duration: 90 Active rOPINIRole HCl ER 2 MG 1 tablet Orally O nce a day; Duration: 90 days Active QUEtiapine Fumarate 100 MG TAKE 1 TABLET BY MOUTH ONCE DAILY IN THE EVENING; Duration: 90 Active Warfarin Sodium 7.5 MG TAKE 1 TABLET BY MOUTH ONCE DAILY 6 DAYS OUT OF THE WEEK; Duration: 90 Active Cortisporin-TC 3.3-3-10-0.5 MG/ML 5 drops into affected ear Otic Three times a day 06/22/2024 Active Jardiance 25 MG take 1 tablet by mouth once daily in the morning Orally Once a day; Duration: 90 days Active Aspirin 81 MG 1 tablet Orally Once a day; Duration: 30 day(s) Active Flonase Allergy Relief 50 MCG/ACT 1 spray in each nostril Nasally Once a day 01/28/2024 Active Easy Touch Safety Lancets 28G - as directed to test once daily; Duration: 90 days diagnosis code E11.9 08/20/2023 Active Easy Touch Glucose System w/Device - test once daily E11.9 08/11/2023 Active Linzess 145 MCG 1 capsule at least 3 0 minutes before the first meal of the day on an empty stomach Orally Once a day; Duration: 90 days 07/30/2023 Active Albuterol Sulfate HFA 108 (90 Base) MCG/ACT 1 puff as needed Inhalation every 4 hrs, prn 11/24/2023 Active Mupirocin 2 % 1 application Externally Twice a day Active Tamsulosin HCl 0.4 MG 1 cap(s) orally on ce a day; Duration: 90 days Active Pristiq 100 MG 1 tab(s) orally once a day; Duration: 90 days 11/06/2022 Active Albuterol Sulfate HFA 108 (90 Base) MCG/ACT 1-2 puff(s) inhaled every 6 hours, prn 12/31/2022 Active CPAP MASK DIRECTED 07/25/2021 Active Nitrostat 0.4 MG 1 tab(s) sublinguall y every 5 minutes Active Diclofenac Sodium 1 % as directed applie d topically 4 times a day 03/03/2021 Active FREE STYLE KRISTAL GLUCOSE SYSTEM DIRECTED BID 07/20/2018 Active CPAP SUPPLIES DIRECTED 07/25/2021 Act elisabeth Potassium Chloride ER 20 MEQ take 2 tablets by mouth once daily; Duration: 90 days Active Symbicort 80-4.5 MCG/ACT 2 puff(s) inhaled 2 times a day 05/08/2014 Active Vitamin B-12 1000 MCG 1 tab(s) orally on ce a day Active Vitamin D3 25 MCG (1000 UT) 2 tab orally once a day Active Plavix 75 MG 1 tab(s) orally once a day Active Magnesium Oxide 400 MG 1 tab(s) orally o nce a day Active Calcium Carbonate 600 MG 1 tab(s) orally qhs Active Leqvio 284 MG/1.5ML as directed subcutaneously every 6 months Active Vital Signs Weight 258 lbs 06/21/2025 Blood pressure systolic 116 mm Hg 06/21/20 25 Blood pressure diastolic 60 mm Hg 025 Heart Rate 90 /min 06/21/2025 Height 73.50 in 06/21/2025 BMI 33.57 kg/m2 06/21/2025 Encounters Encounter Location Date Provider Diagnosis [facility] [address] [place] [address] [address] [facility] [address] [place], [place] [phone] 06/21/2025 Jo Ellison Symptomatic hypotens ion I95.9 and FPC (current) use of anticoagulants Z79.01 Assessments Encounter Date Diagnosis (ICD Code) Assessment Notes Treatment Notes Treatment Clinical Notes Section Notes 06/21/2025 Symptomatic hypotension (ICD-10 - I95.9) 06/21/2025 FPC (current) use of anticoagulants (ICD-10 - Z79.01) Plan Of Treatment Medication Medication Name Sig Start Date Stop Date Notes Furosemide 40 MG 1/2 tab Orally every other day, prn Spironolactone 25 MG 1/2 tab orally every other day, prn Next Appt Details Follow Up: 1 Week, Reason: Provider Name:Jo meehan, 07/12/2025 11:30:00 AM, [facility] [address] [facility], [address], [place], [place], [id number], Progress Notes * Sonia HAWTHORNEOB:1960 (64 yo M)Acc No.[id number]:06/21/2025 Progress Notes Patient: Nghia CHAVEZ Provider: DANIEL Hatch :1960 A ge:64 Y S ex:Male Date:06/21/2025 Address:[address] [place] [address], [facility] Pcp:Norberto Miller Subjective: * Chief Complaints: * 1 . 4 weeks. * HPI: H ematology: 64 year old male presents with c/o PT/INR d ue for PT/INR.? H PI: Patient is here today for P t states that his Blood Pressure has continued to be low even with decreasing diuretics to 1/2 a pill . * ROS: D ERMATOLOGY: no R alexander. [...] 2013, Open Heart 2013, Heart Cath - [facility] 03/2018. * Hospitalization/Major Diagno stic Procedure: C hest Pain , DVT, Bilateral PE 07/2009, Chest Pain, LT Leg Swollen- [facility] 08/2010, Chest Pain- [place] [facility] 11/11-11/12/2011, Chest Pain- [facility] 04/24/2012, Insect Bite- [facility] ER 06/20/2012, Weak, Heart Palpitations- [place] [facility] 06/07/2013, Tachycardia- [facility] 07/30/2014, Hypertension, Tachycardia- [facility] ER 04/15/2016, Chest Pain- [facility] ER 05/01/2016, LT Leg Blood Clot- [facility] ER 11/17/2018. * Family History: F [...] directed subcutaneously every 6 months , Taking Plavix 75 MG Tablet 1 [...] inhaled 2 times a day , Taking Potassium Chloride ER 20 [...] a day , Taking OneTouch Delica Plus [id number] - Miscellaneous USE 1 TO CHECK GLUCOSE [...] ONCE DAILY IN THE EVENING , Taking Spironolactone 25 MG Tablet 1/2 tab orally every other day , Taking Furosemide 40 MG Tablet 1/2 tab Orally every other day , Medication List reviewed and reconciled with the patient * Allergies: N .K.D.A. Objective: * Vitals: W t: 258, Temp: 97.8, BP: 116/60, HR: 90, Nurse: pe, Ht: 73.50, BMI:33.57. * Examination: G eneral Examination: General Appearance: N AD. C hest: n ormal shape and expansion. H eart: R SR. L ungs: c lear to auscultation. Assessment: * Assessment: 1. S ymptomatic hypotension - I95.9 (Primary) 2 . L luigi term (current) use of anticoagulants - Z79.01 Plan: * Treatment: 2. L luigi term (current) use of anticoagulants L AB: PT/INR (in house) (Collection Date & Time - 06/21/2025) Value Reference Range P T 44.0 * I NR 3.7 * c urrent dose 5mg wednesday,7.5 mg aod * n ew dose 5mg MF and 7.5mg AOD * n ext check 1 week * i deal INR 2.5-3.5 * Belem Roe 06/21/2025 1 1:24:38 AM EDT > Provider reviewed results while patient in office. * Procedure Codes: G 2211 Complex e/[place], [address] PROTHROMBIN TIME, Modifiers: QW , [address] CAPILLARY BLOOD DRAW, 1036F TOBACCO NON-USER, G7468 BP SCR PRFRM RCMDD DEFIND SCR INTVL, G0752 MOST RECENT SYSTOLIC BP < 140MM HG, G8754 MOST RECENT DIASTOLIC BP < 90MM HG * Follow Up: 1 Week * Images: Billing Information: * Visit Code: 52647 Office Visit, Est Pt., Level 3. * Procedure Codes: G2211 Complex [place]. [address] PROTHROMBIN TIME. Modifiers: QW 72042 CAPILLARY BLOOD DRAW. 1036F TOBACCO NON-USER. G8783 BP SCR PRFRM RCMDD DEFIND SCR INTVL. G8752 MOST RECENT SYSTOLIC BP < 140MM HG. G8754 MOST RECENT DIASTOLIC BP < 90MM HG. * Electronic signature of DANIEL Bartlett on 07/11/2025 at 07:40 AM EDT Sign off status: Pending * Provider: DANIEL Hathc Date: 0 06/21/2025 Generated for Shanelle dominguez/Ja/eTransmitting on: 0 07/11/2025 07:40 AM EDT History and Physical Notes * HPI (History of Present Illness) Category Sub-Category Detail Notes Category Not es HPI Patient is here today for Pt sta devang that his Blood Pressure has continued to be low even with decreasing diuretics to 1/2 a pill Hematology PT/INR due for PT/INR Examination Category Sub-Category Detail Notes Category Not es General Examination Heart: RSR Lungs: clear to auscultatio n General Appearance: NAD Chest: normal shape and exp ansion
--- OUTSIDE RECORDS SUMMARY | 2025-06-28 06:45 | XMS_ITS ---
Author Organization [facility] Address [address] [place] [phone] Care Team Providers Care Clinical Account Executive Name Role Phone Norberto Miller Primary Care Provider Jo Ellison Unavailable [phone] Allergies No Known Allergies Results Component Value Reference Range Notes PT/INR (in house) Reviewed date:06/28/2025 10:58:48 AM Interpretation: Performing Lab: Notes/Report: PT 38.4 INR 3.2 current dose 5mg MF and 7.5 aod new dose same next check 2 weeks ideal INR 2.5-3.5 REASON FOR VISIT 1 week Medications Medication SIG (Take, Route, Frequency, Duration) Notes Start Date End Date Status Furosemide 40 MG 1/2 tab Orally every other day, prn Active Levocetirizine Dihydrochloride 5 MG TAKE 1 TABLET BY MOUTH ONCE DAILY IN THE EVENING; Duration: 90 Active Spironolactone 25 MG 1/2 tab orally ever y other day, prn Active clonazePAM 1 MG 1/2 tab orally Two times a day; Duration: 30 days 04/28/2025 Active metFORMIN HCl ER 500 MG Take 2 tablets by mouth once daily; Duration: 90 Active Sulindac 200 MG Take 1 tablet by mouth twice daily; Duration: 90 Active Baclofen 5 MG Take 1 tablet by mouth twice daily; Duration: 90 Active Pantoprazole Sodium 40 MG Take 1 tablet by mouth once daily; Duration: Active Desvenlafaxine Succinate ER 100 MG 1 tablet Orally Once a day; Duration: 30 days 01/22/2025 Active Warfarin Sodium 5 MG 1 tablet Orally Onc e a day; Duration: 90 days Active OneTouch Delica Plus [id number] - USE 1 TO CHECK GLUCOSE ONCE DAILY; Duration: 90 Active Myrbetriq 50 MG 1 tablet Orally Once a day; Duration: 30 day(s) Active rOPINIRole HCl ER 2 MG 1 tablet Orally O nce a day; Duration: 90 days Active Mounjaro 15 MG/0.5ML 15 mg Subcutaneous once a week 08/25/2024 Active QUEtiapine Fumarate 100 MG TAKE 1 TABLET BY MOUTH ONCE DAILY IN THE EVENING; Duration: 90 Active Warfarin Sodium 7.5 MG TAKE 1 TABLET BY MOUTH ONCE DAILY 6 DAYS OUT OF THE WEEK; Duration: 90 Active Jardiance 25 MG take 1 tablet by mouth once daily in the morning Orally Once a day; Duration: 90 days Active Cortisporin-TC 3.3-3-10-0.5 MG/ML 5 drops into affected ear Otic Three times a day 06/22/2024 Active Flonase Allergy Relief 50 MCG/ACT 1 spray in each nostril Nasally Once a day 01/28/2024 Active Aspirin 81 MG 1 tablet Orally Once a day; Duration: 30 day(s) Active Linzess 145 MCG 1 capsule at least 3 0 minutes before the first meal of the day on an empty stomach Orally Once a day; Duration: 90 days 07/30/2023 Active Easy Touch Glucose System w/Device - test once daily E11.9 08/11/2023 Active Albuterol Sulfate HFA 108 (90 Base) MCG/ACT 1 puff as needed Inhalation every 4 hrs, prn 11/24/2023 Active Easy Touch Safety Lancets 28G - as directed to test once daily; Duration: 90 days diagnosis code E11.9 08/20/2023 Active Mupirocin 2 % 1 application Externally Twice a day Active Tamsulosin HCl 0.4 MG 1 cap(s) orally on ce a day; Duration: 90 days Active Nitrostat 0.4 MG 1 tab(s) sublinguall y every 5 minutes Active Albuterol Sulfate HFA 108 (90 Base) MCG/ACT 1-2 puff(s) inhaled every 6 hours, prn 12/31/2022 Active Pristiq 100 MG 1 tab(s) orally once a day; Duration: 90 days 11/06/2022 Active CPAP MASK DIRECTED 07/25/2021 Active FREE STYLE KRISTAL GLUCOSE SYSTEM DIRECTED BID 07/20/2018 Active CPAP SUPPLIES DIRECTED 07/25/2021 Act elisabeth Potassium Chloride ER 20 MEQ take 2 tablets by mouth once daily; Duration: 90 days Active Diclofenac Sodium 1 % as directed applie d topically 4 times a day 03/03/2021 Active Symbicort 80-4.5 MCG/ACT 2 puff(s) inhaled 2 times a day 05/08/2014 Active Magnesium Oxide 400 MG 1 tab(s) orally o nce a day Active Vitamin B-12 1000 MCG 1 tab(s) orally on ce a day Active Calcium Carbonate 600 MG 1 tab(s) orally qhs Active Plavix 75 MG 1 tab(s) orally once a day Active Vitamin D3 25 MCG (1000 UT) 2 tab orally once a day Active Leqvio 284 MG/1.5ML as directed subcutaneously every 6 months Active Vital Signs Weight 260.2 lbs 06/28/2025 Blood pressure systolic 122 mm Hg 06/28/20 25 Blood pressure diastolic 60 mm Hg 025 Heart Rate 69 /min 06/28/2025 Height 73.50 in 06/28/2025 BMI 33.86 kg/m2 06/28/2025 Encounters Encounter Location Date Provider Diagnosis [facility] [address] [facility] [address] [place], [place] [phone] 06/28/2025 Jo Ellison intermediate (current) use of anticoagulants Z79.01 Assessments Encounter Date Diagnosis (ICD Code) Assessment Notes Treatment Notes Treatment Clinical Notes Section Notes 06/28/2025 intermediate (current) use of anticoagulants (ICD-10 - Z79.01) Plan Of Treatment Next Appt Details Follow Up: 2 Weeks, Reason: Provider Name:Jo meehan, 07/12/2025 11:30:00 AM, [address], [address], [place], [place], [phone], Progress Notes * Sonia HAWTHORNEOB:1960 (64 yo M)Acc No.[id number]:06/28/2025 Progress Notes Patient: Gildardo Nghia PAGE Provider: DANIEL Hatch :1960 A ge:64 Y S ex:Male Date:06/28/2025 Address:[address] [place] [address], [place], [id number] Pcp:Norberto Miller Subjective: * Chief Complaints: * 1 . 1 week. * HPI: H ematology: 64 year old male presents with c/o PT/INR d ue for PT/INR.?. H PI: Patient is here today for P t states he has a stress test 07/11/2025. * ROS: D ERMATOLOGY: no R alexander. [...] - Dr. Cárdenas 08/21/2015, Ablation-Dr Schmid @ [facility] 04/2016, Rectal Polyps Removal 11/12/2016, Cardiac ECHO & Stress Test 03/31/2017, Cardiac Pacemaker 10/2016, Cardioversion 2013, Open Heart 2013, Heart Cath - [facility] 03/2018. * Hospitalization/Major Diagno stic Procedure: C hest Pain , DVT, Bilateral PE 07/2009, Chest Pain, LT Leg Swollen- [facility] 08/2010, Chest Pain- [facility] 11/11-11/12/2011, Chest Pain- [facility] 04/24/2012, Insect Bite- [facility] 06/20/2012, Weak, Heart Palpitations- [facility] 06/07/2013, Tachycardia- [facility] 07/30/2014, Hypertension, Tachycardia- [facility] 04/15/2016, Chest Pain- [facility] 05/01/2016, LT Leg Blood Clot- [facility] 11/17/2018. * Family History: F [...] a day , Taking OneTouch Delica Plus [id number] - Miscellaneous USE 1 TO CHECK GLUCOSE [...] tablet Orally Once a day , Taking Baclofen 5 MG Tablet Take [...] MG Tablet 1/2 tab orally every other day, prn , Taking Furosemide 40 MG Tablet 1/2 tab Orally every other day, prn , Taking metFORMIN HCl ER 500 MG Tablet Extended Release 24 Hour Take 2 tablets by mouth once daily , Medication List reviewed and reconciled with the patient * Allergies: N .K.D.A. Objective: * Vitals: W t: 260.2, Temp: 97.6, BP: 122/60, HR: 69, Nurse: pe, Ht: 73.50, BMI:33.86. * Examination: G eneral Examination: General Appearance: N AD, appears healthy, Color good. Assessment: * Assessment: 1. L luigi term (current) use of anticoagulants - Z79.01 (Primary) Plan: * Treatment: Value Reference Range P T 38.4 * I NR 3.2 * c urrent dose 5mg MF and 7.5 aod * n ew dose same * n ext check 2 weeks * i deal INR 2.5-3.5 * Belem Roe 06/28/2025 1 0:55:15 AM EDT > Provider reviewed results while patient in office.Jo Ellison 06/28/2025 10:58:44 AM EDT > * Procedure Codes: G 2211 Complex e/[place], [address] PROTHROMBIN TIME, Modifiers: QW , 40875 CAPILLARY BLOOD DRAW, 1036F TOBACCO NON-USER * Follow Up: 2 Weeks * Images: Billing Information: * Visit Code: 16867 Office Visit, Est Pt., Level 2. * Procedure Codes: G2211 Complex e/[place]. [address] PROTHROMBIN TIME. Modifiers: QW 70483 CAPILLARY BLOOD DRAW. 1036F TOBACCO NON-USER. * Electronic signature of DANIEL Bartlett on 07/11/2025 at 07:42 AM EDT Sign off status: Pending * Provider: DANIEL Hatch Date: 06/28/2025 Generated for Melitoni ng/Fagurwinderg/eTransmitting on: 0 07/11/2025 07:42 AM EDT History and Physical Notes * HPI (History of Present Illness) Category Sub-Category Detail Notes Category Not es HPI Patient is here today for Pt sta devang he has a stress test 07/11/2025 Hematology PT/INR due for PT/INR. Examination Category Sub-Category Detail Notes Category Not es General Examination General Appearance: NAD, faith ears healthy, Color good
--- NOTE | 2025-07-11 | CA_ITS ---
APPROVED REPORT Exam: Pharmacologic Technologist: Alena Cortez Stress Nurse: Pauline Curran Ht: 5 ft 3 in Wt: 261 lbs BSA: 2.17 m2 HR: 65 bpm BP: 130/67 mmHg Stress Test Details Test: Lexiscan HR Resting HR: 65 bpm Max Heart Rate (APMHR): 157.431281 bpm Max HR Achieved: 81 bpm Target HR (85% APMHR): 133.331793 bpm % of APMHR: 51.59 Recovery HR: 72 bpm BP Resting BP: 130.0/67.0 mmHg Max BP: 131.0/64.0 mmHg Recovery BP: 131.0/64.0 mmHg ECG Resting ECG: Atrial paced Stress ECG Conclusion Symptoms: Dizziness Arrhythmias/Ectopy: None ST-T Changes: Less than 0.[address] segment changes. Conclusion: Non-diagnostic ECG/Lexiscan. Electronically signed by : Teresa Echeverria MD 07/11/2025 18:42:18
--- NOTE | 2025-07-11 07:30 | NM_ITS ---
APPROVED REPORT Exam: Nuclear Stress Test Indication: high cholesterol..cp..soa..palpitations..fatigue Patient Location: Outpatient Stress Tech: Alena Cortez [place] Tech:Lucía LevyADRIEL RT(R)(N) Ht: 6 ft 2 in Wt: 250 lbs HR: 65 bpm BP: 130/67 mmHg BSA: 2.39 m2 TID: 1.27 BMI: 32.0 History: high cholesterol..cp..soa..palpitations..fatigue Procedure: Patient received 0.4 mg of intravenous Lexiscan, resting heart rate 65 bpm, resting blood pressure 130/67 mmHg, with Lexiscan maximum heart rate achieved was 81 bpm which is 85 % of the maximum predicted heart rate and blood pressure was 124/59 mmHg. With Lexiscan, patient denied any complaint of chest pain. Cardiac Stress and Resting SPECT Images: Cardiac Stress and Resting SPECT images were obtained using technetium 99m Myoview 32.8 mCi stress and 10.34 mCi at rest. Resting and stress imaging in supine and prone positions demonstrate no evidence of fixed or reversible perfusion defects. There is increase in transient ischemic dilatation ratio (TID 1.27), which may be suggestive of possible multivessel disease or balanced ischemia. Gated imaging demonstrates normal global LV systolic function. LVEF is calculated at 53%. Conclusion: No evidence of fixed or reversible perfusion defects. There is increase in transient ischemic dilatation ratio (TID 1.27), which may be suggestive of possible multivessel disease or balanced ischemia. Gated imaging demonstrates normal global LV systolic function. LVEF is calculated at 53%. Electronically signed by : Teresa Echeverria MD 07/11/2025 13:02:11
--- OUTSIDE RECORDS SUMMARY | 2025-07-11 07:40 | XMS_ITS | Encounter Summary ---
Author Organization Healthcare Address [address] [place] [address] Care Team Providers Care Pile Fabric Knitter Name Role Phone Pcp, No Primary Care Provider Unavailabl e Encounter Details Date Type Department Care Team ([facility] st Contact Info) Description 01/27/2011 Orders Only External Location [address] [place] [address] Provider, External Social History Tobacco Use Types [...] on filedocumented in this encounter Care Teams Pile Fabric Knitter Relationship Specialty Start Date End Date Pcp, No [address] [place] [address] PCP - General Family Medicine 01/22/23 documented as of this encounter
--- OUTSIDE RECORDS SUMMARY | 2025-07-11 07:40 | XMS_ITS | Clinical Summary ---
Author Organization [facility] ([place], [place], [place], [place]) Address [address] [place] [address] Care Team Providers Care Cable Placer Name Role Phone Unavailable Primary Care Provider [...] Juan R rded Speak language other than [place] at home Not on file 08/29/2024 Want [...]
--- OUTSIDE RECORDS SUMMARY | 2025-07-11 07:40 | XMS_ITS | Clinical Summary ---
Author Organization [facility] Address [address] [place] [address] Care Team Providers Care Brand Recorder Name Role Phone Pcp, No Primary Care [...] 2011 UKY-Zoster Vaccines (1 of 2) 2011 [id number] Vaccine (3 - season) 2024 03/14/2021, 02/14/2021 [...] age to complete this topic Insurance MEDICARE [facility] Care Teams Brand Recorder Relationship Specialty Start Date [place] [address] PCP - General Family Medicine 01/22/23
--- OUTSIDE RECORDS SUMMARY | 2025-07-11 07:40 | XMS_ITS | Encounter Summary ---
Author Organization Healthcare Address [address] [place] [address] Care Team Providers Care Product Developer Name Role Phone Pcp, No Primary Care Provider Unavailabl e Encounter Details Date Type Department Care Team ([facility] st Contact Info) Description 09/21/2011 Orders Only External Location [address] [place] [address] Provider, External Social History Tobacco Use Types [...] on filedocumented in this encounter Care Teams Product Developer Relationship Specialty Start Date End Date Pcp, No [address] [place] [address] PCP - General Family Medicine 01/22/23 documented as of this encounter
--- OUTSIDE RECORDS SUMMARY | 2025-07-11 07:40 | XMS_ITS | Encounter Summary ---
Author Organization Healthcare Address [address] [place] [address] Care Team Providers Care Wind Operations Supervisor Name Role Phone Pcp, No Primary Care Provider Unavailabl e Encounter Details Date Type Department Care Team ([facility] st Contact Info) Description 01/22/2011 Orders Only External Location [address] [place] [address] Provider, External Social History Tobacco Use Types [...] on filedocumented in this encounter Care Teams Wind Operations Supervisor Relationship Specialty Start Date End Date Pcp, No [address] [place] [address] PCP - General Family Medicine 01/22/23 documented as of this encounter
--- OUTSIDE RECORDS SUMMARY | 2025-07-11 07:40 | XMS_ITS | Encounter Summary ---
Author Organization Healthcare Address [address] [place] [address] Care Team Providers Care It Consulting Manager Name Role Phone Pcp, No Primary Care Provider Unavailabl e Encounter Details Date Type Department Care Team ([facility] st Contact Info) Description 02/04/2012 Orders Only External Location [address] [place] [address] Provider, External Social History Tobacco Use Types [...] on filedocumented in this encounter Care Teams It Consulting Manager Relationship Specialty Start Date End Date Pcp, No [address] [place] [address] PCP - General Family Medicine 01/22/23 documented as of this encounter
--- OUTSIDE RECORDS SUMMARY | 2025-07-11 07:42 | XMS_ITS | Patient Health Record ---
[facility] Organization [facility] Address [address] [facility] [address] [place] [id number] Care Team Providers Care Live Out Nanny Name Role Phone Norberto Miller Primary Care Provider Khushboo Gamble Unavailable [phone] Go Matt Unavailable [phone] Jo Ellison Unavailable [phone] Allergies No Known Allergies Results Component Value Reference Range Notes P-Culture, Wound Aerobic w/G chuy Stain Reviewed date:10/04/2024 09:57:32 AM Interpretation:no growth Performing Lab: Notes/Report: Test performed by [facility] [employer] [place] , [address], [place] [address] Michael Hung MD, Cane Flume Watcher CLIA: [id number] Specimen Source Abscess - mid back Gram Stain See Below Rare Polymorphonuclear leukocytes No organisms seen Culture, Wound Aerobic w/Gram Stain See Below Preliminary Report : No growth, reincubate Final Report : No growth PT/INR (in house) Reviewed date:05/25/2025 12:41:13 PM Interpretation: Performing Lab: Notes/Report: PT 32.9 INR 2.7 current dose 5mg wednesday and 7.5 aod new dose same next check 4 weeks P-Comprehensive Metabolic Pa juanjose (CMP) Reviewed date:06/19/2025 09:11:35 AM Interpretation:gluc 136 Performing Lab: Notes/Report: Test performed by [facility] [address], [address], [place] [address] Michael Hung MD, Cane Flume Watcher CLIA: [id number] Sodium 141 135-145 mmol/L Potassium 3.6 3.5-5.3 [...] Interpretation:Normal Performing Lab: Notes/Report: Test performed by [facility] [address] [place] [address] , [address], [place] [address] Michael Hung MD, Cane Flume Watcher CLIA: [id number] Creatine Kinase 161 20-200 U/L P-Magnesium Reviewed date:06/19/2025 09:11:35 AM Interpretation:Normal Performing Lab: Notes/Report: Test performed by [facility] [address] [place] [address] , [address], [place] [address] Michael Hung MD, Cane Flume Watcher CLIA: [id number] Magnesium 2.1 1.6-2.4 mg/dL PT/INR (in house) Reviewed date:06/22/2025 05:03:27 PM Interpretation: Performing Lab: Notes/Report: PT 44.0 INR 3.7 current dose 5mg wednesday,7.5 mg aod new dose 5mg MF and 7.5mg AOD [...] weeks Warfarin indication afib ideal INR 2.5-3.5 Covid [...] - 38 plat 160 100 - 400 Influenza Screen (in house) Reviewed date:11/29/2024 04:12:21 PM Interpretation: Performing Lab: Notes/Report: results Neg PT/INR (in house) Reviewed date:04/19/2025 12:59:19 PM Interpretation:3.7 Performing Lab: Notes/Report: 3.7 PT 44.6 INR 3.7 current dose 10 mg Wed, 7.5mgaod new dose same next check 1 week PT/INR (in house) Reviewed date:10/25/2024 12:41:21 PM [...] ideal INR 2.5-3.5 PT/INR (in house) Reviewed date:05/03/2025 10:12:09 AM [...] weeks Warfarin indication afib ideal INR 2.5-3.5 CBC Fingerstick (in house) [...] ideal INR 2.5-3.5 PT/INR (in house) Reviewed date:08/25/2024 01:19:21 PM Interpretation:5.8 Performing Lab: Notes/Report: 5.8 PT 70.1 INR 5.8 current dose 5 mg MWF & 7.5 mg AOD new dose Hold today and tomorrow, then 7.5mg MWF and 5mg AOD next check 1 week Warfarin indication afib/PE ideal INR 2.5-3.5 PT/INR (in house) Reviewed date:08/11/2024 11:29:37 AM Interpretation:1.9 Performing Lab: Notes/Report: 1.9 PT 22.9 INR 1.9 current dose 7.5mg M,W,F. 5 mg AOD new dose 5mg MWF and 7.5mg AOD next check 2 weeks Warfarin indication afib/PE ideal INR 2.5-3.5 CBC Venipuncture (in house) Reviewed date:08/11/2024 12:43:55 [...] Interpretation:Normal Performing Lab: Notes/Report: Test performed by [employer], [address] , [address], [place] [address] Michael Hung MD, Cane Flume Watcher CLIA: [id number] Vitamin B12 5035 843-3119 pg/mL P-Comprehensive Metabolic Pa juanjose (CMP) Reviewed date:08/14/2024 04:21:29 PM Interpretation:Normal Performing Lab: Notes/Report: Test performed by [facility] [address] [place] [address] [address], [place] [address] Michael Hung MD, Cane Flume Watcher CLIA: [id number] Sodium 141 135-145 mmol/L Potassium 4.1 3.5-5.3 [...] Interpretation:Normal Performing Lab: Notes/Report: Test performed by [facility] [address] [place] [address] [address], [place] [address] Michael Hung MD, Cane Flume Watcher CLIA: [id number] Cholesterol 136 <200 mg/dL Triglycerides 102 <150 [...] Results: 65 Units: mg/dL % Change: -26% P-TSH reflex to FT4 Reviewed date:08/14/2024 04:21:29 PM Interpretation:Normal Performing Lab: Notes/Report: Test performed by [facility] [address] [place] [address] [place] [address] Michael Hung MD, Cane Flume Watcher CLIA: [id number] TSH reflex to FT4 2.70 0.43-5.25 mU/L P-Vitamin D 25-Hydroxy Reviewed date:08/14/2024 04:21:29 PM Interpretation:Normal Performing Lab: Notes/Report: Test performed by [facility] [address] [place] [address] [place] [address] Michael Hung MD, Cane Flume Watcher CLIA: [id number] Vitamin D 25-Hydroxy 52.8 30.0-100.0 ng/mL Interpretation of Vitamin D 25 OH: < 20 ng/mL - Deficiency 20 - 29 ng/mL - Insufficiency 30 - 100 ng/mL - Sufficiency > 100 ng/mL - Super-therapeutic- toxicity may occur above this level. Clinical correlation required. PT/INR (in house) Reviewed date:09/25/2024 02:34:30 PM [...] ideal INR 2.5-3.5 PT/INR (in house) Reviewed date:03/22/2025 02:59:14 PM Interpretation: Performing Lab: Notes/Report: PT 18.4 INR 1.5 current dose 5mg M and 7.5mg AOD new dose 7.5mg daily next check 1 week Warfarin indication afib ideal INR 2.5-3.5 P-Comprehensive Metabolic Pa juanjose (CMP) Reviewed date:03/22/2025 03:46:15 PM Interpretation: Performing Lab: Notes/Report: Test performed by [employer], [employer] [address] [place] [address] , [address], [place] [address] Michael Hung MD, Cane Flume Watcher CLIA: [id number] Sodium 139 135-145 mmol/L Potassium 5.0 3.5-5.3 [...] 0.5 <0.2-1.2 mg/dL A/G Ratio 1.6 1.1-2.5 P-Magnesium Reviewed date:03/22/2025 03:46:24 PM Interpretation: Performing Lab: Notes/Report: Test performed by [facility] [address] [place] [address] , [address], [place] [address] Michael Hung MD, Cane Flume Watcher CLIA: [id number] Magnesium 2.3 1.6-2.4 mg/dL P-TSH reflex to FT4 Reviewed date:03/22/2025 03:46:04 PM Interpretation: Performing Lab: Notes/Report: Test performed by [facility] [address] [place] [address] , [place] [address] Michael Hung MD, Cane Flume Watcher CLIA: [id number] TSH reflex to FT4 2.67 0.43-5.25 mU/L PT/INR (in house) Reviewed date:03/23/2025 11:36:42 AM [...] ideal INR 2.5-3.5 PT/INR (in house) Reviewed date:02/15/2025 12:48:38 PM [...] ideal INR 2.5-3.5 PT/INR (in house) Reviewed date:10/20/2024 11:01:11 AM Interpretation:5.6 Performing Lab: Notes/Report: 5.6 PT 66.9 INR 5.6 current dose 5mg MF and 7.5mg AOD new dose hold 3 days then 7.5mg MWF and 5mg AOD next check Wed Warfarin indication afib ideal INR 2.5-3.5 PT/INR (in house) Reviewed date:09/08/2024 12:44:43 PM Interpretation:2.5 Performing Lab: Notes/Report: 2.5 PT 30.2 INR 2.5 current dose 5mg MWF and 7.5mg AOD new dose same next check 2 week Warfarin indication afib ideal INR 2.5-3.5 PT/INR (in house) Reviewed date:06/28/2025 10:58:48 AM [...] next check 2 weeks ideal INR 2.5-3.5 JESUS Reviewed date:06/03/2025 10:46:44 PM Interpretation: Performing Lab: Notes/Report: Medications Medication SIG (Take, Route, Frequency, Duration) Notes Start Date End Date Status Linzess 145 MCG 1 capsule at least 3 0 minutes before the first meal of the day on an empty stomach Orally Once a day; Duration: 90 days 07/30/2023 Active Easy Touch Glucose System w/Device - test once daily E11.9 08/11/2023 Active Tamsulosin HCl 0.4 MG 1 cap(s) orally on ce a day; Duration: 90 days Active Nitrostat 0.4 MG 1 tab(s) sublinguall y every 5 minutes Active Albuterol Sulfate HFA 108 (90 Base) MCG/ACT 1-2 puff(s) inhaled every 6 hours, prn 12/31/2022 Active Pristiq 100 MG 1 tab(s) orally once a day; Duration: 90 days 11/06/2022 Active CPAP SUPPLIES DIRECTED 07/25/2021 Act elisabeth CPAP MASK DIRECTED 07/25/2021 Active Sulindac 200 MG Take 1 tablet [...] e a day; Duration: 90 days Active Easy Touch Safety Lancets 28G - as directed to test once daily; Duration: 90 days diagnosis code E11.9 08/20/2023 Active Mupirocin 2 % 1 application Externally Twice a day Active QUEtiapine Fumarate 100 MG TAKE 1 TABLET BY MOUTH ONCE DAILY IN THE EVENING; Duration: 90 Active Furosemide 40 MG 1/2 tab Orally every other day, prn Active Levocetirizine Dihydrochloride 5 MG TAKE 1 TABLET BY MOUTH ONCE DAILY IN THE EVENING; Duration: 90 Active Spironolactone 25 MG 1/2 tab orally ever y other day, prn Active Albuterol Sulfate HFA 108 (90 Base) MCG/ACT 1 puff as needed Inhalation every 4 hrs, prn 11/24/2023 Active Magnesium Oxide 400 MG 1 tab(s) orally o nce a day Active OneTouch Delica Plus [id number] - USE 1 TO CHECK GLUCOSE ONCE DAILY; Duration: 90 Active FREE STYLE KRISTAL GLUCOSE SYSTEM DIRECTED BID 07/20/2018 Active Myrbetriq 50 MG 1 tablet Orally Once a day; Duration: 30 day(s) Active Vitamin B-12 1000 MCG 1 tab(s) orally on ce a day Active Warfarin Sodium 7.5 MG TAKE 1 TABLET BY MOUTH ONCE DAILY 6 DAYS OUT OF THE WEEK; Duration: 90 Active Calcium Carbonate 600 MG 1 tab(s) orally qhs Active rOPINIRole HCl ER 2 MG 1 tablet Orally O nce a day; Duration: 90 days Active Plavix 75 MG 1 tab(s) orally once a day Active Jardiance 25 MG take 1 tablet by mouth once daily in the morning Orally Once a day; Duration: 90 days Active Vitamin D3 25 MCG (1000 UT) 2 tab orally once a day Active Cortisporin-TC 3.3-3-10-0.5 MG/ML 5 drops into affected ear Otic Three times a day 06/22/2024 Active Flonase Allergy Relief 50 MCG/ACT 1 spray in each nostril Nasally Once a day 01/28/2024 Active Leqvio 284 MG/1.5ML as directed subcutaneously every 6 months Active Aspirin 81 MG 1 tablet Orally Once a day; Duration: 30 day(s) Active Potassium Chloride ER 20 MEQ take 2 tablets by mouth once daily; Duration: 90 days Active Diclofenac Sodium 1 % as directed applie d topically 4 times a day 03/03/2021 Active Mounjaro 15 MG/0.5ML 15 mg Subcutaneous once a week 08/25/2024 Active metFORMIN HCl ER 500 MG Take 2 tablets by mouth once daily; Duration: 90 Active Symbicort 80-4.5 MCG/ACT 2 puff(s) inhaled 2 times a day 05/08/2014 Active Immunizations Vaccine Route Administration Date Status Comme nts Tetanus Tdap-Adacel (over 7yrs) IM Intramuscular 03/12/2015 Administered COVID 19 Moderna IM Intramuscular 02/14/2021 Administered COVID 19 Moderna Unknown 03/14/2021 Administered Problems Problem Type SNOMED Code ICD Code Onset Dates Problem Status W/U Status Risk Notes Problem Type II diabetes mellitus without complication (249774797) Type 2 diabetes mellitus without complications (E11.9) Active confirmed Problem Peripheral circulatory disorder associated with diabetes mellitus (690474124) Type 2 diabetes mellitus with other circulatory complications (E11.59) Active confirmed Problem History of pulmonary embolus (277738449) History of pulmonary embolism (Z86.711) Active confirmed Problem Hyperlipidemia (43736603) Hyperlipidemia (E78.5) Active confirmed Problem Vitamin D deficiency (75191693) Vitamin D deficiency (E55.9) Active confirmed Problem Essential hypertension (94510473) Essential hypertension (I10) Active confirmed Problem Long-term current use of anticoagulant (028109762) [facility] current use of anticoagulant (Z79.01) Active confirmed Problem Parkinson disease (35461668) Parkinson disease (G20) Active confirmed Problem Sebaceous cyst (056722333) Sebaceous cyst (L72.3) Active confirmed Problem Obstructive sleep apnea (22019824) Obstructive sleep apnea (G47.33) Active confirmed Problem Tear film insufficiency (47779998) Dry eye (H04.129) Active confirmed Problem Mixed anxiety and depressive disorder (888281442) Depression with anxiety (F41.8) Active confirmed Problem Restless legs syndrome (80426937) Restless leg syndrome (G25.81) Active confirmed Problem Obese class I (820871405270119) BMI 33.0-33.9,adult (Z68.33) Active confirmed Problem Hearing loss (96843010) Hearing loss (H91.90) Active confirmed Problem Seizure disorder (861892812) Seizure disorder (G40.909) Active confirmed Problem Recurrent falls (013466134) Falls frequently (R29.6) Active confirmed Problem Congestive heart failure (58208389) CHF (congestive heart failure) (I50.9) Active confirmed Problem Obesity (275012084) Obesity, unspecified (E66.9) Active confirmed Problem Mixed hyperlipidemia (945155124) Mixed hyperlipidemia (E78.2) Active confirmed Problem Myoclonus (14751290) Myoclonus (G25.3) Active confirmed Problem Chronic pain (97077892) Other chronic pain (G89.29) Active confirmed Problem Atherosclerotic heart disease of [place] coronary artery without angina pectoris (100535238314134) Atherosclerotic heart disease of [place] coronary artery without angina pectoris (I25.10) Active confirmed Problem Slow transit constipation (53767474) Slow transit constipation (K59.01) Active confirmed Problem Localized infection of skin AND/OR subcutaneous tissue (177183911) Local infection of the skin and subcutaneous tissue, unspecified (L08.9) Active confirmed Problem Long-term current use of anticoagulant (177402326) [facility] (current) use of anticoagulants (Z79.01) Active confirmed Problem Hyperlipidemia due to type 2 diabetes mellitus (disorder) (233251645779816) Hyperlipidemia associated with type 2 diabetes mellitus (E11.69) Active confirmed Problem Constipation (97801563) Constipation, unspecified constipation type (K59.00) Active confirmed Problem Gastroesophageal reflux disease without esophagitis (938016309) Gastroesophageal reflux disease without esophagitis (K21.9) Active confirmed Problem Long-term current use of anticoagulant (325219094) Long-term (current) use of anticoagulants (Z79.01) Active confirmed Problem Morbid obesity (523382037) Morbid obesity, unspecified obesity type (E66.01) Active confirmed Problem Primary osteoarthritis (278889548) Primary osteoarthritis involving multiple joints (M15.0) Active confirmed Problem COPD - Chronic obstructive pulmonary disease (71937523) Chronic obstructive pulmonary disease, unspecified COPD type (J44.9) Active confirmed Problem Polyarthritis (138703790) Polyarthritis (M13.0) Active confirmed Problem Erectile dysfunction (disorder) (656057562) Erectile dysfunction, unspecified erectile dysfunction type (N52.9) Active confirmed Problem Obese class II (329066206320683) BMI 38.0-38.9,adult (Z68.38) Active confirmed Problem Osteoarthritis of knee (385052106) Primary osteoarthritis of right knee (M17.11) Active confirmed Problem Body mass index 40+ - morbidly obese (480145519) BMI 40.0-44.9, adult (Z68.41) Active confirmed Problem Recurrent falls (587789385) Frequent falls (R29.6) Active confirmed Problem Body mass index 30.00 to 34.99 (093843092541677) BMI 31.0-31.9,adult (Z68.31) Active confirmed Problem Problem with balance (181180452) Balance problems (R26.89) Active confirmed Problem Cardiac pacemaker in situ (535720228) History of permanent cardiac pacemaker placement (Z95.0) Active confirmed Problem Peripheral circulatory disorder associated with diabetes mellitus (365526165) Type 2 diabetes mellitus with other circulatory complication (E11.59) Active confirmed Problem Paroxysmal atrial flutter (192608798) Atrial flutter, paroxysmal (I48.92) Active confirmed Problem Urinary incontinence (978828282) Urinary incontinence, unspecified type (R32) Active confirmed Problem Seasonal allergic rhinitis (935984904) Seasonal allergic rhinitis, unspecified allergic rhinitis trigger (J30.2) Active confirmed Problem 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 Problem Vision loss, bilateral (H54.3) Active confirmed Problem Lower urinary tract symptoms due to benign prostatic hypertrophy (89560816792447) Benign prostatic hyperplasia with lower urinary tract symptoms, symptom details unspecified (N40.1) Active confirmed Problem Benign prostatic hypertrophy without outflow obstruction (558593990) Benign prostatic hyperplasia, unspecified whether lower urinary tract symptoms present (N40.0) Active confirmed Problem Seasonal allergic rhinitis (927309533) Seasonal allergic rhinitis, unspecified trigger (J30.2) Active confirmed Problem Allergic rhinitis (04183323) Non-seasonal allergic rhinitis, unspecified trigger (J30.89) Active confirmed Problem Gastroesophageal reflux disease (438901141) Gastroesophageal reflux disease, unspecified whether esophagitis present (K21.9) Active confirmed Problem Parkinson's disease (disorder) (10995851) Parkinson's disease, unspecified whether dyskinesia present, unspecified whether manifestations fluctuate (G20.A1) Active confirmed Problem Parkinson's dise ase with dyskinesia, unspecified whether manifestations fluctuate (G20.B1) Active confirmed Problem Hair follicle disorder (281559813) Infected sebaceous gland (L73.8) Active confirmed Vital Signs Heart Rate 69 /min 06/28/2025 Blood pressure diastolic 60 mm Hg 06/28/2025 Height 73.50 in 06/28/2025 Blood pressure systolic 122 mm Hg 06/28/2025 Weight 260.2 lbs 06/28/2025 BMI 33.86 kg/m2 06/28/2025 Encounters Encounter Location Date Provider Diagnosis [facility] [address] [place] [id number] 07/13/2024 Jo Ellison Long-term (current) use of anticoagulants Z79.01 ; Subungual hematoma of thumb S60.119A and Acute URI J06.9 [facility] [address] [place] [id number] 08/11/2024 Jo Ellison Long-term (current) use of anticoagulants Z79.01 ; Type 2 diabetes mellitus without complications E11.9 ; Mixed hyperlipidemia E78.2 ; Depression with anxiety F41.8 ; Essential hypertension I10 ; Obstructive sleep apnea G47.33 ; Vitamin B12 deficiency E53.8 ; Vitamin D deficiency E55.9 ; Parkinson disease G20 ; Atherosclerotic heart disease of [place] coronary artery without angina pectoris I25.10 and Screening PSA (prostate specific antigen) Z12.5 [facility] [address] [place] [id number] 08/25/2024 Jo Crowdy [facility] (current) use of anticoagulants Z79.01 ; Type 2 diabetes mellitus without complications E11.9 and Bradycardia R00.1 [facility] [address] [place], [place] [id number] 09/01/2024 Jo Crowdy terminal worker (current) use of anticoagulants Z79.01 [facility] [address] [facility] [address] [place] [id number] 09/08/2024 Jo Crowdy [facility] (current) use of anticoagulants Z79.01 ; Polyarthritis M13.0 and Restless leg syndrome G25.81 [facility] [address] [facility] [address] [place] [id number] 09/22/2024 Jo Crowdy [facility] (current) use of anticoagulants Z79.01 and Tachycardia R00.0 [facility] [address] [place], [place] [id number] 09/29/2024 Khushboo Gamble Infected sebaceous g land L73.8 ; Sebaceous cyst L72.3 and Local infection of the skin and subcutaneous tissue, unspecified L08.9 [facility] [address] [facility] [address] [place] [id number] 10/02/2024 Khushboo Gmable Infected sebaceous g land L73.8 [facility] [address] [place], [place] [id number] 10/06/2024 Jo Crowdy terminal worker (current) use of anticoagulants Z79.01 and Infected sebaceous gland L73.8 [facility] [address] [facility] [address] [place] [id number] 10/20/2024 Jo Crowdy terminal worker (current) use of anticoagulants Z79.01 [facility] [address] [facility] [address] [place] [id number] 10/25/2024 Jo Crowdy terminal worker current us e of anticoagulant Z79.01 [facility] [address] [place], [place] [id number] 11/09/2024 Jo Crowdy [facility] (current) use of anticoagulants Z79.01 [facility] [address] [place] [id number] 11/23/2024 Jo Terra [facility] (current) use of anticoagulants Z79.01 ; Sebaceous cyst L72.3 and Local infection of the skin and subcutaneous tissue, unspecified L08.9 [facility] [address] [place] [id number] 11/29/2024 Jodirk Ellison Acute URI J06.9 [facility] [address] [place], [place] [id number] 12/08/2024 Jodirk Ellison Neoplasm of uncertai n behavior of skin D48.5 ; [facility] current use of anticoagulant Z79.01 ; Adult [...] apnea G47.33 ; Atherosclerotic heart disease of [place] coronary artery without angina pectoris I25.10 ; [...] manifestations fluctuate G20.A1 and BMI 31.0-31.9,adult Z68.31 [facility] [address] [place] [id number] 01/05/2025 Jodirk Ellison terminal worker (current) use of anticoagulants Z79.01 and Type 2 diabetes mellitus without complications E11.9 [facility] [address] [place], [place] [id number] 02/02/2025 Jo Crowdy [facility] (current) use of anticoagulants Z79.01 [facility] [address] [place], [place] [id number] 02/06/2025 R Alek Miller Dog bite, initial encounter W54.0XXA and Bite wound of left thumb, initial encounter S61.052A [facility] [address] [place], [place] [id number] 02/15/2025 Jo Crowdy [facility] (current) use of anticoagulants Z79.01 ; Type 2 diabetes mellitus with other circulatory complications E11.59 ; Depression with anxiety F41.8 ; Chronic obstructive pulmonary disease, unspecified COPD type J44.9 and BMI 33.0-33.9,adult Z68.33 [facility] [address] [facility] [address] [place], [place] [id number] 03/16/2025 Jo Crowdy Paronychia of great toe L03.039 ; [facility] (current) use of anticoagulants Z79.01 ; Leg cramps R25.2 and Trigger middle finger, unspecified laterality M65.339 [facility] [address] [place], [place] [id number] 03/23/2025 Jo Crowdy Paronychia of great toe L03.039 and [facility] (current) use of anticoagulants Z79.01 [facility] [address] [place], [place] [id number] 04/04/2025 Jo Crowdy [facility] (current) use of anticoagulants Z79.01 [facility] [address] [facility] [address] [place], [place] [id number] 04/19/2025 Jo Crowdy terminal worker (current) use of anticoagulants Z79.01 [facility] [address] [facility] [address] [place], [place] [id number] 04/26/2025 Jo Crowdy [facility] (current) use of anticoagulants Z79.01 [facility] [address] [place] [id number] 05/03/2025 Jo Crowdy [facility] (current) use of anticoagulants Z79.01 and Parkinson's disease with dyskinesia, unspecified whether manifestations fluctuate G20.B1 [facility] [address] [place] [id number] 05/10/2025 Jo Crowdy [facility] (current) use of anticoagulants Z79.01 [facility] [address] [place] [id number] 05/24/2025 Jo Crowdy terminal worker (current) use of anticoagulants Z79.01 [facility] [address] [place] [id number] 06/13/2025 Jo Crowdy Leg cramps R25.2 and Symptomatic hypotension I95.9 [facility] [address] [facility] [address] [place] [id number] 06/21/2025 Jo Crowdy Symptomatic hypotens ion I95.9 and terminal worker (current) use of anticoagulants Z79.01 [facility] [address] [facility] [address] [place] [id number] 06/28/2025 Jo Crowdy terminal worker (current) use of anticoagulants Z79.01 [facility] [address] [facility] [address] [place], [place] [id number] 07/26/2024 Jo Crowdy Type 2 diabetes eileen itus without complications E11.9 [facility] [address] [facility] [address] [place] [id number] 08/14/2024 Jo Crowdy [facility] [address] [place] [id number] 2024 R Alek Angela Depression with anxi ety F41.8 [facility] [address] [place] [id number] 2024 R Alek Angela [facility] [address] [place] [id number] 09/15/2024 R Alek Angela Type 2 diabetes eileen itus without complications E11.9 [facility] [address] [place] [id number] 11/23/2024 R Alek Miller Depression with anxi ety F41.8 [facility] [address] [place] [id number] 12/11/2024 R Alek Ferreirat [facility] [address] [place] [id number] 01/22/2025 Jo Ellison [facility] [address] [address] [place], [place] [id number] 02/23/2025 Go Crocheron Depression with anxi ety F41.8 [facility] [address] [place], [place] [id number] 03/26/2025 Go Crocheron Depression with anxi ety F41.8 [facility] [address] [place], [place] [id number] 04/28/2025 Go Crocheron Depression with anxi ety F41.8 [facility] [address] [place], [place] [id number] 05/28/2025 R Alek Ferreirat [facility] [address] [place], [place] [id number] 06/19/2025 Jo Ellison Assessments Encounter Date Diagnosis (ICD Code) Assessment Notes Treatment Notes Treatment Clinical Notes Section Notes 2024 Depression with anxiety (ICD-10 - F41.8) 08/25/2024 Type 2 diabetes mellitus without complications (ICD-10 - E11.9) 09/08/2024 terminal worker (current) use of anticoagulants (ICD-10 - Z79.01) 09/08/2024 Polyarthritis (ICD-10 - M13.0) 09/15/2024 Type 2 diabetes mellitus without complications (ICD-10 - E11.9) 09/22/2024 Tachycardia (ICD-10 - R00.0) Patient states he was told by cardiology that he his having episodes of tachycardia which is what they think is causing him to feel like he is going to pass out. He may need another ablation. 09/22/2024 terminal worker (current) use of anticoagulants (ICD-10 - Z79.01) 09/29/2024 Sebaceous cyst (ICD-10 - L72.3) 09/29/2024 Infected sebaceous gland (ICD-10 - L73.8) 10/02/2024 Infected sebaceous gland (ICD-10 - L73.8) Continue dressing changes and antibiotics. Follow-up as scheduled 10/06/2024 [facility] (current) use of anticoagulants (ICD-10 - Z79.01) 10/06/2024 Infected sebaceous gland (ICD-10 - L73.8) Will give 5 more days of abx. 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 Will stop this and start on cefdinir to cover respiratory symptoms. 08/25/2024 [facility] (current) use of anticoagulants (ICD-10 - Z79.01) 09/01/2024 [facility] (current) use of anticoagulants (ICD-10 - Z79.01) 12/08/2024 Neoplasm of uncertain behavior of skin (ICD-10 - D48.5) 02/02/2025 [facility] (current) use of anticoagulants (ICD-10 - Z79.01) 02/15/2025 Type 2 diabetes mellitus with other circulatory complications (ICD-10 - E11.59) 03/23/2025 [facility] (current) use of anticoagulants (ICD-10 - Z79.01) 03/23/2025 Paronychia of great toe (ICD-10 - L03.039) 02/15/2025 terminal worker (current) use of anticoagulants (ICD-10 - Z79.01) 04/04/2025 terminal worker (current) use of anticoagulants (ICD-10 - Z79.01) 04/19/2025 [facility] (current) use of anticoagulants (ICD-10 - Z79.01) 04/28/2025 Depression with anxiety (ICD-10 - F41.8) 05/10/2025 [facility] (current) use of anticoagulants (ICD-10 - Z79.01) 06/13/2025 Leg cramps (ICD-10 - R25.2) 06/13/2025 Symptomatic hypotension (ICD-10 - I95.9) 07/13/2024 Subungual hematoma of thumb (ICD-10 - S60.119A) 07/26/2024 Type 2 diabetes mellitus without complications (ICD-10 - E11.9) 08/11/2024 Type 2 diabetes mellitus without complications (ICD-10 - E11.9) 07/13/2024 Long-term (current) use of anticoagulants (ICD-10 - Z79.01) 08/11/2024 Long-term (current) use of anticoagulants (ICD-10 - Z79.01) 01/05/2025 Type 2 diabetes mellitus without complications (ICD-10 - E11.9) 01/05/2025 [facility] (current) use of anticoagulants (ICD-10 - Z79.01) 02/06/2025 Dog bite, initial encounter (ICD-10 - W54.0XXA) Discussed local wound care. Advised he go to his pharmacy or health department to obtain a tetanus shot. 02/23/2025 Depression with anxiety (ICD-10 - F41.8) 03/26/2025 Depression with anxiety (ICD-10 - F41.8) 04/26/2025 [facility] (current) use of anticoagulants (ICD-10 - Z79.01) 05/03/2025 [facility] (current) use of anticoagulants (ICD-10 - Z79.01) 05/03/2025 Parkinson's disease with dyskinesia, unspecified whether manifestations fluctuate (ICD-10 - G20.B1) Patient would like to see a different neurologist for his Parkinson's Disease. 05/24/2025 [facility] (current) use of anticoagulants (ICD-10 - Z79.01) 06/21/2025 [facility] (current) use of anticoagulants (ICD-10 - Z79.01) 06/21/2025 Symptomatic hypotension (ICD-10 - I95.9) 06/28/2025 terminal worker (current) use of anticoagulants (ICD-10 - Z79.01) 03/16/2025 terminal worker (current) use of anticoagulants (ICD-10 - Z79.01) 03/16/2025 Paronychia of great toe (ICD-10 - L03.039) 03/16/2025 Leg cramps (ICD-10 - R25.2) 08/11/2024 Mixed hyperlipidemia (ICD-10 - E78.2) 02/06/2025 Bite wound of left thumb, initial encounter (ICD-10 - S61.052A) 07/13/2024 Acute URI (ICD-10 - J06.9) fluids, rest, supportive measures for fever/symptom relief 02/15/2025 Depression with anxiety (ICD-10 - F41.8) 12/08/2024 terminal worker current use of anticoagulant (ICD-10 - Z79.01) 09/08/2024 Restless leg syndrome (ICD-10 - G25.81) 11/23/2024 Local infection of the skin and subcutaneous tissue, unspecified (ICD-10 - L08.9) 09/29/2024 Local infection of the skin and subcutaneous tissue, unspecified (ICD-10 - L08.9) 08/25/2024 Bradycardia (ICD-10 - R00.1) Will keep f/u with cardiology and have echo and stress test. 12/08/2024 Essential hypertension (ICD-10 - I10) 12/08/2024 Adult general medical examination (ICD-10 - Z00.00) Patient instructed to return to office Annually for Annual Wellness Visits to include annual screenings of Pain assessment, Functional Ability assessment, Cognitive Ability assessment, Fall Risk assessment, Depression screening and Bladder control screening. 02/15/2025 Chronic obstructive pulmonary disease, unspecified COPD type (ICD-10 - J44.9) 08/11/2024 Depression with anxiety (ICD-10 - F41.8) 03/16/2025 Trigger middle finger, unspecified laterality (ICD-10 - M65.339) 08/11/2024 Essential hypertension (ICD-10 - I10) BP [...] - F41.8) 08/11/2024 Atherosclerotic heart disease of [place] coronary artery without angina pectoris (ICD-10 - [...] - G47.33) 12/08/2024 Atherosclerotic heart disease of [place] coronary artery without angina pectoris (ICD-10 - [...] 31.0-31.9,adult (ICD-10 - Z68.31) Plan Of Treatment Next Appt Details Provider Name:Jo meehan, 07/12/2025 11:30:00 AM, [address], [place], [place], [id number], Insurance Providers Payer Name Payer Address Payer Phone Subscriber Number Group Number Insured Name Patient Relationship to Insured Coverage Start Date Coverage End Date MEDICARE PART B [address] [place] [id number] Nghia Montalvo Self - patient is the insured [facility] [address] [place] [address] [id number] Nghia Montalvo Self - patient is [...] - Rashmi Cárdenas 08/21/2015 Ablation-Dr Schmid @ [facility] 2015 Rectal Polyps Removal 11/12/2016 Cardiac ECHO & Stress Test 03/31/2017 Cardiac Pacemaker 10/2016 Cardioversion 2013 Open Heart 2013 Heart Cath - [facility] 03/2018 Hospitalization History Reason Date(Month/Year) LT Leg Blood Clot- [facility] 11/17/2018 Chest Pain- [facility] 05/01/2016 Hypertension, Tachycardia- [facility] 2015 Tachycardia- [facility] 07/30/2014 Weak, Heart Palpitations- [facility] Insect Bite- [facility] 06/20/2012 Chest Pain- [facility] 04/24/2012 Chest Pain- [place] 11/11-11/12/19 12 Chest Pain, LT Leg Swollen- [facility] 08/2010 DVT, Bilateral PE 07/2009 Chest Pain
--- OUTSIDE RECORDS SUMMARY | 2025-07-11 07:42 | XMS_ITS | Encounter Summary ---
Author Organization [employer] ([place], [place], [place], [place]) Address [address] [place] [address] Care Team Providers Care Waterworks Pump Station Operator Name Role Phone Unavailable Primary Care Provider Unavailabl e Encounter Details Date Type Department Care Team (Late st Contact Info) Description 08/28/2024 Outside Orders [facility] Central Scheduling [address] [place] [address] Livia Do [address] [place] [address] Memory loss (Primary Dx); Movement [...] Juan R rded Speak language other than Ukrainian at home Not on file 08/29/2024 Want [...]
--- OUTSIDE RECORDS SUMMARY | 2025-07-11 07:42 | XMS_ITS | Encounter Summary ---
Author Organization [place] [address] Care Team Providers Care Commercial Collector Name Role Phone Norberto Miller Primary Care Provider [phone] Encounter Details Date Type Department Care Team (Late st Contact Info) Description 04/29/2016 Orders Only [facility] [address] [facility] [address] [place] [phone] Andrea Schmid MD [address] [place] [address] Social History Tobacco Use Types Packs/Day Years [...] Schmid MD CARDIAC CATH ORDERABLES Final Result [facility] [address] [place] [address] documented in this encounter Visit Diagnoses Not on filedocumented in this encounter Care Teams Commercial Collector Relationship Specialty Start Date End Date Norberto Miller [address] [place] [facility] [address] [place] [address] PCP - General Family Medicine 03/04/16 documented as of this encounter
--- OUTSIDE RECORDS SUMMARY | 2025-07-11 07:43 | XMS_ITS | Clinical Summary ---
Author Organization [facility] [place] Address [address] [facility] [address] [place] [address] Phone Care Team Providers Care Regulatory Coordinator Name Role Phone Norberto Miller Primary Care Provider [phone] Allergies No known active allergies Medications carbidopa-levod [...] of breath Obstructive sleep apnea cpap Hypertension [place] (myocardial infarction) (HCC) Atrial flutter (HCC) Hiatal [...] this topic Medical Devices Implanted Type Area Marine Fireman Device Identifier Shelf Expiration Date Model / Serial / Lot Cardiac Stent Medtronic Linq Ilr Implanted:Qty: 1 on 09/06/2015 [employer] [id number] / [id number] / Insurance MEDICARE [place] PART A AND B [facility] [place] PART A AND B PPO Care Teams Regulatory Coordinator Relationship Specialty Start Date End Date Norberto Miller [facility] [address] [place] [address] PCP - General Family Medicine 03/04/16
--- OUTSIDE RECORDS SUMMARY | 2025-07-11 07:43 | XMS_ITS | Referral Summary ---
Author Organization [employer] ([place], [place], [place], [place]) Address [address] [place] [address] Care Team Providers Care Corporate Controller Name Role Phone Unavailable Primary Care Provider [...] Juan R rded Speak language other than Trinidadian at home Not on file 08/29/2024 Want [...] [place] [address] [place] [id number] BLUE CROSS/BLUE SHIELD MEDICARE PART A B
--- NOTE | 2025-07-11 09:30 | CA_ITS ---
APPROVED REPORT EXAM: Comprehensive 2D, Doppler, and color-flow Echocardiogram Care Administrative Tech: JEWELL Ritter, RVS Ht: 6 ft 2 in Wt: 261lbs BSA: 2.43 BP: 137/62 mmHg Indications: CAD, Near syncope, Pacemaker, Hx-CM, Afib, DM, Fatigue, episodic hypotension, HTN, HLD 2D Dimensions Left Atrium 4.62 cm LA Volume 89.20 mL LA Volume Index 36.481865 mL/m2 (M/F) 16-34 M-Mode Dimensions RVDd 3.47 cm (0.9-2.6) LA Diam 5.13 cm (1.9-4.0) LVDd 5.08 cm (3.5-5.7) LVDs 3.68 cm (3.5-5.7) IVSd 1.07 cm (0.6-1.1) PWd 1.11 cm (0.6-1.1) EF (Teich) 53.20% EPSs 0.86 cm FS 27.60% EDV (Teich) 122.70 mL TAPSE 1.55 (<1.7) ESV (Teich) 57.40 mL LV Diastology E Decel Time 287 (160-240 msec) E/A Ratio 2.57 MED A' 6.20 cm/s LAT A' 7.00 cm/s Aortic Valve JUAN Index 0.88 cm2/m2 AoV Peak Robert. 134.0 (50-130 cm/s) AO Peak GR. 7.20 mmHg AO Mean GR. 3.70 (<5 mmHg) AO VTI 30.0 (18-25 cm) JUAN (VTI) 2.19 (2.5-4.5 cm2) Mitral Valve MV A Velocity 30.0 (40-130 cm/s) E/A Ratio 2.57 Pulmonary Valve IL End VMAX 156.0 cm/s Tricuspid Valve TR P. Velocity 253.00 cm/s RAP Estimate 10.00 mmHg RVSP 35.60 mmHg Left Ventricle The left ventricle is normal size. Left ventricular systolic function is normal. The left ventricular ejection fraction is within the normal range. There is normal left ventricular wall thickness. There is normal LV segmental wall motion. The left ventricular diastolic function is indeterminate. LVEF is 55% Right Ventricle The right ventricle is moderately dilated. The right ventricular systolic function is moderately reduced. Atria The left atrium is moderately dilated. The right atrium is moderately dilated. There is no color Doppler evidence of interatrial shunt. Aortic Valve The aortic valve is mildly thickened. There is no hemodynamically significant aortic valvular stenosis. Trace aortic regurgitation is present. Mitral Valve The mitral valve is normal in structure. No evidence of mitral valve stenosis. Mild mitral regurgitation is present. Tricuspid Valve The tricuspid valve leaflets are thin and pliable. Moderate tricuspid regurgitation. The TR jet is eccentric and posteriorly directed. RVSP is 25-30 mmHg. Pulmonic Valve The pulmonary valve is grossly normal in structure. Mild pulmonic valve regurgitation is present. Great Vessels The aortic root is normal in size. IVC is normal in size and collapses >50% with inspiration. Pericardium There is no pericardial effusion. Conclusion Normal LV systolic function. Moderate RV dilation with moderate reduction in RV function. Biatrial dilation. Moderate TR. Mild MR, Mild PI. Electronically signed by : Teresa Echeverria MD 07/11/2025 13:11:16
[2025-07-11] MEDS: SODIUM CHLORIDE 0.9% 10ML SYR (RAD ONLY) 10 ML IV ×2 (10:21)
[2025-07-11] MEDS: ISOTOPE MYOVIEW (PER STUDY) 1 DOSE IV (10:21)
== END 2025-07-11 23:59 | disposition home or self-care (01) ==
LOC: RAD 07:38
PROVIDERS: PCP Physician Assistant; Visit Provider Nurse Practitioner
DX: I08.8 Other rheumatic multiple valve diseases (principal); I42.9 Cardiomyopathy, unspecified; E11.9 Type 2 diabetes mellitus without complications; E78.5 Hyperlipidemia, unspecified; I11.9 Hypertensive heart disease without heart failure; I48.0 Paroxysmal atrial fibrillation; I25.10 Atherosclerotic heart disease of native coronary artery without angina pectoris; I95.89 Other hypotension; E78.00 Pure hypercholesterolemia, unspecified; R94.31 Abnormal electrocardiogram [ECG] [EKG]; R94.39 Abnormal result of other cardiovascular function study; Z95.0 Presence of cardiac pacemaker
CPT/HCPCS: 78452; 93017; 93018; 93306; A9502; J2785

== ENCOUNTER 2025-07-17 08:49 | Day surgery (SDC) | payer MEDICARE, BC, SELFPAY ==
[2025-07-17] VITALS (17 sets, daily range): BP systolic 111–138; BP diastolic 56–76; PULSE 65–75; RESP 14–20; O2SAT 95–100; BMI 33.0
--- NOTE | 2025-07-17 07:26 | IR_ITS ---
APPROVED REPORT Patient Location: Outpatient PROCEDURES Left heart catheterization Left ventriculogram Selective coronary angiogram Bilateral selective renal angiogram INDICATION Known coronary artery disease, Abnormal Myoview, Angina pectoris, Intermittent fluctuating hypertension suspected renal artery stenosis, Renovascular hypertension Informed consent was obtained prior to the procedure. COMPLICATIONS NONE Estimated Blood Loss: LESS THAN 10 ML TECHNIQUE One percent lidocaine was used to anesthetize the right groin. The right femoral artery was accessed via the Seldinger technique. A 4-Malay sheath was placed in the right femoral artery. The JL-4 and JR-4 catheter was also used to perform left heart catheterization left ventriculogram and selective coronary angiogram. The JR4 catheter was used to perform bilateral selective renal angiography. At the end of the procedure the patient was transferred to the post-op holding area in stable condition for arterial sheath removal. ANGIOGRAPHIC RESULTS The left main artery Normal The left anterior descending artery Is a stent in the ostial proximal and mid segment. The proximal portion is widely patent with an additional concentric 30% stenosis. There is excellent distal transitioning followed by an additional 50 to 60% stenosis in the mid LAD where the vessel is 2 mm in diameter The circumflex artery Nondominant with a proximal concentric 40 to 50% stenosis The right coronary artery Is dominant with proximal 20% mid vessel 30 to 40% stenosis The [place] ventriculogram reveals Normal 60% The left ventricular end-diastolic pressure 25 mmHg Right renal artery singular normal Left renal artery singular normal IMPRESSION Coronary disease as described above Normal ejection fraction Elevated LVEDP Normal renal arteries PLAN 1. Recommend discontinuing oxybutynin. This is a medicine with profound anticholinergic side effects which is likely contributing to patient's fluctuating and labile blood pressure 2. Medical management for coronary artery disease 3. Also recommend discontinuing baclofen due to labile blood pressure Electronically signed by : Claudy Cárdenas MD 07/17/2025 15:25:58
[2025-07-17 09:23] LABS: Hematocrit 41.0 % (42.0-52.0); Hemoglobin 13.1 g/dL (14.1-18.0); Immature Granulocytes % 0.2 %; Mean Corpuscular HGB Conc 32.0 g/dL (31.8-35.4); Mean Corpuscular Hemoglobin 27.8 pg (27.0-31.2); Mean Corpuscular Volume 87.0 fl (80-94); Nucleated Red Blood Cells % 0 %; Platelet Count 188 K/mm3 (142-424); Red Blood Count 4.71 M/mm3 (4.60-6.20); Red Cell Distribution Width-SD 42.5 fL; White Blood Count 6.3 K/mm3 (4.8-10.8)
[2025-07-17 09:24] LABS: Anion Gap 9.8 mEq/L (5-15); Blood Urea Nitrogen 20 mg/dl (9-20); Calcium 9.7 mg/dl (8.4-10.2); Carbon Dioxide 30 mmol/L (22.0-30.0); Chloride 104 mmol/L (98-107); Creatinine Clearance Estimated 125 mL/min (50-200); Creatinine,Serum 0.90 mg/dl (0.66-1.25); Estimated Glomerular Filt Rate 85 ml/min (>60); GFR (African American) 103 ML/MIN (>60); Glucose 104 mg/dl (74-100); Potassium 3.8 mmoL/L (3.5-5.1); Sodium 140 mmol/L (136-145)
[2025-07-17 09:31] LABS: INR 1.35 (0.9-1.1); Prothrombin Time 14.7 seconds (10.1-12.5)
[2025-07-17] MEDS: LIDOCAINE 1% 10ML MDV 10 ML IJ (11:17)
[2025-07-17] MEDS: NITROGLYCERIN 800MCG/8ML SYR (CATH LAB) 800 MCG IA (11:17)
[2025-07-17] MEDS: HEPARIN 1,000 UNITS/500ML NS (CATH LAB) 3000 UNIT IV (11:17)
[2025-07-17] MEDS: 0.9 % SODIUM CHLORIDE 500 ML 25 ML IV (11:17)
[2025-07-17] MEDS: MIDAZOLAM HCL 1MG/ML 5ML VIAL 1 MG IV (11:39)
[2025-07-17] MEDS: FENTANYL 100MCG/2ML VIAL 50 MCG IV (11:40)
[2025-07-17] MEDS: IOPAMIDOL-370 (76%);100ML BOTTLE 50 ML IV (12:49)
[2025-07-17] MEDS: ACETAMINOPHEN 325MG TAB 650 MG PO (15:00)
== END 2025-07-17 15:03 | disposition home or self-care (01) ==
LOC: CATHLAB 08:51
PROVIDERS: PCP Physician Assistant; Visit Provider Internal Medicine
PROC: 4A023N7 Measurement of Cardiac Sampling and Pressure, Left Heart, Percutaneous Approach (ICD-10-PCS; CPT 93452; principal; 2025-07-17 10:15)
DX: I25.118 Atherosclerotic heart disease of native coronary artery with other forms of angina pectoris (principal); I70.1 Atherosclerosis of renal artery; R55 Syncope and collapse; R07.89 Other chest pain; R06.09 Other forms of dyspnea; R94.31 Abnormal electrocardiogram [ECG] [EKG]; E11.9 Type 2 diabetes mellitus without complications; I11.0 Hypertensive heart disease with heart failure; I50.32 Chronic diastolic (congestive) heart failure; I48.0 Paroxysmal atrial fibrillation; I42.9 Cardiomyopathy, unspecified; I10 Essential (primary) hypertension; R53.83 Other fatigue; K58.9 Irritable bowel syndrome, unspecified; R93.1 Abnormal findings on diagnostic imaging of heart and coronary circulation; G20.C Parkinsonism, unspecified; G47.33 Obstructive sleep apnea (adult) (pediatric); G93.40 Encephalopathy, unspecified; R41.3 Other amnesia; J44.9 Chronic obstructive pulmonary disease, unspecified; Z86.73 Personal history of transient ischemic attack (TIA), and cerebral infarction without residual deficits; Z86.718 Personal history of other venous thrombosis and embolism; Z95.0 Presence of cardiac pacemaker; Z79.85 Long-term (current) use of injectable non-insulin antidiabetic drugs; Z79.01 Long term (current) use of anticoagulants; Z79.84 Long term (current) use of oral hypoglycemic drugs; Z79.899 Other long term (current) drug therapy; Z95.5 Presence of coronary angioplasty implant and graft; Z88.8 Allergy status to other drugs, medicaments and biological substances; Z82.49 Family history of ischemic heart disease and other diseases of the circulatory system
CPT/HCPCS: 36252; 80048; 85025; 85610; 93458; 99152; 99153; C1725; C1769; J1200; J1644; J3010; J7040; Q9967

== ENCOUNTER 2025-07-20 10:52 | Outpatient (CLI) | payer MEDICARE, BC, SELFPAY ==
--- OUTSIDE RECORDS SUMMARY | 2025-05-24 06:15 | XMS_ITS ---
Author Organization [facility] Address [address] [place] [id number] Care Team Providers Care Soil Conservation Teacher Name Role Phone Norberto Miller Primary Care Provider [phone] Jo Ellison Unavailable [phone] Allergies No Known Allergies Results Component Value [...] Duration: 90 days Active OneTouch Delica Plus Zjrnet84I - USE 1 TO CHECK GLUCOSE ONCE [...] 05/24/2025 Encounters Encounter Location Date Provider Diagnosis [facility] [address] [place], [place] [phone] 05/24/2025 Jo Ellison snf (current) use of anticoagulants Z79.01 Assessments Encounter Date Diagnosis (ICD Code) Assessment Notes Treatment Notes Treatment Clinical Notes Section Notes 05/24/2025 snf (current) use of anticoagulants (ICD-10 - Z79.01) Plan Of Treatment Next Appt Details Follow Up: 4 Weeks, Reason: Provider Name:Jo Weeks y, 07/25/2025 11:30:00 AM, [address], [address], [place], [place], [id number], Progress Notes * Sonia HAWTHORNEOB:1960 (64 yo M)Acc No.[id number]:05/24/2025 Progress Notes Patient: Gildardo Nghia PAGE Provider: DANIEL Hatch :1960 A ge:64 Y S ex:Male Date:05/24/2025 Address:[address] [place] [address], [facility] [place], [id number] Pcp:Norberto Miller Subjective: * Chief Complaints: * [...] - Dr. Cárdenas 08/21/2015, Ablation-Dr Schmid @ [facility] 04/2016, Rectal Polyps Removal 11/12/2016, Cardiac ECHO & Stress Test 03/31/2017, Cardiac Pacemaker 10/2016, Cardioversion 2013, Open Heart 2013, Heart Cath - [facility] 03/2018. * Hospitalization/Major Diagno stic Procedure: C hest Pain , DVT, Bilateral PE 07/2009, Chest Pain, LT Leg Swollen- [facility] 08/2010, Chest Pain- [facility] 11/11-11/12/2011, Chest Pain- [facility] 04/24/2012, Insect Bite- [facility] 06/20/2012, Weak, Heart Palpitations- [facility] 06/07/2013, Tachycardia- [facility] 07/30/2014, Hypertension, Tachycardia- [facility] 04/15/2016, Chest Pain- [facility] 05/01/2016, LT Leg Blood Clot- [facility] 11/17/2018. * Family History: F ather: [...] a day , Taking OneTouch Delica Plus [id number] - Miscellaneous USE 1 TO CHECK GLUCOSE [...] G 2211 Complex e/[place], [address] PROTHROMBIN TIME, Modifiers: QW , 60327 CAPILLARY BLOOD DRAW, 1036F TOBACCO NON-USER, G8783 BP SCR PRFRM RCMDD DEFIND SCR INTVL, G8752 MOST RECENT SYSTOLIC BP < 140MM HG, G8754 MOST RECENT DIASTOLIC BP < 90MM HG * Follow Up: 4 Weeks * Images: Billing Information: * Visit Code: 35790 Office Visit, Est Pt., Level 2. * Procedure Codes: G2211 Complex e/[place]. [address] PROTHROMBIN TIME. Modifiers: QW 55382 CAPILLARY BLOOD DRAW. 1036F TOBACCO NON-USER. G8783 BP SCR PRFRM RCMDD DEFIND SCR INTVL. G8752 MOST RECENT SYSTOLIC BP < 140MM HG. G8754 MOST RECENT DIASTOLIC BP < 90MM HG. * Electronic signature of DANIEL Bartlett on 07/20/2025 at 11:02 AM EDT Sign off status: Pending * Provider: DANIEL Hatch Date: 0 05/24/2025 Generated for Shanelle dominguez/Ja/eTransmitting on: 0 07/20/2025 11:02 AM EDT History and Physical Notes * [...]
--- OUTSIDE RECORDS SUMMARY | 2025-06-13 10:45 | XMS_ITS ---
Author Organization [facility] Address [address] [place] [id number] Care Team Providers Care Developer Evangelist Name Role Phone Norberto Miller Primary Care Provider Jo Ellison Unavailable [phone] Allergies No Known Allergies Results Component Value Reference Range Notes P-Comprehensive Metabolic Pa juanjose (CMP) Reviewed date:06/19/2025 09:11:35 AM Interpretation:gluc 136 Performing Lab: Notes/Report: Test performed by [facility] [address] [place] [address] , [address], [place] [address] Michael Hung MD, Icing Maker CLIA: [id number] Sodium 141 135-145 mmol/L Potassium 3.6 3.5-5.3 mmol/L Chloride 101 97-108 mmol/L CO2 25 20-32 mmol/L Glucose 136 65-99 mg/dL BUN 21 8-23 mg/dL Creatinine 1.25 0.70-1.30 mg/dL Calcium 9.1 8.6-10.4 mg/dL eGFR by Creatinine 64 >59 mL/min/1.73m2 Protein 6.3 6.0-8.3 g/dL Albumin 4.2 3.5-5.3 g/dL Alkaline Phosphatase 84 40-129 IU/L ALT (SGPT) 16 <5-55 IU/L AST (SGOT) 15 <5-46 IU/L Bilirubin, Total 0.6 <0.2-1.2 mg/dL A/G Ratio 2.0 1.1-2.5 P-CPK Reviewed date:06/19/2025 09:11:35 AM Interpretation:Normal Performing Lab: Notes/Report: Test performed by [facility] [address] [place] [address] [address], [place] [address] Michael Hung MD, Icing Maker CLIA: [id number] Creatine Kinase 161 20-200 U/L P-Magnesium Reviewed date:06/19/2025 09:11:35 AM Interpretation:Normal Performing Lab: Notes/Report: Test performed by [facility] [address] [place] [address] [address], [place] [address] Michael Hung MD, Icing Maker CLIA: [id number] Magnesium 2.1 1.6-2.4 mg/dL REASON FOR VISIT BP dropping, can't sleep, shaky Medications Medication SIG (Take, Route, Frequency, Duration) Notes Start Date End Date Status Sulindac 200 MG Take 1 tablet by mouth twice daily; Duration: 90 Active clonazePAM 1 MG 1/2 tab orally Two times a day; Duration: 30 days 04/28/2025 Active Levocetirizine Dihydrochloride 5 MG TAKE 1 TABLET BY MOUTH ONCE DAILY IN THE EVENING; Duration: 90 Active Spironolactone 25 MG 1/2 tab orally ever y other day Active Furosemide 40 MG 1/2 tab Orally every other day Active Desvenlafaxine Succinate ER 100 MG 1 [...] by mouth once daily; Duration: 90 Active OneTouch Delica Plus [id number] - USE 1 TO CHECK GLUCOSE ONCE DAILY; Duration: 90 Active Myrbetriq 50 MG 1 tablet Orally Once a day; Duration: 30 day(s) Active Mounjaro 15 MG/0.5ML 15 mg Subcutaneous once a week 08/25/2024 Active QUEtiapine Fumarate 100 MG TAKE 1 TABLET BY MOUTH ONCE DAILY IN THE EVENING; Duration: 90 Active rOPINIRole HCl ER 2 MG 1 tablet Orally O nce a day; Duration: 90 days Active Flonase Allergy Relief 50 MCG/ACT 1 spray in each nostril Nasally Once a day 01/28/2024 Active Aspirin 81 MG 1 tablet Orally Once a day; Duration: 30 day(s) Active Jardiance 25 MG take 1 tablet by mouth once daily in the morning Orally Once a day; Duration: 90 days Active Cortisporin-TC 3.3-3-10-0.5 MG/ML 5 drops into affected ear Otic Three times a day 06/22/2024 Active Warfarin Sodium 7.5 MG TAKE 1 TABLET BY MOUTH ONCE DAILY 6 DAYS OUT OF THE WEEK; Duration: 90 Active Linzess 145 MCG 1 capsule at least 3 0 minutes before the first meal of the day on an empty stomach Orally Once a day; Duration: 90 days 07/30/2023 Active Easy Touch Glucose System w/Device - test once daily E11.9 08/11/2023 Active Easy Touch Safety Lancets 28G - as directed to test once daily; Duration: 90 days diagnosis code E11.9 08/20/2023 Active Mupirocin 2 % 1 application Externally Twice a day Active Albuterol Sulfate HFA 108 (90 Base) MCG/ACT 1 puff as needed Inhalation every 4 hrs, prn 11/24/2023 Active CPAP MASK DIRECTED 07/25/2021 Active Albuterol Sulfate HFA 108 (90 Base) MCG/ACT 1-2 puff(s) inhaled every 6 hours, prn 12/31/2022 Active Pristiq 100 MG 1 tab(s) orally once a day; Duration: 90 days 11/06/2022 Active Tamsulosin HCl 0.4 MG 1 cap(s) orally on ce a day; Duration: 90 days Active Nitrostat 0.4 MG 1 tab(s) sublinguall y every 5 minutes Active FREE STYLE KRISTAL GLUCOSE SYSTEM DIRECTED BID 07/20/2018 Active Diclofenac Sodium 1 % as directed applie d topically 4 times a day 03/03/2021 Active Symbicort 80-4.5 MCG/ACT 2 puff(s) inhaled 2 times a day 05/08/2014 Active Potassium Chloride ER 20 MEQ take 2 tablets by mouth once daily; Duration: 90 days Active CPAP SUPPLIES DIRECTED 07/25/2021 Act elisabeth Plavix 75 MG 1 tab(s) orally once a day Active Vitamin D3 25 MCG (1000 UT) 2 tab orally once a day Active Vitamin B-12 1000 MCG 1 tab(s) orally on ce a day Active Calcium Carbonate 600 MG 1 tab(s) orally qhs Active Magnesium Oxide 400 MG 1 tab(s) orally o nce a day Active Leqvio 284 MG/1.5ML as directed subcutaneously every 6 months Active Vital Signs Weight 253.8 lbs 06/13/2025 Blood pressure systolic 122 mm Hg 06/13/20 25 Blood pressure diastolic 68 mm Hg 025 Heart Rate 88 /min 06/13/2025 Height 73.50 in 06/13/2025 BMI 33.03 kg/m2 06/13/2025 Encounters Encounter Location Date Provider Diagnosis [facility] [address] [place] [address] [place] [phone] 06/13/2025 Jo Ellison Leg cramps R25.2 and Symptomatic hypotension I95.9 Assessments Encounter Date Diagnosis (ICD Code) Assessment Notes Treatment Notes Treatment Clinical Notes Section Notes 06/13/2025 Leg cramps (ICD-10 - R25.2) 06/13/2025 Symptomatic hypotension (ICD-10 - I95.9) Plan Of Treatment Medication Medication Name Sig Start Date Stop Date Notes Spironolactone 25 MG 1/2 tab orally every other day Furosemide 40 MG 1/2 tab Orally every other day Next Appt Details Follow Up: via phone to repo rt test results, Reason: Provider Name:Jo Weeks y, 07/25/2025 11:30:00 AM, [facility] [address] [facility], [address], [place], [place], [id number], Progress Notes * Sonia HAWTHORNEOB:1960 (64 yo M)Acc No.[id number]:06/13/2025 Progress Notes Patient: Nghia CHAVEZ Provider: DANIEL Hatch :1960 A ge:64 Y S ex:Male Date:06/13/2025 Address:[address] [place] [address], [facility] Pcp:Norberto Miller Subjective: * Chief Complaints: * 1 . BP dropping, can't sleep, shaky. * HPI: C ardiology: Pt states that her Blood Pressure has been dropping. Pt states when the diastolic gets in the 50's he almost passes out. R heumatology: c/o muscle pain H as been having leg cramps. * ROS: D ERMATOLOGY: no R alexander. [...] - Dr. Cárdenas 08/21/2015, Ablation-Dr Schmid @ [facility] 04/2016, Rectal Polyps Removal 11/12/2016, Cardiac ECHO & Stress Test 03/31/2017, Cardiac Pacemaker 10/2016, Cardioversion 2013, Open Heart 2013, Heart Cath - [facility] 03/2018. * Hospitalization/Major Diagno stic Procedure: C hest Pain , DVT, Bilateral PE 07/2009, Chest Pain, LT Leg Swollen- [facility] 08/2010, Chest Pain- [facility] 11/11-11/12/2011, Chest Pain- [facility] 04/24/2012, Insect Bite- [facility] 06/20/2012, Weak, Heart Palpitations- [place] [facility] 06/07/2013, Tachycardia- [facility] 07/30/2014, Hypertension, Tachycardia- [facility] 04/15/2016, Chest Pain- [facility] 05/01/2016, LT Leg Blood Clot- [facility] ER 11/17/2018. * Family History: [...] a day , Taking OneTouch Delica Plus [id number] - Miscellaneous USE 1 TO CHECK GLUCOSE [...] N .K.D.A. Objective: * Vitals: W t: 253.8, Temp: 97.5, BP: 122/68, HR: 88, Nurse: jose, Ht: 73.50, BMI:33.03. * Examination: G eneral Examination: General Appearance: N AD. H EENT: u nremarkable.?Oral cavity: n o lesions, mucosa moist and WNL, no erythema. N akira: s upple, no lymphadenopathy. C hest: n ormal shape and expansion. H eart: R SR. L ungs: c lear to auscultation. A bdomen: b owel sounds present, soft and nontender. N eurologic Exam: I ntact, gait normal. S kin: n ormal, no rash. P eripheral pulses: n ormal (2+) bilaterally. E xtremities: n o leg edema. Assessment: * Assessment: 1. L eg cramps - R25.2 (Primary) 2 . S ymptomatic hypotension - I95.9 ? Plan: * Treatment: Value Reference Range A /G Ratio 2.0 1.1-2.5 - * A lbumin 4.2 3.5-5.3 - g/dL * A lkaline Phosphatase 84 40-129 - IU/L * A LT (SGPT) 16 <5-55 - IU/L * A ST (SGOT) 15 <5-46 - IU/L * B ilirubin, Total 0.6 <0.2-1.2 - mg/dL * B UN 21 8-23 - mg/dL * C alcium 9.1 8.6-10.4 - mg/dL * C hloride 101 97-108 - mmol/L * C O2 25 20-32 - mmol/L * C reatinine 1.25 0.70-1.30 - mg/dL * G lucose 136 H 65-99 - mg/dL * P otassium 3.6 3.5-5.3 - mmol/L * S odium 141 135-145 - mmol/L * P rotein 6.3 6.0-8.3 - g/dL * e GFR by Creatinine 64 >59 - mL/min/1.73m2 * Jo Ellison 06/13/2025 03 :25:37 PM EDT >room B Lisa Hagen 06/19/2025 09:11:28 AM EDT > See phone encounter ?LAB: P-CPK (Collection Date & Time - 06/13/2025 02:40 PM)?Normal* Value Reference Range C reatine Kinase 161 20-200 - U/L * Jo Ellison 06/13/2025 03 :25:37 PM EDT >room B Lisa Hagen 06/19/2025 09:11:28 AM EDT > See phone encounter ?LAB: P-Magnesium (Collection Date & Time - 06/13/2025 02:40 PM)?Normal* Value Reference Range M agnesium 2.1 1.6-2.4 - mg/dL * Jo Ellison 06/13/2025 03 :25:37 PM EDT >room B Lisa Hagen 06/19/2025 09:11:28 AM EDT > See phone encounter 2.?Symptomatic hypotension? Decrease Spironolactone Tablet, 25 MG, 1/2 tab, orally, every other day;?Decrease Furosemide Tablet, 40 MG, 1/2 tab, Orally, every other day.?? * Procedure Codes: G 2211 Complex e/m visit add on, 1036F TOBACCO NON-USER, G8783 BP SCR PRFRM RCMDD DEFIND SCR INTVL, G8752 MOST RECENT SYSTOLIC BP < 140MM HG, G8754 MOST RECENT DIASTOLIC BP < 90MM HG * Follow Up: v ia phone to report test results * Images: Billing Information: * Visit Code: 19693 Office Visit, Est Pt., Level 4. * Procedure Codes: G2211 Complex e/m visit add on. 1036F TOBACCO NON-USER. G8783 BP SCR PRFRM RCMDD DEFIND SCR INTVL. G8752 MOST RECENT SYSTOLIC BP < 140MM HG. G8754 MOST RECENT DIASTOLIC BP < 90MM HG. * Electronic signature of DANIEL Bartlett on 07/20/2025 at 11:02 AM EDT Sign off status: Pending * Provider: DANIEL Hatch Date: 0 06/13/2025 Generated for Melitoni ng/Ja/eTransmitting on: 0 07/20/2025 11:02 AM EDT History and Physical Notes * HPI (History of Present Illness) Category Sub-Category Detail Notes Category Not es Rheumatology muscle pain Has been having leg cramps Examination Category Sub-Category Detail Notes Category Not es General Examination HEENT: unremarkable Heart: RSR Lungs: clear to auscultatio n Abdomen: bowel sounds present , soft and nontender Extremities: no leg edema General Appearance: NAD Skin: normal, no rash Neurologic Exam: Intact, gait normal Neck: supple, no lymphaden opathy Oral cavity: no lesions, mucosa m oist and WNL, no erythema Peripheral pulses: normal (2+) bilatera lly Chest: normal shape and exp ansion
--- OUTSIDE RECORDS SUMMARY | 2025-06-21 07:30 | XMS_ITS ---
[facility] Organization [facility] Address [address] [place] [id number] Care Team Providers Care Airline Lounge Receptionist Name Role Phone Norberto Miller Primary Care Provider Jo Ellison Unavailable [phone] Allergies No Known Allergies Results Component Value [...] Duration: 30 day(s) Active OneTouch Delica Plus [id number] - USE 1 TO CHECK GLUCOSE ONCE [...] Encounters Encounter Location Date Provider Diagnosis JOSÉA-Karlene [address] [facility] [address] [facility] [address] [place], [place] [id number] 06/21/2025 Jo Ellison Symptomatic hypotens ion I95.9 and USP (current) use of anticoagulants Z79.01 Assessments Encounter Date Diagnosis (ICD Code) Assessment Notes Treatment Notes Treatment Clinical Notes Section Notes 06/21/2025 Symptomatic hypotension (ICD-10 - I95.9) 06/21/2025 USP (current) use of anticoagulants (ICD-10 - Z79.01) Plan Of Treatment Medication Medication Name Sig Start Date Stop Date Notes Furosemide 40 MG 1/2 tab Orally every other day, prn Spironolactone 25 MG 1/2 tab orally every other day, prn Next Appt Details Follow Up: 1 Week, Reason: Provider Name:Jo meehan, 07/25/2025 11:30:00 AM, [address] [facility] [address] [facility], [address], [place], [place], [id number], Progress Notes * Sonia HAWTHORNEOB:1960 (64 yo M)Acc No.[id number]:06/21/2025 Progress Notes Patient: Nghia CHAVEZ Provider: DANIEL Hatch :1960 A ge:64 Y S ex:Male Date:06/21/2025 Address:[address] [place] [address], [facility] Pcp:Norberto Miller Subjective: * Chief [...] - Dr. Cárdenas 08/21/2015, Ablation-Dr Schmid @ [facility] 04/2016, Rectal Polyps Removal 11/12/2016, Cardiac ECHO & Stress Test 03/31/2017, Cardiac Pacemaker 10/2016, Cardioversion 2013, Open Heart 2013, Heart Cath - [facility] 03/2018. * Hospitalization/Major Diagno stic Procedure: C hest Pain , DVT, Bilateral PE 07/2009, Chest Pain, LT Leg Swollen- [facility] 08/2010, Chest Pain- [facility] 11/11-11/12/2011, Chest Pain- [facility] 04/24/2012, Insect Bite- [facility] 06/20/2012, Weak, Heart Palpitations- [facility] 06/07/2013, Tachycardia- [facility] 07/30/2014, Hypertension, Tachycardia- [facility] 04/15/2016, Chest Pain- [facility] 05/01/2016, LT Leg Blood Clot- [facility] 11/17/2018. * Family History: F ather: [...] a day , Taking OneTouch Delica Plus [id number] - Miscellaneous USE 1 TO CHECK GLUCOSE [...] G 2211 Complex e/[place], [address] PROTHROMBIN TIME, Modifiers: QW , 01022 CAPILLARY BLOOD DRAW, 1036F TOBACCO NON-USER, G9810 BP SCR PRFRM RCMDD DEFIND SCR INTVL, G9852 MOST RECENT SYSTOLIC BP < 140MM HG, G8754 MOST RECENT DIASTOLIC BP < 90MM HG * Follow Up: 1 Week * Images: Billing Information: * Visit Code: 95742 Office Visit, Est Pt., Level 3. * Procedure Codes: G2211 Complex e/[place]. [address] PROTHROMBIN TIME. Modifiers: QW 37584 CAPILLARY BLOOD DRAW. 1036F TOBACCO NON-USER. G8783 BP SCR PRFRM RCMDD DEFIND SCR INTVL. G8752 MOST RECENT SYSTOLIC BP < 140MM HG. G8754 MOST RECENT DIASTOLIC BP < 90MM HG. * Electronic signature of DANIEL Bartlett on 07/20/2025 at 11:02 AM EDT Sign off status: Pending * Provider: DANIEL Hatch Date: 0 06/21/2025 Generated for Shanelle dominguez/Ja/eTransmitting on: 0 07/20/2025 [...]
--- OUTSIDE RECORDS SUMMARY | 2025-06-28 06:45 | XMS_ITS ---
Author Organization [facility] Address [address] [place] [id number] Care Team Providers Care Lye Bath Operator Name Role Phone Norberto Miller Primary Care Provider [phone] Jo Ellison Unavailable [phone] Allergies No Known Allergies Results Component Value [...] Duration: 90 days Active OneTouch Delica Plus [id number] - USE 1 TO CHECK GLUCOSE ONCE [...] 06/28/2025 Encounters Encounter Location Date Provider Diagnosis [facility] [address] [facility] [address] [facility] [address] [place], [place] [phone] 06/28/2025 Jo Ellison [facility] (current) use of anticoagulants Z79.01 Assessments Encounter Date Diagnosis (ICD Code) Assessment Notes Treatment Notes Treatment Clinical Notes Section Notes 06/28/2025 team sports sales associate (current) use of anticoagulants (ICD-10 - Z79.01) Plan Of Treatment Next Appt Details Follow Up: 2 Weeks, Reason: Provider Name:Jo meehan, 07/25/2025 11:30:00 AM, [address], [address], [place], [place], [phone], Progress Notes * Sonia HAWTHORNEOB:1960 (64 yo M)Acc No.[id number]:06/28/2025 Progress Notes Patient: Gildardo Nghia PAGE Provider: DANIEL Hatch :1960 A ge:64 Y S ex:Male Date:06/28/2025 Address:[address] [place] [address], [place], [phone] Pcp:Norberto Miller Subjective: * Chief Complaints: * [...] - Dr. Cárdenas 08/21/2015, Ablation-Dr Schmid @ [facility] 04/2016, Rectal Polyps Removal 11/12/2016, Cardiac ECHO & Stress Test 03/31/2017, Cardiac Pacemaker 10/2016, Cardioversion 2013, Open Heart 2013, Heart Cath - [facility] 03/2018. * Hospitalization/Major Diagno stic Procedure: C hest Pain , DVT, Bilateral PE 07/2009, Chest Pain, LT Leg Swollen- [facility] 08/2010, Chest Pain- [facility] 11/11-11/12/2011, Chest Pain- [facility] 04/24/2012, Insect Bite- [facility] 06/20/2012, Weak, Heart Palpitations- [facility] 06/07/2013, Tachycardia- [facility] 07/30/2014, Hypertension, Tachycardia- [facility] 04/15/2016, Chest Pain- [facility] 05/01/2016, LT Leg Blood Clot- [facility] 11/17/2018. * Family History: [...] a day , Taking OneTouch Delica Plus [id number] - Miscellaneous USE 1 TO CHECK GLUCOSE [...] G 2211 Complex e/[place], [address] PROTHROMBIN TIME, Modifiers: QW , 00001 CAPILLARY BLOOD DRAW, 1036F TOBACCO NON-USER * Follow Up: 2 Weeks * Images: Billing Information: * Visit Code: 24130 Office Visit, Est Pt., Level 2. * Procedure Codes: G2211 Complex e/[place]. [address] PROTHROMBIN TIME. Modifiers: QW 89253 CAPILLARY BLOOD DRAW. 1036F TOBACCO NON-USER. * Electronic signature of DANIEL Bartlett on 07/20/2025 at 11:03 AM EDT Sign off status: Pending * Provider: DANIEL Hatch Date: 06/28/2025 Generated for Melitoni ng/Faxing/eTransmitting on: 0 07/20/2025 11:03 AM EDT History and Physical Notes * [...]
--- OUTSIDE RECORDS SUMMARY | 2025-07-12 07:30 | XMS_ITS ---
[facility] Address [address] [facility] [address] [place] [id number] Care Team Providers Care Source Inspector Name Role Phone Norberto Miller Primary Care Provider [phone] Jo Ellison Unavailable [phone] Allergies No Known Allergies REASON FOR VISIT 2 weeks Medications Medication SIG (Take, Route, Frequency, Duration) Notes Start Date End Date Status Furosemide 40 MG 1/2 tab Orally every other day, prn Not-Taking Baclofen 5 MG Take 1 tablet by mouth twice daily; Duration: 90 Active metFORMIN HCl ER 500 MG Take 2 tablets by mouth once daily; Duration: 90 Active clonazePAM 1 MG 1/2 tab orally Two times a day; Duration: 30 days 04/28/2025 Active Sulindac 200 MG Take 1 tablet by mouth twice daily; Duration: 90 Active Pantoprazole Sodium 40 MG Take 1 tablet by mouth once daily; Duration: 90 Active Spironolactone 25 MG 1/2 tab orally every other day, prn Not-Taking Levocetirizine Dihydrochloride 5 MG TAKE 1 TABLET BY MOUTH ONCE DAILY IN THE EVENING; Duration: 90 Active Warfarin Sodium 5 MG 1 tablet Orally Once a day; Duration: 90 days Active Desvenlafaxine Succinate ER 100 MG 1 tablet Orally Once a day; Duration: 30 days 01/22/2025 Active QUEtiapine Fumarate 100 MG TAKE 1 TABLET BY MOUTH ONCE DAILY IN THE EVENING; Duration: 90 Active Mounjaro 15 MG/0.5ML 15 mg Subcutaneous once a week 08/25/2024 Active Myrbetriq 50 MG 1 tablet Orally Once a day; Duration: 30 day(s) Active Cortisporin-TC 3.3-3-10-0.5 MG/ML 5 drops into affected ear Otic Three times a day 06/22/2024 Active Jardiance 25 MG take 1 tablet by mouth once daily in the morning Orally Once a day; Duration: 90 days Active Warfarin Sodium 7.5 MG TAKE 1 TABLET BY MOUTH ONCE DAILY 6 DAYS OUT OF THE WEEK; Duration: 90 Active OneTouch Delica Plus [id number] - USE 1 TO CHECK GLUCOSE ONCE DAILY; Duration: 90 Active rOPINIRole HCl ER 2 MG 1 tablet Orally Once a day; Duration: 90 days [...] - test once daily E11.9 08/11/2023 Active Nitrostat 0.4 MG 1 tab(s) sublingually every 5 minutes Active Tamsulosin HCl 0.4 MG 1 cap(s) orally once a day; Duration: 90 days Active Pristiq 100 MG 1 tab(s) orally once a day; Duration: 90 days 11/06/2022 Active Albuterol Sulfate HFA 108 (90 Base) MCG/ACT 1-2 puff(s) inhaled every 6 hours, prn 12/31/2022 Active Linzess 145 MCG 1 capsule at least 30 minutes before the first meal of the day on an empty stomach Orally Once a day; Duration: 90 days 07/30/2023 Active Diclofenac Sodium 1 % as directed applied topically 4 times a day 03/03/2021 Active CPAP MASK DIRECTED 07/25/2021 Active CPAP SUPPLIES DIRECTED 07/25/2021 Act elisabeth Potassium Chloride ER 20 MEQ take 2 tablets by mouth once daily; Duration: 90 days Active Symbicort 80-4.5 MCG/ACT 2 puff(s) inhaled 2 times a day 05/08/2014 Active FREE STYLE KRISTAL GLUCOSE SYSTEM DIRECTED BID 07/20/2018 Active Magnesium Oxide 400 MG 1 tab(s) orally once a day Active Calcium Carbonate 600 MG 1 tab(s) orally qhs Active Vitamin B-12 1000 MCG 1 tab(s) orally once a day Active Vitamin D3 25 MCG (1000 UT) 2 tab orally once a day Active Midodrine HCl 5 MG 1 tablet Orally Twice a day Active Plavix 75 MG 1 tab(s) orally once a day Active Vital Signs Weight 205.2 lbs 07/12/2025 Blood pressure systolic 140 mm Hg 07/12/20 25 Blood pressure diastolic 60 mm Hg 025 Heart Rate 69 /min 07/12/2025 Height 73.50 in 07/12/2025 BMI 26.7 kg/m2 07/12/2025 Encounters Encounter Location Date Provider Diagnosis [facility] [address] [facility] [address] [facility] [address] [place], [place] [id number] 07/12/2025 Jo Ellison Abnormal stress test R94.39 Assessments Encounter Date Diagnosis (ICD Code) Assessment Notes Treatment Notes Treatment Clinical Notes Section Notes 07/12/2025 Abnormal stress test (ICD-10 - R94.39) Patient is scheduled for a cath next Wednesday. Will start back on coumadin as per cardiology and f/u 1 week after procedure for INR. Plan Of Treatment Treatment Notes Assessment Notes Abnormal stress test Patient is schedule d for a cath next Wednesday. Will start back on coumadin as per cardiology and f/u 1 week after procedure for INR. Next Appt Details Follow Up: 1 Week after cath , Reason: Provider Name:Jo Weeks y, 07/25/2025 11:30:00 AM, [address] [facility], [place], [place], [id number], Progress Notes * Sonia HAWTHORNEOB:1960 (64 yo M)Acc No.[id number]:07/12/2025 Progress Notes Patient: Gildardo CAMILOJoelNghia Provider: DANIEL Hatch :1960 A ge:64 Y S ex:Male Date:07/12/2025 Address:[address] [place] [address], [facility], [id number] Pcp:Norberto Milelr Subjective: * Chief Complaints: * 1 . 2 weeks. * HPI: H ematology: 64 year old male presents with c/o PT/INR d ue for PT/INR.? H PI: Patient is here today for P t states he went to the campus receptionist yesterday and had an abnormal stress test. He is scheduled for a cath on Wednesday. He will have to stop his coumadin on Wednesday. . * ROS: D ERMATOLOGY: no R [...] - Dr. Cárdenas 08/21/2015, Ablation-Dr Schmid @ [facility] 04/2016, Rectal Polyps Removal 11/12/2016, Cardiac ECHO & Stress Test 03/31/2017, Cardiac Pacemaker 10/2016, Cardioversion 2013, Open Heart 2013, Heart Cath - [facility] 03/2018. * Hospitalization/Major Diagno stic Procedure: C hest Pain , DVT, Bilateral PE 07/2009, Chest Pain, LT Leg Swollen- [facility] 08/2010, Chest Pain- [facility] 11/11-11/12/2011, Chest Pain- [facility] ER 04/24/2012, Insect Bite- [facility] ER 06/20/2012, Weak, Heart Palpitations- [facility] 06/07/2013, Tachycardia- [facility] ER 07/30/2014, Hypertension, Tachycardia- [facility] ER 04/15/2016, Chest Pain- [facility] ER 05/01/2016, LT Leg Blood Clot- [facility] ER 11/17/2018. * Family History: [...] ouside US: no. * Medications: T aking Midodrine HCl 5 MG Tablet 1 tablet Orally Twice a day , Taking Plavix 75 MG Tablet [...] Notes to Pharmacist: diagnosis code E11.9, Taking Albuterol Sulfate HFA 108 (90 Base) [...] a day , Taking OneTouch Delica Plus [id number] - Miscellaneous USE 1 TO CHECK GLUCOSE [...] tablet Orally Once a day , Taking Pantoprazole Sodium 40 MG Tablet Delayed Release Take 1 tablet by mouth once daily , Taking Sulindac 200 MG Tablet Take 1 tablet by mouth twice daily , Taking clonazePAM 1 MG Tablet 1/2 tab orally Two times a day , Taking Levocetirizine Dihydrochloride 5 MG Tablet TAKE 1 TABLET BY MOUTH ONCE DAILY IN THE EVENING , Taking metFORMIN HCl ER 500 MG Tablet Extended Release 24 Hour Take 2 tablets by mouth once daily , Taking Baclofen 5 MG Tablet Take 1 tablet by mouth twice daily , Not-Taking Spironolactone 25 MG Tablet 1/2 tab orally every other day, prn , Not-Taking Furosemide 40 MG Tablet 1/2 tab Orally every other day, prn , Discontinued Leqvio 284 MG/1.5ML Solution Prefilled Syringe as directed subcutaneously every 6 months , Discontinued Mupirocin 2 % Ointment 1 application Externally Twice a day , Medication List reviewed and reconciled with the patient * Allergies: N .K.D.A. Objective: * Vitals: W t: 205.2, Temp: 97.4, BP: 140/60, HR: 69, Nurse: pe, Ht: 73.50, BMI:26.7. * Examination: G eneral Examination: General Appearance: N AD. C hest: n ormal shape and expansion. H eart: R SR. L ungs: c lear to auscultation. A bdomen: b owel sounds present, soft and nontender. E xtremities: n o leg edema. Assessment: * Assessment: 1. A bnormal stress test - R94.39 (Primary) Plan: * Treatment: * Follow Up: 1 Week after cath * Images: Billing Information: * Visit Code: 37931 Office Visit, Est Pt., Level 3. * Procedure Codes: * Electronic signature of DANIEL Bartlett on 07/20/2025 at 11:02 AM EDT Sign off status: Pending * Provider: DANIEL Hatch Date: 0 07/12/2025 Generated for Shanelle dominguez/Ja/eTkatianaitting on: 07/20/2025 11:02 AM EDT History and Physical Notes * HPI (History of Present Illness) Category Sub-Category Detail Notes Category Not es HPI Patient is here today for Pt sta devang he went to the campus receptionist yesterday and had an abnormal stress test. He is scheduled for a cath on Wednesday. He will have to stop his coumadin on Wednesday. Hematology PT/INR due for PT/INR Examination Category Sub-Category Detail Notes Category Not es General Examination Heart: RSR Lungs: clear to auscultatio n Abdomen: bowel sounds present , soft and nontender Extremities: no leg edema General Appearance: NAD Chest: normal shape and exp ansion
--- OUTSIDE RECORDS SUMMARY | 2025-07-20 11:02 | XMS_ITS | Encounter Summary ---
Author Organization Healthcare Address [address] [place] [address] Care Team Providers Care Elevator Supervisor Name Role Phone Pcp, No Primary Care Provider Unavailabl e Encounter Details Date Type Department Care Team ([facility] Contact Info) Description 09/21/2011 Orders Only External Location [address] [place] [address] Provider, External Social History Tobacco Use Types [...] on filedocumented in this encounter Care Teams Elevator Supervisor Relationship Specialty Start Date End Date Pcp, No [address] [place] [address] PCP - General Family Medicine 01/22/23 documented as of this encounter
--- OUTSIDE RECORDS SUMMARY | 2025-07-20 11:02 | XMS_ITS | Encounter Summary ---
Author Organization Healthcare Address [address] [place] [address] Care Team Providers Care Eggs Inspector Name Role Phone Pcp, No Primary Care Provider Unavailabl e Encounter Details Date Type Department Care Team ([facility] st Contact Info) Description 01/27/2011 Orders Only External Location [address] [place] [address] Provider, External Social History Tobacco Use Types [...] on filedocumented in this encounter Care Teams Eggs Inspector Relationship Specialty Start Date End Date Pcp, No [address] [place] [address] PCP - General Family Medicine 01/22/23 documented as of this encounter
--- OUTSIDE RECORDS SUMMARY | 2025-07-20 11:02 | XMS_ITS | Encounter Summary ---
Author Organization Healthcare Address [address] [place] [address] Care Team Providers Care Brand Coordinator Name Role Phone Pcp, No Primary Care Provider Unavailabl e Encounter Details Date Type Department Care Team ([facility] st Contact Info) Description 01/22/2011 Orders Only External Location [address] [place] [address] Provider, External Social History Tobacco Use Types [...] on filedocumented in this encounter Care Teams Brand Coordinator Relationship Specialty Start Date End Date Pcp, No [address] [place] [address] PCP - General Family Medicine 01/22/23 documented as of this encounter
--- OUTSIDE RECORDS SUMMARY | 2025-07-20 11:02 | XMS_ITS | Encounter Summary ---
Author Organization Healthcare Address [address] [place] [address] Care Team Providers Care Network Design Architect Name Role Phone Pcp, No Primary Care Provider Unavailabl e Encounter Details Date Type Department Care Team ([facility] st Contact Info) Description 02/04/2012 Orders Only External Location [address] [place] [address] Provider, External Social History Tobacco Use Types [...] on filedocumented in this encounter Care Teams Network Design Architect Relationship Specialty Start Date End Date Pcp, No [address] [place] [address] PCP - General Family Medicine 01/22/23 documented as of this encounter
--- OUTSIDE RECORDS SUMMARY | 2025-07-20 11:02 | XMS_ITS | Clinical Summary ---
Author Organization [facility] Address [address] [place] [address] Care Team Providers Care Census Taker Name Role Phone Pcp, No Primary Care [...] 2011 [facility]-Zoster Vaccines (1 of 2) 2011 [id number] Vaccine (3 - season) 2025 03/14/2021, 02/14/2021 [facility]-Influenza Vaccine (#1) 2025 [facility]-RSV [...] age to complete this topic Insurance MEDICARE [facility] Care Teams Census Taker Relationship Specialty Start Date [place] [address] PCP - General Family Medicine 01/22/23
[2025-07-20 11:03] VITALS: BP 120/64; PULSE 73; RESP 16; O2SAT 98
[2025-07-20] MEDS: INCLISIRAN SODIUM 284 MG/1.5 ML SYRINGE SUBCUT (11:03)
--- OUTSIDE RECORDS SUMMARY | 2025-07-20 11:04 | XMS_ITS | Clinical Summary ---
Author Organization [facility] [place] Address [address] [place] [address] Phone Care Team Providers Care Account Liaison Name Role Phone Norberto Miller Primary Care Provider [phone] Allergies No known active allergies Medications carbidopa-levod [...] of breath Obstructive sleep apnea cpap Hypertension AL (myocardial infarction) (HCC) Atrial flutter (HCC) Hiatal [...] COVID-19 Vaccine (1 - 2023-2 5 season) 2025 Influenza Vaccine (#1) 2025 Colon Cancer Screening 04/03/2026 Colonoscopy 04/03/2026 04/03/2016 (Postponed) Hepatitis B Vaccine Aged Out No longe r eligible based on patient's age to complete this topic Meningococcal B Vaccine Aged Out No l onger eligible based on patient's age to complete this topic Medical Devices Implanted Type Area Apparel Stock Checker Device Identifier Shelf Expiration Date Model / Serial / Lot Cardiac Stent Medtronic Linq Ilr Implanted:Qty: 1 on 09/06/2015 [employer] [id number] / [id number] / Insurance MEDICARE [place] PART A AND B [facility] [place] PART A AND B PPO Care Teams Account Liaison Relationship Specialty Start Date End Date Norberto Miller [facility] [address] [place] [id number] PCP - General Family Medicine 03/04/16
--- OUTSIDE RECORDS SUMMARY | 2025-07-20 11:04 | XMS_ITS | Encounter Summary ---
Author Organization [place] [address] Care Team Providers Care Enterprise Account Executive Name Role Phone Norberto Miller Primary Care Provider [phone] Encounter Details Date Type Department Care Team (Late st Contact Info) Description 04/29/2016 Orders Only [facility] [address] [facility] [address] [place] [phone] Andrea Schmid MD [address] [place] [address] Social History Tobacco Use Types Packs/Day Years [...] Schmid MD CARDIAC CATH ORDERABLES Final Result [facility] [address] [place] [address] documented in this encounter Visit Diagnoses Not on filedocumented in this encounter Care Teams Enterprise Account Executive Relationship Specialty Start Date End Date Norberto Miller [address] [place] [address] PCP - General Family Medicine 03/04/16 documented as of this encounter
--- OUTSIDE RECORDS SUMMARY | 2025-07-20 11:04 | XMS_ITS | Patient Health Record ---
Author Organization [facility] Address [address] [place] [id number] Care Team Providers Care Ibm Bpm Architect Name Role Phone Norberto Miller Primary Care Provider [phone] Khushboo Gamble Unavailable [phone] Go Matt Unavailable [phone] Jo Ellison Unavailable [phone] Allergies No Known Allergies Results Component Value Reference Range Notes PT/INR (in house) Reviewed date:09/25/2024 02:34:30 PM Interpretation:1.7 Performing Lab: Notes/Report: 1.7 PT 21.0 INR 1.7 current dose 5 mg MWF, 7.5 mg AOD new dose 5mg MF and 7.5 next check 2 weeks Warfarin indication afib ideal INR 2.5-3.5 P-Culture, Wound Aerobic w/G chuy Stain Reviewed date:10/04/2024 09:57:32 AM Interpretation:no growth Performing Lab: Notes/Report: Test performed by [facility] , [address], [place] [address] Michael Hung MD, Industrial Economics Teacher CLIA: [id number] Specimen Source Abscess - mid back Gram Stain See Below Rare Polymorphonuclear leukocytes No organisms seen Culture, Wound Aerobic w/Gram Stain See Below Preliminary Report : No growth, reincubate Final Report : No growth PT/INR (in house) Reviewed date:10/25/2024 12:41:21 PM [...] ideal INR 2.5-3.5 PT/INR (in house) Reviewed date:05/25/2025 12:41:13 PM Interpretation: Performing Lab: Notes/Report: PT 32.9 INR 2.7 current dose 5mg wednesday and 7.5 aod new dose same next check 4 weeks P-Comprehensive Metabolic Pa juanjose (CMP) Reviewed date:06/19/2025 09:11:35 AM Interpretation:gluc 136 Performing Lab: Notes/Report: Test performed by [facility] [address] [place] [address] , [address], [place] [address] Michael Hung MD, Industrial Economics Teacher CLIA: [id number] Sodium 141 135-145 mmol/L Potassium 3.6 3.5-5.3 [...] Interpretation:Normal Performing Lab: Notes/Report: Test performed by [facility] [address] [place] [address] , [address], [place] [address] Michael Hung MD, Industrial Economics Teacher CLIA: [id number] Creatine Kinase 161 20-200 U/L P-Magnesium Reviewed date:06/19/2025 09:11:35 AM Interpretation:Normal Performing Lab: Notes/Report: Test performed by [facility] [address] [place] [address] , [address], [place] [address] Michael Hung MD, Industrial Economics Teacher CLIA: [id number] Magnesium 2.1 1.6-2.4 mg/dL PT/INR (in house) [...] Interpretation: Performing Lab: Notes/Report: Test performed by [facility] [address] [place], [place] [address] , [address], [place] [address] Michael Hung MD, Industrial Economics Teacher CLIA: [id number] Sodium 139 135-145 mmol/L Potassium 5.0 3.5-5.3 [...] Interpretation: Performing Lab: Notes/Report: Test performed by [facility] [address] [place], [place] [address] , [address], [place] [address] Michael Hung MD, Industrial Economics Teacher CLIA: [id number] Magnesium 2.3 1.6-2.4 mg/dL P-TSH reflex to FT4 Reviewed date:03/22/2025 03:46:04 PM Interpretation: Performing Lab: Notes/Report: Test performed by [facility] [address] [place] [address] , [address], [place] [address] Michael Hung MD, Industrial Economics Teacher CLIA: [id number] TSH reflex to FT4 2.67 0.43-5.25 mU/L [...] next check 2 weeks ideal INR 2.5-3.5 Influenza Screen (in house) Reviewed date:11/29/2024 04:12:21 PM Interpretation: Performing Lab: Notes/Report: results Neg CBC Fingerstick (in house) Reviewed date:11/29/2024 [...] - 38 plat 160 100 - 400 Covid test (in house) Reviewed date:11/29/2024 04:12:40 PM Interpretation: Performing Lab: Notes/Report: Result: Neg PT/INR (in house) Reviewed date:11/23/2024 01:28:15 PM [...] weeks Warfarin indication afib ideal INR 2.5-3.5 P-Comprehensive Metabolic Pa juanjose ([facility]) Reviewed date:08/14/2024 04:21:29 PM Interpretation:Normal Performing Lab: Notes/Report: Test performed by [facility] [address] , [address], [place] [address] Michael Hung MD, Industrial Economics Teacher CLIA: [id number] Sodium 141 135-145 mmol/L Potassium 4.1 3.5-5.3 [...] Interpretation:Normal Performing Lab: Notes/Report: Test performed by [facility] [address] , [address], [place] [address] Michael Hung MD, Industrial Economics Teacher CLIA: [id number] Cholesterol 136 <200 mg/dL Triglycerides 102 <150 [...] Interpretation:Normal Performing Lab: Notes/Report: Test performed by [facility] [address] [place] [address] , [address], [place] [address] Michael Hung MD, Industrial Economics Teacher CLIA: [id number] TSH reflex to FT4 2.70 0.43-5.25 mU/L P-Vitamin D 25-Hydroxy Reviewed date:08/14/2024 04:21:29 PM Interpretation:Normal Performing Lab: Notes/Report: Test performed by [facility] [address] [place] [address] , [address], [place] [address] Michael Hung MD, Industrial Economics Teacher CLIA: [id number] Vitamin D 25-Hydroxy 52.8 30.0-100.0 ng/mL Interpretation [...] date:06/03/2025 10:46:44 PM Interpretation: Performing Lab: Notes/Report: PT/INR (in house) Reviewed date:02/15/2025 12:48:38 PM [...] check 1 week PT/INR (in house) Reviewed date:08/11/2024 11:29:37 AM [...] Interpretation:Normal Performing Lab: Notes/Report: Test performed by [facility] [address] [place] [address] , [address], [place] [address] Michael Hung MD, Industrial Economics Teacher CLIA: [id number] Vitamin B12 7949 290-4595 pg/mL PT/INR (in house) Reviewed date:05/03/2025 10:12:09 AM Interpretation:4.4 Performing Lab: Notes/Report: 4.4 PT 52.2 INR 4.4 current dose 7.5 mg daily new dose Hold today, 5mg F, 7.5mg AOD next check 1 week Warfarin indication afib ideal INR 2.5-3.5 Medications Medication SIG (Take, Route, Frequency, Duration) Notes Start Date End Date Status clonazePAM 1 MG 1/2 tab orally Two times a day; Duration: 30 days 04/28/2025 Active Sulindac 200 MG Take 1 tablet by mouth twice daily; Duration: 90 Active Pantoprazole Sodium 40 MG Take 1 tablet by mouth once daily; Duration: 90 Active Warfarin Sodium 5 MG 1 tablet Orally Once a day; Duration: 90 days Active OneTouch Delica Plus [id number] - USE 1 TO CHECK GLUCOSE ONCE DAILY; Duration: 90 Active Tamsulosin HCl 0.4 MG 1 cap(s) orally once a day; Duration: 90 days Active rOPINIRole HCl ER 2 MG 1 tablet Orally Once a day; Duration: 90 days Active Pristiq 100 MG 1 tab(s) orally once a day; Duration: 90 days 11/06/2022 Active Albuterol Sulfate HFA 108 (90 Base) MCG/ACT 1-2 puff(s) inhaled every 6 hours, prn 12/31/2022 Active Desvenlafaxine Succinate ER 100 MG 1 tablet Orally Once a day; Duration: 30 days 01/22/2025 Active QUEtiapine Fumarate 100 MG TAKE 1 TABLET BY MOUTH ONCE DAILY IN THE EVENING; Duration: 90 Active Mounjaro 15 MG/0.5ML 15 mg Subcutaneous once a week 08/25/2024 Active Myrbetriq 50 MG 1 tablet Orally Once a day; Duration: 30 day(s) Active Diclofenac Sodium 1 % as directed applied topically 4 times a day 03/03/2021 Active FREE STYLE KRISTAL GLUCOSE SYSTEM DIRECTED BID 07/20/2018 Active Magnesium Oxide 400 MG 1 tab(s) orally once a day Active CPAP MASK DIRECTED 07/25/2021 Active CPAP SUPPLIES DIRECTED 07/25/2021 Act elisabeth Potassium Chloride ER 20 MEQ take 2 tablets by mouth once daily; Duration: 90 days Active Symbicort 80-4.5 MCG/ACT 2 puff(s) inhaled 2 times a day 05/08/2014 Active Cortisporin-TC 3.3-3-10-0.5 MG/ML 5 drops into [...] nostril Nasally Once a day 01/28/2024 Active Warfarin Sodium 7.5 MG TAKE 1 TABLET BY MOUTH ONCE DAILY 6 DAYS OUT OF THE WEEK; Duration: 90 Active Calcium Carbonate 600 MG 1 tab(s) orally qhs Active Nitrostat 0.4 MG 1 tab(s) sublingually every 5 minutes Active Furosemide 40 MG 1/2 tab Orally every other day, prn Not-Taking Vitamin B-12 1000 MCG 1 tab(s) orally once a day Active Spironolactone 25 MG 1/2 tab orally every other day, prn Not-Taking Vitamin D3 25 MCG (1000 UT) 2 tab orally once a day Active Levocetirizine Dihydrochloride 5 MG TAKE 1 TABLET BY MOUTH ONCE DAILY IN THE EVENING; Duration: 90 Active Plavix 75 MG 1 tab(s) orally once a day Active Albuterol Sulfate HFA 108 (90 Base) MCG/ACT 1 puff as needed Inhalation every 4 hrs, prn 11/24/2023 Active Easy Touch Safety Lancets 28G - as directed to test once daily; Duration: 90 days diagnosis code E11.9 08/20/2023 Active Easy Touch Glucose System w/Device - test once daily E11.9 08/11/2023 Active Baclofen 5 MG Take 1 tablet by mouth twice daily; Duration: 90 Active Linzess 145 MCG 1 capsule at least 30 minutes before the first meal of the day on an empty stomach Orally Once a day; Duration: 90 days 07/30/2023 Active metFORMIN HCl ER 500 MG Take 2 tablets by mouth once daily; Duration: 90 Active Midodrine HCl 5 MG 1 tablet Orally Twice a day Active Immunizations Vaccine Route Administration Date Status Comme nts Tetanus Tdap-Adacel (over 7yrs) IM Intramuscular 03/12/2015 Administered COVID 19 Moderna IM Intramuscular 02/14/2021 Administered COVID 19 Moderna Unknown 03/14/2021 Administered Problems Problem Type SNOMED Code ICD Code Onset Dates Problem Status W/U Status Risk Notes Problem Type II diabetes mellitus without complication (697850305) Type 2 diabetes mellitus without complications (E11.9) Active confirmed Problem Peripheral circulatory disorder associated with diabetes mellitus (590055810) Type 2 diabetes mellitus with other circulatory complications (E11.59) Active confirmed Problem History of pulmonary embolus (404692289) History of pulmonary embolism (Z86.711) Active confirmed Problem Hyperlipidemia (22015267) Hyperlipidemia (E78.5) Active confirmed Problem Vitamin D deficiency (41414707) Vitamin D deficiency (E55.9) Active confirmed Problem Essential hypertension (55289578) Essential hypertension (I10) Active confirmed Problem Long-term current use of anticoagulant (555151437) intermediate frame tender current use of anticoagulant (Z79.01) Active confirmed Problem Parkinson disease (04095048) Parkinson disease (G20) Active confirmed Problem Sebaceous cyst (816816273) Sebaceous cyst (L72.3) Active confirmed Problem Obstructive sleep apnea (40228743) Obstructive sleep apnea (G47.33) Active confirmed Problem Tear film insufficiency (97741885) Dry eye (H04.129) Active confirmed Problem Mixed anxiety and depressive disorder (958371863) Depression with anxiety (F41.8) Active confirmed Problem Restless legs syndrome (73156934) Restless leg syndrome (G25.81) Active confirmed Problem Obese class I (083851465712968) BMI 33.0-33.9,adult (Z68.33) Active confirmed Problem Hearing loss (78098596) Hearing loss (H91.90) Active confirmed Problem Seizure disorder (071834864) Seizure disorder (G40.909) Active confirmed Problem Recurrent falls (897467295) Falls frequently (R29.6) Active confirmed Problem Congestive heart failure (68359715) CHF (congestive heart failure) (I50.9) Active confirmed Problem Obesity (272335868) Obesity, unspecified (E66.9) Active confirmed Problem Mixed hyperlipidemia (805627088) Mixed hyperlipidemia (E78.2) Active confirmed Problem Myoclonus (35267623) Myoclonus (G25.3) Active confirmed Problem Chronic pain (90024620) Other chronic pain (G89.29) Active confirmed Problem Atherosclerotic heart disease of [place] coronary artery without angina pectoris (405626984338346) Atherosclerotic heart disease of [place] coronary artery without angina pectoris (I25.10) Active confirmed Problem Slow transit constipation (37988780) Slow transit constipation (K59.01) Active confirmed Problem Localized infection of skin AND/OR subcutaneous tissue (168520578) Local infection of the skin and subcutaneous tissue, unspecified (L08.9) Active confirmed Problem Long-term current use of anticoagulant (972097020) intermediate frame tender (current) use of anticoagulants (Z79.01) Active confirmed Problem Hyperlipidemia due to type 2 diabetes mellitus (disorder) (053660453337228) Hyperlipidemia associated with type 2 diabetes mellitus (E11.69) Active confirmed Problem Constipation (69752519) Constipation, unspecified constipation type (K59.00) Active confirmed Problem Gastroesophageal reflux disease without esophagitis (363729684) Gastroesophageal reflux disease without esophagitis (K21.9) Active confirmed Problem Long-term current use of anticoagulant (803405074) Long-term (current) use of anticoagulants (Z79.01) Active confirmed Problem Morbid obesity (140417070) Morbid obesity, unspecified obesity type (E66.01) Active confirmed Problem Primary osteoarthritis (744576176) Primary osteoarthritis involving multiple joints (M15.0) Active confirmed Problem COPD - Chronic obstructive pulmonary disease (74413325) Chronic obstructive pulmonary disease, unspecified COPD type (J44.9) Active confirmed Problem Polyarthritis (234228258) Polyarthritis (M13.0) Active confirmed Problem Erectile dysfunction (disorder) (127269940) Erectile dysfunction, unspecified erectile dysfunction type (N52.9) Active confirmed Problem Obese class II (336074109797446) BMI 38.0-38.9,adult (Z68.38) Active confirmed Problem Osteoarthritis of knee (687216656) Primary osteoarthritis of right knee (M17.11) Active confirmed Problem Body mass index 40+ - morbidly obese (230681801) BMI 40.0-44.9, adult (Z68.41) Active confirmed Problem Recurrent falls (242837192) Frequent falls (R29.6) Active confirmed Problem Body mass index 30.00 to 34.99 (354798257424221) BMI 31.0-31.9,adult (Z68.31) Active confirmed Problem Problem with balance (322379195) Balance problems (R26.89) Active confirmed Problem Cardiac pacemaker in situ (845488953) History of permanent cardiac pacemaker placement (Z95.0) Active confirmed Problem Peripheral circulatory disorder associated with diabetes mellitus (953887660) Type 2 diabetes mellitus with other circulatory complication (E11.59) Active confirmed Problem Paroxysmal atrial flutter (562961593) Atrial flutter, paroxysmal (I48.92) Active confirmed Problem Urinary incontinence (749810166) Urinary incontinence, unspecified type (R32) Active confirmed Problem Seasonal allergic rhinitis (498521065) Seasonal allergic rhinitis, unspecified allergic rhinitis trigger (J30.2) Active confirmed Problem 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 Problem Vision loss, bilateral (H54.3) Active confirmed Problem Lower urinary tract symptoms due to benign prostatic hypertrophy (68876954858461) Benign prostatic hyperplasia with lower urinary tract symptoms, symptom details unspecified (N40.1) Active confirmed Problem Benign prostatic hypertrophy without outflow obstruction (480379555) Benign prostatic hyperplasia, unspecified whether lower urinary tract symptoms present (N40.0) Active confirmed Problem Seasonal allergic rhinitis (349824951) Seasonal allergic rhinitis, unspecified trigger (J30.2) Active confirmed Problem Allergic rhinitis (75545755) Non-seasonal allergic rhinitis, unspecified trigger (J30.89) Active confirmed Problem Gastroesophageal reflux disease (304654695) Gastroesophageal reflux disease, unspecified whether esophagitis present (K21.9) Active confirmed Problem Parkinson's disease (disorder) (44889292) Parkinson's disease, unspecified whether dyskinesia present, unspecified whether manifestations fluctuate (G20.A1) Active confirmed Problem Parkinson's dise ase with dyskinesia, unspecified whether manifestations fluctuate (G20.B1) Active confirmed Problem Hair follicle disorder (787686334) Infected sebaceous gland (L73.8) Active confirmed Vital Signs Heart Rate 69 /min 07/12/2025 Blood pressure diastolic 60 mm Hg 07/12/2025 Height 73.50 in 07/12/2025 Blood pressure systolic 140 mm Hg 07/12/2025 Weight 205.2 lbs 07/12/2025 BMI 26.7 kg/m2 07/12/2025 Encounters Encounter Location Date Provider Diagnosis [place] [address] [facility] [address] [place] [id number] 08/11/2024 Jo Crowdy Long-term (current) use of anticoagulants Z79.01 ; Type 2 diabetes mellitus without complications E11.9 ; Mixed hyperlipidemia E78.2 ; Depression with anxiety F41.8 ; Essential hypertension I10 ; Obstructive sleep apnea G47.33 ; Vitamin B12 deficiency E53.8 ; Vitamin D deficiency E55.9 ; Parkinson disease G20 ; Atherosclerotic heart disease of [place] coronary artery without angina pectoris I25.10 and Screening PSA (prostate specific antigen) Z12.5 [facility] [address] [place] [id number] 08/25/2024 Jo Crowdy half-way (current) use of anticoagulants Z79.01 ; Type 2 diabetes mellitus without complications E11.9 and Bradycardia R00.1 [facility] [address] [place] [id number] 09/01/2024 Jo Crowdy intermediate frame tender (current) use of anticoagulants Z79.01 [facility] [address] [place] [id number] 09/08/2024 Jo Crowdy intermediate frame tender (current) use of anticoagulants Z79.01 ; Polyarthritis M13.0 and Restless leg syndrome G25.81 [facility] [address] [place] [id number] 09/22/2024 Jo Crowdy half-way (current) use of anticoagulants Z79.01 and Tachycardia R00.0 [facility] [address] [place] [id number] 09/29/2024 Khushboo Gamble Infected sebaceous g land L73.8 ; Sebaceous cyst L72.3 and Local infection of the skin and subcutaneous tissue, unspecified L08.9 [facility] [address] [place] [id number] 10/02/2024 Khushboo Gamble Infected sebaceous g land L73.8 [facility] [address] [facility] [address] [place], [place] [id number] 10/06/2024 Jo Crowdy intermediate frame tender (current) use of anticoagulants Z79.01 and Infected sebaceous gland L73.8 [facility] [address] [facility] [address] [place], [place] [id number] 10/20/2024 Jo Crowdy half-way (current) use of anticoagulants Z79.01 [facility] [address] [facility] [place], [place] [id number] 10/25/2024 Jo Crowdy half-way current us e of anticoagulant Z79.01 [facility] [address] [place], [place] [id number] 11/09/2024 Jo Crowdy intermediate frame tender (current) use of anticoagulants Z79.01 [facility] [address] [place], [place] [id number] 11/23/2024 Jo Crowdy half-way (current) use of anticoagulants Z79.01 ; Sebaceous cyst L72.3 and Local infection of the skin and subcutaneous tissue, unspecified L08.9 [facility] [address] [place], [place] [id number] 11/29/2024 Jo Crowdy Acute URI J06.9 [facility] [address] [place], [place] [id number] 12/08/2024 Jo Crowdy Neoplasm of uncertai n behavior of skin D48.5 ; intermediate frame tender current use of anticoagulant Z79.01 ; Adult [...] apnea G47.33 ; Atherosclerotic heart disease of [place] coronary artery without angina pectoris I25.10 ; [...] manifestations fluctuate G20.A1 and BMI 31.0-31.9,adult Z68.31 [facility] [address] [id number] 01/05/2025 Jo Ellison half-way (current) use of anticoagulants Z79.01 and Type 2 diabetes mellitus without complications E11.9 [facility] [address] [id number] 02/02/2025 Jo Ellison half-way (current) use of anticoagulants Z79.01 [facility] [address] [id number] 02/06/2025 R Alek Basiliofleet Dog bite, initial encounter W54.0XXA and Bite wound of left thumb, initial encounter S61.052A [facility] [id number] 02/15/2025 Jo Ellison intermediate frame tender (current) use of anticoagulants Z79.01 ; Type 2 diabetes mellitus with other circulatory complications E11.59 ; Depression with anxiety F41.8 ; Chronic obstructive pulmonary disease, unspecified COPD type J44.9 and BMI 33.0-33.9,adult Z68.33 [facility] [address] [id number] 03/16/2025 Jo Ellison Paronychia of great toe L03.039 ; intermediate frame tender (current) use of anticoagulants Z79.01 ; Leg cramps R25.2 and Trigger middle finger, unspecified laterality M65.339 [facility] [address] [place], [place] [id number] 03/23/2025 Jo Crowdy Paronychia of great toe L03.039 and half-way (current) use of anticoagulants Z79.01 [facility] [address] [place], [place] [id number] 04/04/2025 Jo Crowdy half-way (current) use of anticoagulants Z79.01 [facility] [address] [place], [place] [id number] 04/19/2025 Jo Crowdy intermediate frame tender (current) use of anticoagulants Z79.01 [facility] [address] [place], [place] [id number] 04/26/2025 Jo Crowdy intermediate frame tender (current) use of anticoagulants Z79.01 [facility] [address] [facility] [address] [place] [id number] 05/03/2025 Jo Crowdy half-way (current) use of anticoagulants Z79.01 and Parkinson's disease with dyskinesia, unspecified whether manifestations fluctuate G20.B1 [facility] [address] [place], [place] [id number] 05/10/2025 Jo Crowdy half-way (current) use of anticoagulants Z79.01 [facility] [address] [place] [id number] 05/24/2025 Jo Crowdy intermediate frame tender (current) use of anticoagulants Z79.01 [facility] [address] [place], [place] [id number] 06/13/2025 Jo Crowdy Leg cramps R25.2 and Symptomatic hypotension I95.9 [facility] [address] [place], [place] [id number] 06/21/2025 Jo Crowdy Symptomatic hypotens ion I95.9 and half-way (current) use of anticoagulants Z79.01 [facility] [address] [place], [place] [id number] 06/28/2025 Jo Crowdy intermediate frame tender (current) use of anticoagulants Z79.01 [facility] [address] [place], [place] [id number] 07/12/2025 Jo Ellison Abnormal stress test R94.39 [facility] [address] [place], [place] [id number] 07/26/2024 Jo Terra Type 2 diabetes eileen itus without complications E11.9 [facility] [address] [place], [place] [id number] 08/14/2024 Jo Ellison [facility] [address] [place], [place] [id number] 2024 R Alek Angela Depression with anxi ety F41.8 [facility] [address] [place], [place] [id number] 2024 R Alek Angela [facility] [address] [place], [place] [id number] 09/15/2024 R Alek Angela Type 2 diabetes eileen itus without complications E11.9 [facility] [address] [place], [place] [id number] 11/23/2024 R Alek Angela Depression with anxi ety F41.8 [facility] [address] [place], [place] [id number] 12/11/2024 R Alek Angela [facility] [address] [place], [place] [id number] 01/22/2025 Jo Alfonsoobi [facility] [address] [place], [place] [id number] 02/23/2025 Go Dulce Depression with anxi ety F41.8 [facility] [address] [place], [place] [id number] 03/26/2025 Go Dulce Depression with anxi ety F41.8 [facility] [address] [place], [place] [id number] 04/28/2025 Go Dulce Depression with anxi ety F41.8 [facility] [address] [place], [place] [id number] 05/28/2025 Norberto Miller [facility] [address] [place] [id number] 06/19/2025 Jo Ellison Assessments Encounter Date Diagnosis (ICD Code) Assessment Notes Treatment Notes Treatment Clinical Notes Section Notes 07/26/2024 Type 2 diabetes mellitus without complications (ICD-10 - E11.9) 08/11/2024 Type 2 diabetes mellitus without complications (ICD-10 - E11.9) 08/11/2024 Long-term (current) use of anticoagulants (ICD-10 - Z79.01) 2024 Depression with anxiety (ICD-10 - F41.8) 08/25/2024 Type 2 diabetes mellitus without complications (ICD-10 - E11.9) 08/25/2024 intermediate frame tender (current) use of anticoagulants (ICD-10 - Z79.01) 09/01/2024 half-way (current) use of anticoagulants (ICD-10 - Z79.01) 09/08/2024 intermediate frame tender (current) use of anticoagulants (ICD-10 - Z79.01) [...] out. He may need another ablation. 09/22/2024 intermediate frame tender (current) use of anticoagulants (ICD-10 - Z79.01) 09/29/2024 Sebaceous cyst (ICD-10 - L72.3) 09/29/2024 Infected sebaceous gland (ICD-10 - L73.8) 10/02/2024 Infected sebaceous gland (ICD-10 - L73.8) Continue dressing changes and antibiotics. Follow-up as scheduled 10/06/2024 intermediate frame tender (current) use of anticoagulants (ICD-10 - Z79.01) 10/06/2024 Infected sebaceous gland (ICD-10 - L73.8) Will give 5 more days of abx. 10/20/2024 half-way (current) use of anticoagulants (ICD-10 - Z79.01) 10/25/2024 intermediate frame tender current use of anticoagulant (ICD-10 - Z79.01) 11/09/2024 intermediate frame tender (current) use of anticoagulants (ICD-10 - Z79.01) 11/23/2024 Depression with anxiety (ICD-10 - F41.8) 11/23/2024 Sebaceous cyst (ICD-10 - L72.3) 11/23/2024 half-way (current) use of anticoagulants (ICD-10 - Z79.01) 11/29/2024 Acute URI (ICD-10 - J06.9) Patient is almost finished with keflex for his cyst. Will stop this and start on cefdinir to cover respiratory symptoms. 12/08/2024 Neoplasm of uncertain behavior of skin (ICD-10 - D48.5) 01/05/2025 Type 2 diabetes mellitus without complications (ICD-10 - E11.9) 01/05/2025 intermediate frame tender (current) use of anticoagulants (ICD-10 - Z79.01) 02/02/2025 intermediate frame tender (current) use of anticoagulants (ICD-10 - Z79.01) 02/06/2025 Dog bite, initial encounter (ICD-10 - W54.0XXA) Discussed local wound care. Advised he go to his pharmacy or health department to obtain a tetanus shot. 02/15/2025 Type 2 diabetes mellitus with other circulatory complications (ICD-10 - E11.59) 03/23/2025 half-way (current) use of anticoagulants (ICD-10 - Z79.01) 03/23/2025 Paronychia of great toe (ICD-10 - L03.039) 03/26/2025 Depression with anxiety (ICD-10 - F41.8) 04/04/2025 intermediate frame tender (current) use of anticoagulants (ICD-10 - Z79.01) 04/19/2025 intermediate frame tender (current) use of anticoagulants (ICD-10 - Z79.01) 04/26/2025 half-way (current) use of anticoagulants (ICD-10 - Z79.01) 04/28/2025 Depression with anxiety (ICD-10 - F41.8) 05/03/2025 half-way (current) use of anticoagulants (ICD-10 - Z79.01) 05/03/2025 Parkinson's disease with dyskinesia, unspecified whether manifestations fluctuate (ICD-10 - G20.B1) Patient would like to see a different neurologist for his Parkinson's Disease. 05/10/2025 half-way (current) use of anticoagulants (ICD-10 - Z79.01) 05/24/2025 intermediate frame tender (current) use of anticoagulants (ICD-10 - Z79.01) 06/13/2025 Leg cramps (ICD-10 - R25.2) 06/13/2025 Symptomatic hypotension (ICD-10 - I95.9) 06/21/2025 half-way (current) use of anticoagulants (ICD-10 - Z79.01) 06/21/2025 Symptomatic hypotension (ICD-10 - I95.9) 06/28/2025 half-way (current) use of anticoagulants (ICD-10 - Z79.01) 07/12/2025 Abnormal stress test (ICD-10 - R94.39) Patient is scheduled for a cath next Wednesday. Will start back on coumadin as per cardiology and f/u 1 week after procedure for INR. 02/15/2025 intermediate frame tender (current) use of anticoagulants (ICD-10 - Z79.01) 02/23/2025 Depression with anxiety (ICD-10 - F41.8) 03/16/2025 intermediate frame tender (current) use of anticoagulants (ICD-10 - Z79.01) 03/16/2025 Paronychia of great toe (ICD-10 - L03.039) 03/16/2025 Leg cramps (ICD-10 - R25.2) 02/15/2025 Depression with anxiety (ICD-10 - F41.8) 02/06/2025 Bite wound of left thumb, initial encounter (ICD-10 - S61.052A) 12/08/2024 intermediate frame tender current use of anticoagulant (ICD-10 - Z79.01) 11/23/2024 Local infection of the skin and subcutaneous tissue, unspecified (ICD-10 - L08.9) 09/29/2024 Local infection of the skin and subcutaneous tissue, unspecified (ICD-10 - L08.9) 09/08/2024 Restless leg syndrome (ICD-10 - G25.81) 08/11/2024 Mixed hyperlipidemia (ICD-10 - E78.2) 08/25/2024 Bradycardia (ICD-10 - R00.1) Will keep f/u with cardiology and have echo and stress test. 08/11/2024 Depression with anxiety (ICD-10 - F41.8) 12/08/2024 Essential hypertension (ICD-10 - I10) 12/08/2024 Adult general medical examination (ICD-10 - Z00.00) Patient instructed to return to office Annually for Annual Wellness Visits to include annual screenings of Pain assessment, Functional Ability assessment, Cognitive Ability assessment, Fall Risk assessment, Depression screening and Bladder control screening. 02/15/2025 Chronic obstructive pulmonary disease, unspecified COPD type (ICD-10 - J44.9) 03/16/2025 Trigger middle finger, unspecified laterality (ICD-10 - M65.339) 02/15/2025 BMI 33.0-33.9,adult (ICD-10 - Z68.33) 12/08/2024 Mixed hyperlipidemia (ICD-10 - E78.2) 08/11/2024 Essential hypertension (ICD-10 - I10) BP has been low. Cardiology had him start taking the lasix every other day. Will do the same with the spironolactone but take it on the days he does not take the lasix and see if this helps his BP. 12/08/2024 Type 2 diabetes mellitus without complications (ICD-10 - E11.9) Will get labs in February. 08/11/2024 Obstructive sleep apnea (ICD-10 - G47.33) 12/08/2024 Parkinson disease (ICD-10 - G20) 08/11/2024 Vitamin B12 deficiency (ICD-10 - E53.8) 08/11/2024 Vitamin D deficiency (ICD-10 - E55.9) 12/08/2024 CHF (congestive heart failure) (ICD-10 - I50.9) 12/08/2024 Atrial flutter, paroxysmal (ICD-10 - I48.92) 08/11/2024 Parkinson disease (ICD-10 - G20) 12/08/2024 Depression with anxiety (ICD-10 - F41.8) 08/11/2024 Atherosclerotic heart disease of [place] coronary artery without angina pectoris (ICD-10 - I25.10) 12/08/2024 Urinary incontinence, unspecified type (ICD-10 - R32) 08/11/2024 Screening PSA (prostate specific antigen) (ICD-10 - Z12.5) 12/08/2024 Primary osteoarthritis involving multiple joints (ICD-10 [...] - G47.33) 12/08/2024 Atherosclerotic heart disease of [place] coronary artery without angina pectoris (ICD-10 - [...] Treatment Next Appt Details Provider Name:Jo meehan, 07/25/2025 11:30:00 AM, [address], [address], [place], [id number], Insurance Providers Payer Name Payer Address Payer Phone Subscriber Number Group Number Insured Name Patient Relationship to Insured Coverage Start Date Coverage End Date MEDICARE PART B [address] [address] [place] [id number] Nghia Montalvo Self - patient is the insured [employer] [address] [place] [address] [id number] Nghia Montalvo Self - patient is [...] 05/2013 Stress Test, ECHO, & EKG - [place] - [facility] 08/21/2015 Ablation-Dr Schmid @ [facility] 2015 Rectal Polyps Removal 11/12/2016 Cardiac ECHO & Stress Test 03/31/2017 Cardiac Pacemaker 10/2016 Cardioversion 2013 Open Heart 2013 Heart Cath - [facility] 03/2018 Hospitalization History Reason Date(Month/Year) LT Leg Blood Clot- [facility] 11/17/2018 Chest Pain- [facility] 05/01/2016 Hypertension, Tachycardia- [facility] 2015 Tachycardia- [facility] 07/30/2014 Weak, Heart Palpitations- [facility] Insect Bite- [facility] 06/20/2012 Chest Pain- [facility] 04/24/2012 Chest Pain- [facility] 11/11-11/12/19 12 Chest Pain, LT Leg Swollen- [facility] 08/2010 DVT, Bilateral PE 07/2009 Chest Pain
== END 2025-07-20 11:15 | disposition home or self-care (01) ==
LOC: INF 10:55
PROVIDERS: PCP Physician Assistant; Visit Provider Physician Assistant
DX: I11.9 Hypertensive heart disease without heart failure (principal); I42.9 Cardiomyopathy, unspecified; I48.0 Paroxysmal atrial fibrillation; I25.10 Atherosclerotic heart disease of native coronary artery without angina pectoris; R94.31 Abnormal electrocardiogram [ECG] [EKG]; Z95.0 Presence of cardiac pacemaker
CPT/HCPCS: 96372; J1306

== ENCOUNTER 2025-07-23 11:01 | Outpatient (CLI) | payer MEDICARE, BC, SELFPAY ==
--- OUTSIDE RECORDS SUMMARY | 2025-07-23 11:07 | XMS_ITS | Encounter Summary ---
Author Organization Healthcare Address [address] [place] [address] Care Team Providers Care Cold Roller Name Role Phone Pcp, No Primary Care Provider Unavailabl e Encounter Details Date Type Department Care Team ([facility] st Contact Info) Description 09/21/2011 Orders Only External Location [address] [place] [address] Provider, External Social History Tobacco Use Types [...] on filedocumented in this encounter Care Teams Cold Roller Relationship Specialty Start Date End Date Pcp, No [address] [place] [address] PCP - General Family Medicine 01/22/23 documented as of this encounter
--- OUTSIDE RECORDS SUMMARY | 2025-07-23 11:07 | XMS_ITS | Clinical Summary ---
Author Organization [email or web address] ([place], [place], [place], [place]) Address [address] [place] [address] Care Team Providers Care Marine Biologist Name Role Phone Unavailable Primary Care Provider [...] Juan R rded Speak language other than Finnish at home Not on file 08/29/2024 Want [...] (1 of 2) 2011 COVID-19 VACCINE (3 season) 07/09/202505/2021, 02/14/2021 Influenza Vaccine (#1) 2025 Respiratory Syncytial Virus (RSV) Adult or (1 - 1-dose 75+ series) 2036 Insurance BLUE CROSS/BLUE SHIELD MEDICARE PART A B
--- OUTSIDE RECORDS SUMMARY | 2025-07-23 11:07 | XMS_ITS | Encounter Summary ---
Author Organization Healthcare Address [address] [place] [address] Care Team Providers Care Manager Animal Name Role Phone Pcp, No Primary Care Provider Unavailabl e Encounter Details Date Type Department Care Team ([facility] st Contact Info) Description 01/22/2011 Orders Only External Location [address] [place] [address] Provider, External Social History Tobacco Use Types [...] on filedocumented in this encounter Care Teams Manager Animal Relationship Specialty Start Date End Date Pcp, No [address] [place] [address] PCP - General Family Medicine 01/22/23 documented as of this encounter
--- OUTSIDE RECORDS SUMMARY | 2025-07-23 11:07 | XMS_ITS | Encounter Summary ---
Author Organization Healthcare Address [address] [place] [address] Care Team Providers Care Cooperative Manager Name Role Phone Pcp, No Primary Care Provider Unavailabl e Encounter Details Date Type Department Care Team ([facility] st Contact Info) Description 01/27/2011 Orders Only External Location [address] [place] [address] Provider, External Social History Tobacco Use Types [...] on filedocumented in this encounter Care Teams Cooperative Manager Relationship Specialty Start Date End Date Pcp, No [address] [place] [address] PCP - General Family Medicine 01/22/23 documented as of this encounter
--- OUTSIDE RECORDS SUMMARY | 2025-07-23 11:07 | XMS_ITS | Encounter Summary ---
Author Organization Healthcare Address [address] [place] [address] Care Team Providers Care Prefabricator Name Role Phone Pcp, No Primary Care Provider Unavailabl e Encounter Details Date Type Department Care Team ([facility] st Contact Info) Description 02/04/2012 Orders Only External Location [address] [place] [address] Provider, External Social History Tobacco Use Types [...] on filedocumented in this encounter Care Teams Prefabricator Relationship Specialty Start Date End Date Pcp, No [address] [place] [address] PCP - General Family Medicine 01/22/23 documented as of this encounter
--- OUTSIDE RECORDS SUMMARY | 2025-07-23 11:07 | XMS_ITS | Clinical Summary ---
Author Organization [facility] Address [address] [place] [address] Care Team Providers Care Prepress Technician Name Role Phone Pcp, No Primary Care [...] 2011 UKY-Zoster Vaccines (1 of 2) 2011 [id number] Vaccine (3 - season) 2025 03/14/2021, 02/14/2021 [...] complete this topic Insurance MEDICARE [facility] Care Teams Prepress Technician Relationship Specialty Start [place] [address] PCP - General Family Medicine 01/22/23
--- OUTSIDE RECORDS SUMMARY | 2025-07-23 11:08 | XMS_ITS | Clinical Summary ---
Author Organization [facility] Address [address] [place] [address] Phone Care Team Providers Care Stone Planer Name Role Phone Norberto Miller Primary Care Provider [phone] Allergies No known active allergies Medications carbidopa-levod [...] of breath Obstructive sleep apnea cpap Hypertension CT (myocardial infarction) (HCC) Atrial flutter (HCC) Hiatal [...] this topic Medical Devices Implanted Type Area Advisor To [employer] In [employer] Device Identifier Shelf Expiration Date Model / Serial / Lot Cardiac Stent Medtronic Linq Ilr Implanted:Qty: 1 on 09/06/2015 [employer] [id number] / [id number] / Insurance MEDICARE [place] PART A AND B [facility] [place] PART A AND B PPO Care Teams Stone Planer Relationship Specialty Start Date End Date Norberto Miller [employer] [address] [place] [address] PCP - General Family Medicine 03/04/16
--- OUTSIDE RECORDS SUMMARY | 2025-07-23 11:08 | XMS_ITS | Referral Summary ---
Author Organization [employer] ([place], [place], [place], [place]) Address [address] [place] [address] Care Team Providers Care Sour Bleaching Pleater Name Role Phone Unavailable Primary Care Provider [...] Juan R rded Speak language other than [place] at home Not on file 08/29/2024 Want [...] [place] [address] [place] [id number] BLUE CROSS/BLUE SHIELD MEDICARE PART A B
--- OUTSIDE RECORDS SUMMARY | 2025-07-23 11:08 | XMS_ITS | Patient Health Record ---
[facility] Organization [facility] Address [address] [facility] [address] [place] [id number] Care Team Providers Care Tabulating Clerk Name Role Phone Norberto Miller Primary Care Provider [phone] Khushboo Gamble Unavailable [phone] Go Matt Unavailable [phone] Jo Ellison Unavailable [phone] Allergies No Known Allergies Results Component Value Reference Range Notes PT/INR (in house) Reviewed date:05/25/2025 12:41:13 PM Interpretation: Performing Lab: Notes/Report: PT 32.9 INR 2.7 current dose 5mg wednesday and 7.5 aod new dose same next check 4 weeks P-Comprehensive Metabolic Pa juanjose ([facility]) Reviewed date:06/19/2025 09:11:35 AM Interpretation:gluc 136 Performing Lab: Notes/Report: Test performed by [facility] , [address], [place] [address] Michael Hung MD, Curtain Stretcher CLIA: [id number] Sodium 141 135-145 mmol/L Potassium 3.6 3.5-5.3 [...] Interpretation:Normal Performing Lab: Notes/Report: Test performed by [facility] [address] [place], [place] [address] , [address], [place] [address] Michael Hung MD, Curtain Stretcher CLIA: [id number] Creatine Kinase 161 20-200 U/L P-Magnesium Reviewed date:06/19/2025 09:11:35 AM Interpretation:Normal Performing Lab: Notes/Report: Test performed by [facility] [address] [place] [address] , [address], [place] [address] Michael Hung MD, Curtain Stretcher CLIA: [id number] Magnesium 2.1 1.6-2.4 mg/dL PT/INR (in house) [...] Interpretation: Performing Lab: Notes/Report: Test performed by [facility] [address] [place], [place] [address] , [address], [place] [address] Michael Hung MD, Curtain Stretcher CLIA: [id number] Sodium 139 135-145 mmol/L Potassium 5.0 3.5-5.3 [...] Interpretation: Performing Lab: Notes/Report: Test performed by [facility] [address] [place], [place] [address] , [address], [place] [address] Michael Hung MD, Curtain Stretcher CLIA: [id number] Magnesium 2.3 1.6-2.4 mg/dL P-TSH reflex to FT4 Reviewed date:03/22/2025 03:46:04 PM Interpretation: Performing Lab: Notes/Report: Test performed by [facility], [address] , [address], [place] [address] Michael Hung MD, Curtain Stretcher CLIA: [id number] TSH reflex to FT4 2.67 0.43-5.25 mU/L [...] check 1 week PT/INR (in house) Reviewed date:04/26/2025 03:58:49 PM [...] Notes/Report: Result: Neg PT/INR (in house) Reviewed date:02/02/2025 01:50:40 PM [...] Interpretation:Normal Performing Lab: Notes/Report: Test performed by [facility] [address] [place] [address] , [address], [place] [address] Michael Hung MD, Curtain Stretcher CLIA: [id number] Vitamin B12 6920 835-2403 pg/mL P-Comprehensive Metabolic Pa juanjose (CMP) Reviewed date:08/14/2024 04:21:29 PM Interpretation:Normal Performing Lab: Notes/Report: Test performed by [facility] [address] [place] [address] , [address], [place] [address] Michael Hung MD, Curtain Stretcher CLIA: [id number] Sodium 141 135-145 mmol/L Potassium 4.1 3.5-5.3 [...] Interpretation:Normal Performing Lab: Notes/Report: Test performed by [facility], [address] , [facility], [place] [address] Michael Hung MD, Curtain Stretcher CLIA: [id number] Cholesterol 136 <200 mg/dL Triglycerides 102 <150 [...] Interpretation:Normal Performing Lab: Notes/Report: Test performed by [facility] [address] [place] [address] , [address], [place] [address] Michael Hung MD, Curtain Stretcher CLIA: [id number] TSH reflex to FT4 2.70 0.43-5.25 mU/L P-Vitamin D 25-Hydroxy Reviewed date:08/14/2024 04:21:29 PM Interpretation:Normal Performing Lab: Notes/Report: Test performed by [facility] [address] [place] [address] , [address], [place] [address] Michael Hung MD, Curtain Stretcher CLIA: [id number] Vitamin D 25-Hydroxy 52.8 30.0-100.0 ng/mL Interpretation of Vitamin D 25 OH: < 20 ng/mL - Deficiency 20 - 29 ng/mL - Insufficiency 30 - 100 ng/mL - Sufficiency > 100 ng/mL - Super-therapeutic- toxicity may occur above this level. Clinical correlation required. P-Culture, Wound Aerobic w/G chuy Stain Reviewed date:10/04/2024 09:57:32 AM Interpretation:no growth Performing Lab: Notes/Report: Test performed by [facility] [address] [place] [address] , [address], [place] [address] Michael Hung MD, Curtain Stretcher CLIA: [id number] Specimen Source Abscess - mid back Gram Stain See Below Rare Polymorphonuclear leukocytes No organisms seen Culture, Wound Aerobic w/Gram Stain See Below Preliminary Report : No growth, reincubate Final Report : No growth PT/INR (in house) Reviewed date:10/06/2024 01:48:26 PM Interpretation: Performing Lab: Notes/Report: PT 23.2 INR 1.9 current dose 5mg MF and 7.5mg AOD new dose 5mg M and 7.5mg AOD next check 2 weeks Warfarin indication afib ideal INR 2.5-3.5 JESUS Reviewed date:06/03/2025 10:46:44 [...] Duration: 90 days Active OneTouch Delica Plus [id number] - USE 1 TO CHECK GLUCOSE ONCE [...] Problem Type II diabetes mellitus without complication (229701739) Type 2 diabetes mellitus without complications (E11.9) Active confirmed Problem Peripheral circulatory disorder associated with diabetes mellitus (146964116) Type 2 diabetes mellitus with other circulatory complications (E11.59) Active confirmed Problem History of pulmonary embolus (885259187) History of pulmonary embolism (Z86.711) Active confirmed Problem Hyperlipidemia (56318755) Hyperlipidemia (E78.5) Active confirmed Problem Vitamin D deficiency (16374032) Vitamin D deficiency (E55.9) Active confirmed Problem Essential hypertension (84195807) Essential hypertension (I10) Active confirmed Problem Long-term current use of anticoagulant (535976469) 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 control service representative 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 use of anticoagulant (Z79.01) Active confirmed Problem Parkinson disease (47435091) Parkinson disease (G20) Active confirmed Problem Sebaceous cyst (326968074) Sebaceous cyst (L72.3) Active confirmed Problem Obstructive sleep apnea (35583563) Obstructive sleep apnea (G47.33) Active confirmed Problem Tear film insufficiency (44616712) Dry eye (H04.129) Active confirmed Problem Mixed anxiety and depressive disorder (233717247) Depression with anxiety (F41.8) Active confirmed Problem Restless legs syndrome (84746128) Restless leg syndrome (G25.81) Active confirmed Problem Obese class I (814250435171805) BMI 33.0-33.9,adult (Z68.33) Active confirmed Problem Hearing loss (73286533) Hearing loss (H91.90) Active confirmed Problem Seizure disorder (666183994) Seizure disorder (G40.909) Active confirmed Problem Recurrent falls (743359276) Falls frequently (R29.6) Active confirmed Problem Congestive heart failure (69082802) CHF (congestive heart failure) (I50.9) Active confirmed Problem Obesity (205672481) Obesity, unspecified (E66.9) Active confirmed Problem Mixed hyperlipidemia (901225870) Mixed hyperlipidemia (E78.2) Active confirmed Problem Myoclonus (36655163) Myoclonus (G25.3) Active confirmed Problem Chronic pain (91332652) Other chronic pain (G89.29) Active confirmed Problem 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 (239301513606753) 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) Active confirmed Problem Slow transit constipation (75008173) Slow transit constipation (K59.01) Active confirmed Problem Localized infection of skin AND/OR subcutaneous tissue (616653496) Local infection of the skin and subcutaneous tissue, unspecified (L08.9) Active confirmed Problem Long-term current use of anticoagulant (771239790) termite control service representative (current) use of anticoagulants (Z79.01) Active confirmed Problem Hyperlipidemia due to type 2 diabetes mellitus (disorder) (378512869639078) Hyperlipidemia associated with type 2 diabetes mellitus (E11.69) Active confirmed Problem Constipation (62596436) Constipation, unspecified constipation type (K59.00) Active confirmed Problem Gastroesophageal reflux disease without esophagitis (591197656) Gastroesophageal reflux disease without esophagitis (K21.9) Active confirmed Problem Long-term current use of anticoagulant (804773203) Long-term (current) use of anticoagulants (Z79.01) Active confirmed Problem Morbid obesity (963158715) Morbid obesity, unspecified obesity type (E66.01) Active confirmed Problem Primary osteoarthritis (964102145) Primary osteoarthritis involving multiple joints (M15.0) Active confirmed Problem COPD - Chronic obstructive pulmonary disease (89591928) Chronic obstructive pulmonary disease, unspecified COPD type (J44.9) Active confirmed Problem Polyarthritis (822681166) Polyarthritis (M13.0) Active confirmed Problem Erectile dysfunction (disorder) (748876932) Erectile dysfunction, unspecified erectile dysfunction type (N52.9) Active confirmed Problem Obese class II (189603115318523) BMI 38.0-38.9,adult (Z68.38) Active confirmed Problem Osteoarthritis of knee (854371646) Primary osteoarthritis of right knee (M17.11) Active confirmed Problem Body mass index 40+ - morbidly obese (583450000) BMI 40.0-44.9, adult (Z68.41) Active confirmed Problem Recurrent falls (048870194) Frequent falls (R29.6) Active confirmed Problem Body mass index 30.00 to 34.99 (310312526972334) BMI 31.0-31.9,adult (Z68.31) Active confirmed Problem Problem with balance (911358385) Balance problems (R26.89) Active confirmed Problem Cardiac pacemaker in situ (613315496) History of permanent cardiac pacemaker placement (Z95.0) Active confirmed Problem Peripheral circulatory disorder associated with diabetes mellitus (177028158) Type 2 diabetes mellitus with other circulatory complication (E11.59) Active confirmed Problem Paroxysmal atrial flutter (208007727) Atrial flutter, paroxysmal (I48.92) Active confirmed Problem Urinary incontinence (111197414) Urinary incontinence, unspecified type (R32) Active confirmed Problem Seasonal allergic rhinitis (608833912) Seasonal allergic rhinitis, unspecified allergic rhinitis trigger (J30.2) Active confirmed Problem 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 Problem Vision loss, bilateral (H54.3) Active confirmed Problem Lower urinary tract symptoms due to benign prostatic hypertrophy (52187586530532) Benign prostatic hyperplasia with lower urinary tract symptoms, symptom details unspecified (N40.1) Active confirmed Problem Benign prostatic hypertrophy without outflow obstruction (220564803) Benign prostatic hyperplasia, unspecified whether lower urinary tract symptoms present (N40.0) Active confirmed Problem Seasonal allergic rhinitis (574822788) Seasonal allergic rhinitis, unspecified trigger (J30.2) Active confirmed Problem Allergic rhinitis (76056345) Non-seasonal allergic rhinitis, unspecified trigger (J30.89) Active confirmed Problem Gastroesophageal reflux disease (621168636) Gastroesophageal reflux disease, unspecified whether esophagitis present (K21.9) Active confirmed Problem Parkinson's disease (disorder) (71704867) Parkinson's disease, unspecified whether dyskinesia present, unspecified whether manifestations fluctuate (G20.A1) Active confirmed Problem Parkinson's dise ase with dyskinesia, unspecified whether manifestations fluctuate (G20.B1) Active confirmed Problem Hair follicle disorder (715436730) Infected sebaceous gland (L73.8) Active confirmed Vital Signs Heart Rate 69 /min 07/12/2025 Blood pressure diastolic 60 mm Hg 07/12/2025 Height 73.50 in 07/12/2025 Blood pressure systolic 140 mm Hg 07/12/2025 Weight 205.2 lbs 07/12/2025 BMI 26.7 kg/m2 07/12/2025 Encounters Encounter Location Date Provider Diagnosis [place] 1210 [facility] [address] [place] [id number] 08/11/2024 Jo Crowdy Long-term (current) use of anticoagulants Z79.01 ; Type 2 diabetes mellitus without complications E11.9 ; Mixed hyperlipidemia E78.2 ; Depression with anxiety F41.8 ; Essential hypertension I10 ; Obstructive sleep apnea G47.33 ; Vitamin B12 deficiency E53.8 ; Vitamin D deficiency E55.9 ; Parkinson disease G20 ; 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 I25.10 and Screening PSA (prostate specific antigen) Z12.5 [facility] [address] [place] [id number] 08/25/2024 Jo Crowdy alf (current) use of anticoagulants Z79.01 ; Type 2 diabetes mellitus without complications E11.9 and Bradycardia R00.1 [facility] [address] [place] [id number] 09/01/2024 Jo Crowdy termite control service representative (current) use of anticoagulants Z79.01 [facility] [address] [place] [id number] 09/08/2024 Jo Crowdy termite control service representative (current) use of anticoagulants Z79.01 ; Polyarthritis M13.0 and Restless leg syndrome G25.81 [facility] [address] [place] [id number] 09/22/2024 Jo Crowdy alf (current) use of anticoagulants Z79.01 and Tachycardia R00.0 [facility] [address] [place] [id number] 09/29/2024 Khushboo Gamble Infected sebaceous g land L73.8 ; Sebaceous cyst L72.3 and Local infection of the skin and subcutaneous tissue, unspecified L08.9 [facility] [address] [place] [id number] 10/02/2024 Khushboo Gamble Infected sebaceous g land L73.8 [facility] [address] [facility] [address] [place], [place] [id number] 10/06/2024 Jo Crowdy termite control service representative (current) use of anticoagulants Z79.01 and Infected sebaceous gland L73.8 [facility] [address] [facility] [address] [place], [place] [id number] 10/20/2024 Jo Crowdy alf (current) use of anticoagulants Z79.01 [facility] [address] [facility] [address] [place], [place] [id number] 10/25/2024 Jo Crowdy alf current us e of anticoagulant Z79.01 [facility] [address] [place], [place] [id number] 11/09/2024 Jo Crowdy termite control service representative (current) use of anticoagulants Z79.01 [facility] [address] [place], [place] [id number] 11/23/2024 Jo Crowdy alf (current) use of anticoagulants Z79.01 ; Sebaceous cyst L72.3 and Local infection of the skin and subcutaneous tissue, unspecified L08.9 [facility] [address] [place], [place] [id number] 11/29/2024 Jo Crowdy Acute URI J06.9 [facility] [address] [place], [place] [id number] 12/08/2024 Jo Crowdy Neoplasm of uncertai n behavior of skin D48.5 ; termite control service representative current use of anticoagulant Z79.01 ; Adult [...] apnea G47.33 ; 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 I25.10 ; [...] manifestations fluctuate G20.A1 and BMI 31.0-31.9,adult Z68.31 [facility] 1210 [facility] [address] [id number] 01/05/2025 Jo Ellison alf (current) use of anticoagulants Z79.01 and Type 2 diabetes mellitus without complications E11.9 [facility] [address] [id number] 02/02/2025 Jo Ellison alf (current) use of anticoagulants Z79.01 [facility] [address] [id number] 02/06/2025 R Alek Basiliofleet Dog bite, initial encounter W54.0XXA and Bite wound of left thumb, initial encounter S61.052A [facility] [id number] 02/15/2025 Jo Ellison termite control service representative (current) use of anticoagulants Z79.01 ; Type 2 diabetes mellitus with other circulatory complications E11.59 ; Depression with anxiety F41.8 ; Chronic obstructive pulmonary disease, unspecified COPD type J44.9 and BMI 33.0-33.9,adult Z68.33 [facility] [address] [id number] 03/16/2025 Jo Ellison Paronychia of great toe L03.039 ; termite control service representative (current) use of anticoagulants Z79.01 ; Leg cramps R25.2 and Trigger middle finger, unspecified laterality M65.339 [facility] [address] [place], [place] [id number] 03/23/2025 Jo Crowdy Paronychia of great toe L03.039 and alf (current) use of anticoagulants Z79.01 [facility] [address] [place], [place] [id number] 04/04/2025 Jo Crowdy alf (current) use of anticoagulants Z79.01 [facility] [address] [place], [place] [id number] 04/19/2025 Jo Crowdy termite control service representative (current) use of anticoagulants Z79.01 [facility] [address] [place], [place] [id number] 04/26/2025 Jo Crowdy termite control service representative (current) use of anticoagulants Z79.01 [facility] [address] [facility] [address] [place] [id number] 05/03/2025 Jo Crowdy alf (current) use of anticoagulants Z79.01 and Parkinson's disease with dyskinesia, unspecified whether manifestations fluctuate G20.B1 [facility] [address] [place], [place] [id number] 05/10/2025 Jo Crowdy alf (current) use of anticoagulants Z79.01 [facility] [address] [place], [place] [id number] 05/24/2025 Jo Crowdy termite control service representative (current) use of anticoagulants Z79.01 [facility] [address] [place], [place] [id number] 06/13/2025 Jo Crowdy Leg cramps R25.2 and Symptomatic hypotension I95.9 [facility] [address] [place], [place] [id number] 06/21/2025 Jo Crowdy Symptomatic hypotens ion I95.9 and alf (current) use of anticoagulants Z79.01 [facility] [address] [place], [place] [id number] 06/28/2025 Jo Crowdy termite control service representative (current) use of anticoagulants Z79.01 [facility] [address] [place], [place] [id number] 07/12/2025 Jo Ellison Abnormal stress test R94.39 [facility] [address] [place] [id number] 07/23/2025 R Alek Angela [facility] [address] [place], [place] [id number] 07/26/2024 Jo Ellison Type 2 diabetes eileen itus without complications E11.9 [facility] [address] [place] [id number] 08/14/2024 Jo Hamiltonobi [facility] [address] [place] [id number] 2024 R Alek Angela Depression with anxi ety F41.8 [facility] [address] [place] [id number] 2024 R Alek Angela [facility] [address] [place], [place] [id number] 09/15/2024 R Alek Angela Type 2 diabetes eileen itus without complications E11.9 [facility] [address] [place], [place] [id number] 11/23/2024 R Alek Angela Depression with anxi ety F41.8 [facility] [address] [place] [id number] 12/11/2024 R Alek Angela [facility] [address] [place], [place] [id number] 01/22/2025 Jodirk Ellison [facility] [address] [place], [place] [id number] 02/23/2025 Go [place] Depression with anxi ety F41.8 [facility] [address] [place] [id number] 03/26/2025 Go [place] Depression with anxi ety F41.8 [facility] [address] [place] [id number] 04/28/2025 Go Matt Depression with anxi ety F41.8 [facility] [address] [place] [id number] 05/28/2025 Norberto Miller [facility] [address] [place], [place] [id number] 06/19/2025 oJ Ellison Assessments Encounter Date Diagnosis (ICD Code) Assessment Notes Treatment Notes Treatment Clinical Notes Section Notes 07/26/2024 Type 2 diabetes mellitus without complications (ICD-10 - E11.9) 08/11/2024 Type 2 diabetes mellitus without complications (ICD-10 - E11.9) 08/11/2024 Long-term (current) use of anticoagulants (ICD-10 - Z79.01) 2024 Depression with anxiety (ICD-10 - F41.8) 08/25/2024 Type 2 diabetes mellitus without complications (ICD-10 - E11.9) 08/25/2024 alf (current) use of anticoagulants (ICD-10 - Z79.01) 09/01/2024 termite control service representative (current) use of anticoagulants (ICD-10 - Z79.01) 09/29/2024 Infected sebaceous gland (ICD-10 - L73.8) 10/02/2024 Infected sebaceous gland (ICD-10 - L73.8) Continue dressing changes and antibiotics. Follow-up as scheduled 10/06/2024 termite control service representative (current) use of anticoagulants (ICD-10 - Z79.01) 10/06/2024 Infected sebaceous gland (ICD-10 - L73.8) Will give 5 more days of abx. 10/20/2024 termite control service representative (current) use of anticoagulants (ICD-10 - Z79.01) 10/25/2024 termite control service representative current use of anticoagulant (ICD-10 - Z79.01) 11/09/2024 termite control service representative (current) use of anticoagulants (ICD-10 - Z79.01) 11/23/2024 Depression with anxiety (ICD-10 - F41.8) 11/23/2024 Sebaceous cyst (ICD-10 - L72.3) 09/08/2024 alf (current) use of anticoagulants (ICD-10 - Z79.01) [...] out. He may need another ablation. 09/22/2024 alf (current) use of anticoagulants (ICD-10 - Z79.01) 09/29/2024 Sebaceous cyst (ICD-10 - L72.3) 11/23/2024 alf (current) use of anticoagulants (ICD-10 - Z79.01) 11/29/2024 Acute URI (ICD-10 - J06.9) Patient is almost finished with keflex for his cyst. Will stop this and start on cefdinir to cover respiratory symptoms. 12/08/2024 Neoplasm of uncertain behavior of skin (ICD-10 - D48.5) 01/05/2025 Type 2 diabetes mellitus without complications (ICD-10 - E11.9) 01/05/2025 termite control service representative (current) use of anticoagulants (ICD-10 - Z79.01) 02/02/2025 termite control service representative (current) use of anticoagulants (ICD-10 - Z79.01) 02/06/2025 Dog bite, initial encounter (ICD-10 - W54.0XXA) Discussed local wound care. Advised he go to his pharmacy or health department to obtain a tetanus shot. 03/23/2025 alf (current) use of anticoagulants (ICD-10 - Z79.01) 03/23/2025 Paronychia of great toe (ICD-10 - L03.039) 03/26/2025 Depression with anxiety (ICD-10 - F41.8) 04/04/2025 termite control service representative (current) use of anticoagulants (ICD-10 - Z79.01) 04/19/2025 termite control service representative (current) use of anticoagulants (ICD-10 - Z79.01) 04/26/2025 termite control service representative (current) use of anticoagulants (ICD-10 - Z79.01) 04/28/2025 Depression with anxiety (ICD-10 - F41.8) 05/03/2025 termite control service representative (current) use of anticoagulants (ICD-10 - Z79.01) 05/03/2025 Parkinson's disease with dyskinesia, unspecified whether manifestations fluctuate (ICD-10 - G20.B1) Patient would like to see a different neurologist for his Parkinson's Disease. 05/10/2025 alf (current) use of anticoagulants (ICD-10 - Z79.01) 05/24/2025 alf (current) use of anticoagulants (ICD-10 - Z79.01) 06/13/2025 Leg cramps (ICD-10 - R25.2) 06/13/2025 Symptomatic hypotension (ICD-10 - I95.9) 06/21/2025 alf (current) use of anticoagulants (ICD-10 - Z79.01) 06/21/2025 Symptomatic hypotension (ICD-10 - I95.9) 06/28/2025 termite control service representative (current) use of anticoagulants (ICD-10 - Z79.01) 07/12/2025 Abnormal stress test (ICD-10 - R94.39) Patient is scheduled for a cath next Wednesday. Will start back on coumadin as per cardiology and f/u 1 week after procedure for INR. 02/15/2025 Type 2 diabetes mellitus with other circulatory complications (ICD-10 - E11.59) 02/15/2025 alf (current) use of anticoagulants (ICD-10 - Z79.01) 02/23/2025 Depression with anxiety (ICD-10 - F41.8) 03/16/2025 termite control service representative (current) use of anticoagulants (ICD-10 - Z79.01) 03/16/2025 Paronychia of great toe (ICD-10 - L03.039) 03/16/2025 Leg cramps (ICD-10 - R25.2) 02/15/2025 Depression with anxiety (ICD-10 - F41.8) 02/06/2025 Bite wound of left thumb, initial encounter (ICD-10 - S61.052A) 09/29/2024 Local infection of the skin and subcutaneous tissue, unspecified (ICD-10 - L08.9) 12/08/2024 alf current use of anticoagulant (ICD-10 - Z79.01) [...] Obstructive sleep apnea (ICD-10 - G47.33) 12/08/2024 Type 2 diabetes mellitus without complications (ICD-10 - E11.9) Will get labs in February. 12/08/2024 Parkinson disease (ICD-10 - G20) 08/11/2024 Vitamin B12 deficiency (ICD-10 - E53.8) 08/11/2024 Vitamin D deficiency (ICD-10 - E55.9) 12/08/2024 CHF (congestive heart failure) (ICD-10 - I50.9) 12/08/2024 Atrial flutter, paroxysmal (ICD-10 - I48.92) 08/11/2024 Parkinson disease (ICD-10 - G20) 12/08/2024 Depression with anxiety (ICD-10 - F41.8) 08/11/2024 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 (ICD-10 - [...] - G47.33) 12/08/2024 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 (ICD-10 - [...] [address], [place], [id number], Insurance Providers Payer Name Payer Address Payer Phone Subscriber Number Group Number Insured Name Patient Relationship to Insured Coverage Start Date Coverage End Date MEDICARE PART B [address] [address] [place] [id number] Nghia Montalvo Self - patient is the insured [employer] [address] [place] [address] [id number] Nghia Montalvo Self - patient is the insured Medications Administered Medication Instructions Date of Administration Dosage Notes B-12 01/31/2007 1 mL weekly B12 vtio ts x 2 months B-12 02/10/2007 1 [...] 05/2013 Stress Test, ECHO, & EKG - Abdnormal - Alcides Cárdenas 08/21/2015 Ablation-Dr Schmid @ [address] [facility] 2015 Rectal Polyps Removal 11/12/2016 Cardiac ECHO & Stress Test 03/31/2017 Cardiac Pacemaker 10/2016 Cardioversion 2013 Open Heart 2013 Heart Cath - Avi 03/2018 Hospitalization History Reason Date(Month/Year) LT Leg Blood Clot- [facility] 11/17/2018 Chest Pain- [facility] 05/01/2016 Hypertension, Tachycardia- [facility] 2015 Tachycardia- [facility] 07/30/2014 Weak, Heart Palpitations- [facility] Insect Bite- [facility] 06/20/2012 Chest Pain- [facility] 04/24/2012 Chest Pain- [facility] 11/11-11/12/19 12 Chest Pain, LT Leg Swollen- [facility] 08/2010 DVT, Bilateral PE 07/2009 Chest Pain
--- OUTSIDE RECORDS SUMMARY | 2025-07-23 11:08 | XMS_ITS | Encounter Summary ---
Author Organization [employer] ([place], [place], [place], [place]) Address [address] [place] [address] Care Team Providers Care Wellness Nurse Rn Name Role Phone Unavailable Primary Care Provider Unavailabl e Encounter Details Date Type Department Care Team (Late st Contact Info) Description 08/28/2024 Outside Orders [facility] Central Scheduling [address] [place] [address] Livia Do [address] [place] [address] Memory loss (Primary Dx); Movement [...] Juan R rded Speak language other than Mosotho at home Not on file 08/29/2024 Want [...]
--- OUTSIDE RECORDS SUMMARY | 2025-07-23 11:08 | XMS_ITS | Encounter Summary ---
Author Organization [place] [address] Care Team Providers Care Busher Helper Name Role Phone Norberto Miller Primary Care Provider [phone] Encounter Details Date Type Department Care Team (Late st Contact Info) Description 04/29/2016 Orders Only [facility] [address] [facility] [address] [place] [id number] Andrea Schmid MD [address] [place] [address] Social History Tobacco Use Types Packs/Day Years [...] Schmid MD CARDIAC CATH ORDERABLES Final Result [facility] [address] [place] [address] documented in this encounter Visit Diagnoses Not on filedocumented in this encounter Care Teams Busher Helper Relationship Specialty Start Date End Date Norberto Miller [address] [place] [address] PCP - General Family Medicine 03/04/16 documented as of this encounter
[2025-07-24 12:13] LABS: PSA, Free 0.20 ng/mL
== END 2025-07-23 23:59 | disposition home or self-care (01) ==
LOC: LAB 11:04
PROVIDERS: PCP Physician Assistant; Visit Provider Urology
DX: N40.1 Benign prostatic hyperplasia with lower urinary tract symptoms (principal); R32 Unspecified urinary incontinence
CPT/HCPCS: 36415; 84153; 84154

== ENCOUNTER 2025-10-01 09:55 | Day surgery (SDC) | payer MEDICARE, BC, SELFPAY ==
--- NOTE | 2025-10-01 07:07 | IR_ITS ---
APPROVED REPORT Patient Location: Outpatient Charge Account Identification Clerk: ADRIEL Corcoran RT (R) PROCEDURES 1. Pocket Revision 2. Removal of old pacemaker 3. Capping of chronic right ventricular lead 4. Insertion of permanent right ventricular lead 5. Implant of permanent pacemaker INDICATION Loss of signal from chronic lead, End of battery life Informed consent was obtained prior to the procedure. COMPLICATIONS None Estimated Blood Loss: Less than 10 ML TECHNIQUE 1% Lidocaine with epinephrine used to anesthetized the left anterior aspect of the chest. Scalpel was used to make the initial cutaneous incision then was used to dissect down tinto the fascia and existing pacemaker generator. The generator was removed from the existing pocket. Digital manipulation was required along with intermitten use of a scalpel to revise the pocket. The atrail lead was removed from the generator. The chronic right atrial lead was capped. The patient was then placed in Trendelenburg position and the subclavian vein was accessed once via the Selinger technique, there is one wire in the vein. A 6 Dominican sheath was placed under fluoroscopic guidance into the subclavian vein over the wire. The dilator was removed from the sheath. Using fluoroscopic guidance, the atrial lead was the placed into the right atrial appendage and screwed and secured in place. Electrical interrogation demonstrated acceptable thresholds and voltage number. The atrial lead was then secured into place using 3-0 silk. 1 gram of Ancef was used to flush the pocket. Following the pacemaker generator being secured to the fascia and in place, Monocryl was used to close the subcutaneous layers while adrián were used to close the cutaneous layer. A pressure dressing was placed and the patient was transferred to the postop holding area in stable condition for postoperative care. INTERROGATION Generator [facility] [id number] Generator Serial number: [id number] Atrial lead model number: Tendril [facility] 2087TC Atrial lead serial number: [id number] P-wave: Impedance: 380 OHMS Threshold: 0.75V @ 1.0ms Right Ventricular lead model number: Tendril [facility] Right Ventricular lead serial number: [id number] R-wave: 8 mV Impedance: 460 OHMS Threshold: 0.5V @ 0.4ms EXPLANTED DEVICE Generator Model number: [id number] Generator Serial number: [id number] RV CAPPED LEAD Right Ventricular lead model number: Martharil STS 2088TC 65 Right Ventricular lead serial number: [id number] Pacing Parameters: Mode: DDDR Base/Max Track: 70 ppm / 130 ppm No diaphragmatic stimulation at 10 volts. IMPRESSION 1. Successful Pocket Revision 2. Successful Removal of old pacemaker 3. Successful Capping of chronic right ventricularl lead 4. Successful Insertion of permanent right ventricular lead 5. Successful Implant of permanent pacemaker PLAN 1. Postop wound care. Electronically signed by : Claudy Cárdenas MD 10/01/2025 15:05:54
[2025-10-01 09:58] VITALS: BMI 33.3
[2025-10-01 10:14] LABS: Hematocrit 42.2 % (42.0-52.0); Hemoglobin 13.7 g/dL (14.1-18.0); Immature Granulocytes % 0.4 %; Mean Corpuscular HGB Conc 32.5 g/dL (31.8-35.4); Mean Corpuscular Hemoglobin 27.3 pg (27.0-31.2); Mean Corpuscular Volume 84.2 fl (80-94); Nucleated Red Blood Cells % 0 %; Platelet Count 174 K/mm3 (142-424); Red Blood Count 5.01 M/mm3 (4.60-6.20); Red Cell Distribution Width-SD 40.2 fL; White Blood Count 4.7 K/mm3 (4.8-10.8)
[2025-10-01 10:24] LABS: INR 1.28 (0.9-1.1); Prothrombin Time 14.0 seconds (10.1-12.5)
[2025-10-01 10:27] LABS: Anion Gap 7.5 mEq/L (5-15); Blood Urea Nitrogen 15 mg/dl (9-20); Calcium 8.9 mg/dl (8.4-10.2); Carbon Dioxide 30 mmol/L (22.0-30.0); Chloride 103 mmol/L (98-107); Creatinine Clearance Estimated 124 mL/min (50-200); Creatinine,Serum 0.90 mg/dl (0.66-1.25); Estimated Glomerular Filt Rate 85 ml/min (>60); GFR (African American) 103 ML/MIN (>60); Glucose 103 mg/dl (74-100); Potassium 4.5 mmoL/L (3.5-5.1); Sodium 136 mmol/L (136-145)
[2025-10-01 10:35] VITALS: PULSE 72
[2025-10-01 10:40] VITALS: BP 142/89; PULSE 71; RESP 20; TEMP 36.8; O2SAT 97
--- NOTE | 2025-10-01 11:21 | P.PNANES_ITS ---
[facility] Disclaimer: The information contained in this section may have been updated after the patient was seen, as this information can be updated by other users. Medical History Abnormal findings on diagnostic imaging of heart and coronary circulation Parkinsonism Encephalopathy chronic CHRISTY on CPAP Memory impairment Movement disorder Hypotension Palpitations Major depressive disorder Hyperlipidemia Hypertension History of blood clots Pacemaker Frequent urination Enlarged prostate Stroke Seizures Depression Arthritis History of cardioversion Kidney stone Pneumonia Sleep apnea History of COVID-19 COPD (chronic obstructive pulmonary disease) Bronchitis History of back pain Irritable bowel syndrome (IBS) History of gastroesophageal reflux (GERD) Diabetes mellitus, type 2 History of cataract Allergies Edema Crescendo angina Dizziness Atypical angina Abnormal EKG Chest pain Surgical History History of colonoscopy History of surgery History of open heart surgery Family History Other Cancer Diabetes Heart disease Social History Smoking Status: Never smoker alcohol intake: never counseling provided: none substance use type: denies use current occupational status: retired and disabled Travel in the last 8 weeks?: None household members: spouse housing: house number of children: 2 current occupational exposures/hazards: No caffeine: No Have you lived/traveled outside [place] in past 30 days?: No Contact w/someone who lives/traveled outside US past 30 days?: No Exposure to someone with infectious disease in past 14 days?: No Do you have a fever (greater than 100.4 F or 38 C)?: No Have you tested positive for COVID-19?: No Exposed to someone with COVID-19 in past 14 days?: No Do you have a sore throat?: No Do you have a cough?: No Do you have any weakness?: No Do you have any diarrhea?: No Are you experiencing any unusual bleeding?: No Do you have any muscle aches/pain?: No Do you have any abdominal pain?: No Are you experiencing loss of taste or smell?: No [facility] Anesthesia Checklist Patient Identification Patient Identification: Arm Band and Verbal (Name & ) Structural Data Admitted From: Home Planned Operative Procedure/s: pacemaker Consent for Planned Operative Procedure(s) Verified: Yes Verified Documents: Surgical Consent and History and Physical NPO Status Verified Time NPO: 00:00 Additional verifications Anesthesia Reactions: No Hx Blood Transfusions: No Airway Assessment Dentition: Good Dentition Neurological Assessment Level of Consciousness: Awake, Alert and Appropriate Hx Seizures: No Numbness or tingling in extremities: No Anesthesia Plan Anesthesia Risk discussed: Yes Anesthesia Plan: Verified ASA Class: IV Anesthesia Type: MAC
[2025-10-01] MEDS: LIDOCAINE 2% w/EPI 1:200,000 20ML VIAL 20 ML IJ (12:06)
--- NOTE | 2025-10-01 13:22 | XR_ITS ---
FINAL REPORT CLINICAL HISTORY: Post lead revision FINDINGS: A portable view of the chest is obtained. There are changes from sternotomy. A left-sided pacemaker is present. The heart is mildly enlarged. There are low lung volumes with left basilar atelectasis. There is no pneumothorax. IMPRESSION: Low lung volumes with left basilar atelectasis. Reviewed, Interpreted and Dictated by Emma Griffith MD Transcribed by Sarah Puentes Authenticated and [facility]
[2025-10-01 13:28] VITALS: BP 122/63; PULSE 77; RESP 20; O2SAT 98
[2025-10-01 13:30] VITALS: BP 150/57; PULSE 95; RESP 18; O2SAT 98
[2025-10-01] MEDS: 0.9 % SODIUM CHLORIDE 1000ML 1,000 ML 25 ML IV (14:14)
--- NOTE | 2025-10-01 15:41 | SUR.PHASEII ---
DR GUERRERO VEIWED CHEST X-RAY, STATED OKAY TO SEND PATIENT HOME
== END 2025-10-01 15:49 | disposition home or self-care (01) ==
LOC: CATHLAB 09:56
PROVIDERS: PCP Physician Assistant; Visit Provider Internal Medicine
PROC: 0JPT0PZ Removal of Cardiac Rhythm Related Device from Trunk Subcutaneous Tissue and Fascia, Open Approach (ICD-10-PCS; principal; 2025-10-01 07:00)
DX: Z45.010 Encounter for checking and testing of cardiac pacemaker pulse generator [battery] (principal); T82.110A Breakdown (mechanical) of cardiac electrode, initial encounter; R94.31 Abnormal electrocardiogram [ECG] [EKG]; R07.9 Chest pain, unspecified; R06.09 Other forms of dyspnea; R93.1 Abnormal findings on diagnostic imaging of heart and coronary circulation; I50.32 Chronic diastolic (congestive) heart failure; I11.0 Hypertensive heart disease with heart failure; I42.9 Cardiomyopathy, unspecified; I25.118 Atherosclerotic heart disease of native coronary artery with other forms of angina pectoris; I48.0 Paroxysmal atrial fibrillation; E11.9 Type 2 diabetes mellitus without complications; R53.83 Other fatigue; J44.9 Chronic obstructive pulmonary disease, unspecified; G47.33 Obstructive sleep apnea (adult) (pediatric); E78.2 Mixed hyperlipidemia; G20.C Parkinsonism, unspecified; R41.3 Other amnesia; I49.5 Sick sinus syndrome; Z86.73 Personal history of transient ischemic attack (TIA), and cerebral infarction without residual deficits; Z86.718 Personal history of other venous thrombosis and embolism; Z95.5 Presence of coronary angioplasty implant and graft; Z79.01 Long term (current) use of anticoagulants; Z79.84 Long term (current) use of oral hypoglycemic drugs; Z79.4 Long term (current) use of insulin; Z79.899 Other long term (current) drug therapy; Z79.85 Long-term (current) use of injectable non-insulin antidiabetic drugs; Z88.8 Allergy status to other drugs, medicaments and biological substances; Z82.49 Family history of ischemic heart disease and other diseases of the circulatory system; Y84.8 Other medical procedures as the cause of abnormal reaction of the patient, or of later complication, without mention of misadventure at the time of the procedure
CPT/HCPCS: 33207; 33233; 36415; 71045; 80048; 85025; 85610; C1769; C1785; C1894; C1898; J1200; J2003; J2004; J2250; J2704; J3010; J7030